=== PATIENT | male | born 1955 | race Two or more races ===

== ENCOUNTER 2020-02-22 06:41 | Day surgery (SDC) | payer MEDICARE, MEDICAID, SELFPAY ==
[2020-02-21 11:15] VITALS: BMI 25.0
--- NOTE | 2020-02-21 13:49 | HO.ANESPROP2 ---
Documented by User: Desi Hernándezney 02/21/20 13:59 HPI - Anesthesia Eval Consult details Narrative: 64yo M for Colonoscopy PMFSH Past Medical History Medical History Alcohol abuse Anemia Anxiety Bigeminal rhythm COPD (chronic obstructive pulmonary disease) Emphysema lung Hepatitis C HIV (human immunodeficiency virus infection) Methadone dependence Opioid dependence PAC (premature atrial contraction) Polio Pulmonary nodule Tobacco abuse Tubular adenoma of colon Surgical History Surgical History History of colonoscopy History of foot surgery History of hip surgery Social History Social History Smoking Status: Current every day smoker Smoked in Last 30 Days: Yes Patient Interested in Nicotine Replacement: No Patient Given Instructions on How to Stop Smoking: No Second Hand Smoke Exposure: No Use of substances other than those prescribed or required for medical reasons: No Advance Directives: No Advance Directives Information Provided: Yes Advance Directives on File: No Narrative Narrative: Cardiology OV 10/2019 = Stable, denies CP/SOB. PACs improved with decrease in ETOH consumption Meds Allergies Allergy/AdvReac Type Severity Reaction Status Date / Time No Known Allergies Allergy Verified 02/21/20 11:21 Home Medications Medication Instructions Recorded Confirmed Type acamprosate 2 tab PO TID 02/21/20 02/21/20 History cholecalciferol (vitamin D3) 1 tab PO DAILY 02/21/20 02/21/20 History dolutegravir [Tivicay] 1 tab PO DAILY 02/21/20 02/21/20 History emtricitabine-tenofovir alafen 1 tab PO DAILY 02/21/20 02/22/20 History [Descovy] ipratropium-albuterol [Combivent 1 puff PO QID 02/21/20 02/21/20 History Respimat] methadone 10 mg PO DAILY 02/21/20 02/21/20 History mirtazapine 1.5 tab PO BEDTIME 02/21/20 02/21/20 History multivitamin 1 tab PO DAILY 02/21/20 02/21/20 History omeprazole 1 cap PO DAILY 02/21/20 02/21/20 History thiamine mononitrate (vit B1) 1 tab PO DAILY 02/21/20 02/21/20 History trazodone 1 - 2 tab PO BEDTIME PRN 02/21/20 02/21/20 History varicella-zoster gE-AS01B (PF) IM 02/21/20 History [Shingrix (PF)] Exam Exam Date and Time: February 21, 2020 1349 Height,Weight and Vital Signs: Height 5 ft 5 in Weight 68.039 kg Pertinent Lab Results Pertinent Lab Results: Laboratory Tests 05/28/19 12/26/19 18:10 20:10 WBC 4.7 L Hgb 15.6 Hct 48.2 Plt Count 172 Sodium 141 Potassium 5.1 D Chloride 104 BUN 10 Creatinine 0.74 Laboratory Tests 02/12/19 08:25 Total Lymphocytes 1763 % CD3 Cells 68 Absolute CD3 Count 1204 % CD4 Cells 42 Absolute CD4 Count 740 T-Lymph CD4/CD8 Ratio 1.65 % CD8 Cells 25 Absolute CD8 Count 449 Narrative Narrative: ECHO 2019: Overall nml study except impared relaxation patter EKG 10/24/19: NSR @ 91 Holter 2019: Basic rhythm NSR, No long pause or profound umer, Rare PVC/PAC, One 6 beat run of PAT Assessment and Plan Assessment Anesthesia Assessment: Chart Reviewed Documented by User: Freda Long 02/22/20 07:29 [facility], [facility] Past Medical History Medical History Alcohol abuse Anemia Anxiety Bigeminal rhythm COPD (chronic obstructive pulmonary disease) Emphysema lung Hepatitis C HIV (human immunodeficiency virus infection) Methadone dependence Opioid dependence PAC (premature atrial contraction) Polio Pulmonary nodule Tobacco abuse Tubular adenoma of colon Surgical History Surgical History History of colonoscopy History of foot surgery History of hip surgery Social History Social History Smoking Status: Current every day smoker Smoked in Last 30 Days: Yes Patient Interested in Nicotine Replacement: No Patient Given Instructions on How to Stop Smoking: No Second Hand Smoke Exposure: No Use of substances other than those prescribed or required for medical reasons: No Advance Directives: No Advance Directives Information Provided: Yes Advance Directives on File: No Meds Allergies Allergy/AdvReac Type Severity Reaction Status Date / Time No Known Allergies Allergy Verified 02/21/20 11:21 Home Medications Medication Instructions Recorded Confirmed Type acamprosate 2 tab PO TID 02/21/20 02/21/20 History cholecalciferol (vitamin D3) 1 tab PO DAILY 02/21/20 02/21/20 History dolutegravir [Tivicay] 1 tab PO DAILY 02/21/20 02/21/20 History emtricitabine-tenofovir alafen 1 tab PO DAILY 02/21/20 02/22/20 History [Descovy] ipratropium-albuterol [Combivent 1 puff PO QID 02/21/20 02/21/20 History Respimat] methadone 10 mg PO DAILY 02/21/20 02/21/20 History mirtazapine 1.5 tab PO BEDTIME 02/21/20 02/21/20 History multivitamin 1 tab PO DAILY 02/21/20 02/21/20 History omeprazole 1 cap PO DAILY 02/21/20 02/21/20 History thiamine mononitrate (vit B1) 1 tab PO DAILY 02/21/20 02/21/20 History trazodone 1 - 2 tab PO BEDTIME PRN 02/21/20 02/21/20 History varicella-zoster gE-AS01B (PF) IM 02/21/20 History [Shingrix (PF)] Assessment and Plan Assessment Anesthesia Assessment: Anesthesia Plan Discussed, Smoking Cess. Discussed, PAT Visit and Chart Reviewed Final Anesthetic Review NPO: Yes ASA Class: II Final Preanesthetic Review: No Changes in Pt Med Stat, Meds/Allgs Chart Reviewed and Consent Obtained/Reviewed Patient Risk: Intermediate Procedure Risk: Low Anesthetic Plan Anesthetic Plan: MAC: Disposition: Standard PACU
[2020-02-22 06:55] VITALS: BP 138/80; PULSE 69; RESP 18; TEMP 36.2; O2SAT 95
[2020-02-22] MEDS: Lactated Ringers 1,000 ML 100 ML IVCONT (07:17)
--- NOTE | 2020-02-22 08:19 | MHC.SHP ---
Pre-Procedural Eval Section A The patient is an INPATIENT: No Changes since office visit: No Cold of Flu in the past 2 weeks, No New Medical Problems, No Changes in Medication and No Patient answered all questions Section B Chief Complaint: Colon Cancer Screening Details of Present Illness: hx of right colon polyp Relevant Family History (Specify if Yes): No Relevant Social History: Tobacco Use Present Medications: see Short Stay Collaborative assessment Medical History: Significant History (HIV, emphysema, ETOH abuse) History of Previous Operations: No relevant previous surgery Allergies: Allergies Allergy/AdvReac Type Severity Reaction Status Date / Time No Known Allergies Allergy Verified 02/21/20 11:21 Review of Systems Sugical H&P ROS: Negative: Constitution, Cardiovascular, Respiratory, Neurological, Psychiatric, Hem-Onc, Allergic/Immunologic, Gastrointestinal, Genitourinary, Musculoskeletal, Integumentary, Endocrine and Eyes/Ears/Nose/Throat Exam Surgical H&P Exam: Normal: HEENT, Normal: Heart, Normal: Lungs, Normal: Extremities, Normal: Abdomen, Normal: Skin and Normal: Neurological Plan Diagnosis/Plan: Unchanged Patient has been examined and remains a candidate for the planned procedure
[2020-02-22 08:48] VITALS: BP 131/76; PULSE 64; RESP 14; TEMP 36.8; O2SAT 98
--- NOTE | 2020-02-22 08:50 | PM.OP ---
Brief Operative Note Date of procedure: 02/22/20 Pre-op diagnosis: hx of adenoma Post-op diagnosis: same Procedure: colonoscopy Surgeon: William Lomeli MD Anesthesia: MAC Estimated blood loss (mL): 0 Condition: stable Disposition: PACU
[2020-02-22 08:53] VITALS: BP 122/75; PULSE 64; RESP 17; O2SAT 98
[2020-02-22 09:08] VITALS: BP 150/93; PULSE 70; RESP 20; TEMP 36.5; O2SAT 97
--- NOTE | 2020-02-22 09:40 | OP_ITS ---
SURGEON: William Lomeli MD INDICATIONS: The patient is a 64-year-old male with a large adenoma removed from the right colon in 2014. In view of this, I recommended a followup colonoscopy in 5 years. He understood the technique of the procedure. He was aware of the risks, benefits, and alternatives. PREOPERATIVE DIAGNOSIS: History of large polyp. POSTOPERATIVE DIAGNOSIS: Normal colonoscopy findings except for large external hemorrhoids and internal hemorrhoids. PROCEDURE PERFORMED: Colonoscopy. ESTIMATED BLOOD LOSS: COMPLICATIONS: ANESTHESIA: ASSISTANTS: SPECIMENS: DESCRIPTION OF PROCEDURE: He was brought to the operating room, placed in left lateral decubitus position under monitored anesthesia care. A full digital rectal exam was done. He did have large external and internal hemorrhoids. I proceeded to gently advance the scope with insufflation all the way to the cecum. The cecum was intubated. The cecum was identified by visualization of the ileocecal valve as well as appendiceal orifice. The cecal mucosa was unremarkable. The scope was gradually withdrawn with careful examination of the entire colonic mucosa being done with scope withdrawal. I made multiple passes in the right colon and there were no lesions or any polyps seen. We continued to withdraw the scope. The patient had good bowel prep, so it was unlikely that any lesion may have been missed. The rectum was reached and there were no lesions seen. There was bulky internal hemorrhoids. The scope was then withdrawn completely. The patient tolerated the procedure well. There were no complications noted. In view of these above findings, he falls at average risk for colon cancer, so his next colonoscopy may be in the next 10 years. MD [address]RISTIN Way/IKERL / [id number]
== END 2020-02-22 09:30 | disposition home or self-care (01) ==
PROVIDERS: Visit Provider Surgery
PROC: 0DJD8ZZ Inspection of Lower Intestinal Tract, Via Natural or Artificial Opening Endoscopic (ICD-10-PCS; CPT 45378; principal; 2020-02-22 07:30)
DX: Z12.11 Encounter for screening for malignant neoplasm of colon (principal); Z86.010 Personal history of colon polyps; K64.8 Other hemorrhoids; K64.4 Residual hemorrhoidal skin tags; J44.9 Chronic obstructive pulmonary disease, unspecified; B20 Human immunodeficiency virus [HIV] disease; Z79.899 Other long term (current) drug therapy; B19.20 Unspecified viral hepatitis C without hepatic coma; F10.10 Alcohol abuse, uncomplicated; F11.20 Opioid dependence, uncomplicated; F17.210 Nicotine dependence, cigarettes, uncomplicated; Z86.12 Personal history of poliomyelitis; Z79.51 Long term (current) use of inhaled steroids
CPT/HCPCS: G0105

== ENCOUNTER 2020-06-20 11:36 | Outpatient (REF) | payer MEDICARE, MEDICAID, SELFPAY ==
--- NOTE | ~2020-06-20 | CT_ITS ---
EXAMINATION: CT CHEST WITHOUT CONTRAST CLINICAL INFORMATION: Right upper lobe pulmonary nodule COMPARISON: 05/07/2019, 11/15/2018, and 10/14/2017 TECHNIQUE: Multidetector volumetric CT imaging of the chest was done. Axial MIP volume rendering provided. Sagittal and coronal reformatted images were obtained. This CT examination was performed using dose optimization techniques as appropriate, variously including the following: *Automated exposure control *Adjustment of mA and/or kV according to patient size (this includes techniques or standardized protocols for targeted exams where dose is matched to indication/reason for exam; i.e. extremities or head) *Use of iterative reconstruction technique DLP: 156 mGy-cm FINDINGS: LUNGS: Central airways are patent. There are prominent changes of centrilobular and paraseptal emphysema bilaterally which is similar in appearance to previous study of 05/07/2019. There is some mild bronchial wall thickening evident within the basilar segments of the right and left lower lobes. There is mild cylindrical bronchiectasis in the basilar segments bilaterally. There has been improvement in previously noted bilateral lower lobe disease which most likely related to atelectasis at that time. There are a few 4 mm or smaller intrafissural lymph nodes present. There are some scattered calcified granulomas and question broncholiths. About the left apex there is more of a linear calcification present and question if patient had previous surgery in this location such as bullectomy/tacking down pleural surface. There is again noted to be a stable 7 x 5 mm density within the right upper lobe which is not calcified on image 89 of 556 in series #5. There is some stable adjacent ground-glass opacity seen. There is a 4 mm noncalcified density adjacent to major fissure in the right upper lobe on image 129 of 556. This is stable. MEDIASTINUM: Heart normal size. Coronary artery calcification present. No pericardial effusion. No thoracic aortic aneurysm. No mediastinal or hilar lymphadenopathy appreciated. PLEURA: There is no pleural effusion. No pleural mass or thickening. AXILLA: No lymphadenopathy. UPPER ABDOMEN: There is a small hiatal hernia. OSSEOUS STRUCTURES: No suspicious destructive bony lesion identified. There is severe degenerative change of the right shoulder with loss of the glenohumeral joint space with spurring and sclerosis and subchondral cyst formation. There is degenerative change of the left shoulder but with joint space still being present. Subchondral cyst formation is seen. CT/CT chest wo con IMPRESSION: Severe changes of centrilobular and paraseptal emphysema. Stable parenchymal densities with no new more suspicious lesion appreciated. Old granulomatous disease.
== END 2020-06-20 11:37 | disposition home or self-care (01) ==
LOC: HO.CT 11:36
PROVIDERS: PCP Family Medicine; Visit Provider Surgery
DX: R91.1 Solitary pulmonary nodule (principal)
CPT/HCPCS: 71250

== ENCOUNTER → 2020-08-01 09:21 | Outpatient (BNVA) | payer MEDICARE, MEDICAID, SELFPAY | PROVIDERS: PCP Family Medicine; Visit Provider Surgery | DX: R91.1 Solitary pulmonary nodule (principal); F17.210 Nicotine dependence, cigarettes, uncomplicated; Z79.899 Other long term (current) drug therapy | CPT/HCPCS: 99212 ==

== ENCOUNTER 2020-08-24 19:38 | Emergency (ER) | payer MEDICARE, MEDICAID, SELFPAY ==
--- NOTE | 2020-08-24 19:41 | ED.ALCOHOL ---
HPI - Alcohol General Chief Complaint: General Medical Stated Complaint: ams Time Seen by Provider: 08/24/20 19:41 Source: patient and EMS Mode of arrival: EMS Limitations: no limitations History of Present Illness HPI narrative: 65 yo male ETOH, COPD, GERD, WC bound drinking at home watching cartoons [facility] called EMS states he was acting weird, patient alert and oriented x 4 with EMS wanted to refuse transport, states he should be allowed to drink in his home and watch cartoons, no trauma reported BS 121 MD complaint: alcohol dependence Last drink: Just prior to admission Chronic alcohol use: Yes Previous visits for alcohol intoxication: Yes Recent trauma: No Associated symptoms: denies other symptoms Treatments prior to arrival: none Related Data Home Medications Medication Instructions Recorded Confirmed acamprosate 2 tab PO TID 02/21/20 08/01/20 cholecalciferol (vitamin D3) 1 tab PO DAILY 02/21/20 08/01/20 dolutegravir [Tivicay] 1 tab PO DAILY 02/21/20 08/01/20 emtricitabine-tenofovir alafen 1 tab PO DAILY 02/21/20 08/01/20 [Descovy] ipratropium-albuterol [Combivent 1 puff PO QID 02/21/20 08/01/20 Respimat] methadone 10 mg PO DAILY 02/21/20 08/01/20 mirtazapine 1.5 tab PO BEDTIME 02/21/20 08/01/20 multivitamin 1 tab PO DAILY 02/21/20 08/01/20 omeprazole 1 cap PO DAILY 02/21/20 08/01/20 thiamine mononitrate (vit B1) 1 tab PO DAILY 02/21/20 08/01/20 trazodone 1 - 2 tab PO BEDTIME PRN 02/21/20 08/01/20 varicella-zoster gE-AS01B (PF) IM 02/21/20 08/01/20 [Shingrix (PF)] Allergies Allergy/AdvReac Type Severity Reaction Status Date / Time No Known Allergies Allergy Verified 08/01/20 09:29 Review of Systems Review of Systems: Constitutional : No Fever, No Chills ENT/Mouth : No sore throat, No Rhinorrhea Eyes: No Eye Pain, No Swelling Cardiovascular : No Chest Pain, No SOB Respiratory : No Cough, No Sputum, No Wheezing Gastrointestinal : No Nausea, No Vomiting, No Diarrhea, No abdominal Pain Genitourinary : No Dysuria, No Urinary Frequency Musculoskeletal : No joint pain, No Myalgias Skin : No Skin Lesions, No rash Neuro : No Weakness, No Numbness, No Dizziness, No Headache Psych : No Anxiety/Panic, No Depression [facility] Past Medical History Attestation statement: The following information was validated with the patient. Medical History Alcohol abuse Anemia Anxiety Bigeminal rhythm COPD (chronic obstructive pulmonary disease) Emphysema lung Hepatitis C HIV (human immunodeficiency virus infection) Methadone dependence Opioid dependence PAC (premature atrial contraction) Polio Pulmonary nodule Tobacco abuse Tubular adenoma of colon Surgical History History of colonoscopy History of foot surgery History of hip surgery Social History Social History Alcohol intake: current Alcohol intake frequency: a few times a week Alcohol type: beer and hard liquor Smoking Status: Never smoker Cigarettes Per Day: 5.0 Second Hand Smoke Exposure: No Use of substances other than those prescribed or required for medical reasons: No Advance Directives: No Physical Exam Vital Signs: Vital Signs: Last Vital Signs Temp 97.6 F 08/24/20 19:52 Pulse 88 08/24/20 19:52 Resp 18 08/24/20 19:52 BP 132/89 08/24/20 19:52 Pulse Ox 94 08/24/20 19:52 Body Mass Index 20.5 Appearance: Alert. Oriented X3. No acute distress. Eyes: Pupils equal, round and reactive to light. ENT: Pharynx normal. Neck: Normal inspection. Neck supple. CVS: Normal heart rate and rhythm. Pulses normal. Respiratory: No respiratory distress. Breath sounds normal. Abdomen: Soft and nontender. Skin: Skin warm and dry. Normal skin color. Normal skin turgor. Extremities: No lower extremity edema. No calf ttp Neuro: Oriented X 3. No focal deficits, uses wheelchair MDM - Alcohol MDM Narrative Medical decision making narrative: 65 yo male with GERD, HIV, COPD, chronic pain and ETOH abuse comes in after [facility] [facility] told EMS he was watching cartoons, drinking and talking to himself - the patient states he does this all the time, he is alert and oriented x 4, appropriate, states he likes cartoons in fact he has a cheri roman, BS 121 with EMS, admits to daily drinking, has no signs of trauma, he is appropriate does not appear severely intoxicated answering all questions, refusing care and wants to go home - states he should be allowed to drink in his own home and watch cartoons, RN to call [employer] [facility], I cannot keep the patient against its will at this time Discharge Plan Discharge Clinical Impression: Alcohol intoxication Qualifiers: Complication of substance-induced condition: uncomplicated Qualified Code(s): F10.920 - Alcohol use, unspecified with intoxication, uncomplicated Patient Disposition: Home, Self-Care Instructions: Alcohol Intoxication (ED) Additional Instructions: return to ED for any worsening symptoms or concerns Prescriptions: No Action multivitamin Tablet 1 tab PO DAILY RF: 0 methadone 10 mg Tablet 10 mg PO DAILY RF: 0 trazodone 100 mg tablet 1 - 2 tab PO BEDTIME PRN (Reason: Sleep) RF: 0 omeprazole 20 mg capsule,delayed release(DR/EC) 1 cap PO DAILY RF: 0 mirtazapine 15 mg tablet 1.5 tab PO BEDTIME RF: 0 acamprosate 333 mg tablet,delayed release (DR/EC) 2 tab PO TID RF: 0 cholecalciferol (vitamin D3) 50 mcg (2,000 unit) tablet 1 tab PO DAILY RF: 0 thiamine mononitrate (vit B1) 100 mg tablet 1 tab PO DAILY RF: 0 Tivicay 50 mg tablet 1 tab PO DAILY RF: 0 Combivent Respimat 20-100 mcg/actuation mist 1 puff PO QID RF: 0 Descovy 200-25 mg tablet 1 tab PO DAILY RF: 0 Shingrix (PF) 50 mcg/0.5 mL suspension for reconstitution IM RF: 0
[2020-08-24 19:52] VITALS: BP 132/89; PULSE 88; RESP 18; TEMP 36.4; O2SAT 94; BMI 20.5
== END 2020-08-24 20:59 | disposition home or self-care (01) ==
LOC: HO.ED 19:55
PROVIDERS: Emergency Provider Emergency Medicine
DX: F10.220 Alcohol dependence with intoxication, uncomplicated (principal); Y90.9 Presence of alcohol in blood, level not specified; J44.9 Chronic obstructive pulmonary disease, unspecified; K21.9 Gastro-esophageal reflux disease without esophagitis; F11.20 Opioid dependence, uncomplicated; B20 Human immunodeficiency virus [HIV] disease
CPT/HCPCS: 99284

== ENCOUNTER → 2020-11-20 12:51 | Outpatient (BNVA) | payer MEDICARE, MEDICAID, SELFPAY | PROVIDERS: Referring Provider Family Medicine; Visit Provider Internal Medicine Cardiovascular Disease | DX: I49.8 Other specified cardiac arrhythmias (principal); F11.20 Opioid dependence, uncomplicated | CPT/HCPCS: 93005; 99212 ==

== ENCOUNTER 2021-01-29 08:47 | Outpatient (REF) | payer MEDICARE, MEDICAID, SELFPAY ==
--- NOTE | ~2021-01-29 | US_ITS ---
EXAMINATION: US ABDOMEN COMPLETE CLINICAL INFORMATION: Diseases of the digestive system. COMPARISON: Abdominal ultrasound 10/09/2018 TECHNIQUE: Real-time imaging of the abdominal viscera. Exam is limited due to patient body habitus and bowel gas. FINDINGS: PANCREAS: Not well visualized due to bowel gas ABDOMINAL AORTA: Not well visualized due to bowel gas INFERIOR VENA CAVA: Visualized portions are normal. LIVER: The liver is normal in size. The liver contour is normal. Liver echotexture is increased. No focal hepatic lesion. There is no intrahepatic biliary duct dilatation seen. GALLBLADDER: There is a gallstone in the gallbladder. The gallbladder is normal in size. The gallbladder wall is normal. COMMON BILE DUCT: Normal in caliber measuring 0.38 cm in diameter. RIGHT KIDNEY: Normal. No hydronephrosis. No renal calculi or focal parenchymal lesions. The kidney measures 11.3 cm in maximum dimension. LEFT KIDNEY: Normal. No hydronephrosis. No renal calculi or focal parenchymal lesions. The kidney measures 10.2 cm in maximum dimension. SPLEEN: Normal. The spleen measures 8.7 cm in maximum dimension. FREE FLUID: None. US/US abdomen complete IMPRESSION: Echogenic liver. Gallstone. Limited visualization of the pancreas and aorta.
== END 2021-01-29 08:48 | disposition home or self-care (01) ==
LOC: HO.US 08:47
PROVIDERS: PCP Family Medicine; Visit Provider Family Medicine
DX: Z87.19 Personal history of other diseases of the digestive system (principal)
CPT/HCPCS: 76700

== ENCOUNTER 2021-02-26 18:21 | Emergency (ER) | payer MEDICARE, MEDICAID, SELFPAY ==
--- NOTE | ~2021-02-26 | CT_ITS ---
EXAMINATION: CT HEAD WITHOUT CONTRAST (STROKE PROTOCOL) CLINICAL INFORMATION: Stroke protocol. Left-sided weakness COMPARISON: 05.02.2017 TECHNIQUE: Contiguous axial imaging was performed from the skull base to vertex without intravenous administration of contrast. This CT examination was performed using dose optimization techniques as appropriate, variously including the following: *Automated exposure control *Adjustment of mA and/or kV according to patient size (this includes techniques or standardized protocols for targeted exams where dose is matched to indication/reason for exam; i.e. extremities or head) *Use of iterative reconstruction technique DLP: 673 mGy-cm FINDINGS: There is no intracranial hemorrhage, hematoma, or extra-axial fluid collection. The ventricles are normal in size. There is no hydrocephalus, edema, or mass effect. The robb-white matter differentiation appears symmetric. There is no acute infarct or mass lesion. Patchy subcortical and periventricular white matter low-attenuation changes statistically related to chronic white matter small vessel ischemic disease. Cavernous carotid calcifications. The calvarium appears intact. There is no pneumocephalus or orbital emphysema. The visualized sinuses and middle ears and mastoid air cells show no significant mucosal thickening. There are no air-fluid levels. CT/CT head for stroke IMPRESSION: No acute intracranial pathology. This critical result was discussed with Elmer Trevino MD at 02/26/2021 7:10 PM and it was ascertained that the content and urgency of the report was understood at the time of direct communication.
[2021-02-26 18:34] VITALS: BP 136/91; PULSE 96; RESP 96; O2SAT 98; BMI 22.4
--- NOTE | 2021-02-26 18:47 | ECG_ITS ---
Test Reason : ? storke Blood Pressure : / mmHG Vent. Rate : 079 BPM Atrial Rate : 079 BPM P-R Int : 164 ms QRS Dur : 106 ms QT Int : 418 ms P-R-T Axes : 047 054 062 degrees QTc Int : 479 ms Normal sinus rhythm Low voltage QRS Intra-ventricular conduction delay Nonspecific ST abnormality Abnormal ECG No Previous EKG's Referred By: Elmer Lopes Electronically Signed By:PETER OLIVAS MD
--- NOTE | 2021-02-26 18:52 | ED.NEUROSD ---
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 Patient felt slightly weak in the left arm also has paraplegia secondary to polio with minimal movements of the lower extremity no headache never had similar complaints in the past Related Data Home Medications Medication Instructions Recorded Confirmed acamprosate 333 mg tablet,delayed 2 tab PO TID 02/21/20 08/01/20 release cholecalciferol (vitamin D3) 50 1 tab PO DAILY 02/21/20 08/01/20 mcg (2,000 unit) tablet dolutegravir 50 mg tablet (Tivicay) 1 tab PO DAILY 02/21/20 08/01/20 emtricitabine 200 mg-tenofovir 1 tab PO DAILY 02/21/20 08/01/20 alafenamide fumarate 25 mg tablet (Descovy) ipratropium 20 mcg-albuterol 100 1 puff PO QID 02/21/20 08/01/20 mcg/actuation mist for inhalation (Combivent Respimat) methadone 10 mg tablet 10 mg PO DAILY 02/21/20 08/01/20 mirtazapine 15 mg tablet 1.5 tab PO BEDTIME 02/21/20 08/01/20 multivitamin 1 tab PO DAILY 02/21/20 08/01/20 omeprazole 20 mg capsule,delayed 1 cap PO DAILY 02/21/20 08/01/20 release thiamine mononitrate (vit B1) 100 1 tab PO DAILY 02/21/20 08/01/20 mg tablet trazodone 100 mg tablet 1 - 2 tab PO BEDTIME PRN 02/21/20 08/01/20 varicella-zoster glycoE [id number] IM 02/21/20 08/01/20 adj(PF) 50 mcg/0.5 mL IM susp, kit (Shingrix (PF)) Allergies Allergy/AdvReac Type Severity Reaction Status Date / Time No Known Allergies Allergy Verified 11/20/20 13:24 Review of Systems Review of Systems: Yes all other systems are reviewed and are negative [facility] Past Medical History Medical History Alcohol abuse Anemia Anxiety Bigeminal rhythm COPD (chronic obstructive pulmonary disease) Emphysema lung Hepatitis C HIV (human immunodeficiency virus infection) Methadone dependence Opioid dependence PAC (premature atrial contraction) Polio Pulmonary nodule Tobacco abuse Tubular adenoma of colon Surgical History History of colonoscopy History of foot surgery History of hip surgery Social History Social History Alcohol intake: current Alcohol intake frequency: 3 or more drinks per day Alcohol type: beer and hard liquor Patient Tobacco Use Status: Current everyday Tobacco user Tobacco use type: Cigarette Cigarettes Per Day: 2.0 Second Hand Smoke Exposure: No Use of substances other than those prescribed or required for medical reasons: Yes Substance Use Type: Heroin Substance Use Frequency: Chronic Longstanding Last Used Substance: Hours (ago) Any prior treatment program specific to substance use: No Advance Directives: No Advance Directives Information Provided: Yes Physical Exam Vital Signs: Vital Signs: Last Vital Signs Pulse 72 02/26/21 19:32 Resp 12 02/26/21 19:32 BP 120/73 02/26/21 19:32 Pulse Ox 93 02/26/21 19:32 Body Mass Index 24.6 Appearance: Alert. Oriented X3. No acute distress. Eyes: PERRLA, No Nystagmus ENT: Pharynx normal. Oral Mucosa moist Neck: Normal inspection. Neck supple. CVS: Normal heart rate and rhythm. Pulses normal. Respiratory: No respiratory distress. Equal air entry bilateral, no wheezing/rales/rhonchi Abdomen: Soft and nontender. Bowel sounds are present, no mass palpable, no CVA tenderness Skin: Skin warm and dry. Normal skin color. Normal skin turgor. Extremities: No lower extremity edema. No calf tenderness Neuro: Oriented X 3. Paraparesis, able to stand up with crutches, no pronator drift No sensory deficit.No cerebellar signs , slow to speak no significant facial droop MDM - Neuro Symptoms/Deficit MDM Narrative Medical decision making narrative: 19:[address] scan of the head is negative for acute stroke. On further discussion patient said patient had few drinks today and had 1 bag of dope 20:40 patient ambulatory at his baseline talking normally no facial droop noticed workup negative likely patient sent from substance abuse and alcohol will discharge patient home Lab Data Attestation: I reviewed the patient's lab results. Result diagrams: 02/26/21 19:33 02/26/21 19:33 Labs: Lab Results 02/26/21 02/26/21 02/26/21 Range/Units 18:51 18:51 19:33 WBC 4.6 L (4.8-10.8) X10*3/uL RBC 4.94 (4.60-5.80) X10*6/uL Hgb 14.6 (14.0-18.0) g/dl Hct 43.4 (42.0-52.0) % MCV 87.9 (80.0-98.0) fL MCH 29.6 (27.0-33.0) pg MCHC 33.6 (31.0-36.0) g/dl RDW 14.0 (11.0-16.0) % Plt Count 211 (160-400) X10*3/uL MPV 9.4 (9.4-12.4) fL Immature Gran % (Auto) 0.2 (0.0-0.4) % Neut % (Auto) 50.4 (45-73) % Lymph % (Auto) 32.0 (20-40) % [place] % (Auto) 10.0 (2-11) % Eos % (Auto) 6.5 H (0-4) % Baso % (Auto) 0.9 (0-2) % Lymph # (Auto) 1.5 (1.2-4.9) X10*3/uL [place] # (Auto) 0.5 (0.1-1.2) X10*3/uL Eos # (Auto) 0.3 (0.0-0.4) X10*3/uL Baso # (Auto) 0.0 (0.0-0.2) X10*3/uL Abs Immat Gran (auto) 0.01 (0.00-0.03) X10*3/uL Absolute Neuts (auto) 2.3 (2.0-8.3) x10*3/uL Absolute Nucleated RBC 0.000 (0.0-0.012) X10*3/uL Nucleated RBC % (auto) 0.0 (0.0-0.2) /100WBC PT (9.9-13.0) SEC Whole Blood PT 12.6 (11.1-13.5) sec INR (0.9-1.1) Whole Blood INR 1.1 (0.9-1.1) Sodium (135-145) mmol/L Potassium (3.3-5.1) mmol/L Chloride (96-108) mmol/L Carbon Dioxide (22-29) mmol/L Anion Gap (12-20) BUN (9-16) mg/dL Creatinine (0.5-1.4) mg/dL Estim Creat Clear Calc Estimated GFR POC Glucose 94 (60-115) mg/dL Random Glucose (60-115) mg/dL Calcium (8.4-10.2) mg/dL Ethyl Alcohol mg/dL 02/26/21 02/26/21 02/26/21 Range/Units 19:33 19:33 19:33 WBC (4.8-10.8) X10*3/uL RBC (4.60-5.80) X10*6/uL Hgb (14.0-18.0) g/dl Hct (42.0-52.0) % MCV (80.0-98.0) fL MCH (27.0-33.0) pg MCHC (31.0-36.0) g/dl RDW (11.0-16.0) % Plt Count (160-400) X10*3/uL MPV (9.4-12.4) fL Immature Gran % (Auto) (0.0-0.4) % Neut % (Auto) (45-73) % Lymph % (Auto) (20-40) % [place] % (Auto) (2-11) % Eos % (Auto) (0-4) % Baso % (Auto) (0-2) % Lymph # (Auto) (1.2-4.9) X10*3/uL [place] # (Auto) (0.1-1.2) X10*3/uL Eos # (Auto) (0.0-0.4) X10*3/uL Baso # (Auto) (0.0-0.2) X10*3/uL Abs Immat Gran (auto) (0.00-0.03) X10*3/uL Absolute Neuts (auto) (2.0-8.3) x10*3/uL Absolute Nucleated RBC (0.0-0.012) X10*3/uL Nucleated RBC % (auto) (0.0-0.2) /100WBC PT 11.5 (9.9-13.0) SEC Whole Blood PT (11.1-13.5) sec INR 1.0 (0.9-1.1) Whole Blood INR (0.9-1.1) Sodium 137 (135-145) mmol/L Potassium 4.0 (3.3-5.1) mmol/L Chloride 96 (96-108) mmol/L Carbon Dioxide 31 H (22-29) mmol/L Anion Gap 14 (12-20) BUN 10 (9-16) mg/dL Creatinine 0.73 (0.5-1.4) mg/dL Estim Creat Clear Calc 88.9 Estimated GFR > 60 POC Glucose (60-115) mg/dL Random Glucose 102 (60-115) mg/dL Calcium 8.6 (8.4-10.2) mg/dL Ethyl Alcohol 138 mg/dL ECG Data Attestation: I personally reviewed and interpreted this ECG as follows: Interpretation: Normal sinus rhythm heart rate 79 beats per minute normal intervals normal axis no acute ischemia NIH Stroke Scale Internal: Initial- Upon Arrival Level of Consciousness: Alert Level of Consciousness Questions: Answers both questions correctly Level of Consciousness Commands: Performs both tasks correctly Best Gaze: Normal Visual: No visual loss Facial Palsy: Normal Motor Arm (Right): No drift Motor Arm (Left): No drift Limb Ataxia: Absent Sensory: Normal Best Language: No aphasia Dysarthia: Mild to moderate dysarthria Extinction and Inattention: No abnormality Discharge Plan Discharge Clinical Impression: Alcohol abuse Transient cerebral ischemia Qualifiers: Transient cerebral ischemia type: unspecified Qualified Code(s): G45.9 - Transient cerebral ischemic attack, unspecified Patient Disposition: Home, Self-Care Instructions: Transient Ischemic Attack (ED), Abuse of Alcohol (ED) Additional Instructions: Stop drinking alcohol and do not take heroin Follow-up with PCP/detox Prescriptions: No Action multivitamin Tablet 1 tab PO DAILY RF: 0 methadone 10 mg Tablet 10 mg PO DAILY RF: 0 trazodone 100 mg tablet 1 - 2 tab PO BEDTIME PRN (Reason: Sleep) RF: 0 omeprazole 20 mg capsule,delayed release(DR/EC) 1 cap PO DAILY RF: 0 mirtazapine 15 mg tablet 1.5 tab PO BEDTIME RF: 0 acamprosate 333 mg tablet,delayed release (DR/EC) 2 tab PO TID RF: 0 cholecalciferol (vitamin D3) 50 mcg (2,000 unit) tablet 1 tab PO DAILY RF: 0 thiamine mononitrate (vit B1) 100 mg tablet 1 tab PO DAILY RF: 0 Tivicay 50 mg tablet 1 tab PO DAILY RF: 0 Combivent Respimat 20-100 mcg/actuation mist 1 puff PO QID RF: 0 Descovy 200-25 mg tablet 1 tab PO DAILY RF: 0 Shingrix (PF) 50 mcg/0.5 mL suspension for reconstitution IM RF: 0
[2021-02-26 18:56] LABS: Glucose, Whole Blood 94 mg/dL (60-115)
--- NOTE | 2021-02-26 19:10 | PC.NURSE ---
patient on ct scan table refusing iv access, one attempt was made by arlin casanova for access. once attempt made for iv patient screaming butterfly only . yelling to have iv taken out prior to gaining access. patient able to scoot himself over onto a weighted bed. eight is 67.1 kg. patient asking this rn to organize his belongings in his room and for lotion for his dry skin. informing patient that this rn and staff is concerned over the complaint patient came in with for stroke like symptoms. patient able to move both arms equally. patient having no change to speech according to patient. able to stand and pivot to the ct scan table without difficulty.
--- NOTE | 2021-02-26 19:21 | PC.NURSE ---
PATIENT HAVING NO DEFICITS, EVALUATED BY THIS RN AND . PATIENT IS ALERT AND ORIENTED NO DISTRESS NOTED. PATIENT RETURNING TO ROOM AND EKG OBTAINED. PATIENT STATING HE HAD A FEW BEERS TODAY AND A NIP AND 1 BAG OF DOPE THIS AFTERNOON. PATIENT HAS A HISTORY OF POLIO AND DOES NOT AMBULATE OR HAVING MUCH MOBILITY IN THE LOWER EXTREMITIES. PATIENT WAS ABLE TO STAND AND PIVOT TO THE CT TABLE WITHOUT DIFFICULTY. NO FURTHER ATTEMPT MADE FOR IV ACCESS. ATTEMPTS MADE FOR LABS.
[2021-02-26 19:26] LABS: Prothrombin Time Whole Bld POC 12.6 sec (11.1-13.5); ~PT, ~INR - Anti Coag Clinic 1.1 (0.9-1.1)
[2021-02-26 19:32] VITALS: BP 120/73; PULSE 72; RESP 12; O2SAT 93
[2021-02-26 19:36] VITALS: BMI 24.6
[2021-02-26 19:38] LABS: MANUAL DIFF FLAG NO
[2021-02-26 19:39] LABS: Basophils Percent Auto 0.9 % (0-2); Eosinophils Absolute Auto 0.3 X10*3/uL (0.0-0.4); Eosinophils Percent Auto 6.5 % (0-4); Hematocrit 43.4 % (42.0-52.0); Hemoglobin 14.6 g/dl (14.0-18.0); Imm Gran Abs Auto 0.01 X10*3/uL (0.00-0.03); Imm Gran Pct Auto 0.2 % (0.0-0.4); Lymphocytes Absolute Auto 1.5 X10*3/uL (1.2-4.9); Mean Corpuscular HGB Conc 33.6 g/dl (31.0-36.0); Mean Corpuscular Hemoglobin 29.6 pg (27.0-33.0); Mean Corpuscular Volume 87.9 fL (80.0-98.0); Mean Platelet Volume 9.4 fL (9.4-12.4); Monocytes Absolute Auto 0.5 X10*3/uL (0.1-1.2); Neutrophils Absolute Auto 2.3 x10*3/uL (2.0-8.3); Neutrophils Percent Auto 50.4 % (45-73); Platelet Count 211 X10*3/uL (160-400); Red Blood Count 4.94 X10*6/uL (4.60-5.80); White Blood Count 4.6 X10*3/uL (4.8-10.8)
[2021-02-26 19:47] LABS: Prothrombin Time 11.5 SEC (9.9-13.0)
[2021-02-26 19:49] LABS: Stroke Lab Use COMPLETE
[2021-02-26 19:55] LABS: Ethanol 138 mg/dL
[2021-02-26 19:56] LABS: Anion Gap 14 (12-20); Blood Urea Nitrogen 10 mg/dL (9-16); Calcium 8.6 mg/dL (8.4-10.2); Carbon Dioxide 31 mmol/L (22-29); Chloride 96 mmol/L (96-108); Creatinine Clr Calc Pharmacy 88.9; Estimated Glomerular Filt Rate > 60; Glucose Random 102 mg/dL (60-115); Sodium 137 mmol/L (135-145)
--- NOTE | 2021-02-26 20:41 | PC.NURSE ---
PATIENT CALLING HIS RIDE HOME, PATIENT ABLE TO DRESS HIMSELF NO DISTRESS NOTED. CHRISTY IS Michelle Almanza,W. TO REEVALUATE
== END 2021-02-26 21:03 | disposition home or self-care (01) ==
PROVIDERS: Emergency Provider Internal Medicine; PCP Family Medicine
DX: G45.9 Transient cerebral ischemic attack, unspecified (principal); F10.10 Alcohol abuse, uncomplicated; G82.20 Paraplegia, unspecified; J44.9 Chronic obstructive pulmonary disease, unspecified; Z21 Asymptomatic human immunodeficiency virus [HIV] infection status; F11.20 Opioid dependence, uncomplicated; Z86.19 Personal history of other infectious and parasitic diseases; Z99.3 Dependence on wheelchair
CPT/HCPCS: 36415; 70450; 80048; 82077; 82947; 85025; 85610; 93005; 99284

== ENCOUNTER 2021-03-24 10:50 | Outpatient (REF) | payer MEDICARE, MEDICAID, SELFPAY ==
--- NOTE | ~2021-03-24 | MR_ITS ---
EXAMINATION: MRI OF THE BRAIN WITHOUT CONTRAST CLINICAL INFORMATION: History of TIA. Assess for ischemic stroke. COMPARISON: CT scan of the head 02/26/2021. TECHNIQUE: MRI of the brain was obtained using routine sequences without contrast. FINDINGS: There is a small focus of slightly increased diffusion signal with isointense ADC map signal and with corresponding hyperintense FLAIR signal in the anterior right frontal lobe inferiorly and medially, consistent with a subacute infarct. There is no evidence of hemorrhage. No diffusion abnormalities are seen elsewhere. No mass effect or midline shift is seen. There is commensurate prominence of the ventricles and sulci consistent with mild diffuse volume loss. There are moderate scattered areas of hyperintense T2 and FLAIR signal in the periventricular and subcortical white matter and in the right cerebral peduncle, most consistent with chronic microvascular ischemic changes. No extra-axial fluid collections are seen. The brainstem and cerebellum are normal. No pathologic magnetic susceptibility artifact is identified on the gradient refocused acquisition. The craniovertebral junction, marrow signal, and midline structures are normal. The major intracranial flow-voids at the level of the [place] are preserved. There are severe spondylitic changes in the upper cervical spine with marked narrowing of intervertebral disc height and endplate signal changes at C3-C4. The dural venous sinus flow-voids are maintained. The mastoid air cells are well-aerated. There is mild mucoperiosteal thickening of the bilateral maxillary and ethmoid sinuses. MR/MR head/brain wo con IMPRESSION: 1. There is a small focus of increased diffusion signal without restriction in the right frontal lobe, consistent with a subacute infarct. There is no evidence of hemorrhage. No masses are demonstrated. 2. There is diffuse volume loss and there are chronic microvascular ischemic changes. 3. There are severe spondylitic changes in the cervical spine which could be further evaluated with MRI scan if clinically indicated.
== END 2021-03-24 10:51 | disposition home or self-care (01) ==
LOC: HO.MRI 10:50
PROVIDERS: Visit Provider Nurse Practitioner Family
DX: G45.9 Transient cerebral ischemic attack, unspecified (principal)
CPT/HCPCS: 70551

== ENCOUNTER 2021-03-30 10:14 | Outpatient (REF) | payer MEDICARE, MEDICAID, SELFPAY ==
[2021-03-30 11:55] LABS: MANUAL DIFF FLAG NO
[2021-03-30 12:50] LABS: Basophils Percent Auto 0.5 % (0-2); Eosinophils Absolute Auto 0.3 X10*3/uL (0.0-0.4); Eosinophils Percent Auto 4.1 % (0-4); Hemoglobin 14.6 g/dl (14.0-18.0); Imm Gran Abs Auto 0.01 X10*3/uL (0.00-0.03); Imm Gran Pct Auto 0.2 % (0.0-0.4); Lymphocytes Absolute Auto 1.5 X10*3/uL (1.2-4.9); Lymphocytes Percent Auto 24.8 % (20-40); Mean Corpuscular HGB Conc 33.2 g/dl (31.0-36.0); Mean Corpuscular Hemoglobin 29.5 pg (27.0-33.0); Mean Corpuscular Volume 88.9 fL (80.0-98.0); Mean Platelet Volume 9.7 fL (9.4-12.4); Monocytes Absolute Auto 0.5 X10*3/uL (0.1-1.2); Monocytes Percent Auto 8.9 % (2-11); Neutrophils Absolute Auto 3.7 x10*3/uL (2.0-8.3); Neutrophils Percent Auto 61.5 % (45-73); Platelet Count 217 X10*3/uL (160-400); Red Blood Count 4.95 X10*6/uL (4.60-5.80); Red Cell Distribution Width 15.7 % (11.0-16.0); White Blood Count 6.1 X10*3/uL (4.8-10.8)
[2021-03-30 13:18] LABS: Alanine Aminotransferase 22 U/L (0-40); Alkaline Phosphatase 138 U/L (39-117); Anion Gap 12 (12-20); Aspartate Amino Transferase 34 U/L (5-37); Blood Urea Nitrogen 16 mg/dL (9-16); Calcium 9.3 mg/dL (8.4-10.2); Carbon Dioxide 33 mmol/L (22-29); Chloride 98 mmol/L (96-108); Estimated Glomerular Filt Rate > 60; Glucose Random 87 mg/dL (60-115); Potassium 3.6 mmol/L (3.3-5.1); Sodium 139 mmol/L (135-145); Total Protein 8.4 g/dL (6.5-8.0)
[2021-03-31 04:14] LABS: HBc Num1 10.54 S/CO (0.00-0.79); Hepatitis B Surface Antigen Negative (Negative); ~HepC Num1 15.66 S/CO (0.00-0.79); ~Hepatitis C Antibody Reactive (Nonreactive)
[2021-03-31 04:20] LABS: ~Hepatitis B Surface Antibody NONREACTIVE (Nonreactive)
[2021-03-31 04:59] LABS: HBc Num2 10.78 S/CO; HBc Num3 10.47 S/CO; Hepatitis B Core Antibody Reactive (Nonreactive)
[2021-04-01 04:16] LABS: Hepatitis A Antibody IgM 0.17 Index (0-0.79); ~Hepatitis A Antibody IgM Nonreactive (Nonreactive)
[2021-04-02 09:30] LABS: Hepatitis B Core Antibody IgM NON-REACTIVE (NON-REACTIVE)
[2021-04-02 19:22] LABS: FIB-ALT 22 U/L (9-46); FIB-Alpha-2-Macroglobulin 290 mg/dL (106-279); FIB-Apolipoprotein A1 176 mg/dL (94-176); FIB-GGT 59 U/L (3-70); FIB-Haptoglobin 131 mg/dL (43-212); FIB-Total Bilirubin 0.8 mg/dL (0.2-1.2); Liver Fibrosis Score 0.54; Liver Fibrosis Stage F2; Nec Inflam Act Grade A0; Nec Inflam Act Score 0.13
[2021-04-02 20:36] LABS: HCV RNA PCR Qn 2.87 Log IU/mL (NOT DETECTED); HCV RNA PCR Qn 733 IU/mL (NOT DETECTED)
== END 2021-03-30 10:15 | disposition home or self-care (01) ==
LOC: HO.LAB 10:14
PROVIDERS: PCP Family Medicine; Referring Provider Family Medicine; Visit Provider Internal Medicine Gastroenterology
DX: B18.2 Chronic viral hepatitis C (principal); K75.81 Nonalcoholic steatohepatitis (NASH)
CPT/HCPCS: 36415; 80053; 81596; 85025; 85610; 86704; 86705; 86706; 86709; 86803; 87340; 87522; 87902; 99212

== ENCOUNTER 2021-04-28 14:03 | Emergency (ER) | payer MEDICARE, MEDICAID, SELFPAY ==
--- NOTE | ~2021-04-28 | XR_ITS ---
EXAMINATION: XR CHEST CLINICAL INFORMATION: Covid infection COMPARISON: Previous chest x-ray August 2017 TECHNIQUE: Frontal view of the chest was obtained. FINDINGS: The cardiac and mediastinal contours are stable. There are bibasilar infiltrates. Chest x-ray appearance is nonspecific but is compatible with Covid infection. There is no pleural effusion or pneumothorax. There are degenerative changes of the spine and at the right shoulder. XR/XR chest 1V IMPRESSION: Bibasilar infiltrates compatible with Covid pneumonia.
[2021-04-28 14:24] VITALS: BP 101/69; BP 138/82; PULSE 66; PULSE 92; RESP 16; TEMP 35.8; O2SAT 95; O2SAT 97; BMI 25.6
--- NOTE | 2021-04-28 14:27 | ED.ALCOHOL ---
HPI - Alcohol General Chief Complaint: ETOH/Substance Use Stated Complaint: ETOH AND ? OTHER SUBSTANCE USE Time Seen by Provider: 04/28/21 14:12 Source: patient Mode of arrival: ambulatory Limitations: no limitations History of Present Illness HPI narrative: With 65-year-old male presents to emergency department agitated. Per EMS PD found the patient unresponsive unsure the patient got Narcan his history of being a methadone had alcohol abuse. Patient is unable to be redirected here he states he has no pain he states he cannot move his lower extremities which is at his baseline. Patient appears to be homeless is not following commands and is making nonsensical words but will answer questions appropriately MD complaint: alcohol intoxication and alcohol dependence Related Data Home Medications Medication Instructions Recorded Confirmed acamprosate 333 mg tablet,delayed 2 tab PO TID 02/21/20 08/01/20 release cholecalciferol (vitamin D3) 50 1 tab PO DAILY 02/21/20 08/01/20 mcg (2,000 unit) tablet dolutegravir 50 mg tablet (Tivicay) 1 tab PO DAILY 02/21/20 08/01/20 emtricitabine 200 mg-tenofovir 1 tab PO DAILY 02/21/20 08/01/20 alafenamide fumarate 25 mg tablet (Descovy) ipratropium 20 mcg-albuterol 100 1 puff PO QID 02/21/20 08/01/20 mcg/actuation mist for inhalation (Combivent Respimat) methadone 10 mg tablet 10 mg PO DAILY 02/21/20 08/01/20 mirtazapine 15 mg tablet 1.5 tab PO BEDTIME 02/21/20 08/01/20 multivitamin 1 tab PO DAILY 02/21/20 08/01/20 omeprazole 20 mg capsule,delayed 1 cap PO DAILY 02/21/20 08/01/20 release thiamine mononitrate (vit B1) 100 1 tab PO DAILY 02/21/20 08/01/20 mg tablet trazodone 100 mg tablet 1 - 2 tab PO BEDTIME PRN 02/21/20 08/01/20 varicella-zoster glycoE [id number] IM 02/21/20 08/01/20 adj(PF) 50 mcg/0.5 mL IM susp, kit (Shingrix (PF)) Previous Rx's Medication Instructions Recorded pantoprazole 20 mg tablet,delayed 20 mg PO DAILY 28 Days #28 tab 03/30/21 release Allergies Allergy/AdvReac Type Severity Reaction Status Date / Time No Known Allergies Allergy Verified 03/30/21 10:20 Review of Systems Review of Systems: Review of systems: General: Patient denies any fever chills recent illness or falls Musculoskeletal: Denies back pain or body aches or other injuries HEENT: denies headache, runny nose, ear pain Respiratory: denies shortness of breath, cough Cardiovascular: no chest pain or palpitations : denies dysuria, frequency Abdomen: no nausea vomiting denies abdominal pain Extremities: no swelling, no pain Skin: no diaphoresis Yes all other systems are reviewed and are negative PMFSH Past Medical History Medical History Alcohol abuse Anemia Anxiety Bigeminal rhythm COPD (chronic obstructive pulmonary disease) Emphysema lung Hepatitis C HIV (human immunodeficiency virus infection) Methadone dependence Opioid dependence PAC (premature atrial contraction) Polio Pulmonary nodule Tobacco abuse Tubular adenoma of colon Surgical History History of colonoscopy History of foot surgery History of hip surgery Social History Social History Alcohol intake: current Alcohol intake frequency: 3 or more drinks per day Alcohol type: beer and hard liquor Patient Tobacco Use Status: Current everyday Tobacco user Tobacco use type: Cigarette Cigarettes Per Day: 2.0 Second Hand Smoke Exposure: No Use of substances other than those prescribed or required for medical reasons: Yes Substance Use Type: Heroin Advance Directives: No Advance Directives Information Provided: No Physical Exam Vital Signs: Vital Signs: Last Vital Signs Temp 98.2 F 04/28/21 19:29 Pulse 66 04/28/21 19:29 Resp 16 04/28/21 19:29 BP 114/68 04/28/21 19:29 Pulse Ox 95 04/28/21 19:29 BMI result Body Mass Index 25.6 General: Well-appearing well-nourished in no signs of distress disheveled with cold extra HEENT: Normocephalic atraumatic Neck: No signs of JVD, no masses no tenderness or lymphadenopathy Cardiovascular: Regular rate and rhythm Respiratory: Clear to auscultation bilaterally Abdomen: Soft nontender no masses Extremities: Normal pedal pulses no signs of edema Skin: Dry warm no rashes Back: No tenderness full ROM MDM - Alcohol MDM Narrative Medical decision making narrative: I will treat the patient with Haldol Benadryl and Ativan which patient here closely in the ED I will check labs and reassess 1520 patient is unvaccinated he is COVID positive and I sent off routine screening labs for his intoxication and possible placement. Seen and given resources for detox. Patient slept in his bed comfortably 1600 Still sleeping does wake up and answer questions 1700 Patient had repeat vitals and are improved 2005 Patient awoken no SI or HI. I will send home. He is wheelchair bound Lab Data Result diagrams: 04/28/21 14:53 04/28/21 14:53 Labs: Lab Results 04/28/21 04/28/21 04/28/21 Range/Units 14:53 14:53 14:53 WBC 6.0 (4.8-10.8) X10*3/uL RBC 5.11 (4.60-5.80) X10*6/uL Hgb 14.9 (14.0-18.0) g/dl Hct 43.3 (42.0-52.0) % MCV 84.7 (80.0-98.0) fL MCH 29.2 (27.0-33.0) pg MCHC 34.4 (31.0-36.0) g/dl RDW 14.6 (11.0-16.0) % Plt Count 236 (160-400) X10*3/uL MPV 9.9 (9.4-12.4) fL Immature Gran % (Auto) 0.2 (0.0-0.4) % Neut % (Auto) 66.2 (45-73) % Lymph % (Auto) 21.4 (20-40) % [place] % (Auto) 8.5 (2-11) % Eos % (Auto) 3.2 (0-4) % Baso % (Auto) 0.5 (0-2) % Lymph # (Auto) 1.3 (1.2-4.9) X10*3/uL [place] # (Auto) 0.5 (0.1-1.2) X10*3/uL Eos # (Auto) 0.2 (0.0-0.4) X10*3/uL Baso # (Auto) 0.0 (0.0-0.2) X10*3/uL Abs Immat Gran (auto) 0.01 (0.00-0.03) X10*3/uL Absolute Neuts (auto) 4.0 (2.0-8.3) x10*3/uL Absolute Nucleated RBC 0.000 (0.0-0.012) X10*3/uL Nucleated RBC % (auto) 0.0 (0.0-0.2) /100WBC Sodium 136 (135-145) mmol/L Potassium 2.9 L (3.3-5.1) mmol/L Chloride 95 L (96-108) mmol/L Carbon Dioxide 32 H (22-29) mmol/L Anion Gap 12 (12-20) BUN 10 (9-16) mg/dL Creatinine 0.70 (0.5-1.4) mg/dL Estim Creat Clear Calc 92.7 Estimated GFR > 60 Random Glucose 91 (60-115) mg/dL Calcium 8.8 (8.4-10.2) mg/dL Total Bilirubin 0.6 (0.0-1.0) mg/dL Direct Bilirubin 0.4 (0.0-0.5) mg/dL AST 35 (5-37) U/L ALT 33 (0-40) U/L Alkaline Phosphatase 144 H (39-117) U/L Total Protein 8.1 H (6.5-8.0) g/dL Albumin 3.4 L (3.5-5.0) g/dL Lipase 8 (8-78) U/L Urine Opiates Screen (Not Detect) Urine Fentanyl Screen (Not Detect) Ur Barbiturates Screen (Not Detect) Ur Phencyclidine Scrn (Not Detect) Ur Amphetamines Screen (Not Detect) U Benzodiazepines Scrn (Not Detect) Urine Cocaine Screen (Not Detect) U Marijuana (THC) Screen (Not Detect) Ethyl Alcohol 258 mg/dL COVID-19 ([facility]) (Negative) COVID-19 Clin Com 04/28/21 04/28/21 Range/Units 14:55 15:08 WBC (4.8-10.8) X10*3/uL RBC (4.60-5.80) X10*6/uL Hgb (14.0-18.0) g/dl Hct (42.0-52.0) % MCV (80.0-98.0) fL MCH (27.0-33.0) pg MCHC (31.0-36.0) g/dl RDW (11.0-16.0) % Plt Count (160-400) X10*3/uL MPV (9.4-12.4) fL Immature Gran % (Auto) (0.0-0.4) % Neut % (Auto) (45-73) % Lymph % (Auto) (20-40) % Henry % (Auto) (2-11) % Eos % (Auto) (0-4) % Baso % (Auto) (0-2) % Lymph # (Auto) (1.2-4.9) X10*3/uL [place] # (Auto) (0.1-1.2) X10*3/uL Eos # (Auto) (0.0-0.4) X10*3/uL Baso # (Auto) (0.0-0.2) X10*3/uL Abs Immat Gran (auto) (0.00-0.03) X10*3/uL Absolute Neuts (auto) (2.0-8.3) x10*3/uL Absolute Nucleated RBC (0.0-0.012) X10*3/uL Nucleated RBC % (auto) (0.0-0.2) /100WBC Sodium (135-145) mmol/L Potassium (3.3-5.1) mmol/L Chloride (96-108) mmol/L Carbon Dioxide (22-29) mmol/L Anion Gap (12-20) BUN (9-16) mg/dL Creatinine (0.5-1.4) mg/dL Estim Creat Clear Calc Estimated GFR Random Glucose (60-115) mg/dL Calcium (8.4-10.2) mg/dL Total Bilirubin (0.0-1.0) mg/dL Direct Bilirubin (0.0-0.5) mg/dL AST (5-37) U/L ALT (0-40) U/L Alkaline Phosphatase (39-117) U/L Total Protein (6.5-8.0) g/dL Albumin (3.5-5.0) g/dL Lipase (8-78) U/L Urine Opiates Screen POSITIVE H (Not Detect) Urine Fentanyl Screen POSITIVE H (Not Detect) Ur Barbiturates Screen Not Detected (Not Detect) Ur Phencyclidine Scrn Not Detected (Not Detect) Ur Amphetamines Screen Not Detected (Not Detect) U Benzodiazepines Scrn Not Detected (Not Detect) Urine Cocaine Screen POSITIVE H (Not Detect) U Marijuana (THC) Screen Not Detected (Not Detect) Ethyl Alcohol mg/dL COVID-19 ([facility]) Positive A (Negative) COVID-19 Clin Com See Note Discharge Plan Discharge Clinical Impression: Alcoholic intoxication, Alcohol withdrawal syndrome, Agitated, COVID-19 Patient Disposition: Home, Self-Care Instructions: Abuse of Alcohol (ED), COVID-19 (Coronavirus Disease 2019) (ED) Additional Instructions: Please quarantine until you are symptom free. If you have any other concerns please return to the ED. Prescriptions: No Action multivitamin Tablet 1 tab PO DAILY RF: 0 methadone 10 mg Tablet 10 mg PO DAILY RF: 0 trazodone 100 mg tablet 1 - 2 tab PO BEDTIME PRN (Reason: Sleep) RF: 0 omeprazole 20 mg capsule,delayed release(DR/EC) 1 cap PO DAILY RF: 0 mirtazapine 15 mg tablet 1.5 tab PO BEDTIME RF: 0 acamprosate 333 mg tablet,delayed release (DR/EC) 2 tab PO TID RF: 0 cholecalciferol (vitamin D3) 50 mcg (2,000 unit) tablet 1 tab PO DAILY RF: 0 thiamine mononitrate (vit B1) 100 mg tablet 1 tab PO DAILY RF: 0 Tivicay 50 mg tablet 1 tab PO DAILY RF: 0 Combivent Respimat 20-100 mcg/actuation mist 1 puff PO QID RF: 0 Descovy 200-25 mg tablet 1 tab PO DAILY RF: 0 Shingrix (PF) 50 mcg/0.5 mL suspension for reconstitution IM RF: 0 pantoprazole 20 mg tablet,delayed release (DR/EC) 20 mg PO DAILY 28 Days Qty: 28 RF: 4
[2021-04-28 15:00] LABS: MANUAL DIFF FLAG NO
[2021-04-28 15:02] LABS: Basophils Percent Auto 0.5 % (0-2); Eosinophils Absolute Auto 0.2 X10*3/uL (0.0-0.4); Eosinophils Percent Auto 3.2 % (0-4); Hematocrit 43.3 % (42.0-52.0); Hemoglobin 14.9 g/dl (14.0-18.0); Imm Gran Abs Auto 0.01 X10*3/uL (0.00-0.03); Imm Gran Pct Auto 0.2 % (0.0-0.4); Lymphocytes Absolute Auto 1.3 X10*3/uL (1.2-4.9); Lymphocytes Percent Auto 21.4 % (20-40); Mean Corpuscular HGB Conc 34.4 g/dl (31.0-36.0); Mean Corpuscular Hemoglobin 29.2 pg (27.0-33.0); Mean Corpuscular Volume 84.7 fL (80.0-98.0); Mean Platelet Volume 9.9 fL (9.4-12.4); Monocytes Absolute Auto 0.5 X10*3/uL (0.1-1.2); Monocytes Percent Auto 8.5 % (2-11); Neutrophils Percent Auto 66.2 % (45-73); Platelet Count 236 X10*3/uL (160-400); Red Blood Count 5.11 X10*6/uL (4.60-5.80); Red Cell Distribution Width 14.6 % (11.0-16.0)
[2021-04-28 15:14] LABS: COVID-19 Test Positive (Negative)
[2021-04-28 15:15] LABS: Ethanol 258 mg/dL
[2021-04-28 15:27] LABS: Alanine Aminotransferase 33 U/L (0-40); Albumin Level 3.4 g/dL (3.5-5.0); Alkaline Phosphatase 144 U/L (39-117); Anion Gap 12 (12-20); Aspartate Amino Transferase 35 U/L (5-37); Bilirubin Direct 0.4 mg/dL (0.0-0.5); Blood Urea Nitrogen 10 mg/dL (9-16); Calcium 8.8 mg/dL (8.4-10.2); Carbon Dioxide 32 mmol/L (22-29); Chloride 95 mmol/L (96-108); Creatinine Clr Calc Pharmacy 92.7; Estimated Glomerular Filt Rate > 60; Glucose Random 91 mg/dL (60-115); Lipase 8 U/L (8-78); Potassium 2.9 mmol/L (3.3-5.1); Sodium 136 mmol/L (135-145); Total Protein 8.1 g/dL (6.5-8.0)
[2021-04-28 15:32] LABS: Amphetamine Screen Urine Not Detected (Not Detect); Barbiturates, Urine Not Detected (Not Detect); Benzodiazepines Screen Urine Not Detected (Not Detect); Cannabinoid Screen Urine Not Detected (Not Detect); Cocaine Screen Urine POSITIVE (Not Detect); Fentanyl, urine POSITIVE (Not Detect); Opiate Screen Urine POSITIVE (Not Detect); Phencyclidine Screen Urine Not Detected (Not Detect)
[2021-04-28 15:35] LABS: Bilirubin Total 0.6 mg/dL (0.0-1.0)
[2021-04-28] MEDS: diphenhydrAMINE HCL 50 MG/ML VIAL IM (16:53)
[2021-04-28] MEDS: Potassium Chloride ER 20 MEQ TAB.ER.PRT PO (16:53)
[2021-04-28] MEDS: LORazepam 2 MG/ML VIAL IM (16:53)
[2021-04-28 18:00] VITALS: BP 107/61; PULSE 68; RESP 15; TEMP 36.8; O2SAT 89
[2021-04-28 18:08] VITALS: O2SAT 93
--- NOTE | 2021-04-28 18:09 | PC.NURSE ---
patient sleeping, woke to stimulus, pt noted to have sleep apnea, O2 applied and patient woken up, vitals obtained, will continue to monitor.
[2021-04-28 19:23] VITALS: BP 109/68; PULSE 69; RESP 14; TEMP 36.8; O2SAT 95
[2021-04-28 19:29] VITALS: BP 114/68; PULSE 66; RESP 16; TEMP 36.8; O2SAT 95
--- NOTE | 2021-04-28 21:31 | PC.NURSE ---
patient awaiting ambulace to home
== END 2021-04-28 21:57 | disposition home or self-care (01) ==
PROVIDERS: Emergency Provider Student in an Organized Health Care Education/Training Program
DX: U07.1 COVID-19 (principal); R45.1 Restlessness and agitation; F10.220 Alcohol dependence with intoxication, uncomplicated; F10.230 Alcohol dependence with withdrawal, uncomplicated; Y90.8 Blood alcohol level of 240 mg/100 ml or more; F11.20 Opioid dependence, uncomplicated; B20 Human immunodeficiency virus [HIV] disease; B19.20 Unspecified viral hepatitis C without hepatic coma; F17.200 Nicotine dependence, unspecified, uncomplicated
CPT/HCPCS: 71045; 80048; 80076; 80307; 82077; 83690; 85025; 87635; 96372; 99284; 99285; J1200; J2060

== ENCOUNTER 2021-05-12 13:27 | Outpatient (REF) | payer MEDICARE, MEDICAID, SELFPAY ==
--- NOTE | ~2021-05-12 | US_ITS ---
EXAMINATION: US EXTRACRANIAL CAROTID DUPLEX, BILATERAL CLINICAL INFORMATION: Personal history of TIA. COMPARISON: None TECHNIQUE: Real-time ultrasound and Doppler techniques (integrating B-mode 2-D vascular images, Doppler spectral analysis and color-flow Doppler imaging) were utilized to interrogate the extracranial carotid arteries, the vertebral arteries and proximal subclavian arteries bilaterally. The degree of stenosis is determined by criteria similar to NASCET. FINDINGS: Right Side: 1. There is mild atherosclerotic plaque seen in the bifurcation/proximal ICA region. 2. The common carotid artery PSV proximally is 111 cm/s and distally 75 cm/s. 3. The proximal internal carotid artery velocities are 71 cm/s systolic and 24 cm/s diastolic. 4. The proximal external carotid artery PSV is 63 cm/s. 5. The vertebral artery shows antegrade flow. 6. The subclavian artery waveforms are normal. Left Side: 1. There is mild atherosclerotic plaque seen in the bifurcation/proximal ICA region. 2. The common carotid artery PSV proximally is 83 cm/s and distally 57 cm/s. 3. The proximal internal carotid artery velocities are 90 cm/s systolic and 34 cm/s diastolic. 4. The proximal external carotid artery PSV is 56 cm/s. 5. The vertebral artery shows antegrade flow. 6. The subclavian artery waveforms are normal. US/US carotid duplex BI IMPRESSION: 1. RIGHT: Minimal, non-hemodynamically significant stenosis of the proximal right internal carotid artery corresponding to a 0-49% stenosis by velocity criteria. 2. LEFT: Minimal, non-hemodynamically significant stenosis of the proximal left internal carotid artery corresponding to a 0-49% stenosis by velocity criteria.
== END 2021-05-12 13:28 | disposition home or self-care (01) ==
LOC: HO.US 13:27
PROVIDERS: PCP Family Medicine; Visit Provider Family Medicine
DX: Z86.73 Personal history of transient ischemic attack (TIA), and cerebral infarction without residual deficits (principal)
CPT/HCPCS: 93880

== ENCOUNTER → 2021-05-13 13:14 | Outpatient (REF) | payer MEDICARE, MEDICAID, SELFPAY | LOC: HO.CARD 13:14 | PROVIDERS: Visit Provider Family Medicine | DX: Z13.89 Encounter for screening for other disorder (principal) | CPT/HCPCS: 93225; 93226 ==

== ENCOUNTER → 2021-06-05 09:07 | Outpatient (REF) | payer MEDICARE, MEDICAID, SELFPAY ==
--- NOTE | 2021-06-05 09:12 | CA_ITS ---
Transthoracic Echocardiogram Patient (Last, First, Middle): Wes Calderon, Gender: Male Date of : 1955 Age: 65 Procedure Date: 06/05/2021 Procedure Type: Transthoracic Echocardiogram Location: OP Height: 167.64 cm Weight: 61.24 kg BSA: 1.69 m2 Heart Rate: bpm BP: 125 / 70 mmHg Dental Floss Packer: NATHAN Referring MD: Martha Sesay DO Symptoms: Z86.73 HX TIA Study Quality: Fair Conclusions: - Normal left ventricular size, thickness, systolic function, and wall motion. - Spectral Doppler is indicative of an impaired relaxation filling pattern. E/E prime ratio is <8, consistent with normal filling pressures. - Normal right ventricular cavity size and systolic function. Findings Left Ventricle Normal left ventricular size, thickness, systolic function, and wall motion. The visually estimated ejection fraction is between 55-60%. Abnormal diastolic function is noted. Spectral Doppler is indicative of an impaired relaxation filling pattern. E/E prime ratio is <8, consistent with normal filling pressures. Right Ventricle Normal right ventricular cavity size and systolic function. Atria The left atrium is normal in size. Aortic Valve There is a normal trileaflet aortic valve. There is mild thickening of the aortic valve. There is no aortic valve stenosis. There is no aortic valve regurgitation. Mitral Valve Normal mitral valve structure and function. There is no mitral valve regurgitation. There is no mitral valve stenosis. Pulmonic Valve The pulmonic valve is likely normal. Tricuspid Valve Normal tricuspid valve structure and function. There is no tricuspid valve regurgitation. Normal right atrial pressure. There is no evidence of pulmonary hypertension. Great Vessels All visible segments of the aorta are normal in size. The visualized portions of the pulmonary artery and branches are normal. Venous The inferior vena cava is normal in size and collapses greater than 50% with inspiration. Pericardium/Pleural There is no evidence of pericardial effusion. Prior Study Comparison No significant change compared to prior study dated: 09/05/2018. Measurements 2D Linear Measurements IVSd: 0.86 0.6-0.9/0.6-1.0 cm LVIDd: 4.66 3.9-5.3/4.2-5.9 cm LVIDd Index: 2.76 2.4-3.2/2.2-3.1 cm/m2 LVIDs: 2.97 2.0-3.6 cm LVPWd: 0.82 0.7-1.1 cm Ao Root: 3.00 2.1-3.5 cm LA Diam: 3.00 2.7-3.8/3.0-4.0 cm LAIDs Index: 1.78 1.5-2.3 cm/m2 LV Mass: 160.04 67-162/88-224 g LV Mass Index: 94.70 43-95/49-115 g/m2 LVOT Diam: 2.20 3.0+(-)1.3 cm 2D Systolic Function EF 4C: 58.70 >55% EF 2C: 60.80 >55% EF BiP: 60.00 >55% Mitral Valve MV Pk E: 0.47 MV PK A: 0.56 MV Decel Time: 372.00 E/A: 0.80 E'Lateral: 9.25 E'Medial: 6.96 E/E' Med: 6.80 E/E' Lat: 5.10 PHT: 109.00 MVA PHT: 2.02 Decel Atlantic: 1.27 Aortic Valve AoV Pk Eleno: 1.06 AoV Mn Eleno: 0.75 AoV VTI: 0.22 AoV Pk Grad: 4.00 Aov Mn Grad: 2.00 CRISTINA Cont.VTI: 2.64 LVOT LVOT Pk Eleno: 0.78 LVOT Mn Eleno: 0.56 LVOT VTI: 0.16 LVOT Pk Grad: 2.00 LVOT Mn Grad: 1.00 LVOT Diam: 2.20 LVOT Area: 3.80 Diastolic Function MV Pk E: 0.47 MV Pk A: 0.56 E/A: 0.80 E'Medial: 6.96 E/E' Med: 6.80 E' Laterial: 9.25 E/E' Lat: 5.10 Right Ventricle TAPSE (mm): 24.30 TVS' Eleno: 11.70 Tricuspid Valve TR Pk Eleno: 1.45 TR Pk Grad: 8.00 RA Press: 3.00 RVSP: 11.00 Great Vessels Aorta Ao Root-2D: 3.00 2.0-3.7 cm Ao Asc: 3.10 2.1-3.4 cm Ao Arch: 2.80 Updated in Other Vendor System with Status of Final Suman Ye MD electronically signed on 06/08/2021 9:17:52 AM with status of Final
== END ==
LOC: HO.CARD 09:07
PROVIDERS: PCP Family Medicine; Visit Provider Family Medicine
DX: Z86.73 Personal history of transient ischemic attack (TIA), and cerebral infarction without residual deficits (principal)
CPT/HCPCS: 93306

== ENCOUNTER 2021-07-20 10:52 | Outpatient (REF) | payer MEDICARE, MEDICAID, SELFPAY ==
--- NOTE | ~2021-07-20 | CT_ITS ---
EXAMINATION: CT CHEST SCREENING CLINICAL INFORMATION: [id number] smoking history. 1 PPD. COMPARISON: CT chest 05/08/2019 and 06/20/2020. TECHNIQUE: Multidetector volumetric CT imaging of the chest is performed without contrast using low dose technique. Additional 2D coronal and sagittal reformatted images and axial 3D maximum intensity projection (MIP) images are generated on the CT workstation. This CT examination was performed using dose optimization techniques as appropriate, variously including the following: *Automated exposure control *Adjustment of mA and/or kV according to patient size (this includes techniques or standardized protocols for targeted exams where dose is matched to indication/reason for exam; i.e. extremities or head) *Use of iterative reconstruction technique DLP: 53 mGy-cm FINDINGS: LUNGS: There is diffuse centrilobular and paraseptal emphysema bilaterally. There is bilateral apical parenchymal scarring with minimal posterior pleural thickening. 7 mm density described right lung apex is likely part of the apical pleural/parenchymal scarring changes which have been present since 11/15/2018 and a ground-glass density appearance on 11/13/2017 CT chest exam similar to previous study. Mild bronchiectasis is seen in both lung bases with new right basilar atelectasis or scarring. Mild focal nodular thickening left major fissure axial image 298/6 and right major fissure axial image 301/6 is stable. Small calcified micronodules are stable. There is a 2 mm perivascular nodule right upper lobe axial image 243/6, stable. MEDIASTINUM: The thyroid lobes are symmetrical and normal. The central trachea and the bronchi are widely patent. No abnormal-sized mediastinal or hilar lymph node seen. The largest short axis precarinal lymph node measures 5 mm. Heart size and the great vessels are normal caliber. There is trace coronary artery calcifications. No pericardial effusion seen. PLEURA: There is no pleural effusion. No pleural mass or thickening. AXILLA: There are small shotty axillary lymph nodes. UPPER ABDOMEN: Visualized liver, spleen, pancreas and bilateral adrenal glands unremarkable. OSSEOUS STRUCTURES: Unremarkable. CT/CT lung screening IMPRESSION: Emphysema, bilateral apical pleural/parenchymal scarring is stable since 2018 and 2019 exam. Mild fissural focal thickening and small calcified micronodules including a 2 mm perivascular nodule right upper lobe are all stable. There are no new nodules, abnormal mediastinal adenopathy seen. There is a new right lower lobe patchy atelectasis or scarring since 06/20/2020 exam. ASSESSMENT: Lung-RADS category 2: Benign. RECOMMENDATION: Low-dose annual CT chest.
== END 2021-07-20 10:53 | disposition home or self-care (01) ==
LOC: HO.CT 10:52
PROVIDERS: Visit Provider Physician Assistant Medical
DX: Z12.2 Encounter for screening for malignant neoplasm of respiratory organs (principal); Z87.891 Personal history of nicotine dependence
CPT/HCPCS: 71271

== ENCOUNTER 2021-08-11 14:33 | Outpatient (REF) | payer MEDICARE, MEDICAID, SELFPAY ==
--- NOTE | ~2021-08-11 | XR_ITS ---
EXAMINATION: XR SHOULDER, RIGHT CLINICAL INFORMATION: Right shoulder pain. COMPARISON: None TECHNIQUE: AP external rotation, Grashey, scapular Y, and axillary views of the right shoulder. FINDINGS: There is severe degenerative change of the right shoulder with loss of glenohumeral joint space with marginal spurring and prominent subchondral cyst formation. There is loss of the space between the acromium and humeral head with some superior subluxation of the humeral head consistent with rotator cuff tear. No acute fracture or dislocation is appreciated. XR/XR shoulder RT min 2V IMPRESSION: Severe degenerative change of the right shoulder without definite acute fracture or dislocation.
== END 2021-08-11 14:34 | disposition home or self-care (01) ==
LOC: HO.XRAY 14:33
PROVIDERS: Absent Provider Family Medicine; PCP Family Medicine; Visit Provider Nurse Practitioner Family
DX: M25.511 Pain in right shoulder (principal); M25.411 Effusion, right shoulder
CPT/HCPCS: 73030

== ENCOUNTER 2021-09-04 10:34 | Outpatient (REF) | payer MEDICARE, MEDICAID, SELFPAY ==
--- NOTE | ~2021-09-04 | MR_ITS ---
EXAMINATION: MR SHOULDER WITHOUT CONTRAST, RIGHT CLINICAL INFORMATION: Right shoulder pain. Superior visible lump. Evaluate for a tear. COMPARISON: Right shoulder radiographs dated 08/11/2021. TECHNIQUE: MRI of the shoulder without contrast was performed on a high-field scanner. FINDINGS: Evaluation limited secondary to patient motion. ROTATOR CUFF: Complete, full-thickness tears of the supraspinatus and infraspinatus tendons with retraction of the tendon fibers proximal to the glenohumeral articulation. [id number] supraspinatus, infraspinatus, and teres minor muscle atrophy. Subscapularis tendinosis without a definite measurable tear. BICEPS: Mild proximal long head biceps tendinosis. No complete tear or tendon retraction. CORACOACROMIAL ARCH: Bony remodeling of the acromial undersurface consistent with chronic superior humeral head subluxation. Severe acromioclavicular osteoarthritis with underlying subchondral cystic change. Superior to the acromioclavicular joint, there are 2 large cystic structures measuring up to 4.4 and 3.6 cm, consistent with synovial recesses versus ganglion cysts. No concerning soft tissue component. LABRUM/CAPSULE: Diffuse attenuation and irregularity of the anterior, superior, and posterior labrum, consistent with degenerative tearing. GLENOHUMERAL JOINT/MARROW: Chronic superior subluxation of the humeral head related to the full-thickness rotator cuff tendon tears. Full-thickness articular cartilage loss throughout the entirety of the humeral head as well as throughout the superior glenoid. Mild bony remodeling with severe underlying subchondral cystic change. Large marginal osteophytes. Small joint effusion with synovitis. MR/MR shoulder RT wo con IMPRESSION: 1. Complete, full-thickness tears of the supraspinatus and infraspinatus tendons with retraction of the torn tendon fibers proximal to the glenohumeral articulation. Subscapularis tendinosis. [id number] supraspinatus, infraspinatus, and teres minor muscle atrophy. 2. Chronic superior subluxation of the humeral head with bony remodeling of the acromial undersurface, related to the rotator cuff tendon tears. Severe glenohumeral osteoarthritis. Small joint effusion with synovitis. 3. Diffuse attenuation/degenerative tearing throughout the anterior, superior, and posterior labrum. 4. Severe acromioclavicular osteoarthritis with prominent subchondral cystic change. Two large synovial recesses versus ganglion cysts superior to the acromioclavicular joint measuring 4.4 and 3.6 cm. 5. Mild proximal long head biceps tendinosis without a transverse tear or tendon retraction.
== END 2021-09-04 10:35 | disposition home or self-care (01) ==
LOC: HO.MRI 10:34
PROVIDERS: Visit Provider Family Medicine
DX: M25.511 Pain in right shoulder (principal)
CPT/HCPCS: 73221

== ENCOUNTER → 2021-09-16 11:16 | Outpatient (BNVA) | payer MEDICARE, MEDICAID, SELFPAY | PROVIDERS: PCP Family Medicine; Visit Provider Physician Assistant | DX: M12.811 Other specific arthropathies, not elsewhere classified, right shoulder (principal) | CPT/HCPCS: 20610; 99202; J1040 ==

== ENCOUNTER 2021-12-09 09:23 | Outpatient (REF) | payer OTHER, SELFPAY ==
[2021-12-09 10:05] LABS: MANUAL DIFF FLAG NO
[2021-12-09 11:04] LABS: Basophils Percent Auto 0.6 % (0-2); Eosinophils Absolute Auto 0.1 X10*3/uL (0.0-0.4); Eosinophils Percent Auto 2.2 % (0-4); Hematocrit 43.1 % (42.0-52.0); Hemoglobin 14.7 g/dl (14.0-18.0); Imm Gran Abs Auto 0.01 X10*3/uL (0.00-0.03); Imm Gran Pct Auto 0.2 % (0.0-0.4); Lymphocytes Absolute Auto 1.5 X10*3/uL (1.2-4.9); Lymphocytes Percent Auto 28.7 % (20-40); Mean Corpuscular HGB Conc 34.1 g/dl (31.0-36.0); Mean Corpuscular Hemoglobin 31.9 pg (27.0-33.0); Mean Corpuscular Volume 93.5 fL (80.0-98.0); Mean Platelet Volume 9.2 fL (9.4-12.4); Monocytes Absolute Auto 0.6 X10*3/uL (0.1-1.2); Monocytes Percent Auto 10.3 % (2-11); Neutrophils Absolute Auto 3.1 x10*3/uL (2.0-8.3); Platelet Count 203 X10*3/uL (160-400); Red Blood Count 4.61 X10*6/uL (4.60-5.80); White Blood Count 5.4 X10*3/uL (4.8-10.8)
[2021-12-09 11:33] LABS: Alanine Aminotransferase 17 U/L (0-40); Albumin Level 3.7 g/dL (3.5-5.0); Alkaline Phosphatase 151 U/L (39-117); Anion Gap 17 (12-20); Aspartate Amino Transferase 33 U/L (5-37); Bilirubin Total 0.7 mg/dL (0.0-1.0); Blood Urea Nitrogen 11 mg/dL (9-16); Calcium 8.6 mg/dL (8.4-10.2); Carbon Dioxide 30 mmol/L (22-29); Chloride 97 mmol/L (96-108); Cholesterol 177 mg/dL; Estimated Glomerular Filt Rate > 60; Glucose Random 72 mg/dL (60-115); Potassium 3.9 mmol/L (3.3-5.1); Sodium 140 mmol/L (135-145); Total Protein 7.6 g/dL (6.5-8.0)
[2021-12-09 11:48] LABS: HBS Num1 0.48 mIU/mL (0-7.99); HBc Num1 8.17 S/CO (0.00-0.79); Hepatitis B Surface Antigen Negative (Negative); ~HepC Num1 12.91 S/CO (0.00-0.79); ~Hepatitis B Surface Antibody NONREACTIVE (Nonreactive); ~Hepatitis C Antibody Reactive (Nonreactive)
[2021-12-09 11:54] LABS: Syphilis Screen Nonreactive (Nonreactive)
[2021-12-09 14:25] LABS: HBc Num2 8.34 S/CO; HBc Num3 8.42 S/CO; Hepatitis B Core Antibody Reactive (Nonreactive)
[2021-12-10 17:51] LABS: Hepatitis B Core Antibody IgM NON-REACTIVE (NON-REACTIVE)
[2021-12-11 16:52] LABS: HCV RNA PCR Qn <1.18 NOT DETECTED Log IU/mL (NOT DETECTED); HCV RNA PCR Qn <15 NOT DETECTED IU/mL (NOT DETECTED)
== END 2021-12-09 09:24 | disposition home or self-care (01) ==
LOC: HO.LAB 09:23
PROVIDERS: PCP Family Medicine; Visit Provider Family Medicine
DX: F11.20 Opioid dependence, uncomplicated (principal); Z11.3 Encounter for screening for infections with a predominantly sexual mode of transmission; Z13.220 Encounter for screening for lipoid disorders
CPT/HCPCS: 36415; 80053; 82465; 85025; 86704; 86705; 86706; 86780; 86803; 87340; 87902

== ENCOUNTER 2022-01-12 12:04 | Outpatient (REF) | payer OTHER, SELFPAY ==
--- NOTE | ~2022-01-12 | MR_ITS ---
EXAMINATION: MR BRAIN WITHOUT CONTRAST CLINICAL INFORMATION: Tremors. COMPARISON: Brain MRI from 03/24/2021. TECHNIQUE: MRI of the brain was obtained using routine sequences without contrast. FINDINGS: No focal restricted diffusion is demonstrated to suggest acute or subacute cerebral ischemia. No evidence of acute or chronic hemorrhagic products on heme-sensitive imaging. Scattered periventricular and deep white matter T2 FLAIR hyperintensities consistent with mild to moderate underlying microangiopathy. Proportional prominence of the ventricles and sulcal spaces without evidence of obstructive hydrocephalus. No abnormal mass effect. No midline shift. Normal appearance of the pituitary gland. Normal positioning of the cerebellar tonsils. Normal arterial and venous vascular flow voids are present. Normal, homogeneous marrow signal. Moderate to advanced degenerative spondyloarthropathy of the visualized upper cervical spine. Mild mucosal thickening of the paranasal sinuses. No signal abnormalities within the mastoids. MR/MR head/brain wo con IMPRESSION: 1. No acute intracranial abnormalities. 2. Mild to moderate underlying microangiopathy and generalized cerebral volume loss.
== END 2022-01-12 12:05 | disposition home or self-care (01) ==
LOC: HO.MRI 12:04
PROVIDERS: Visit Provider Family Medicine
DX: R25.1 Tremor, unspecified (principal)
CPT/HCPCS: 70551

== ENCOUNTER 2022-02-10 11:39 | Outpatient (REF) | payer OTHER, SELFPAY ==
[2022-02-10 12:46] LABS: MANUAL DIFF FLAG NO
[2022-02-10 12:49] LABS: Basophils Percent Auto 0.5 % (0-2); Eosinophils Absolute Auto 0.1 X10*3/uL (0.0-0.4); Eosinophils Percent Auto 1.5 % (0-4); Hematocrit 47.2 % (42.0-52.0); Hemoglobin 16.3 g/dl (14.0-18.0); Imm Gran Abs Auto 0.01 X10*3/uL (0.00-0.03); Imm Gran Pct Auto 0.2 % (0.0-0.4); Lymphocytes Absolute Auto 1.2 X10*3/uL (1.2-4.9); Lymphocytes Percent Auto 19.5 % (20-40); Mean Corpuscular HGB Conc 34.5 g/dl (31.0-36.0); Mean Corpuscular Volume 95.5 fL (80.0-98.0); Mean Platelet Volume 9.5 fL (9.4-12.4); Monocytes Absolute Auto 0.4 X10*3/uL (0.1-1.2); Monocytes Percent Auto 5.9 % (2-11); Neutrophils Absolute Auto 4.4 x10*3/uL (2.0-8.3); Neutrophils Percent Auto 72.4 % (45-73); Platelet Count 170 X10*3/uL (160-400); Red Blood Count 4.94 X10*6/uL (4.60-5.80); Red Cell Distribution Width 12.3 % (11.0-16.0); White Blood Count 6.1 X10*3/uL (4.8-10.8)
[2022-02-10 13:09] LABS: Alanine Aminotransferase 25 U/L (0-40); Albumin Level 4.7 g/dL (3.5-5.0); Alkaline Phosphatase 168 U/L (39-117); Anion Gap 23 (12-20); Aspartate Amino Transferase 46 U/L (5-37); Bilirubin Total 1.3 mg/dL (0.0-1.0); Blood Urea Nitrogen 22 mg/dL (9-16); Carbon Dioxide 25 mmol/L (22-29); Chloride 95 mmol/L (96-108); Estimated Glomerular Filt Rate > 60; Glucose Random 90 mg/dL (60-115); Potassium 4.6 mmol/L (3.3-5.1); Sodium 138 mmol/L (135-145); Total Protein 9.9 g/dL (6.5-8.0)
[2022-02-10 13:32] LABS: Syphilis Screen Nonreactive (Nonreactive)
[2022-02-10 14:53] LABS: Appearance Urine Clear; Color Urine Yellow; Glucose Urine UA Negative (Negative); Leukocyte Esterase Urine Negative (Negative); Nitrite Urine Negative (Negative); PH 6.5 (5.0-9.0); Urine Blood Negative (Negative); Urine Ketones Negative (Negative); Urine Protein Negative (Neg-Trace)
[2022-02-10 14:59] LABS: Bacteria Urine None Seen (None Seen); Hyaline Casts Urine 0-2 /LPF (0-2); RBC Urine 0-2 /HPF (0-2); Squamous Epithelial Cell Urine 0-2 /HPF (0-2); WBC Urine 0-5 /HPF (0-5)
[2022-02-11 15:17] LABS: HCV Log PCR <1.18 NOT DETECTED Log IU/mL (NOT DETECTED); HepC Viral Load <15 NOT DETECTED IU/mL (NOT DETECTED)
[2022-02-11 15:32] LABS: HIV RNA PCR Qn Copies NOT DETECTED copies/mL (NOT DETECTED); HIV RNA PCR Qn Log Copies NOT DETECTED (NOT DETECTED)
[2022-02-11 15:56] LABS: Absolute CD3 Count 812 cells/uL (840-3060); Absolute CD4 Count 546 cells/uL (490-1740); Absolute CD8 Count 267 cells/uL (180-1170); Absolute Lymphocytes 1149 cells/uL (850-3900); CD4 CD8 Ratio 2.04 (0.86-5.00); Percent CD3 Cells 71 % (57-85); Percent CD4 Cells 48 % (30-61); Percent CD8 Cells 23 % (12-42)
== END 2022-02-10 11:40 | disposition home or self-care (01) ==
LOC: HO.LAB 11:39
PROVIDERS: Visit Provider Emergency Medicine
DX: B20 Human immunodeficiency virus [HIV] disease (principal); B17.10 Acute hepatitis C without hepatic coma
CPT/HCPCS: 36415; 80053; 81001; 85025; 86359; 86360; 86481; 86780; 87522; 87536

== ENCOUNTER 2023-02-18 09:07 | Outpatient (REF) | payer OTHER, SELFPAY ==
[2023-02-18 11:22] LABS: MANUAL DIFF FLAG NO
[2023-02-18 11:38] LABS: Basophils Percent Auto 0.5 % (0-2); Eosinophils Absolute Auto 0.2 X10*3/uL (0.0-0.4); Hematocrit 37.1 % (42.0-52.0); Imm Gran Abs Auto 0.03 X10*3/uL (0.00-0.03); Imm Gran Pct Auto 0.5 % (0.0-0.4); Lymphocytes Absolute Auto 1.1 X10*3/uL (1.2-4.9); Lymphocytes Percent Auto 16.4 % (20-40); Mean Corpuscular HGB Conc 32.3 g/dl (31.0-36.0); Mean Corpuscular Hemoglobin 25.4 pg (27.0-33.0); Mean Corpuscular Volume 78.6 fL (80.0-98.0); Mean Platelet Volume 9.8 fL (9.4-12.4); Monocytes Absolute Auto 0.5 X10*3/uL (0.1-1.2); Monocytes Percent Auto 8.2 % (2-11); Neutrophils Absolute Auto 4.7 x10*3/uL (2.0-8.3); Neutrophils Percent Auto 71.4 % (45-73); Platelet Count 259 X10*3/uL (160-400); Red Blood Count 4.72 X10*6/uL (4.60-5.80); Red Cell Distribution Width 17.9 % (11.0-16.0); White Blood Count 6.6 X10*3/uL (4.8-10.8)
[2023-02-18 11:55] LABS: Estimated Average Glucose 100 mg/dL; Hemoglobin A1c % 5.1 % (<6.0)
[2023-02-18 12:19] LABS: Alanine Aminotransferase 56 U/L (0-40); Albumin Level 3.7 g/dL (3.5-5.0); Alkaline Phosphatase 127 U/L (39-117); Anion Gap 15 (12-20); Aspartate Amino Transferase 84 U/L (5-37); Bilirubin Direct 0.7 mg/dL (0.0-0.5); Bilirubin Total 1.5 mg/dL (0.0-1.0); Blood Urea Nitrogen 12 mg/dL (9-16); Calcium 9.7 mg/dL (8.4-10.2); Carbon Dioxide 29 mmol/L (22-29); Chloride 93 mmol/L (96-108); Cholesterol 133 mg/dL (<200); Estimated Glomerular Filt Rate > 60; Glucose Random 101 mg/dL (60-115); HDL Cholesterol 50 mg/dL (>40); LDL Cholesterol Calculated 69 mg/dL (<100); Potassium 3.2 mmol/L (3.3-5.1); Sodium 134 mmol/L (135-145); Total Protein 8.4 g/dL (6.5-8.0); Triglycerides 74 mg/dL (<150)
[2023-02-18 12:22] LABS: HBS Num1 0.02 mIU/mL (0-7.99); HBsAGNum1 0.39 S/CO (0.00-0.99); Hepatitis B Surface Antigen Negative (Negative); ~Hepatitis B Surface Antibody NONREACTIVE (Nonreactive)
[2023-02-18 12:35] LABS: Free T4 (Free Thyroxine) 1.22 ng/dL (0.71-1.85); Thyroid Stimulating Hormone 1.39 uIU/mL (0.32-4.0); Vitamin D 25-OH Total 79.6 ng/mL (>30)
[2023-02-18 12:36] LABS: Creatinine Urine 74.93 mg/dL; Microalbum/Creatinine Ratio Ur 21.3 ug/mg cr (<30)
[2023-02-18 15:12] LABS: CT PCR NOT DETECTED (Not Detect.); NG PCR NOT DETECTED (Not Detect.)
[2023-02-20 19:34] LABS: TS Negative Control Passed; TS Panel A 0; TS Panel B 0; TS Positive Control Passed; TSpotTB Negative (Negative)
[2023-02-21 06:58] LABS: Absolute CD4 Count 588 cells/uL (490-1740); Absolute CD8 Count 239 cells/uL (180-1170); Absolute Lymphocytes 1087 cells/uL (850-3900); CD4 CD8 Ratio 2.46 (0.86-5.00); Percent CD4 Cells 54 % (30-61); Percent CD8 Cells 22 % (12-42)
[2023-02-21 12:47] LABS: Alpha Fetoprotein 3.6 ng/mL (<6.1)
[2023-02-21 13:33] LABS: RPR Rapid Plasma Reagin NON-REACTIVE (NON-REACTIVE)
[2023-02-21 15:37] LABS: HCV Log PCR <1.18 NOT DETECTED Log IU/mL (NOT DETECTED); HepC Viral Load <15 NOT DETECTED IU/mL (NOT DETECTED)
[2023-02-22 17:38] LABS: HIV RNA PCR Qn Copies NOT DETECTED copies/mL (NOT DETECTED); HIV RNA PCR Qn Log Copies NOT DETECTED (NOT DETECTED)
== END 2023-02-18 09:08 | disposition home or self-care (01) ==
LOC: HO.HHCL 09:07
PROVIDERS: Visit Provider Family Medicine
DX: B20 Human immunodeficiency virus [HIV] disease (principal); I10 Essential (primary) hypertension; B18.2 Chronic viral hepatitis C; F10.20 Alcohol dependence, uncomplicated
CPT/HCPCS: 0353U; 80048; 80061; 80076; 82043; 82105; 82306; 82570; 83036; 84134; 84439; 84443; 85025; 86360; 86481; 86592; 86706; 87340; 87522; 87536

== ENCOUNTER 2023-03-15 11:03 | Outpatient (REF) | payer OTHER, SELFPAY ==
[2023-03-15 13:23] LABS: MANUAL DIFF FLAG NO
[2023-03-15 13:29] LABS: Basophils Percent Auto 0.4 % (0-2); Eosinophils Absolute Auto 0.1 X10*3/uL (0.0-0.4); Hematocrit 39.8 % (42.0-52.0); Hemoglobin 12.8 g/dl (14.0-18.0); Imm Gran Abs Auto 0.02 X10*3/uL (0.00-0.03); Imm Gran Pct Auto 0.3 % (0.0-0.4); Lymphocytes Absolute Auto 1.2 X10*3/uL (1.2-4.9); Lymphocytes Percent Auto 15.4 % (20-40); Mean Corpuscular HGB Conc 32.2 g/dl (31.0-36.0); Mean Corpuscular Hemoglobin 24.9 pg (27.0-33.0); Mean Corpuscular Volume 77.3 fL (80.0-98.0); Mean Platelet Volume 10.1 fL (9.4-12.4); Monocytes Absolute Auto 0.8 X10*3/uL (0.1-1.2); Monocytes Percent Auto 9.7 % (2-11); Neutrophils Absolute Auto 5.8 x10*3/uL (2.0-8.3); Neutrophils Percent Auto 73.2 % (45-73); Platelet Count 265 X10*3/uL (160-400); Red Blood Count 5.15 X10*6/uL (4.60-5.80); Red Cell Distribution Width 16.5 % (11.0-16.0); White Blood Count 7.9 X10*3/uL (4.8-10.8)
[2023-03-15 14:05] LABS: Alanine Aminotransferase 31 U/L (0-40); Albumin Level 3.8 g/dL (3.5-5.0); Alkaline Phosphatase 132 U/L (39-117); Anion Gap 12 (12-20); Aspartate Amino Transferase 52 U/L (5-37); Bilirubin Direct 0.5 mg/dL (0.0-0.5); Bilirubin Total 0.9 mg/dL (0.0-1.0); Blood Urea Nitrogen 15 mg/dL (9-16); Calcium 9.5 mg/dL (8.4-10.2); Carbon Dioxide 37 mmol/L (22-29); Chloride 87 mmol/L (96-108); Estimated Glomerular Filt Rate > 60; Glucose Random 102 mg/dL (60-115); Iron 21 mcg/dL (45-160); Percent Iron Saturation 5 % (15-50); Potassium 2.8 mmol/L (3.3-5.1); Sodium 133 mmol/L (135-145); Total Iron Binding Capacity 413 mcg/dL (228-428); Total Protein 8.7 g/dL (6.5-8.0); Unsaturated Iron Binding 392 ug/dL
[2023-03-15 14:06] LABS: Ferritin 22 ng/mL (20-250)
[2023-03-15 14:16] LABS: Folate 6.7 ng/mL (> or = 4.0); Vitamin B12 1370 pg/mL (200-900)
== END 2023-03-15 11:04 | disposition home or self-care (01) ==
LOC: HO.HHCL 11:03
PROVIDERS: Visit Provider Family Medicine
DX: I10 Essential (primary) hypertension (principal); D64.9 Anemia, unspecified; B20 Human immunodeficiency virus [HIV] disease
CPT/HCPCS: 36415; 80048; 80076; 82607; 82728; 82746; 83540; 85025

== ENCOUNTER 2023-04-28 10:59 | Emergency (ER) | payer OTHER, SELFPAY ==
--- NOTE | 2023-04-28 11:11 | ED.GENADULT ---
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 Patient states that he drank alcohol and used heroin today. Patient states that even when wearing compression stockings, his lower legs swell. Patient states that his stomach also seems bigger. Patient denies any dizziness, lightheadedness, abdominal pain, nausea, vomiting, fever, chills, blurry vision, double vision, loss of vision, chest pain, difficulty breathing, shortness of breath, back pain, night sweats, pain with urination, increased urinary frequency, increased urinary urgency, blood in his urine or stool, syncope or a near syncopal episode, recent trauma or falls, bowel incontinence, bladder incontinence, bowel retention, bladder retention, or any other complaints at this time. Onset (ago): day(s) (2) Severity: mild Severity scale (1-10): 2 Relieving factors: none Associated symptoms: denies other symptoms Treatments prior to arrival: none Related Data Home Medications Medication Instructions Recorded Confirmed acamprosate 333 mg tablet,delayed 2 tab PO TID 02/21/20 08/01/20 release cholecalciferol (vitamin D3) 50 1 tab PO DAILY 02/21/20 08/01/20 mcg (2,000 unit) tablet dolutegravir 50 mg tablet (Tivicay) 1 tab PO DAILY 02/21/20 08/01/20 emtricitabine 200 mg-tenofovir 1 tab PO DAILY 02/21/20 08/01/20 alafenamide fumarate 25 mg tablet (Descovy) ipratropium 20 mcg-albuterol 100 1 puff PO QID 02/21/20 08/01/20 mcg/actuation mist for inhalation (Combivent Respimat) methadone 10 mg tablet 10 mg PO DAILY 02/21/20 08/01/20 mirtazapine 15 mg tablet 1.5 tab PO BEDTIME 02/21/20 08/01/20 multivitamin 1 tab PO DAILY 02/21/20 08/01/20 omeprazole 20 mg capsule,delayed 1 cap PO DAILY 02/21/20 08/01/20 release thiamine mononitrate (vit B1) 100 1 tab PO DAILY 02/21/20 08/01/20 mg tablet trazodone 100 mg tablet 1 - 2 tab PO BEDTIME PRN Sleep 02/21/20 08/01/20 varicella-zoster glycoE [id number] IM 02/21/20 08/01/20 adj(PF) 50 mcg/0.5 mL IM susp, kit (Shingrix (PF)) diclofenac sodium 1 % topical gel g topical BID 09/16/21 atorvastatin 80 mg tablet 80 mg PO DAILY 10/09/21 clopidogrel 75 mg tablet 75 mg PO DAILY 10/09/21 glecaprevir 100 mg-pibrentasvir 40 3 tab PO DAILY 10/09/21 mg tablet (Mavyret) hydrochlorothiazide 25 mg tablet 25 mg PO DAILY 10/09/21 hydroxyzine HCl 25 mg tablet 25 mg PO BID 10/09/21 rosuvastatin 10 mg tablet 10 mg PO BEDTIME 10/09/21 Previous Rx's Medication Instructions Recorded pantoprazole 20 mg tablet,delayed 20 mg PO DAILY 4 weeks #28 tabs 09/09/22 release Allergies Allergy/AdvReac Type Severity Reaction Status Date / Time No Known Allergies Allergy Verified 10/09/21 11:54 Review of Systems Constitutional: Constitutional: Reports no additional constitutional complaints, Denies chills, Denies fever(s) and Denies night sweats Eyes: Eyes: Reports no additional eye complaints, Denies blurry vision, Denies change in vision, Denies diplopia, Denies eye discharge, Denies loss of vision and Denies eye pain ENT: Denies dizziness Cardiovascular: Cardiovascular: Reports no additional cardiovascular complaints, Denies chest pain, Reports leg edema, Denies lightheadedness, Denies Loss of Consciousness and Denies dyspnea Respiratory: Respiratory: Reports no additional respiratory complaints and Denies dyspnea Gastrointestinal: Gastrointestinal: Reports no additional gastrointestinal complaints, Denies abdominal pain, Denies melena, Denies hematochezia, Denies change in bowel habits and Denies change in stool character Comments: bigger abdomen Genitourinary: Genitourinary: Reports no additional male genitourinary complaints, Denies hematuria, Denies oliguria, Denies difficulty urinating, Denies dysuria, Denies urinary frequency, Denies urinary hesitancy, Denies urinary incontinence and Denies urinary urgency Musculoskeletal: Musculoskeletal: Reports no additional musculoskeletal complaints Comments: unable to move lower extremities - chronic Neurologic: Denies dizziness and Denies loss of vision Psychiatric: Psychiatric: Reports no additional psychiatric complaints Endocrine: Endocrine: Reports no additional endocrine complaints Hematologic/Lymphatic: Hematologic/Lymphatic: Reports no additional hematologic/lymphatic complaints Allergic/Immunologic: Allergic/Immunologic: Reports no additional allergic/immunologic complaints PMFSH Past Medical History Attestation statement: The following information was validated with the patient. Source: old records reviewed and nursing notes reviewed Onset Date is defined in the Problem List Problems that require an onset date and time if occurred within 24 hrs of arrival to the ED Aortic Dissection and Rupture; Neurologic impairment; Cardiopulmonary Arrest; Endotracheal Intubation; Insertion or Replacement of Mechanical Circulatory Assist Device Medical History Methadone dependence Bigeminal rhythm COPD (chronic obstructive pulmonary disease) Tubular adenoma of colon Pulmonary nodule Emphysema lung Tobacco abuse Anxiety PAC (premature atrial contraction) Anemia Alcohol abuse Opioid dependence Hepatitis C HIV (human immunodeficiency virus infection) Polio Surgical History History of colonoscopy History of hip surgery History of foot surgery Social History Social History Alcohol intake: current Alcohol intake frequency: 3 or more drinks per day Alcohol type: beer and hard liquor Patient Tobacco Use Status: Current everyday Tobacco user Tobacco use type: Cigarette Cigarettes Per Day: 2.0 Second Hand Smoke Exposure: No Substance Use Type: Heroin Advance Directives: No Advance Directives Information Provided: No Current occupational status: disabled Physical Exam ED Vital Signs: Vital Signs - 24 hr 04/28/23 11:21 04/28/23 13:09 04/28/23 15:44 Temperature 97.8 F Pulse Rate 88 82 82 Respiratory Rate 18 12 18 Blood Pressure 112/62 122/77 120/67 Pulse Oximetry 93 96 93 Oxygen Delivery Method Room Air Room Air Room Air BMI result Body Mass Index 30.1 Const General: cooperative, no acute distress, alert and awake Nutritional Appearance: well nourished Orientation/consciousness: patient oriented x3 Limitations: no limitations HENMT Head: Yes normal to inspection and Yes atraumatic Ears: hearing grossly normal bilaterally and external ears normal General nose exam: Normal external nose present, no nasal discharge noted and no epistaxis Face and sinus: Yes normal facial exam, No abrasion and No laceration Mouth: Normal oral and palatal mucosa present, no drooling and no muffled voice Eyes General: appearance normal, both eyes and all related structures Periorbital: periorbital findings normal Eyelids: Yes eyelids normal Conjunctivae: conjunctivae normal Pupils: Equal, round and reactive pupils present EOM: EOMs intact bilaterally Neck Neck: Yes normal visual inspection, Yes full ROM and Yes no lymphadenopathy Chest Chest palpation & inspection: normal inspection of the chest Resp Effort & Inspection: normal respiratory effort and able to speak in complete sentences GI Inspection: Yes normal to inspection Palpation (GI): Soft to palpation, not firm, nontender and no guarding Neuro General: patient oriented x3 and moves all extremities Cranial nerves: Yes Equal, round and reactive pupils present Cognition (Neuro): normal cognition Motor exam (neuro): 5/5 motor strength present throughout Sensory Exam: Normal double simultaneous stimulation for sensation Coordination: [id number] test normal Extrem Other: 1+ edema in the bilateral lower extremities, no ROM in the bilateral lower extremities - chronic for the patient. General: Yes capillary refill normal Psych Appearance: grossly normal Mental Status: mental status grossly normal Affect: normal affect Attitude: cooperative Thought process: Normal thought process present Thought content: Normal thought content present Insight: Good insight present (Psych) Course Reevaluation(s) Reevaluation #1: Patient was placed and ready for discharge prior to my arrival to the ED. while waiting for his ambulance ride home he had shortness of breath per the patient history of asthma on exam he has wheezing in the bilateral bases. Will get a chest x-ray and give albuterol MDI Time: 16:46 Medications Administered Discontinued Medications Generic Name Dose Route Start Last Admin Trade Name Freq PRN Reason Stop Dose Admin Furosemide 40 mg 04/28/23 13:23 04/28/23 14:00 Furosemide 40 Mg Tablet PO 04/28/23 13:24 40 mg ONCE ONE Administration Protocol Medical Decision Making Medical Decision Making MDM Narrative: Patient is a 67 year old assigned male at with a history of hep C, alcohol abuse, and heroin use presenting to the emergency department today with bilateral lower leg swelling. Patient's physical exam was as noted in the physical exam portion of this note. Patient's blood work showed a chronic and mild anemia with mildly elevated LFTs consistent with alcohol abuse. Patient's urine showed no acute process. Patient's EKG was unremarkable. I explained my physical exam findings as well as all test results to the patient. I answered all questions asked by the patient. I spoke with the patient about obtaining imaging of his abdomen however, the patient stated that he would rather eat. Patient given 1 dose of lasix for lower leg edema. Patient's clinical presentation is most consistent with dependent lower leg edema and chronic liver disease secondary to alcohol abuse. I stressed the importance of the patient taking his medication as prescribed. I stressed the importance of the patient following up with his primary care provider and a GI specialist. I stressed the importance of the patient returning to the emergency department immediately if his symptoms were to worsen or if he were to develop any dizziness, shortness of breath, difficulty breathing, chest pain, blurry vision, loss of vision, nausea, vomiting, abdominal pain, fever, chills, back pain, or any other complaints. Patient verbalized agreement and understanding with this treatment plan and discharge. Differential Diagnosis Differential Diagnoses: The differential diagnosis associated with the presentation includes Lower leg edema Chronic liver disease Alcohol abuse Opiate abuse Admission/Observation Consideration of admission/observation: Escalation of care including admission/observation considered Patient would have been admitted to the hospital had his work up had any findings where hospital admission was appropriate and his clinical presentation warranted hospital admission. Lab Data [facility] Lab Attestation statement: I reviewed the patient's lab results. My interpretation of these results are in the [facility] Rationale portion of this note. 04/28/23 11:40 04/28/23 11:40 Labs: Lab Results 04/28/23 04/28/23 Range/Units 11:40 13:12 WBC 4.7 L (4.8-10.8) X10*3/uL RBC 4.06 L D (4.60-5.80) X10*6/uL Hgb 10.0 L D (14.0-18.0) g/dl Hct 31.5 L D (42.0-52.0) % MCV 77.6 L (80.0-98.0) fL MCH 24.6 L (27.0-33.0) pg MCHC 31.7 (31.0-36.0) g/dl RDW 21.1 H (11.0-16.0) % Plt Count 145 L D (160-400) X10*3/uL MPV 9.7 (9.4-12.4) fL Immature Gran % (Auto) 0.4 (0.0-0.4) % Neut % (Auto) 65.4 (45-73) % Lymph % (Auto) 19.5 L (20-40) % [place] % (Auto) 11.3 H (2-11) % Eos % (Auto) 3.0 (0-4) % Baso % (Auto) 0.4 (0-2) % Lymph # (Auto) 0.9 L (1.2-4.9) X10*3/uL [place] # (Auto) 0.5 (0.1-1.2) X10*3/uL Eos # (Auto) 0.1 (0.0-0.4) X10*3/uL Baso # (Auto) 0.0 (0.0-0.2) X10*3/uL Abs Immat Gran (auto) 0.02 (0.00-0.03) X10*3/uL Absolute Neuts (auto) 3.1 (2.0-8.3) x10*3/uL Absolute Nucleated RBC 0.000 (0.0-0.012) X10*3/uL Nucleated RBC % (auto) 0.0 (0.0-0.2) /100WBC PT 12.5 (11.1-13.3) SEC INR 1.0 (0.9-1.1) APTT 28.1 (26.0-36.4) SEC Sodium 140 (135-145) mmol/L Potassium 3.5 D (3.3-5.1) mmol/L Chloride 105 D (96-108) mmol/L Carbon Dioxide 27 (22-29) mmol/L Anion Gap 12 (12-20) BUN 15 (9-16) mg/dL Creatinine 0.64 (0.5-1.4) mg/dL Estim Creat Clear Calc 115.8 Estimated GFR > 60 Random Glucose 104 (60-115) mg/dL Calcium 8.6 D (8.4-10.2) mg/dL Total Bilirubin 1.0 (0.0-1.0) mg/dL AST 98 H (5-37) U/L ALT 45 H (0-40) U/L Alkaline Phosphatase 132 H (39-117) U/L Troponin I High Sens < 2.7 (<3.5-35.0) ng/L B-Natriuretic Peptide 59 (<100) pg/mL Total Protein 7.4 (6.5-8.0) g/dL Albumin 3.3 L (3.5-5.0) g/dL Urine Color Yellow Urine Appearance Clear Urine pH 5.5 (5.0-9.0) Ur Specific [place] 1.015 (1.005-1.025) Urine Protein 100 (2+) H (Neg-Trace) mg/dL Urine Glucose (UA) Negative (Negative) mg/dL Urine Ketones Negative (Negative) mg/dL Urine Blood Moderate (2+) H (Negative) Urine Nitrite Negative (Negative) Ur Leukocyte Esterase Negative (Negative) Urine RBC 0-2 (0-2) /HPF Urine WBC 0-5 (0-5) /HPF Ur Squamous Epith Cells 3-5 (0-2) /HPF Urine Bacteria None Seen (None Seen) Hyaline Casts 3-5 (0-2) /LPF Urine Opiates Screen POSITIVE H (Not Detect) Urine Fentanyl Screen POSITIVE H (Not Detect) Ur Barbiturates Screen Not Detected (Not Detect) Ur Phencyclidine Scrn Not Detected (Not Detect) Ur Amphetamines Screen Not Detected (Not Detect) U Benzodiazepines Scrn Not Detected (Not Detect) Urine Cocaine Screen Not Detected (Not Detect) U Marijuana (THC) Screen Not Detected (Not Detect) Ethyl Alcohol 148 mg/dL Influenza Type A (PCR) NEGATIVE (Negative) Influenza Type B (PCR) NEGATIVE (Negative) RSV RNA Qual (PCR) NEGATIVE (Negative) SARS-CoV-2 RNA (RT-PCR) NEGATIVE (Negative) Independent Interpretation I performed an independent interpretation of an: EKG Interpretation: Vent. Rate: 076 BPM Atrial Rate: 076 BPM P-R Int: 174 ms QRS Dur: 104 ms QT Int: 408 ms P-R-T Axes: 044 067 059 degrees QTc Int: 459 ms Sinus rhythm with Premature supraventricular complexes Low voltage QRS Borderline ECG When compared with ECG of 04-NOV-2021 19:22, Premature supraventricular complexes are now Present Electronically Signed By:Suman Ye Dictated By: Suman Ye MD Signed By: Electronically signed by Suman Ye MD 04/28/23 1400 Independent Historian Clinical information obtained from an independent historian. History obtained from or confirmed by: EMS (EMS provided additional history and confirmed the history provided by the patient.) Tests considered The following testing was considered but not selected: CT of the abdomen / pelvis and an abdominal US were both considered however, the patient declined these imaging modalities and instead requested to eat. Discharge Plan Discharge Clinical Impression: Leg edema Patient Disposition: Home, Self-Care Instructions: Leg Edema (ED) Additional Instructions: Follow up with your primary care provider and a GI specialist. Return to the emergency department immediately if your symptoms worsen or if you develop any dizziness, shortness of breath, difficulty breathing, chest pain, blurry vision, loss of vision, nausea, vomiting, abdominal pain, fever, chills, back pain, or any other complaints. Bernie un seguimiento con david proveedor de atenci?n primaria y un especialista gastrointestinal. Regrese al departamento de emergencias inmediatamente si addison s?ntomas empeoran o si presenta mareos, dificultad para respirar, dificultad para respirar, dolor en el pecho, visi?n borrosa, p?rdida de la visi?n, n?useas, v?mitos, dolor abdominal, fiebre, escalofr?os, dolor de espalda o cualquier otras quejas. Prescriptions: No Action pantoprazole 20 mg tablet,delayed release (DR/EC) 20 mg PO DAILY 28 Days Qty: 28 4RF multivitamin Tablet 1 tab PO DAILY methadone 10 mg Tablet 10 mg PO DAILY trazodone 100 mg tablet 1 - 2 tab PO BEDTIME PRN (Reason: Sleep) omeprazole 20 mg capsule,delayed release(DR/EC) 1 cap PO DAILY mirtazapine 15 mg tablet 1.5 tab PO BEDTIME acamprosate 333 mg tablet,delayed release (DR/EC) 2 tab PO TID cholecalciferol (vitamin D3) 50 mcg (2,000 unit) tablet 1 tab PO DAILY thiamine mononitrate (vit B1) 100 mg tablet 1 tab PO DAILY Tivicay 50 mg tablet 1 tab PO DAILY Combivent Respimat 20-100 mcg/actuation mist 1 puff PO QID [place] 200-25 mg tablet 1 tab PO DAILY Shingrix (PF) 50 mcg/0.5 mL suspension for reconstitution IM diclofenac sodium 1 % gel topical BID Mavyret 100-40 mg tablet 3 tab PO DAILY rosuvastatin 10 mg tablet 10 mg PO BEDTIME hydroxyzine HCl 25 mg tablet 25 mg PO BID hydrochlorothiazide 25 mg tablet 25 mg PO DAILY clopidogrel 75 mg tablet 75 mg PO DAILY atorvastatin 80 mg tablet 80 mg PO DAILY Ref[place]: [facility] [place] Group] (Call to establish and follow up with a GI specialist. Llame para establecer y realizar un seguimiento con un especialista gastrointestinal.) Martha Sesay DO [Primary Care Provider] - Print Language: Polish
[2023-04-28 11:21] VITALS: BP 112/62; BP 122/72; PULSE 100; PULSE 88; RESP 18; TEMP 36.6; O2SAT 93; O2SAT 94; BMI 30.1
[2023-04-28 13:09] VITALS: BP 122/77; PULSE 82; RESP 12; O2SAT 96
[2023-04-28 15:44] VITALS: BP 120/67; PULSE 82; RESP 18; O2SAT 93
[2023-04-28 17:01] VITALS: PULSE 87; RESP 16; O2SAT 94
--- NOTE | 2023-04-28 17:06 | PC.NURSE ---
pt reported difficulty breathing, reports needing his inhaler. Jarek SMITH notified. O2 92% RA. Pt taken to CXR
--- NOTE | 2023-04-28 17:36 | MHC.EDTECH ---
Oly booked for 1900.
== END 2023-04-28 20:59 | disposition home or self-care (01) ==
PROVIDERS: Emergency Provider Student in an Organized Health Care Education/Training Program; PCP Family Medicine
DX: R60.0 Localized edema (principal); R06.02 Shortness of breath; Z20.822 Contact with and (suspected) exposure to COVID-19; Z20.828 Contact with and (suspected) exposure to other viral communicable diseases; B20 Human immunodeficiency virus [HIV] disease; B18.2 Chronic viral hepatitis C; J44.9 Chronic obstructive pulmonary disease, unspecified; F11.20 Opioid dependence, uncomplicated; F17.210 Nicotine dependence, cigarettes, uncomplicated; Z79.899 Other long term (current) drug therapy
CPT/HCPCS: 0241U; 36415; 71045; 80053; 80307; 81001; 82947; 83880; 84484; 85025; 85610; 85730; 93005; 94640; 99284; 99285

== ENCOUNTER → 2023-04-28 11:12 | Outpatient (BNV) | payer OTHER, SELFPAY | PROVIDERS: Emergency Provider Student in an Organized Health Care Education/Training Program; PCP Family Medicine; Visit Provider Internal Medicine Cardiovascular Disease | DX: I47.10 Supraventricular tachycardia, unspecified (principal) | CPT/HCPCS: 93010 ==

== ENCOUNTER 2023-04-28 21:20 | Emergency (ER) | payer OTHER, SELFPAY ==
--- NOTE | 2023-04-28 21:31 | ED.GENADULT ---
HPI - General Adult General Stated complaint: JUST LEFT ER. COULDNT GAIN ACCESS TO RESIDENCE Time Seen by Provider: 04/28/23 21:25 Source: patient and EMS Mode of arrival: EMS Limitations: no limitations History of Present Illness HPI narrative: Patient comes to the emergency room by ambulance. Patient was seen here earlier today for lower extremity edema. The ambulance picked him up earlier today, took him to his residency. Patient was unable to get into his house. Then, patient asked EMS to give him a ride to his brother's house which they did. EMS not in 4 different source in a building, nobody answered. Patient is unable to ambulate, patient was brought back to the emergency room. Patient has no new complaints. Related Data Home Medications Medication Instructions Recorded Confirmed acamprosate 333 mg tablet,delayed 2 tab PO TID 02/21/20 08/01/20 release cholecalciferol (vitamin D3) 50 1 tab PO DAILY 02/21/20 08/01/20 mcg (2,000 unit) tablet dolutegravir 50 mg tablet (Tivicay) 1 tab PO DAILY 02/21/20 08/01/20 emtricitabine 200 mg-tenofovir 1 tab PO DAILY 02/21/20 08/01/20 alafenamide fumarate 25 mg tablet (Descovy) ipratropium 20 mcg-albuterol 100 1 puff PO QID 02/21/20 08/01/20 mcg/actuation mist for inhalation (Combivent Respimat) methadone 10 mg tablet 10 mg PO DAILY 02/21/20 08/01/20 mirtazapine 15 mg tablet 1.5 tab PO BEDTIME 02/21/20 08/01/20 multivitamin 1 tab PO DAILY 02/21/20 08/01/20 omeprazole 20 mg capsule,delayed 1 cap PO DAILY 02/21/20 08/01/20 release thiamine mononitrate (vit B1) 100 1 tab PO DAILY 02/21/20 08/01/20 mg tablet trazodone 100 mg tablet 1 - 2 tab PO BEDTIME PRN Sleep 02/21/20 08/01/20 varicella-zoster glycoE [id number] IM 02/21/20 08/01/20 adj(PF) 50 mcg/0.5 mL IM susp, kit (Shingrix (PF)) diclofenac sodium 1 % topical gel g topical BID 09/16/21 atorvastatin 80 mg tablet 80 mg PO DAILY 10/09/21 clopidogrel 75 mg tablet 75 mg PO DAILY 10/09/21 glecaprevir 100 mg-pibrentasvir 40 3 tab PO DAILY 10/09/21 mg tablet (Mavyret) hydrochlorothiazide 25 mg tablet 25 mg PO DAILY 10/09/21 hydroxyzine HCl 25 mg tablet 25 mg PO BID 10/09/21 rosuvastatin 10 mg tablet 10 mg PO BEDTIME 10/09/21 Previous Rx's Medication Instructions Recorded pantoprazole 20 mg tablet,delayed 20 mg PO DAILY 4 weeks #28 tabs 09/09/22 release Allergies Allergy/AdvReac Type Severity Reaction Status Date / Time No Known Allergies Allergy Verified 10/09/21 11:54 Review of Systems Review of Systems: Constitutional : No Weight loss, No Fever, No Chills, No Night Sweats, No Fatigue, No Malaise ENT/Mouth : No Hearing loss, No Ear Pain, No Nasal Congestion, No Sinus Pain, No Hoarseness, No sore throat, No Rhinorrhea, No Swallowing Difficulty Eyes: No Eye Pain, No Swelling, No Redness, No Foreign Body, No Discharge, No Vision Changes Cardiovascular : No Chest Pain, No SOB, No Dyspnea on Exertion, No Orthopnea, no palpitations, patient complaining of lower extremity edema Respiratory : No Cough, No Sputum, No Wheezing, No Smoke Exposure, No Dyspnea Gastrointestinal : No Nausea, No Vomiting, No Diarrhea, No Constipation, No abdominal Pain, No Hematochezia, No Melena Genitourinary : no irregular bleeding, No Dysuria, No Urinary Frequency, No Hematuria, No Urinary Incontinence, No Urgency, No Flank Pain, No Urinary Flow Changes, No Hesitancy Musculoskeletal : No joint pain, No Myalgias, No Joint Swelling Skin : No Skin Lesions, No rash Neuro : No Weakness, No Numbness, No Paresthesias, No Loss of Consciousness, No Dizziness, No Headache Psych : No Anxiety/Panic, No Depression, No SI/HI/AH/VH, No Social Issues, Heme/Lymph: No Bruising, No Bleeding,No Lymphadenopathy Endocrine : No Polyuria, No Polydipsia, No Temperature Intolerance PMFSH Past Medical History Onset Date is defined in the Problem List Problems that require an onset date and time if occurred within 24 hrs of arrival to the ED Aortic Dissection and Rupture; Neurologic impairment; Cardiopulmonary Arrest; Endotracheal Intubation; Insertion or Replacement of Mechanical Circulatory Assist Device Medical History Methadone dependence Bigeminal rhythm COPD (chronic obstructive pulmonary disease) Tubular adenoma of colon Pulmonary nodule Emphysema lung Tobacco abuse Anxiety PAC (premature atrial contraction) Anemia Alcohol abuse Opioid dependence Hepatitis C HIV (human immunodeficiency virus infection) Polio Surgical History History of colonoscopy History of hip surgery History of foot surgery Social History Social History Alcohol intake: current Alcohol intake frequency: 3 or more drinks per day Alcohol type: beer and hard liquor Patient Tobacco Use Status: Current everyday Tobacco user Tobacco use type: Cigarette Cigarettes Per Day: 2.0 Second Hand Smoke Exposure: No Substance Use Type: Heroin Current occupational status: disabled Physical Exam ED Const Other: Appearance: Alert. Oriented X3. No acute distress. Eyes: Pupils equal, round and reactive to light. ENT: Pharynx normal. Neck: Normal inspection. Neck supple. No lymph nodes noted. No crepitus CVS: Normal heart rate and rhythm. Pulses normal. Normal S1 and S2 Respiratory: No respiratory distress. Breath sounds normal. No Wheezing. No rales Abdomen: Soft and nontender. No rigidity. No distention. Skin: Skin warm and dry. Normal skin color. Normal skin turgor. 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 No motor deficit. No sensory deficit. Moving all extremities. No slurred speech. CN 2 through 12 grossly intact Psych: calm, cooperative, normal affect Course Course Course Narrative: -patient has no new medical complaints -case management consult has been requested, likely to be done in the morning. -physician observation started at 21:35 Discharge Plan Discharge Clinical Impression: Housing problems Patient Disposition: Still a Patient Prescriptions: No Action pantoprazole 20 mg tablet,delayed release (DR/EC) 20 mg PO DAILY 28 Days Qty: 28 4RF multivitamin Tablet 1 tab PO DAILY methadone 10 mg Tablet 10 mg PO DAILY trazodone 100 mg tablet 1 - 2 tab PO BEDTIME PRN (Reason: Sleep) omeprazole 20 mg capsule,delayed release(DR/EC) 1 cap PO DAILY mirtazapine 15 mg tablet 1.5 tab PO BEDTIME acamprosate 333 mg tablet,delayed release (DR/EC) 2 tab PO TID cholecalciferol (vitamin D3) 50 mcg (2,000 unit) tablet 1 tab PO DAILY thiamine mononitrate (vit B1) 100 mg tablet 1 tab PO DAILY Tivicay 50 mg tablet 1 tab PO DAILY Combivent Respimat 20-100 mcg/actuation mist 1 puff PO QID Descovy 200-25 mg tablet 1 tab PO DAILY Shingrix (PF) 50 mcg/0.5 mL suspension for reconstitution IM diclofenac sodium 1 % gel topical BID Mavyret 100-40 mg tablet 3 tab PO DAILY rosuvastatin 10 mg tablet 10 mg PO BEDTIME hydroxyzine HCl 25 mg tablet 25 mg PO BID hydrochlorothiazide 25 mg tablet 25 mg PO DAILY clopidogrel 75 mg tablet 75 mg PO DAILY atorvastatin 80 mg tablet 80 mg PO DAILY
[2023-04-28 21:33] VITALS: BP 150/90; PULSE 103; O2SAT 98
[2023-04-28 21:53] VITALS: BMI 24.1
[2023-04-28 22:37] VITALS: BP 130/69; PULSE 95; RESP 18; TEMP 36.7; O2SAT 95
[2023-04-28 23:23] VITALS: BP 134/59; PULSE 92; RESP 18; TEMP 36.7; O2SAT 100
--- NOTE | 2023-04-28 23:26 | MHC.EDTECH ---
This tech took over care of patient at 2300,patient was changed into hospital attire, hourly rounds and vitals completed. Belonging list done and copy placed in chart
--- NOTE | 2023-04-29 00:42 | PC.NURSE ---
Nurse to Nurse report given
--- NOTE | 2023-04-29 02:10 | PC.NURSE ---
I assumed care of the pt in Overflow around 0100. Pt was able to slide himself to hospital bed without assistance. Pt presents A&Ox4, GCS 15, with warm, dry skin. Pt denies pain and is in no obvious discomfort or shortness of breath. Pt was given a urinal and glass of water. No complaints at this time. Pt is pending CM/social work program coordinator
[2023-04-29 07:47] VITALS: BP 131/70; PULSE 83; RESP 18; TEMP 37.2; O2SAT 94
--- NOTE | 2023-04-29 08:47 | HE.PHANOTE ---
METHADONE CONFIRMATION FORM PATIENT TAKES 80 MG FROM [facility] LAST DOSE 04/28
--- NOTE | 2023-04-29 09:46 | PHA.MEDREC ---
Pharmacy Consult ? Medication Reconciliation Pharmacy has completed the medication reconciliation. Med rec completed based on claim history. Per nursing pt is unsure of what he takes and gets pill pockets, only medication named was methadone. Requested for verification form
--- NOTE | 2023-04-29 14:09 | MHC.CM.PN ---
CM MET WITH PT THIS MORNING WITH A PESTICIDE CHEMIST PT CONFIRMS HE LIVES ALONE HE SAYS HE CAME IN YESTERDAY AND WAS SENT HOME, BUT DID NOT HAVE A SOLIS TO GET IN HE CONFIRMS HE NOW HAS HIS APARTMENT SOLIS PT STATES HE WANTS HIS LEGS TREATED FIRST THEY ARE SWOLLEN PT HAS BEEN CLEARED MEDICALLY BLS TRANSPORT ARRANGED VIA [facility] PT CLEARED TO RETURN HOME WITH RESUMPTION OF [employer]
== END 2023-04-29 15:52 | disposition home or self-care (01) ==
PROVIDERS: Emergency Provider Emergency Medicine
DX: R60.0 Localized edema (principal); Z72.89 Other problems related to lifestyle; Z59.89 Other problems related to housing and economic circumstances; B20 Human immunodeficiency virus [HIV] disease; B18.2 Chronic viral hepatitis C; F11.20 Opioid dependence, uncomplicated; F17.210 Nicotine dependence, cigarettes, uncomplicated
CPT/HCPCS: 99283; 99284

== ENCOUNTER 2023-06-30 09:58 | Outpatient (REF) | payer OTHER, SELFPAY ==
[2023-06-30 11:28] LABS: MANUAL DIFF FLAG NO
[2023-06-30 11:46] LABS: Basophils Percent Auto 0.6 % (0-2); Eosinophils Absolute Auto 0.2 X10*3/uL (0.0-0.4); Eosinophils Percent Auto 3.7 % (0-4); Hematocrit 33.4 % (42.0-52.0); Hemoglobin 10.5 g/dl (14.0-18.0); Imm Gran Abs Auto 0.01 X10*3/uL (0.00-0.03); Imm Gran Pct Auto 0.2 % (0.0-0.4); Lymphocytes Absolute Auto 1.1 X10*3/uL (1.2-4.9); Lymphocytes Percent Auto 19.7 % (20-40); Mean Corpuscular HGB Conc 31.4 g/dl (31.0-36.0); Mean Corpuscular Hemoglobin 24.2 pg (27.0-33.0); Mean Platelet Volume 9.9 fL (9.4-12.4); Monocytes Absolute Auto 0.5 X10*3/uL (0.1-1.2); Monocytes Percent Auto 9.7 % (2-11); Neutrophils Absolute Auto 3.6 x10*3/uL (2.0-8.3); Neutrophils Percent Auto 66.1 % (45-73); Platelet Count 194 X10*3/uL (160-400); Red Blood Count 4.34 X10*6/uL (4.60-5.80); Red Cell Distribution Width 18.9 % (11.0-16.0); White Blood Count 5.4 X10*3/uL (4.8-10.8)
[2023-06-30 12:20] LABS: Alanine Aminotransferase 25 U/L (0-40); Albumin Level 3.6 g/dL (3.5-5.0); Alkaline Phosphatase 131 U/L (39-117); Anion Gap 13 (12-20); Aspartate Amino Transferase 35 U/L (5-37); Bilirubin Total 0.9 mg/dL (0.0-1.0); Blood Urea Nitrogen 13 mg/dL (9-16); Calcium 8.6 mg/dL (8.4-10.2); Carbon Dioxide 26 mmol/L (22-29); Chloride 101 mmol/L (96-108); Cholesterol 124 mg/dL (<200); Estimated Glomerular Filt Rate > 60; Glucose Random 97 mg/dL (60-115); HDL Cholesterol 62 mg/dL (>40); LDL Cholesterol Calculated 49 mg/dL (<100); Potassium 3.2 mmol/L (3.3-5.1); Sodium 137 mmol/L (135-145); Total Protein 7.8 g/dL (6.5-8.0); Triglycerides 68 mg/dL (<150)
[2023-06-30 13:35] LABS: Reflex LDLD? No
[2023-07-01 11:58] LABS: Absolute CD3 Count 825 cells/uL (840-3060); Absolute CD4 Count 584 cells/uL (490-1740); Absolute CD8 Count 245 cells/uL (180-1170); Absolute Lymphocytes 1128 cells/uL (850-3900); CD4 CD8 Ratio 2.38 (0.86-5.00); Percent CD3 Cells 73 % (57-85); Percent CD4 Cells 52 % (30-61); Percent CD8 Cells 22 % (12-42)
[2023-07-01 14:53] LABS: HIV RNA PCR Qn Copies NOT DETECTED copies/mL (NOT DETECTED); HIV RNA PCR Qn Log Copies NOT DETECTED (NOT DETECTED)
== END 2023-06-30 09:59 | disposition home or self-care (01) ==
LOC: HO.HHCL 09:58
PROVIDERS: Visit Provider Internal Medicine
DX: B20 Human immunodeficiency virus [HIV] disease (principal)
CPT/HCPCS: 36415; 80053; 80061; 85025; 86359; 86360; 87536

== ENCOUNTER 2023-08-23 10:19 | Outpatient (REF) | payer OTHER, SELFPAY ==
[2023-08-23 12:39] LABS: Anion Gap 12 (12-20); Blood Urea Nitrogen 16 mg/dL (9-16); Calcium 8.9 mg/dL (8.4-10.2); Carbon Dioxide 26 mmol/L (22-29); Chloride 103 mmol/L (96-108); Estimated Glomerular Filt Rate > 60; Glucose Random 113 mg/dL (60-115); Potassium 3.9 mmol/L (3.3-5.1); Sodium 137 mmol/L (135-145)
== END 2023-08-23 10:20 | disposition home or self-care (01) ==
LOC: HO.HHCL 10:19
PROVIDERS: Visit Provider Family Medicine
DX: I10 Essential (primary) hypertension (principal)
CPT/HCPCS: 36415; 80048

== ENCOUNTER 2023-09-14 09:47 | Outpatient (REF) | payer OTHER, SELFPAY ==
[2023-09-14 12:00] LABS: Alanine Aminotransferase 28 U/L (0-40); Albumin Level 3.4 g/dL (3.5-5.0); Alkaline Phosphatase 154 U/L (39-117); Anion Gap 18 (12-20); Aspartate Amino Transferase 72 U/L (5-37); Bilirubin Direct 0.4 mg/dL (0.0-0.5); Bilirubin Total 0.9 mg/dL (0.0-1.0); Blood Urea Nitrogen 14 mg/dL (9-16); Calcium 8.8 mg/dL (8.4-10.2); Carbon Dioxide 25 mmol/L (22-29); Chloride 99 mmol/L (96-108); Cholesterol 126 mg/dL (<200); Estimated Glomerular Filt Rate > 60; Glucose Random 92 mg/dL (60-115); HDL Cholesterol 59 mg/dL (>40); LDL Cholesterol Calculated 10 mg/dL (<100); Potassium 3.5 mmol/L (3.3-5.1); Sodium 138 mmol/L (135-145); Total Protein 8.2 g/dL (6.5-8.0); Triglycerides 286 mg/dL (<150)
[2023-09-14 12:10] LABS: Free T4 (Free Thyroxine) 0.98 ng/dL (0.71-1.85); Thyroid Stimulating Hormone 0.31 uIU/mL (0.32-4.0)
== END 2023-09-14 09:48 | disposition home or self-care (01) ==
LOC: HO.HHCL 09:47
PROVIDERS: Visit Provider Family Medicine
DX: R60.1 Generalized edema (principal)
CPT/HCPCS: 36415; 80048; 80061; 80076; 82306; 84439; 84443

== ENCOUNTER 2023-12-14 14:17 | Inpatient (IN) | payer OTHER, SELFPAY ==
[2023-12-14] VITALS (13 sets, daily range): BP systolic 71–140; BP diastolic 30–100; PULSE 68–107; RESP 16–26; TEMP 32.2–36.1; O2SAT 91–100; BMI 31.2; BMI 36.6
--- NOTE | ~2023-12-14 | CT_ITS ---
EXAMINATION: CT FACIAL BONES WITHOUT CONTRAST CLINICAL INFORMATION: Left-sided facial pain. Odontogenic infection. COMPARISON: CT head dated 12/14/2023. TECHNIQUE: Contiguous axial CT images of the facial bones were obtained without contrast. Sagittal and coronal reformats were provided and reviewed. This CT examination was performed using dose optimization techniques as appropriate, variously including the following: *Automated exposure control *Adjustment of mA and/or kV according to patient size (this includes techniques or standardized protocols for targeted exams where dose is matched to indication/reason for exam; i.e. extremities or head) *Use of iterative reconstruction technique DLP: 584.18 mGy-cm FINDINGS: There is no acute maxillofacial fracture. The pterygoid plates are intact. The zygomatic arches are intact. The lamina papyracea are intact. The orbital rims are intact. Air-fluid level and secretions within the right maxillary sinus as well as within the sphenoid sinuses which could represent a degree of acute sinusitis. There is no significant deviation of the nasal septum. The ostiomeatal complexes are clear. The lamina papyracea are intact. The ethmoid roofs are symmetric. The carotid canals are normally covered by bone. There is lucency adjacent to the root of the left maxillary canine which extends through the peripheral maxillary cortex, consistent with a periapical abscess. No adjacent organized fluid collection or soft tissue abscess. The mastoid air cells and visualized middle ear cavities are well-aerated. The orbits are normal. The TMJs are unremarkable. The imaged portions of the brain demonstrate no acute abnormality. CT/CT facial bones wo IV con IMPRESSION: 1. Lucency adjacent to the root of the left maxillary canine which extends through the peripheral maxillary cortex, consistent with a periapical abscess. No adjacent organized fluid collection or soft tissue abscess. 2. Air-fluid level and secretions within the right maxillary sinus as well as within the sphenoid sinuses which could represent a degree of acute sinusitis. Electronically signed by: Nick Tang MD 12/14/2023 09:32 PM EDT
--- NOTE | ~2023-12-14 | XR_ITS ---
EXAMINATION: XR CHEST CLINICAL INFORMATION: Shortness of breath. COMPARISON: CT chest 12/14/2023. Chest radiograph 12/14/2023. TECHNIQUE: Frontal view of the chest was obtained. FINDINGS: Low lung volumes and patient's rotation limiting examination. Right greater than left bibasilar consolidative airspace opacities are increased compared to most recent priors. Small left-sided pleural effusion not convincingly changed. No pneumothorax. Similar appearance of the cardiomediastinal silhouette. No displaced osseous fractures. XR/XR chest 1V IMPRESSION: Worsening pulmonary aeration with increased right greater than left bibasilar airspace opacities. Unchanged small left-sided pleural effusion. Electronically signed by: Zo Trujillo MD 12/18/2023 12:47 PM EDT
--- NOTE | ~2023-12-14 | XR_ITS ---
EXAMINATION: XR CHEST CLINICAL INFORMATION: Aspiration COMPARISON: 12/18/2023 TECHNIQUE: Frontal view of the chest was obtained. FINDINGS: Low lung volumes. Bibasilar atelectasis and consolidation, unchanged. Architectural distortion emphysema in the lung apices. Cardiac and mediastinal contours are unchanged and within normal limits. Pulmonary vasculature is unremarkable. No acute osseous findings. Osteoarthritis is present in the acromioclavicular and glenohumeral joints. Chronic bilateral rotator cuff tears. XR/XR chest 1V IMPRESSION: Low lung volumes with bibasilar atelectasis and consolidation, unchanged. Electronically signed by: Justyn Torres MD 12/19/2023 02:28 PM EDT
--- NOTE | ~2023-12-14 | XR_ITS ---
EXAMINATION: XR CHEST CLINICAL INFORMATION: Central line placement COMPARISON: 12/14/2023 TECHNIQUE: Frontal view of the chest was obtained. FINDINGS: The tip of the right IJ catheter is at level of junction of the superior vena cava with the right atrium. No pneumothorax. Lungs remain hypoinflated. There are streaky opacities of lower lung zones. The left lateral costophrenic sulcus is blunted. Small left pleural effusion is suspected. Cardiac silhouette is suboptimally evaluated due to the hypoinflation. No overt cardiomegaly. No evidence of pulmonary edema. No acute osseous abnormality. XR/XR chest 1V IMPRESSION: * No pneumothorax after right IJ line placement. * Lungs are hypoinflated and there is bibasilar opacities, likely atelectasis, although difficult to exclude any underlying lower lobe pneumonia on this limited evaluation. * Probable small left pleural effusion. Electronically signed by: Juno Guo MD 12/14/2023 05:38 PM EDT
--- NOTE | ~2023-12-14 | XR_ITS ---
EXAMINATION: XR ABDOMEN KUB CLINICAL INDICATION: Abdominal distention. COMPARISON: CT scan dated December 14, 2023. TECHNIQUE: AP view of the abdomen. FINDINGS: Multiple loops of mildly dilated small bowel and colon, suggesting ileus. No free air identified. No evidence of soft tissue mass or organomegaly. No conspicuous abnormal calcification identified. Status post right proximal femoral ORIF. Bones otherwise appear unremarkable. Small left basilar hazy patchy densities suggesting pleural fluid, pleural thickening, atelectasis, and/or infiltrate. XR/XR KUB IMPRESSION: Findings as above. Electronically signed by: Amrik Quinn MD 12/21/2023 09:45 PM EDT
--- NOTE | ~2023-12-14 | XR_ITS ---
EXAMINATION: XR CHEST CLINICAL INFORMATION: Shortness of breath, asthma COMPARISON: Chest x-ray on 04/28/2023 TECHNIQUE: Frontal view of the chest was obtained. FINDINGS: HEART & VASCULARITY: There are normal cardiac size and pulmonary vascularity. LUNGS: Lungs are hypoinflated. Abnormal density is seen in left lung base effacing the left hemidiaphragm, left cardiac border and left lateral costophrenic angle. Patchy airspace disease is also seen in medial inferior right lung.. No pneumothorax is seen. BONES: Bony skeleton is intact. Severe right glenohumeral joint osteoarthritis with marked loss of joint space, mixed sclerotic and erosive changes in right glenoid fossa and humeral head is seen. XR/XR chest 1V IMPRESSION: 1. Persistent hypoinflation of lungs. 2. Interval development of left lateral lung base airspace disease and small left pleural effusion. 3. Interval development of medial right lobe along infiltrates suggestive of pneumonia. 4. Unchanged severe right glenohumeral joint osteoarthritis. Electronically signed by: Ricardo Matos MD 12/14/2023 05:02 PM EDT
--- NOTE | ~2023-12-14 | CT_ITS ---
EXAMINATION: CT HEAD WITHOUT CONTRAST CLINICAL INFORMATION: Left sided facial weakness COMPARISON: CT head February 2021 TECHNIQUE: Contiguous axial imaging was performed from the skull base to vertex without intravenous administration of contrast. This CT examination was performed using dose optimization techniques as appropriate, variously including the following: *Automated exposure control *Adjustment of mA and/or kV according to patient size (this includes techniques or standardized protocols for targeted exams where dose is matched to indication/reason for exam; i.e. extremities or head) *Use of iterative reconstruction technique DLP: 751 mGy-cm FINDINGS: There is no mass hemorrhage or cerebral edema. Ventricles and basilar cisterns are normal. No arterial calcification. Soft tissues/scalp: Normal. Bone/calvarium: Normal. Sinuses: Mucosal thickening of the right maxillary sinus. Minimal mucosal thickening of the left maxillary sinus. Mastoid air cells: Normal. CT/CT head/brain wo IV con IMPRESSION: No acute intracranial pathology. Electronically signed by: Bryant Pink MD 12/14/2023 08:51 PM EDT
--- NOTE | ~2023-12-14 | CT_ITS ---
EXAMINATION: CT CHEST, ABDOMEN AND PELVIS WITHOUT CONTRAST CLINICAL INFORMATION: Hypotension. Dyspnea. Acute renal failure. Evaluate for obstruction. COMPARISON: Most recent chest radiograph dated 12/14/2023, CT chest dated 07/20/2021, and abdominal ultrasound dated 10/09/2018. TECHNIQUE: Contiguous axial thin section helical images of the chest, abdomen and pelvis were performed without IV contrast. The data set was reformatted in the coronal and sagittal planes and reviewed on an independent workstation. This CT examination was performed using dose optimization techniques as appropriate, variously including the following: *Automated exposure control *Adjustment of mA and/or kV according to patient size (this includes techniques or standardized protocols for targeted exams where dose is matched to indication/reason for exam; i.e. extremities or head) *Use of iterative reconstruction technique DLP: 2709 mGy-cm. FINDINGS: LUNGS: Prominent emphysematous changes are redemonstrated. Bilateral posterior lower lobe consolidations with air bronchograms, new compared to the prior examination and concerning for early pneumonia. No new pulmonary nodule or mass. Evaluation somewhat limited secondary to respiratory motion. The central airways are patent. PLEURA: No pleural effusion or pneumothorax. No pleural mass or thickening. MEDIASTINUM: No cardiomegaly. No significant pericardial effusion. No thoracic aortic dilatation. No significant mediastinal or hilar lymphadenopathy. CHEST WALL/AXILLA: No lymphadenopathy. Right-sided central venous catheter with the tip in the region of the distal SVC. THYROID: Unremarkable LIVER, GALLBLADDER, AND BILIARY TREE: Normal size, shape, and attenuation. No focal hepatic lesion. No intra or extrahepatic biliary ductal dilatation. The gallbladder is unremarkable with no evidence of radiopaque gallstones, gallbladder wall thickening, or obvious pericholecystic inflammatory changes. PANCREAS: Atrophic. No inflammatory change or ductal dilatation. SPLEEN: Unremarkable. ADRENAL GLANDS: Unremarkable. KIDNEYS AND URETERS: Normal size, shape, and attenuation. No hydronephrosis, hydroureter, or calculi. No perinephric stranding. BLADDER: Nondistended with a Bergman catheter in place. Air within the urinary bladder likely due to recent catheterization. GASTROINTESTINAL TRACT: No small or large bowel obstruction. No bowel dilatation. Scattered sigmoid diverticulosis. No bowel wall thickening or inflammatory change to suggest acute diverticulitis. The appendix is unremarkable. PERITONEAL CAVITY: No intra-abdominal free air, free fluid, mass, or organized fluid collection. ABDOMINAL WALL: No significant abdominal wall hernia. LYMPH NODES: No significant lymphadenopathy. VASCULAR: No abdominal aortic dilatation. Scattered atherosclerotic calcifications. The IVC is unremarkable. PELVIC VISCERA: Unremarkable OSSEOUS STRUCTURES: No acute osseous abnormality. Degenerative disc disease and facet arthropathy at L5-S1. Right femoral neck orthopedic screws without hardware complication. CT/CT abdomen pelvis wo IV con IMPRESSION: 1. Prominent emphysematous changes are redemonstrated. Bilateral posterior lower lobe consolidations with air bronchograms, new compared to the prior examination and concerning for early pneumonia. 2. No intra-abdominal mass, lymphadenopathy, or ascites. 3. No small or large bowel obstruction. Sigmoid diverticulosis without evidence of acute diverticulitis. Unremarkable appendix. 4. No hydronephrosis or nephrolithiasis. Electronically signed by: Nick Tang MD 12/14/2023 09:07 PM EDT
--- NOTE | ~2023-12-14 | US_ITS ---
EXAMINATION: US TRIPLEX UPPER EXTREMITY, LEFT CLINICAL INFORMATION: Arm swelling COMPARISON: None available. TECHNIQUE: Color-flow triplex imaging with spectral analysis and compression Doppler was performed on the left upper extremity. FINDINGS: The left internal jugular, subclavian, and axillary veins are patent and free of thrombus. The imaged segment of the left brachiocephalic vein is patent. Spectral doppler waveforms are normal. The brachial, basilic, cephalic, radial, and ulnar veins are patent and compressible. US/US venous duplex UE LT IMPRESSION: No evidence of deep venous thrombosis involving the left upper extremity. Electronically signed by: Pacheco Acosta MD 12/22/2023 01:43 AM EDT
--- NOTE | 2023-12-14 14:36 | ED.GENADULT ---
HPI - General Adult General Chief complaint: Dyspnea Stated complaint: SOB,RAN OUT OF MDI,TIAB PER EMS Time Seen by Provider: 12/14/23 14:27 History of Present Illness ED Provider: Yadi TUCKER narrative: Patient is a 68-year-old male who presents to the hospital by ambulance who had 1st seemed to be complaining of shortness of breath. He initially said that he had been short of breath since 08/22 this morning and that he had run out of his MDI inhaler. Later he seemed to say that he has been having left-sided dental pain. He says that he is a smoker who still smokes. He also admitted to using cocaine this morning. The patient denied headache, chest pain, abdominal pain. The patient is wheelchair-bound. Related Data Home Medications ?Medication ?Instructions ?Recorded ?Confirmed cholecalciferol (vitamin D3) 50 1 tab PO DAILY 02/21/20 04/29/23 mcg (2,000 unit) tablet ipratropium 20 mcg-albuterol 100 1 puff PO QID 02/21/20 04/29/23 mcg/actuation mist for inhalation (Combivent Respimat) multivitamin 1 tab PO DAILY 02/21/20 04/29/23 thiamine mononitrate (vit B1) 100 1 tab PO DAILY 02/21/20 04/29/23 mg tablet diclofenac sodium 1 % topical gel 2 g topical QID 09/16/21 04/29/23 clopidogrel 75 mg tablet 75 mg PO DAILY 10/09/21 04/29/23 hydrochlorothiazide 25 mg tablet 25 mg PO DAILY 10/09/21 04/29/23 rosuvastatin 10 mg tablet 10 mg PO BEDTIME 10/09/21 04/29/23 amlodipine 2.5 mg tablet 2.5 mg PO DAILY 04/29/23 04/29/23 aspirin 81 mg chewable tablet 81 mg PO DAILY 04/29/23 04/29/23 bictegravir 50 mg-emtricitabine 1 tab PO DAILY 04/29/23 04/29/23 200 mg-tenofovir alafenam 25 mg tablet (Biktarvy) folic acid 1 mg tablet 1 mg PO DAILY 04/29/23 04/29/23 Previous Rx's ?Medication ?Instructions ?Recorded pantoprazole 20 mg tablet,delayed 20 mg PO DAILY 4 weeks #28 tabs 09/09/22 release Allergies Allergy/AdvReac Type Severity Reaction Status Date / Time No Known Allergies Allergy Verified 12/14/23 14:48 [facility] Past Medical History Medical History Methadone dependence Bigeminal rhythm COPD (chronic obstructive pulmonary disease) Tubular adenoma of colon Pulmonary nodule Emphysema lung Tobacco abuse Anxiety PAC (premature atrial contraction) Anemia Alcohol abuse Opioid dependence Hepatitis C HIV (human immunodeficiency virus infection) Polio Surgical History History of colonoscopy History of hip surgery History of foot surgery Social History Social History Alcohol intake: current Alcohol intake frequency: 3 or more drinks per day Alcohol type: beer and hard liquor Patient Tobacco Use Status: Current everyday Tobacco user Tobacco use type: Cigarette Cigarettes Per Day: 2.0 Smoked in Last 30 Days: Yes Second Hand Smoke Exposure: No Use of substances other than those prescribed or required for medical reasons: Yes Substance Use Type: Crack/Cocaine Advance Directives: No Advance Directives Information Provided: No Do you have a plan to hurt others: No Plan Current occupational status: disabled Physical Exam ED Vital Signs: Vital Signs - 24 hr 12/14/23 14:23 12/14/23 14:47 12/14/23 16:17 Temperature Pulse Rate 93 92 68 Respiratory Rate 25 H 20 20 Blood Pressure 71/38 L Pulse Oximetry Oxygen Delivery Method 12/14/23 16:18 Temperature 97 F Pulse Rate 90 Respiratory Rate 25 H Blood Pressure 80/30 L Pulse Oximetry 97 Oxygen Delivery Method Room Air BMI result Body Mass Index 31.2 Const Other: The patient is a chronically ill-appearing 68-year-old male who seemed somewhat short of breath. He was awake but not very cooperative historian. HENMT Other: Mucous membranes look somewhat dry. I felt that the left lower face looked less mobile than the right lower face. Tongue is midline. He moves his eyelids normally and his eyebrows normally. Eyes Other: Pupils are round equal, conjunctivae are not injected, extraocular movements are intact. Neck Other: No obvious JVD. Good range of motion of the neck. No adenopathy. Chest Other: No chest wall tenderness Resp Other: Mild wheezes bilaterally. No marked increased work of breathing. Cardio Rate: regular rate Rhythm: regular rhythm Heart sounds: S1 normal heart sound present and S2 normal heart sound present GI Other: Abdomen is soft and not obviously tender. Skin Other: Skin is without lesions and quite dry. The patient has a very tough skin. Neuro Other: The patient is awake and alert. He has a very contrary personality. I thought that he might have some left lower facial weakness. The patient attributes this to dental pain. Cranial nerves are otherwise intact. The patient moves his arms normally. He has little use of his legs. Extrem Other: The patient has atrophied lower extremities. Medications Administered Generic Name Dose Route Start Last Admin Trade Name Freq PRN Reason Stop Dose Admin Calcium Gluconate 2 gm in 100 mls @ 50 mls/hr 12/14/23 15:48 12/14/23 16:12 Calcium Gluconate IV 12/14/23 17:47 50 mls/hr ONCE ONE Administration Discontinued Medications Generic Name Dose Route Start Last Admin Trade Name Freq PRN Reason Stop Dose Admin Albuterol Sulfate 7.5 mg/ 10 mg 12/14/23 16:08 12/14/23 16:18 Albuterol Sulfate 2.5 mg INHALE 12/14/23 16:09 10 mg ONCE ONE Administration Albuterol/Ipratropium 3 ml 12/14/23 14:43 12/14/23 14:51 Albuterol/Iprat 2.5/0.5mg 3 Ml Ampul.Neb INHALE 12/14/23 14:44 3 ml ONCE ONE Administration Lactated Ringer's 1,000 mls @ 999 mls/hr 12/14/23 16:00 12/14/23 16:06 Lr IV 12/14/23 17:00 999 mls/hr .Q1H1M HCAN Administration Pantoprazole Sodium 80 mg 12/14/23 15:54 12/14/23 16:12 Pantoprazole Sodium 40 Mg/10 Ml Vial IVPUSH 12/14/23 15:55 80 mg ONCE ONE Administration Prednisone 60 mg 12/14/23 14:38 12/14/23 14:53 Prednisone 20 Mg Tablet PO 12/14/23 14:39 60 mg ONCE ONE Administration Procedures Central Line Placement Right IJ: Time Out Performed: Yes Patient Placed on Monitor/Pulse Ox: Yes Prep: mask, gown and gloves Central Line Prep: Chlorhexidine scrub and sterile drapes applied Local Anesthetic: lidocaine 1% Amount of anesthesia used (mL): 4 Ultrasound Used for Placement: Yes Central Line Lumen Inserted: triple Post Procedure: sutured in place, good blood return, all ports aspirated, flushed, capped and sterile dressing applied Post Procedure X-Ray: tip of catheter in good position and no pneumothorax seen Patient Tolerated Procedure: well Complications: none Medical Decision Making Medical Decision Making [facility] Narrative: The patient is a 68-year-old male who arrived complaining of shortness of breath. He seemed to be wheezing and a 1st this seemed to possibly be a simple asthma exacerbation. The patient said he had run out of his albuterol MDI. However it became apparent that the patient had hypotension. I performed a bedside ultrasound which I thought did not show any significant pericardial effusion or obvious right heart embarrassment. The heart seemed hyperdynamic.The patient was very difficult to start peripheral IV access on and he was very reluctant to allow multiple attempts. This delayed phlebotomy. Ultimately an ultrasound-guided peripheral line was placed and labs were drawn. Labs showed that the patient was in acute renal failure with a creatinine of 12 and a BUN of 148. Also had a significant metabolic acidosis with a venous pH of 7.12 and a bicarb of 10. Potassium 6.3. The patient was given calcium and albuterol. Additional attempts at further phlebotomy and additional access were tried but unsuccessful and the patient was ultimately prevailed upon to accept a central line. Central line was placed in the patient's right internal jugular vein. Blood cultures were drawn off the central line. The patient was given additional fluids and antibiotics. I discussed the case with Dr. Hayes of the intensive care unit who also requested a bicarb drip and albumin. We were ultimately able to prevail upon the patient to accept a temperature sensing urinary catheter which revealed a core temperature of 90 degrees F. The patient was placed on a Belkis hugger. Lab Data 12/14/23 15:10 12/14/23 15:10 Labs: Lab Results 12/14/23 12/14/23 Range/Units 15:10 15:15 WBC 2.9 L (4.8-10.8) X10*3/uL RBC 2.28 L D (4.60-5.80) X10*6/uL Hgb 7.8 L D (14.0-18.0) g/dl Hct 23.3 L D (42.0-52.0) % MCV 102.2 H (80.0-98.0) fL MCH 34.2 H (27.0-33.0) pg MCHC 33.5 (31.0-36.0) g/dl RDW 19.3 H (11.0-16.0) % Plt Count 132 L D (160-400) X10*3/uL MPV 10.9 (9.4-12.4) fL Immature Gran % (Auto) Cancelled Neut % (Auto) Cancelled Lymph % (Auto) Cancelled Traverse % (Auto) Cancelled Eos % (Auto) Cancelled Baso % (Auto) Cancelled Lymph # (Auto) Cancelled Traverse # (Auto) Cancelled Eos # (Auto) Cancelled Baso # (Auto) Cancelled Abs Immat Gran (auto) Cancelled Absolute Neuts (auto) Cancelled Absolute Nucleated RBC 0.000 (0.0-0.012) X10*3/uL Nucleated RBC % (auto) 0.0 (0.0-0.2) /100WBC Neutrophils % (Manual) 53 (45-73) % Band Neutrophils % 17 H (3-5) % Lymphocytes % (Manual) 12 L (20-40) % Monocytes % (Manual) 4 (2-11) % Eosinophils % (Manual) 2 (0-4) % Basophils % (Manual) 1 (0-2) % Metamyelocytes % 8 % Myelocytes % 3 % Abs Neuts (Manual) 2.0 (2.0-8.3) X10*3/uL Lymphocytes # (Manual) 0.3 L (1.2-4.9) X10*3/uL Monocytes # (Manual) 0.1 (0.1-1.2) X10*3/uL Eosinophils # (Manual) 0.1 (0.0-0.4) X10*3/uL Metamyelocytes # 0.2 X10*3/uL Myelocytes # 0.1 X10*/uL Toxic Granulation PRESENT Dohle Bodies PRESENT Platelet Estimate NORMAL (NORMAL) Plt Morphology Comment NORMAL RBC Morphology NORMAL Polychromasia 1+ (0-2) /OIF [place] Cells 1+ (0-2) /OIF PT 13.4 H (11.1-13.3) SEC INR 1.1 (0.9-1.1) VBG pH 7.12 L* (7.32-7.43) VBG pCO2 20 mmHg VBG pO2 105 mmHg VBG HCO3 6 L (22-26) mmol/L VBG O2 Saturation 98.0 % VBG Base Excess -20.4 mmol/L Sodium 132 L (135-145) mmol/L Potassium 6.2 H* D (3.3-5.1) mmol/L Chloride 100 (96-108) mmol/L Carbon Dioxide 10 L* D (22-29) mmol/L Anion Gap 28 H (12-20) BUN 148 H (9-16) mg/dL Creatinine 12.07 H* (0.5-1.4) mg/dL Estim Creat Clear Calc 4.9 Estimated GFR 4 Random Glucose 80 (60-115) mg/dL Calcium 6.5 L D (8.4-10.2) mg/dL Magnesium 1.5 L (1.6-2.6) mg/dL Total Bilirubin 0.5 (0.0-1.0) mg/dL Direct Bilirubin 0.3 (0.0-0.5) mg/dL AST 18 (5-37) U/L ALT 10 (0-40) U/L Alkaline Phosphatase 105 (39-117) U/L Troponin I High Sens 2.9 (<3.5-35.0) ng/L C-Reactive Protein 13.23 H (< or = 0.50) mg/dL Total Protein 6.8 (6.5-8.0) g/dL Albumin 2.8 L (3.5-5.0) g/dL Critical Care Time Critical Care Time Critical Care Time: Yes Total Critical Care Time: 65 Attestation: The patient was critically ill with a high probability of imminent or life-threatening deterioration. ?I spent greater than 30 minutes of discontinuous time evaluating the patient, delivering critical care at the bedside, discussing evaluating data with consultants. ?Critical care time does not include time spent performing separately billable procedures or teaching. ?Time spent performing critical care with 65 minutes. Discharge Plan Discharge Clinical Impression: Acute renal failure, Hypotension, Hyperkalemia, Metabolic acidosis, Anemia Patient Disposition: Still a Patient Prescriptions: No Action pantoprazole 20 mg tablet,delayed release (DR/EC) 20 mg PO DAILY 28 Days Qty: 28 4RF multivitamin Tablet 1 tab PO DAILY cholecalciferol (vitamin D3) 50 mcg (2,000 unit) tablet 1 tab PO DAILY thiamine mononitrate (vit B1) 100 mg tablet 1 tab PO DAILY Combivent Respimat 20-100 mcg/actuation mist 1 puff PO QID amlodipine 2.5 mg tablet 2.5 mg PO DAILY aspirin 81 mg Tablet,Chewable 81 mg PO DAILY folic acid 1 mg tablet 1 mg PO DAILY Biktarvy 50-200-25 mg tablet 1 tab PO DAILY diclofenac sodium 1 % gel 2 g topical QID rosuvastatin 10 mg tablet 10 mg PO BEDTIME hydrochlorothiazide 25 mg tablet 25 mg PO DAILY clopidogrel 75 mg tablet 75 mg PO DAILY Print Language: Tongan
[2023-12-14] MEDS: Albuterol/Iprat 2.5/0.5MG 3 ML AMPUL.NEB INHALE (14:51)
[2023-12-14] MEDS: predniSONE 20 MG TABLET 60 MG PO (14:53)
--- NOTE | 2023-12-14 14:59 | ECG_ITS ---
Test Reason : HYPERTENTION Blood Pressure : / mmHG Vent. Rate : 091 BPM Atrial Rate : 091 BPM P-R Int : 200 ms QRS Dur : 114 ms QT Int : 394 ms P-R-T Axes : 006 070 025 degrees QTc Int : 484 ms Normal sinus rhythm Low voltage QRS Prolonged QT Abnormal ECG When compared with ECG of 28-APR-2023 12:29, Premature supraventricular complexes are no longer Present QT has lengthened Referred By: Kyle Grullon Electronically Signed By:JIMMY BELTRAN
[2023-12-14 15:23] LABS: VBG Base Excess -20.4 mmol/L; VBG HCO3 6 mmol/L (22-26); VBG pCO2 20 mmHg; VBG pH 7.12 (7.32-7.43); VBG pO2 105 mmHg
[2023-12-14 15:23] LABS: INTERNATIONAL NORM RATIO 1.1 (0.9-1.1); Prothrombin Time 13.4 SEC (11.1-13.3)
[2023-12-14 15:24] LABS: Venous Blood Gas Refer to POC result
[2023-12-14 15:26] LABS: Hematocrit 23.3 % (42.0-52.0); Hemoglobin 7.8 g/dl (14.0-18.0); Mean Corpuscular HGB Conc 33.5 g/dl (31.0-36.0); Mean Corpuscular Hemoglobin 34.2 pg (27.0-33.0); Mean Corpuscular Volume 102.2 fL (80.0-98.0); Mean Platelet Volume 10.9 fL (9.4-12.4); Platelet Count 132 X10*3/uL (160-400); Red Blood Count 2.28 X10*6/uL (4.60-5.80); Red Cell Distribution Width 19.3 % (11.0-16.0)
[2023-12-14 15:27] LABS: WBC ABN SCTR FOR CBC 1; White Blood Count 2.9 X10*3/uL (4.8-10.8)
[2023-12-14 15:38] LABS: Troponin-I High Sensitivity 2.9 ng/L (<3.5-35.0)
[2023-12-14 15:50] LABS: Alanine Aminotransferase 10 U/L (0-40); Albumin Level 2.8 g/dL (3.5-5.0); Alkaline Phosphatase 105 U/L (39-117); Anion Gap 28 (12-20); Aspartate Amino Transferase 18 U/L (5-37); Bilirubin Direct 0.3 mg/dL (0.0-0.5); Bilirubin Total 0.5 mg/dL (0.0-1.0); Blood Urea Nitrogen 148 mg/dL (9-16); C Reactive Protein 13.23 mg/dL (< or = 0.50); Calcium 6.5 mg/dL (8.4-10.2); Carbon Dioxide 10 mmol/L (22-29); Chloride 100 mmol/L (96-108); Creatinine Clr Calc Pharmacy 4.9; Estimated Glomerular Filt Rate 4; Glucose Random 80 mg/dL (60-115); Magnesium 1.5 mg/dL (1.6-2.6); Potassium 6.2 mmol/L (3.3-5.1); Sodium 132 mmol/L (135-145); Total Protein 6.8 g/dL (6.5-8.0)
[2023-12-14] MEDS: Lactated Ringers 1,000 ML 999 ML IV ×4 (16:06→20:38)
[2023-12-14] MEDS: Pantoprazole Sodium 40 MG/10 ML VIAL 80 MG IVPUSH (16:12)
[2023-12-14] MEDS: Calcium Gluconate/NaCl,Iso-Osm 2 GM/100 ML PLAST..BAG IV (16:12)
[2023-12-14] MEDS: Albuterol Sulfate 7.5 MG, Albuterol Sulfate (0.083%) 2.5 MG 10 MG INHALE (16:18)
[2023-12-14 16:26] LABS: Neutrophils Percent Manual 53 % (45-73)
[2023-12-14 16:27] LABS: Band Neutrophils Percent 17 % (3-5); Basophils Percent Manual 1 % (0-2); Eosinophils Absolute Manual 0.1 X10*3/uL (0.0-0.4); Eosinophils Percent Manual 2 % (0-4); Lymphocytes Absolute Manual 0.3 X10*3/uL (1.2-4.9); Lymphocytes Percent Manual 12 % (20-40); Metamyelocytes Absolute 0.2 X10*3/uL; Metamyelocytes Percent 8 %; Monocytes Absolute Manual 0.1 X10*3/uL (0.1-1.2); Monocytes Percent Manual 4 % (2-11); Myelocytes Absolute 0.1 X10*/uL; Myelocytes Percent 3 %
[2023-12-14 16:28] LABS: Burr Cells 1+ (0-2) /OIF; RBC Morphology NORMAL
[2023-12-14 16:31] LABS: Platelet Estimate NORMAL (NORMAL); Platelet Morphology Comment NORMAL
[2023-12-14 16:33] LABS: Dohle Bodies PRESENT; Polychromasia 1+ (0-2) /OIF; Toxic Granulation PRESENT
--- NOTE | 2023-12-14 17:07 | PC.NURSE ---
central line placement begun
[2023-12-14] MEDS: Piperacillin Sodium/Tazobactam 4.5 GM in 0.9 % Sodium Chloride 100 ML IV (17:56)
[2023-12-14 18:06] LABS: Lactic Acid 0.7 mmol/L (0.5-2.0)
[2023-12-14 18:17] LABS: Anion Gap 29 (12-20); Calcium 6.6 mg/dL (8.4-10.2); Carbon Dioxide 9 mmol/L (22-29); Chloride 101 mmol/L (96-108); Estimated Glomerular Filt Rate 4; Ethanol < 10 mg/dL; Glucose Random 88 mg/dL (60-115); Potassium 6.1 mmol/L (3.3-5.1); Sodium 133 mmol/L (135-145)
[2023-12-14 18:34] LABS: Blood Urea Nitrogen 147 mg/dL (9-16)
--- NOTE | 2023-12-14 18:43 | PC.NURSE ---
16 fr temp sensing dumont placed with 30cc urine output. patient temp 90 core, ED provider aware. patient is awake and alert and oriented x3. [place] inteprator utilized
--- NOTE | 2023-12-14 18:46 | PC.NURSE ---
patient placed on bare hugger
[2023-12-14 20:00] LABS: Appearance Urine Cloudy; Color Urine Dark Yellow; Glucose Urine UA Negative (Negative); Leukocyte Esterase Urine Small (1+) (Negative); Nitrite Urine Negative (Negative); PH 5.5 (5.0-9.0); Specific Gravity - Urine 1.015 (1.005-1.025); UMIC TRIGGER UACC YES; Urine Blood Trace (Negative); Urine Ketones Trace mg/dL (Negative); Urine Protein 100 (2+) mg/dL (Neg-Trace)
--- NOTE | 2023-12-14 20:02 | MHC.EDTECH ---
PT continues to pull off blanket warmer.
[2023-12-14 20:11] LABS: Amphetamine Screen Urine Not Detected (Not Detect); Barbiturates, Urine Not Detected (Not Detect); Benzodiazepines Screen Urine Not Detected (Not Detect); Buprenorphine Scr Not Detected (Not Detect); Cannabinoid Screen Urine Not Detected (Not Detect); Cocaine Screen Urine Not Detected (Not Detect); Fentanyl, urine POSITIVE (Not Detect); Methadone Screen, Urine Not Detected (Not Detect); Opiate Screen Urine POSITIVE (Not Detect); Oxycodone Screen Urine Not Detected (Not Detect); Phencyclidine Screen Urine Not Detected (Not Detect)
[2023-12-14 20:14] LABS: Bacteria Urine None Seen (None Seen); Hyaline Casts Urine 0-2 /LPF (0-2); RBC Urine 0-2 /HPF (0-2); Squamous Epithelial Cell Urine 0-2 /HPF (0-2); UACC Culture Trigger YES
[2023-12-14] MEDS: Albumin Human 25 % 100 ML IV ×2 (20:40→23:43)
[2023-12-14] MEDS: Sodium Bicarbonate 8.4% 150 MEQ in Dextrose 5 % 850 ML IV (20:54)
[2023-12-14 21:04] LABS: Phosphorus 10.8 mg/dL (2.7-4.5)
[2023-12-14 21:05] LABS: VBG Base Excess -19.7 mmol/L; VBG HCO3 7 mmol/L (22-26); VBG pCO2 22 mmHg; VBG pO2 90 mmHg
[2023-12-14 21:07] LABS: VBG pH 7.12 (7.32-7.43)
[2023-12-14 21:08] LABS: Venous Blood Gas Refer to POC result
[2023-12-14] MEDS: Sodium Bicarbonate 8.4% 50 MEQ/50 ML SYRINGE 100 MEQ IVPUSH (21:14)
[2023-12-14] MEDS: Magnesium Sulfate/H2O 2 GM/50 ML PIGGYBACK IV (21:14)
[2023-12-14 21:15] LABS: Thyroid Stimulating Hormone 1.07 uIU/mL (0.32-4.0)
--- NOTE | 2023-12-14 21:26 | PHA.MEDREC ---
Addendum entered by Giovanny Griffith [facility] 12/14/23 21:32: MED REC REVIEWED Original Note: Pharmacy Consult ? Medication Reconciliation Pharmacy has completed the medication reconciliation. Went to speak with patient and he spoke broken [place]. He was able to verify he did not know what medication he was taking nor if there was someone who could verify them. I used claims to confirm the Med Rec.
[2023-12-14 22:07] LABS: VBG Base Excess -13.7 mmol/L; VBG HCO3 12 mmol/L (22-26); VBG pCO2 29 mmHg; VBG pH 7.23 (7.32-7.43); VBG pO2 45 mmHg
[2023-12-14] MEDS: Albuterol Sulfate (0.083%) 2.5 MG/3 ML VIAL.NEB INHALE (22:08)
[2023-12-14 22:14] LABS: Mean Corpuscular HGB Conc 34.8 g/dl (31.0-36.0); Mean Corpuscular Hemoglobin 33.9 pg (27.0-33.0); Mean Corpuscular Volume 97.4 fL (80.0-98.0); Mean Platelet Volume 9.9 fL (9.4-12.4); Red Blood Count 1.89 X10*6/uL (4.60-5.80); Red Cell Distribution Width 18.1 % (11.0-16.0); White Blood Count 2.6 X10*3/uL (4.8-10.8)
[2023-12-14 22:16] LABS: Platelet Count 94 X10*3/uL (160-400)
[2023-12-14 22:17] LABS: Hematocrit 18.4 % (42.0-52.0); Hemoglobin 6.4 g/dl (14.0-18.0)
[2023-12-14 22:23] LABS: Anion Gap 28 (12-20); Calcium 6.7 mg/dL (8.4-10.2); Carbon Dioxide 13 mmol/L (22-29); Chloride 101 mmol/L (96-108); Creatinine Clr Calc Pharmacy 6.5; Estimated Glomerular Filt Rate 5; Glucose Random 92 mg/dL (60-115); Potassium 5.5 mmol/L (3.3-5.1); Sodium 136 mmol/L (135-145)
--- NOTE | 2023-12-14 22:29 | PM.CCHP ---
History of Present Illness Date of Service: 12/14/23 Attending physician on admission: Thomas Hayes Chief Complaint: Dyspnea Mr. Calderon is a 67-year-old male with history of? COPD, emphysema, HIV, Hepatitis-C, anemia, lower leg dysfunction secondary to polio, alcohol abuse, opioid dependence, tobacco abuse, methadone use, anxiety who was brought in by ambulance complaining of shortness of breath? Since early this morning and had run out of his MDI inhaler. He reported left-sided dental pain. He also admitted to using cocaine this morning. On arrival to the emergency room, the patient's blood pressure 71/38, heart rate 93, temp 97.0,? O2 sat 97% on RA.? Laboratory data significant for WBC? 2.9, hemoglobin 7.8, hematocrit 23.3, platelet 132, sodium 132, potassium 6.2, CO2 10, anion gap 28, BUN 148, creatinine 12.07, lactic 0.7, calcium 6.5, magnesium 1.5, CRP 13.23, albumin 2.8. VBG 7.12/ 20/105/6. Imaging: Chest x-ray suggestive of? medial right lobe pneumonia, small left pleural effusion. Head CT revealed no mass, hemorrhage or cerebral edema. ? Mucosal thickening of the right maxillary sinus noted. Chest CT: Bilateral lower lobe pneumonia Facial CT showed periapical abscess left maxillary canine extending through peripheral maxillary cortex. Right sided acute sinusitis. Abdomen/pelvis CT unremarkable. ED course: ? The patient was given 3 L? lactated Ringer?s, prednisone 60 mg, calcium gluconate 2 g, Protonix 80 mg, albuterol, Zosyn 4.5 g,? 2 bags albumin,? and was started on a bicarb drip. A central line was placed? in the patient?s right internal jugular vein. A temperature sensing Bergman catheter was placed. He became hypothermic and was placed on a Belkis Hugger. Review of Systems Constitutional: Constitutional: Reports body ache(s) and Reports chills ENT: Reports mouth pain Cardiovascular: Cardiovascular: Reports dyspnea Respiratory: Respiratory: Reports dyspnea and Reports wheezing Gastrointestinal: Gastrointestinal: Reports constipation (No BM x 2 days) Genitourinary: Genitourinary: Reports oliguria Musculoskeletal: Musculoskeletal: Reports myalgias Psychiatric: Psychiatric: Reports other (opiate dependence) Allergic/Immunologic: Allergic/Immunologic: Reports wheezing PMFSH Past Medical History Medical History Methadone dependence Bigeminal rhythm COPD (chronic obstructive pulmonary disease) Tubular adenoma of colon Pulmonary nodule Emphysema lung Tobacco abuse Anxiety PAC (premature atrial contraction) Anemia Alcohol abuse Opioid dependence Hepatitis C HIV (human immunodeficiency virus infection) Polio Surgical History Surgical History History of colonoscopy History of hip surgery History of foot surgery Social History Social History Household Members: Caregiver Housing: Unknown / Unable to assess Do you presently have visiting nurse or other home services: Yes Alcohol intake: current Alcohol intake frequency: 3 or more drinks per day Alcohol type: beer and hard liquor Patient Tobacco Use Status: Current everyday Tobacco user Tobacco use type: Cigarette Cigarettes Per Day: 2.0 Smoked in Last 30 Days: Yes Second Hand Smoke Exposure: No Use of substances other than those prescribed or required for medical reasons: Yes Substance Use Type: Crack/Cocaine and Heroin Advance Directives: No Advance Directives Information Provided: No Do you have a plan to hurt others: No Plan Recently lost weight without trying: Unsure Current occupational status: disabled Meds Allergies Allergy/AdvReac Type Severity Reaction Status Date / Time No Known Allergies Allergy Verified 12/14/23 14:48 Active Medications: Current Medications Albuterol Sulfate (Albuterol Sulfate (0.083%) 2.5 Mg/3 Ml Vial.Neb) 2.5 mg INHALE Q2H PRN PRN Reason: Shortness of Breath/Wheezing Last Admin: 12/14/23 22:08 Dose: 2.5 mg Albuterol/Ipratropium (Albuterol/Iprat 2.5/0.5mg 3 Ml Ampul.Neb) 3 ml INHALE RQ4H WHILE AWAKE CHAN Famotidine (Famotidine/Pf 20 Mg/2 Ml Vial) 20 mg IVPUSH BID CHAN Fentanyl (Fentanyl Citrate/Pf 100 Mcg/2 Ml Vial) 25 mcg IVPUSH Q2H PRN; Protocol PRN Reason: Pain, Severe (Pain Scale 7-10) Sodium Bicarbonate 150 meq/ (Dextrose) 1,000 mls @ 150 mls/hr IV .Q6H40M CHAN Last Admin: 12/14/23 20:54 Dose: 150 mls/hr Magnesium Sulfate (Magnesium Sulfate/H2o) 2 gm in 50 mls @ 25 mls/hr IV ONCE ONE Stop: 12/14/23 22:29 Last Admin: 12/14/23 21:14 Dose: 25 mls/hr Vancomycin HCl 1,000 mg/Vancomycin HCl 750 mg/ Sodium Chloride 535 mls @ 267.5 mls/hr IV ONCE ONE Stop: 12/14/23 22:59 Sodium Chloride (Ns) 100 mls @ 100 mls/hr IV ONCE ONE Stop: 12/14/23 23:23 Sodium Chloride (Ns) 100 mls @ 100 mls/hr IV ONCE ONE Stop: 12/14/23 23:23 Pharmacy Consult (Consult Rx Vancomycin Dosing) 1 each MISCELLANE DAILY PRN PRN Reason: Consult order Home Medications ?Medication ?Instructions ?Recorded ?Confirmed ?Last Taken ?Type cholecalciferol (vitamin D3) 50 1 tab PO DAILY 02/21/20 12/14/23 Unknown History mcg (2,000 unit) tablet multivitamin 1 tab PO DAILY 02/21/20 12/14/23 Unknown History thiamine mononitrate (vit B1) 100 1 tab PO DAILY 02/21/20 12/14/23 Unknown History mg tablet clopidogrel 75 mg tablet 75 mg PO DAILY 10/09/21 12/14/23 Unknown History hydrochlorothiazide 25 mg tablet 25 mg PO DAILY 10/09/21 12/14/23 Unknown History rosuvastatin 10 mg tablet 10 mg PO BEDTIME 10/09/21 12/14/23 Unknown History aspirin 81 mg chewable tablet 81 mg PO DAILY 04/29/23 12/14/23 Unknown History bictegravir 50 mg-emtricitabine 1 tab PO DAILY 04/29/23 12/14/23 Unknown History 200 mg-tenofovir alafenam 25 mg tablet (Biktarvy) folic acid 1 mg tablet 1 mg PO DAILY 04/29/23 12/14/23 Unknown History albuterol sulfate 90 mcg/actuation 2 puff inhalation Q4H PRN 12/14/23 12/14/23 Unknown History aerosol inhaler (Ventolin HFA) SOB/Wheezing fluticasone 250 mcg-salmeterol 50 1 inh inhalation BID 12/14/23 12/14/23 Unknown History mcg/dose blistr powdr for inhalation (Advair Diskus) tiotropium bromide 2.5 2 puff inhalation QAM 12/14/23 12/14/23 Unknown History mcg/actuation mist for inhalation (Spiriva Respimat) Physical Exam Vital Signs: Vital Signs: Last Vital Signs Temp 93.7 F L 12/14/23 22:17 Pulse 106 H 12/14/23 22:17 Resp 26 H 12/14/23 22:17 BP 107/47 L 12/14/23 22:17 Pulse Ox 94 12/14/23 20:45 O2 Del Method Nasal Cannula 12/14/23 22:17 O2 Flow Rate 2 12/14/23 22:17 BMI result Body Mass Index 36.6 Const: General: no acute distress and alert Orientation/consciousness: patient oriented x3 (answering appropriately.) Limitations: language barrier and wheelchair HEENT: Head: Yes normocephalic and Yes atraumatic General nose exam: Normal external nose present (Nares patent, septum midline, sinuses nontender bilaterally.) Teeth and gingiva: gingiva abnormal (abscess) edematous and tender Throat: Yes other (No erythema, no exudate.) Eyes: Pupils: Equal, round and reactive pupils present Neck: Neck: Yes supple (no thyromegaly, trachea midline.) Carotids: normal carotid upstroke Resp: Effort & Inspection: no respiratory distress Auscultation: rhonchi lower bilaterally and wheezes inspiratory wheezes and throughout Cardio: Jugular venous distension: no JVD Rate: tachycardic Rhythm: regular rhythm Heart sounds: no gallops, no murmurs and no rubs Peripheral pulses: Peripheral pulses 2+ throughout GI: Palpation (GI): Soft to palpation (nondistended.) and nontender Skin: Wounds: wound noted (pressure injury intergluteal folds) Neuro: General: patient oriented x3 (answering appropriately.) Cranial nerves: Yes Equal, round and reactive pupils present Extrem: Other: atrophied lower extremities. General: Yes capillary refill normal and Yes no clubbing, cyanosis or edema Right lower extremity: foot (bilateral foot drop) Left lower extremity: foot (bilateral foot drop) Psych: Speech and movement: Clear speech present Affect: Anxious affect present Attitude: cooperative Results Labs 12/15/23 05:20 12/15/23 05:20 Labs: Laboratory Results - last 24 hr 12/14/23 12/14/23 12/14/23 15:10 15:15 17:50 MCV 102.2 H MCH 34.2 H MCHC 33.5 RDW 19.3 H Plt Count 132 L D MPV 10.9 Immature Gran % (Auto) Cancelled Neut % (Auto) Cancelled Lymph % (Auto) Cancelled [place] % (Auto) Cancelled Eos % (Auto) Cancelled Baso % (Auto) Cancelled Lymph # (Auto) Cancelled [place] # (Auto) Cancelled Eos # (Auto) Cancelled Baso # (Auto) Cancelled Abs Immat Gran (auto) Cancelled Absolute Neuts (auto) Cancelled Absolute Nucleated RBC 0.000 Nucleated RBC % (auto) 0.0 Neutrophils % (Manual) 53 Band Neutrophils % 17 H Lymphocytes % (Manual) 12 L Monocytes % (Manual) 4 Eosinophils % (Manual) 2 Basophils % (Manual) 1 Metamyelocytes % 8 Myelocytes % 3 Abs Neuts (Manual) 2.0 Lymphocytes # (Manual) 0.3 L Monocytes # (Manual) 0.1 Eosinophils # (Manual) 0.1 Metamyelocytes # 0.2 Myelocytes # 0.1 Toxic Granulation PRESENT Dohle Bodies PRESENT Platelet Estimate NORMAL Plt Morphology Comment NORMAL RBC Morphology NORMAL Polychromasia 1+ (0-2) [place] Cells 1+ (0-2) PT 13.4 H INR 1.1 VBG pH 7.12 L* VBG pCO2 20 VBG pO2 105 VBG HCO3 6 L VBG O2 Saturation 98.0 VBG Base Excess -20.4 Anion Gap 28 H 29 H Estim Creat Clear Calc 4.9 5.0 Estimated GFR 4 4 Random Glucose 80 88 Lactic Acid 0.7 Calcium 6.5 L D 6.6 L Phosphorus Magnesium 1.5 L Total Bilirubin 0.5 Direct Bilirubin 0.3 AST 18 ALT 10 Alkaline Phosphatase 105 Troponin I High Sens 2.9 C-Reactive Protein 13.23 H Total Protein 6.8 Albumin 2.8 L TSH 1.07 Urine Color Urine Appearance Urine pH Ur Specific [place] Urine Protein Urine Glucose (UA) Urine Ketones Urine Blood Urine Nitrite Ur Leukocyte Esterase Urine RBC Urine WBC Ur Squamous Epith Cells Urine Bacteria Hyaline Casts Urine Opiates Screen Ur Buprenorphine Scrn Ur Oxycodone Screen Urine Methadone Screen Urine Fentanyl Screen Ur Barbiturates Screen Ur Phencyclidine Scrn Ur Amphetamines Screen U Benzodiazepines Scrn Urine Cocaine Screen U Marijuana (THC) Screen Ethyl Alcohol < 10 Blood Type O Negative Antibody Screen NEGATIVE 12/14/23 12/14/23 12/14/23 19:53 20:49 20:57 MCV MCH MCHC RDW Plt Count MPV Immature Gran % (Auto) Neut % (Auto) Lymph % (Auto) [place] % (Auto) Eos % (Auto) Baso % (Auto) Lymph # (Auto) [place] # (Auto) Eos # (Auto) Baso # (Auto) Abs Immat Gran (auto) Absolute Neuts (auto) Absolute Nucleated RBC Nucleated RBC % (auto) Neutrophils % (Manual) Band Neutrophils % Lymphocytes % (Manual) Monocytes % (Manual) Eosinophils % (Manual) Basophils % (Manual) Metamyelocytes % Myelocytes % Abs Neuts (Manual) Lymphocytes # (Manual) Monocytes # (Manual) Eosinophils # (Manual) Metamyelocytes # Myelocytes # Toxic Granulation Dohle Bodies Platelet Estimate Plt Morphology Comment RBC Morphology Polychromasia [place] Cells PT INR VBG pH 7.12 L* VBG pCO2 22 VBG pO2 90 VBG HCO3 7 L VBG O2 Saturation 95.0 VBG Base Excess -19.7 Anion Gap Estim Creat Clear Calc Estimated GFR Random Glucose Lactic Acid Calcium Phosphorus 10.8 H Magnesium Total Bilirubin Direct Bilirubin AST ALT Alkaline Phosphatase Troponin I High Sens C-Reactive Protein Total Protein Albumin TSH Urine Color Dark Yellow Urine Appearance Cloudy Urine pH 5.5 Ur Specific [place] 1.015 Urine Protein 100 (2+) H Urine Glucose (UA) Negative Urine Ketones Trace Urine Blood Trace H Urine Nitrite Negative Ur Leukocyte Esterase Small (1+) H Urine RBC 0-2 Urine WBC 6-10 Ur Squamous Epith Cells 0-2 Urine Bacteria None Seen Hyaline Casts 0-2 Urine Opiates Screen POSITIVE H Ur Buprenorphine Scrn Not Detected Ur Oxycodone Screen Not Detected Urine Methadone Screen Not Detected Urine Fentanyl Screen POSITIVE H Ur Barbiturates Screen Not Detected Ur Phencyclidine Scrn Not Detected Ur Amphetamines Screen Not Detected U Benzodiazepines Scrn Not Detected Urine Cocaine Screen Not Detected U Marijuana (THC) Screen Not Detected Ethyl Alcohol Blood Type Antibody Screen 12/14/23 12/14/23 21:58 22:02 MCV 97.4 MCH 33.9 H MCHC 34.8 RDW 18.1 H Plt Count 94 L D MPV 9.9 Immature Gran % (Auto) Neut % (Auto) Lymph % (Auto) [place] % (Auto) Eos % (Auto) Baso % (Auto) Lymph # (Auto) [place] # (Auto) Eos # (Auto) Baso # (Auto) Abs Immat Gran (auto) Absolute Neuts (auto) Absolute Nucleated RBC 0.000 Nucleated RBC % (auto) 0.0 Neutrophils % (Manual) Band Neutrophils % Lymphocytes % (Manual) Monocytes % (Manual) Eosinophils % (Manual) Basophils % (Manual) Metamyelocytes % Myelocytes % Abs Neuts (Manual) Lymphocytes # (Manual) Monocytes # (Manual) Eosinophils # (Manual) Metamyelocytes # Myelocytes # Toxic Granulation Dohle Bodies Platelet Estimate Plt Morphology Comment RBC Morphology Polychromasia Patricia Cells PT INR VBG pH 7.23 L VBG pCO2 29 VBG pO2 45 VBG HCO3 12 L VBG O2 Saturation 67.0 VBG Base Excess -13.7 Anion Gap 28 H Estim Creat Clear Calc 6.5 Estimated GFR 5 Random Glucose 92 Lactic Acid Calcium 6.7 L Phosphorus Magnesium Total Bilirubin Direct Bilirubin AST ALT Alkaline Phosphatase Troponin I High Sens C-Reactive Protein Total Protein Albumin TSH Urine Color Urine Appearance Urine pH Ur Specific [place] Urine Protein Urine Glucose (UA) Urine Ketones Urine Blood Urine Nitrite Ur Leukocyte Esterase Urine RBC Urine WBC Ur Squamous Epith Cells Urine Bacteria Hyaline Casts Urine Opiates Screen Ur Buprenorphine Scrn Ur Oxycodone Screen Urine Methadone Screen Urine Fentanyl Screen Ur Barbiturates Screen Ur Phencyclidine Scrn Ur Amphetamines Screen U Benzodiazepines Scrn Urine Cocaine Screen U Marijuana (THC) Screen Ethyl Alcohol Blood Type Antibody Screen Imaging Radiologist's Impressions: Impressions Chest X-Ray 12/14/23 14:38 IMPRESSION: 1. Persistent hypoinflation of lungs. 2. Interval development of left lateral lung base airspace disease and small left pleural effusion. 3. Interval development of medial right lobe along infiltrates suggestive of pneumonia. 4. Unchanged severe right glenohumeral joint osteoarthritis. Electronically signed by: Ricardo Matos MD 12/14/2023 05:02 PM EDT Chest X-Ray 12/14/23 17:20 IMPRESSION: * No pneumothorax after right IJ line placement. * Lungs are hypoinflated and there is bibasilar opacities, likely atelectasis, although difficult to exclude any underlying lower lobe pneumonia on this limited evaluation. * Probable small left pleural effusion. Electronically signed by: Juno Guo MD 12/14/2023 05:38 PM EDT RP Abdomen/Pelvis CT 12/14/23 19:03 IMPRESSION: 1. Prominent emphysematous changes are redemonstrated. Bilateral posterior lower lobe consolidations with air bronchograms, new compared to the prior examination and concerning for early pneumonia. 2. No intra-abdominal mass, lymphadenopathy, or ascites. 3. No small or large bowel obstruction. Sigmoid diverticulosis without evidence of acute diverticulitis. Unremarkable appendix. 4. No hydronephrosis or nephrolithiasis. Electronically signed by: Nick Tang MD 12/14/2023 09:07 PM EDT RP Chest CT 12/14/23 19:36 IMPRESSION: 1. Prominent emphysematous changes are redemonstrated. Bilateral posterior lower lobe consolidations with air bronchograms, new compared to the prior examination and concerning for early pneumonia. 2. No intra-abdominal mass, lymphadenopathy, or ascites. 3. No small or large bowel obstruction. Sigmoid diverticulosis without evidence of acute diverticulitis. Unremarkable appendix. 4. No hydronephrosis or nephrolithiasis. Electronically signed by: Nick Tang MD 12/14/2023 09:07 PM EDT RP Face CT 12/14/23 19:36 IMPRESSION: 1. Lucency adjacent to the root of the left maxillary canine which extends through the peripheral maxillary cortex, consistent with a periapical abscess. No adjacent organized fluid collection or soft tissue abscess. 2. Air-fluid level and secretions within the right maxillary sinus as well as within the sphenoid sinuses which could represent a degree of acute sinusitis. Electronically signed by: Nick Tang MD 12/14/2023 09:32 PM EDT RP Head CT 12/14/23 19:36 IMPRESSION: No acute intracranial pathology. Electronically signed by: Bryant Pink MD 12/14/2023 08:51 PM EDT RP Assessment and Plan (1) Anemia: Qualifiers: Anemia type: unspecified type Qualified Code(s): D64.9 - Anemia, unspecified Status: Acute (2) Metabolic acidosis: Status: Acute (3) Hyperkalemia: Status: Acute (4) Hypotension: Qualifiers: Hypotension type: unspecified hypotension type Qualified Code(s): I95.9 - Hypotension, unspecified Status: Acute (5) Acute renal failure: Qualifiers: Acute renal failure type: unspecified Qualified Code(s): N17.9 - Acute kidney failure, unspecified Status: Acute (6) Sepsis: Qualifiers: Acute renal failure type: unspecified Sepsis acute organ dysfunction status: with acute organ dysfunction Sepsis type: sepsis due to unspecified organism Severe sepsis acute organ dysfunction type: acute renal failure Severe sepsis shock status: without septic shock Qualified Code(s): A41.9 - Sepsis, unspecified organism; R65.20 - Severe sepsis without septic shock; N17.9 - Acute kidney failure, unspecified Status: Acute Plan 67-year-old male with history of? COPD, emphysema, HIV, Hepatitis-C, anemia, lower leg dysfunction secondary to polio, alcohol abuse, opioid dependence, tobacco abuse, methadone use, anxiety admitted with severe sepsis, acute renal failure, metabolic acidosis, hypotension, hyperkalemia, anemia. Neuro: No acute issues. Cardiac: No acute issues.? Pulmonary: Underlying emphysema, COPD. Bilateral lower lobe pneumonia on CT. Continue Vanco/Zosyn. Duonebs. Renal: Acute renal failure. Metabolic acidosis. Hyperkalemia. Continue Bicarb drip. Monitor renal indices and I/O.? Endo: No acute issues. GI: No acute issues. ID: Underlying HIV, Hep-C. Lactic acid normal; Sepsis likely due to pneumonia and/or oral abscess. Blood cultures pending. UA sent. Received Zosyn in ED. Vanco, clindamycin added. Pt received a total of 3L crystalloids and 2 albumin in ED.? Heme/Onc: Underlying anemia, thrombocytosis. Transfuse if Hgb < 7.0.? Psych:? Addiction medicine consult placed. Per pt, not on methadone. Self-medicates 4 x daily with heroin.? Miscellaneous:? No acute issues. Prophylaxis: Pneumatic hoses.? Diet: NPO Case discussed with attending Dr. Hayes. Total time managing care of this patient today: 75 minutes.
[2023-12-14 22:35] LABS: Blood Urea Nitrogen 125 mg/dL (9-16)
[2023-12-14] MEDS: fentaNYL citrate/PF 100 MCG/2 ML VIAL 25 MCG IVPUSH ×2 (22:37→23:12)
[2023-12-14] MEDS: vancomycin HCL 1,000 MG, vancomycin HCL 750 MG in 0.9 % Sodium Chloride 500 ML 267.5 MG IV (22:52)
[2023-12-14 22:55] LABS: Venous Blood Gas Refer to POC result
--- NOTE | 2023-12-14 23:13 | PC.NURSE ---
Pt to ICU from ER moaning and speaking Bulgarian. Bp 98/38. Monitor: ST, HR 100-108, no ectopy. Temp 93 core via temp sensing dumont. Dumont emptied for 125ml on arrival to ICU. Bulgarian interpretter at bedside. Pt is oriented X3 but very anxious. States he does cocaine 4X/day and occ heroin. He also drinks liquor he says he drinks a lot but not everyday. TLC in place RIJ and peripheral IV intact and patent left upper arm. O2 on 2l via NC. O2 sat 91-92%. Lungs with scattered wheezes. Resp therapist called to give UDN. Labs drawn at 2200. Hgb/Hct 6.4/18.4. PRB's ordered X2 and first unit up. Report given to to oncoming RN.
[2023-12-14] MEDS: Clindamycin Phosphate/D5W 600 MG/50 ML PIGGYBACK 100 MG IV (23:41)
[2023-12-14] MEDS: LORazepam 2 MG/ML VIAL 1 MG IVPUSH (23:44)
[2023-12-15] VITALS (43 sets, daily range): BP systolic 79–119; BP diastolic 37–70; PULSE 79–111; RESP 10–26; TEMP 35–37.1; O2SAT 91–98; BMI 38.8
[2023-12-15] MEDS: LORazepam 2 MG/ML VIAL 1 MG IVPUSH (00:47)
[2023-12-15] MEDS: Albuterol Sulfate (0.083%) 2.5 MG/3 ML VIAL.NEB INHALE (01:00)
--- NOTE | 2023-12-15 01:48 | HO.SKINPHOTO ---
Location: L Buttock Category: Pressure Stage: II Length: Width: Depth: cm
[2023-12-15] MEDS: Norepinephrine Bitartrate/D5W 8 MG/250 ML PLAST..BAG 7.97 MG IV (02:45)
[2023-12-15] MEDS: LORazepam 2 MG/ML VIAL IVPUSH ×7 (02:55→23:52)
[2023-12-15] MEDS: Sodium Bicarbonate 8.4% 150 MEQ in Dextrose 5 % 850 ML IV ×2 (03:31→09:49)
[2023-12-15 05:28] LABS: VBG Base Excess -9.2 mmol/L; VBG HCO3 15 mmol/L (22-26); VBG pCO2 30 mmHg; VBG pH 7.31 (7.32-7.43); VBG pO2 48 mmHg
[2023-12-15 05:29] LABS: Venous Blood Gas Refer to POC result
[2023-12-15 06:21] LABS: Hematocrit 24.3 % (42.0-52.0); Hemoglobin 8.6 g/dl (14.0-18.0); Mean Corpuscular HGB Conc 35.4 g/dl (31.0-36.0); Mean Corpuscular Hemoglobin 33.1 pg (27.0-33.0); Mean Corpuscular Volume 93.5 fL (80.0-98.0); Mean Platelet Volume 10.5 fL (9.4-12.4); Platelet Count 98 X10*3/uL (160-400); Red Cell Distribution Width 18.5 % (11.0-16.0); WBC ABN SCTR FOR CBC 1
[2023-12-15 06:22] LABS: White Blood Count 3.7 X10*3/uL (4.8-10.8)
[2023-12-15] MEDS: Clindamycin Phosphate/D5W 600 MG/50 ML PIGGYBACK 100 MG IV ×3 (06:22→22:24)
[2023-12-15 06:40] LABS: Alanine Aminotransferase 11 U/L (0-40); Albumin Level 3.1 g/dL (3.5-5.0); Alkaline Phosphatase 80 U/L (39-117); Anion Gap 29 (12-20); Aspartate Amino Transferase 21 U/L (5-37); Bilirubin Total 1.6 mg/dL (0.0-1.0); Calcium 6.5 mg/dL (8.4-10.2); Carbon Dioxide 15 mmol/L (22-29); Chloride 99 mmol/L (96-108); Creatinine Clr Calc Pharmacy 7.2; Estimated Glomerular Filt Rate 6; Glucose Random 108 mg/dL (60-115); Magnesium 1.7 mg/dL (1.6-2.6); Phosphorus 10.5 mg/dL (2.7-4.5); Sodium 138 mmol/L (135-145); Total Protein 6.2 g/dL (6.5-8.0)
[2023-12-15 06:46] LABS: Band Neutrophils Percent 23 % (3-5); Lymphocytes Absolute Manual 0.1 X10*3/uL (1.2-4.9); Lymphocytes Percent Manual 2 % (20-40); Monocytes Absolute Manual 0.1 X10*3/uL (0.1-1.2); Monocytes Percent Manual 3 % (2-11); Neutrophils Absolute Manual 3.5 X10*3/uL (2.0-8.3); Neutrophils Percent Manual 72 % (45-73); Nucleated Red Blood Cells 1 /100WBC (0-0)
[2023-12-15 06:47] LABS: Acanthocytes 2+ (3-5) /OIF; Burr Cells 2+ (3-5) /OIF; Large Platelet PRESENT; Platelet Estimate SLIGHTLY DECREASED (NORMAL); Platelet Morphology Comment NOTED; RBC Morphology NOTED
[2023-12-15 06:48] LABS: Dohle Bodies PRESENT; Hypochromasia 1+ (5-14) /OIF; Polychromasia 1+ (0-2) /OIF; Toxic Granulation PRESENT; Toxic Vacuolation PRESENT
[2023-12-15 07:09] LABS: Blood Urea Nitrogen 122 mg/dL (9-16)
[2023-12-15] MEDS: Albuterol/Iprat 2.5/0.5MG 3 ML AMPUL.NEB INHALE ×4 (08:08→20:26)
[2023-12-15] MEDS: Famotidine/PF 20 MG/2 ML VIAL IVPUSH (08:46)
--- NOTE | 2023-12-15 09:46 | P.PNCC_ITS ---
Subjective Subjective Date of Service: 12/15/23 Interval History: 68-year-old gentleman with underlying ENT HIV C, polysubstance abuse on methadone admitted on 12/14/2023 with complaints of dyspnea. On ER evaluation patient with left-sided dental abscess, positive for opioids, hyperkalemia with metabolic acidosis, acute renal failure, hypotension with poor response to initial IV fluid resuscitation started on empiric antibiotics and bicarbonate drip and admitted to intensive care unit. Overnight with improvement in ELSIE, urine output, acidosis, and hyperkalemia. No events overnight. Critical Care Time (minutes): 60 Physical Exam 2 Vital Signs: Vital Signs: Last Vital Signs Temp 98.8 F 12/15/23 08:54 Pulse 107 H 12/15/23 08:54 Resp 15 12/15/23 08:54 BP 110/53 L 12/15/23 08:54 Pulse Ox 94 12/15/23 08:54 O2 Del Method Nasal Cannula 12/15/23 08:54 O2 Flow Rate 2 12/15/23 08:54 BMI result Body Mass Index 38.8 Const: General: no acute distress and lethargic (Arousable Ugandan-speaking) Orientation/consciousness: lethargic (Arousable Ugandan-speaking) Eyes: Sclerae: sclerae normal EOM: EOMs intact bilaterally Neck: Neck: Yes no lymphadenopathy, Yes trachea midline and Yes supple Resp: Effort & Inspection: normal respiratory effort and no respiratory distress Auscultation: crackles (Bilateral) Cardio: Rhythm: regular rhythm Heart sounds: no gallops, no murmurs and no rubs GI: Palpation (GI): Soft to palpation and Other GI palpation findings present ( Nontender) Auscultation: normal bowel sounds Extrem: General: Yes no pedal edema, No clubbing and No cyanosis Objective Data Labs 12/15/23 05:20 12/15/23 05:20 Labs: Laboratory Results - last 24 hr 12/14/23 12/14/23 12/14/23 15:10 15:15 17:50 WBC 2.9 L RBC 2.28 L D Hgb 7.8 L D Hct 23.3 L D MCV 102.2 H MCH 34.2 H MCHC 33.5 RDW 19.3 H Plt Count 132 L D MPV 10.9 Immature Gran % (Auto) Cancelled Neut % (Auto) Cancelled Lymph % (Auto) Cancelled [place] % (Auto) Cancelled Eos % (Auto) Cancelled Baso % (Auto) Cancelled Lymph # (Auto) Cancelled [place] # (Auto) Cancelled Eos # (Auto) Cancelled Baso # (Auto) Cancelled Abs Immat Gran (auto) Cancelled Absolute Neuts (auto) Cancelled Absolute Nucleated RBC 0.000 Nucleated RBC % (auto) 0.0 Neutrophils % (Manual) 53 Band Neutrophils % 17 H Lymphocytes % (Manual) 12 L Monocytes % (Manual) 4 Eosinophils % (Manual) 2 Basophils % (Manual) 1 Metamyelocytes % 8 Myelocytes % 3 Abs Neuts (Manual) 2.0 Lymphocytes # (Manual) 0.3 L Monocytes # (Manual) 0.1 Eosinophils # (Manual) 0.1 Metamyelocytes # 0.2 Myelocytes # 0.1 Nucleated RBCs Toxic Granulation PRESENT Toxic Vacuolation Dohle Bodies PRESENT Platelet Estimate NORMAL Large Platelets Plt Morphology Comment NORMAL RBC Morphology NORMAL Polychromasia 1+ (0-2) Hypochromasia [place] Cells 1+ (0-2) Acanthocytes (Spur) PT 13.4 H INR 1.1 VBG pH 7.12 L* VBG pCO2 20 VBG pO2 105 VBG HCO3 6 L VBG O2 Saturation 98.0 VBG Base Excess -20.4 Sodium 132 L 133 L Potassium 6.2 H* D 6.1 H* Chloride 100 101 Carbon Dioxide 10 L* D 9 L* Anion Gap 28 H 29 H BUN 148 H 147 H Creatinine 12.07 H* 11.87 H* Estim Creat Clear Calc 4.9 5.0 Estimated GFR 4 4 Random Glucose 80 88 Lactic Acid 0.7 Calcium 6.5 L D 6.6 L Phosphorus Magnesium 1.5 L Total Bilirubin 0.5 Direct Bilirubin 0.3 AST 18 ALT 10 Alkaline Phosphatase 105 Troponin I High Sens 2.9 C-Reactive Protein 13.23 H Total Protein 6.8 Albumin 2.8 L TSH 1.07 Urine Color Urine Appearance Urine pH Ur Specific [place] Urine Protein Urine Glucose (UA) Urine Ketones Urine Blood Urine Nitrite Ur Leukocyte Esterase Urine RBC Urine WBC Ur Squamous Epith Cells Urine Bacteria Hyaline Casts Urine Opiates Screen Ur Buprenorphine Scrn Ur Oxycodone Screen Urine Methadone Screen Urine Fentanyl Screen Ur Barbiturates Screen Ur Phencyclidine Scrn Ur Amphetamines Screen U Benzodiazepines Scrn Urine Cocaine Screen U Marijuana (THC) Screen Ethyl Alcohol < 10 Blood Type O Negative Antibody Screen NEGATIVE Crossmatch See Detail 12/14/23 12/14/23 12/14/23 19:53 20:49 20:57 WBC RBC Hgb Hct MCV MCH MCHC RDW Plt Count MPV Immature Gran % (Auto) Neut % (Auto) Lymph % (Auto) [place] % (Auto) Eos % (Auto) Baso % (Auto) Lymph # (Auto) [place] # (Auto) Eos # (Auto) Baso # (Auto) Abs Immat Gran (auto) Absolute Neuts (auto) Absolute Nucleated RBC Nucleated RBC % (auto) Neutrophils % (Manual) Band Neutrophils % Lymphocytes % (Manual) Monocytes % (Manual) Eosinophils % (Manual) Basophils % (Manual) Metamyelocytes % Myelocytes % Abs Neuts (Manual) Lymphocytes # (Manual) Monocytes # (Manual) Eosinophils # (Manual) Metamyelocytes # Myelocytes # Nucleated RBCs Toxic Granulation Toxic Vacuolation Dohle Bodies Platelet Estimate Large Platelets Plt Morphology Comment RBC Morphology Polychromasia Hypochromasia [place] Cells Acanthocytes (Spur) PT INR VBG pH 7.12 L* VBG pCO2 22 VBG pO2 90 VBG HCO3 7 L VBG O2 Saturation 95.0 VBG Base Excess -19.7 Sodium Potassium Chloride Carbon Dioxide Anion Gap BUN Creatinine Estim Creat Clear Calc Estimated GFR Random Glucose Lactic Acid Calcium Phosphorus 10.8 H Magnesium Total Bilirubin Direct Bilirubin AST ALT Alkaline Phosphatase Troponin I High Sens C-Reactive Protein Total Protein Albumin TSH Urine Color Dark Yellow Urine Appearance Cloudy Urine pH 5.5 Ur Specific [place] 1.015 Urine Protein 100 (2+) H Urine Glucose (UA) Negative Urine Ketones Trace Urine Blood Trace H Urine Nitrite Negative Ur Leukocyte Esterase Small (1+) H Urine RBC 0-2 Urine WBC 6-10 Ur Squamous Epith Cells 0-2 Urine Bacteria None Seen Hyaline Casts 0-2 Urine Opiates Screen POSITIVE H Ur Buprenorphine Scrn Not Detected Ur Oxycodone Screen Not Detected Urine Methadone Screen Not Detected Urine Fentanyl Screen POSITIVE H Ur Barbiturates Screen Not Detected Ur Phencyclidine Scrn Not Detected Ur Amphetamines Screen Not Detected U Benzodiazepines Scrn Not Detected Urine Cocaine Screen Not Detected U Marijuana (THC) Screen Not Detected Ethyl Alcohol Blood Type Antibody Screen Crossmatch 12/14/23 12/14/23 12/15/23 21:58 22:02 05:18 WBC 2.6 L RBC 1.89 L Hgb 6.4 L* Hct 18.4 L* D MCV 97.4 MCH 33.9 H MCHC 34.8 RDW 18.1 H Plt Count 94 L D MPV 9.9 Immature Gran % (Auto) Neut % (Auto) Lymph % (Auto) [place] % (Auto) Eos % (Auto) Baso % (Auto) Lymph # (Auto) [place] # (Auto) Eos # (Auto) Baso # (Auto) Abs Immat Gran (auto) Absolute Neuts (auto) Absolute Nucleated RBC 0.000 Nucleated RBC % (auto) 0.0 Neutrophils % (Manual) Band Neutrophils % Lymphocytes % (Manual) Monocytes % (Manual) Eosinophils % (Manual) Basophils % (Manual) Metamyelocytes % Myelocytes % Abs Neuts (Manual) Lymphocytes # (Manual) Monocytes # (Manual) Eosinophils # (Manual) Metamyelocytes # Myelocytes # Nucleated RBCs Toxic Granulation Toxic Vacuolation Dohle Bodies Platelet Estimate Large Platelets Plt Morphology Comment RBC Morphology Polychromasia Hypochromasia Patricia Cells Acanthocytes (Spur) PT INR VBG pH 7.23 L 7.31 L VBG pCO2 29 30 VBG pO2 45 48 VBG HCO3 12 L 15 L VBG O2 Saturation 67.0 78.0 VBG Base Excess -13.7 -9.2 Sodium 136 Potassium 5.5 H Chloride 101 Carbon Dioxide 13 L Anion Gap 28 H BUN 125 H Creatinine 9.89 H* Estim Creat Clear Calc 6.5 Estimated GFR 5 Random Glucose 92 Lactic Acid Calcium 6.7 L Phosphorus Magnesium Total Bilirubin Direct Bilirubin AST ALT Alkaline Phosphatase Troponin I High Sens C-Reactive Protein Total Protein Albumin TSH Urine Color Urine Appearance Urine pH Ur Specific [place] Urine Protein Urine Glucose (UA) Urine Ketones Urine Blood Urine Nitrite Ur Leukocyte Esterase Urine RBC Urine WBC Ur Squamous Epith Cells Urine Bacteria Hyaline Casts Urine Opiates Screen Ur Buprenorphine Scrn Ur Oxycodone Screen Urine Methadone Screen Urine Fentanyl Screen Ur Barbiturates Screen Ur Phencyclidine Scrn Ur Amphetamines Screen U Benzodiazepines Scrn Urine Cocaine Screen U Marijuana (THC) Screen Ethyl Alcohol Blood Type Antibody Screen Crossmatch 12/15/23 05:20 WBC 3.7 L RBC 2.60 L D Hgb 8.6 L D Hct 24.3 L D MCV 93.5 MCH 33.1 H MCHC 35.4 RDW 18.5 H Plt Count 98 L MPV 10.5 Immature Gran % (Auto) Cancelled Neut % (Auto) Cancelled Lymph % (Auto) Cancelled [place] % (Auto) Cancelled Eos % (Auto) Cancelled Baso % (Auto) Cancelled Lymph # (Auto) Cancelled [place] # (Auto) Cancelled Eos # (Auto) Cancelled Baso # (Auto) Cancelled Abs Immat Gran (auto) Cancelled Absolute Neuts (auto) Cancelled Absolute Nucleated RBC 0.000 Nucleated RBC % (auto) 0.0 Neutrophils % (Manual) 72 Band Neutrophils % 23 H Lymphocytes % (Manual) 2 L Monocytes % (Manual) 3 Eosinophils % (Manual) Basophils % (Manual) Metamyelocytes % Myelocytes % Abs Neuts (Manual) 3.5 Lymphocytes # (Manual) 0.1 L Monocytes # (Manual) 0.1 Eosinophils # (Manual) Metamyelocytes # Myelocytes # Nucleated RBCs 1 H Toxic Granulation PRESENT Toxic Vacuolation PRESENT Dohle Bodies PRESENT Platelet Estimate SLIGHTLY DECREASED Large Platelets PRESENT Plt Morphology Comment NOTED RBC Morphology NOTED Polychromasia 1+ (0-2) Hypochromasia 1+ (5-14) [place] Cells 2+ (3-5) Acanthocytes (Spur) 2+ (3-5) PT INR VBG pH VBG pCO2 VBG pO2 VBG HCO3 VBG O2 Saturation VBG Base Excess Sodium 138 Potassium 5.0 Chloride 99 Carbon Dioxide 15 L Anion Gap 29 H BUN 122 H Creatinine 9.30 H* Estim Creat Clear Calc 7.2 Estimated GFR 6 Random Glucose 108 Lactic Acid Calcium 6.5 L Phosphorus 10.5 H Magnesium 1.7 Total Bilirubin 1.6 H Direct Bilirubin AST 21 ALT 11 Alkaline Phosphatase 80 Troponin I High Sens C-Reactive Protein Total Protein 6.2 L Albumin 3.1 L TSH Urine Color Urine Appearance Urine pH Ur Specific [place] Urine Protein Urine Glucose (UA) Urine Ketones Urine Blood Urine Nitrite Ur Leukocyte Esterase Urine RBC Urine WBC Ur Squamous Epith Cells Urine Bacteria Hyaline Casts Urine Opiates Screen Ur Buprenorphine Scrn Ur Oxycodone Screen Urine Methadone Screen Urine Fentanyl Screen Ur Barbiturates Screen Ur Phencyclidine Scrn Ur Amphetamines Screen U Benzodiazepines Scrn Urine Cocaine Screen U Marijuana (THC) Screen Ethyl Alcohol Blood Type Antibody Screen Crossmatch Progress Note: A&P Assessment and plan (1) Acute renal failure: Status: Acute (2) Metabolic acidosis: Status: Acute (3) Hyperkalemia: Status: Acute (4) Hypotension: Status: Acute (5) Hep C w/o coma, chronic: Status: Acute (6) HIV (human immunodeficiency virus infection): Status: Acute (7) Substance abuse: Status: Acute Plan Assessment: 68-year-old gentleman with underlying substance abuse, COPD, HIV, hep C admitted with acute renal failure with metabolic acidosis and hyperkalemia Plan: Neuro: Metabolic encephalopathy secondary to acute renal failure with uremia. Cardiac: No acute issues. 2D echo is pending. Pulmonary: Acute hypoxic respiratory failure secondary to pulmonary edema on a background of large volume IV fluid resuscitation. Continue to titrate off supplemental oxygen as tolerated. Renal: Acute renal failure with hyperkalemia and metabolic acidosis. Non oliguric. Improving. Continue bicarbonate drip. Continue to monitor electrolytes. Nephrology service care appreciated. May still require dialysis. Endo: No acute issues. GI: No acute issues. ID: Dental abscess. Empiric coverage with clindamycin/Levaquin. Heme/Onc: No acute issues. Psych: No acute issues. Miscellaneous: No acute issues. Prophylaxis: Heparin Diet: NPO Critical care time spent: 60 minutes Quality Stroke Does the patient have a stroke diagnosis?: No VTE Prior VTE?: No VTE Risk Level:: Medical - moderate - high VTE Device Contraindication: N/A - Device Ordered VTE Drug Contraindication: N/A - Med Ordered
[2023-12-15] MEDS: Heparin Sodium,Porcine 5,000 UNIT/ML VIAL 5000 UNIT SUBCUT ×2 (09:49→17:15)
--- NOTE | 2023-12-15 11:23 | MHC.CM.PN ---
Pt currently receiving care in ICU - pt not verbalizing-only moaning and not able to participate in CM assessment at this time. Information obtained from EMR and care team note pt is primarily w/c bound and has [facility] [employer] care at home. Unknown HCP or services. Message left for brother Denzel to obtain more information. CM to reapproach pt when he is more lucid. Will use steel rod buster. IMM in chart
[2023-12-15] MEDS: levoFLOXacin/D5W 750 MG/150 ML PIGGYBACK 100 MG IV (11:33)
--- NOTE | 2023-12-15 11:35 | HO.WOUND ---
Wound Consult: Initial 68yr old? male admitted to [facility] [place] on 11/2123 - See progress notes and H&P for detailed history.? Wound consult placed for Left Buttock wound POA.? Patient is intubated and critically ill in ICU. The wound was not assessed in person as photo was recently uploaded to chart for review. Patient is critically ill and at continued risk for skin injury. In place currently are all preventative measures to protect from further skin break down. SHAN mattress in place, Wedges used for turning and repositions, Heel protector boots in place, sacral foam dressing in place along with Triad and Nutrition following. Right Sacrum Etiology: Suspect Stage 2 Pressure Injury -??Present on Admission (Not assessed in person) Measurements: unknown from photo review Wound Bed: pink wound bed with observable thin yellow white slough may indicate greater than stage 2 will assess in person a future date and time Drainage / Odor: not able to assess at this time - slight maceration noted to periwound Edges: ? well defined [place] wound: ?hyperpigmentation noted Pain: Intubated Goals of Treatment: ? Triad and foam dressing to aid in autolytic moist wound healing and protection from moisture and friction and aid in off loading pressure and protection Recommendations: 1. Turn and Reposition every 2 hours and as needed for patient comfort.? Use pillows or wedges to support off loading positions. 2. Off Load all bony prominences with use of pillows and heel boots if needed.? Apply Preventative foams where needed. ? 3. Monitor for incontinence and moisture control, use barrier creams when needed for prevention and treatment. 4. Provide adequate and supplemental nutrition.? 5. Continue low air loss mattress. 6. When applicable maintain blood glucose levels per Providers order. 7. Sacrum - Off Load Pressure? - Cleanse with PH balance spray or wipes, pat dry. ?Apply thin layer of Triad to wound bed. Do not remove all of paste between applications as this may cause further skin damage.? Cover with foam dressing to aid in off loading and protection from friction. Change every other day and PRN. Re-consult wound care Nurse for wound deterioration or wound changes.
--- NOTE | 2023-12-15 12:58 | PM.CNNEP ---
History of Present Illness Reason for Consult Consult date: 12/15/23 Chief Complaint Chief complaint: Acute Renal Failure History of Present Illness Narrative: 67-year-old male with history of? COPD, emphysema, HIV, Hepatitis-C, anemia, lower leg dysfunction secondary to polio, alcohol abuse, opioid dependence, tobacco abuse, methadone use, anxiety who was brought in by ambulance complaining of shortness of breath? Since early this morning and had run out of his MDI inhaler. He reported left-sided dental pain Creatinine was more than 11 mg/dL at the time of admission. Currently nonoliguric. Creatinine is decreased to 9 mg/dL. He continues to have some degree of acidosis. He remains on pressors Review of Systems Review of Systems Yes Unobtainable due to mental status PMFSH Past Medical History Medical History (Updated 12/15/23 @ 09:52 by Thomas Hayes MD) Methadone dependence Bigeminal rhythm COPD (chronic obstructive pulmonary disease) Tubular adenoma of colon Pulmonary nodule Emphysema lung Tobacco abuse Anxiety PAC (premature atrial contraction) Anemia Alcohol abuse Opioid dependence Hepatitis C HIV (human immunodeficiency virus infection) Polio Surgical History Surgical History History of colonoscopy History of hip surgery History of foot surgery Social History Social History Household Members: Caregiver Housing: Unknown / Unable to assess Do you presently have visiting nurse or other home services: Yes Alcohol intake: current Alcohol intake frequency: 3 or more drinks per day Alcohol type: beer and hard liquor Patient Tobacco Use Status: Current everyday Tobacco user Tobacco use type: Cigarette Cigarettes Per Day: 2.0 Smoked in Last 30 Days: Yes Second Hand Smoke Exposure: No Use of substances other than those prescribed or required for medical reasons: Yes Substance Use Type: Crack/Cocaine and Heroin Currently Displaying Signs/Symptoms of Drug Intoxication Withdrawal: No Advance Directives: No Advance Directives Information Provided: No Do you have a plan to hurt others: No Plan Recently lost weight without trying: Unsure Current occupational status: disabled Meds Allergies Allergy/AdvReac Type Severity Reaction Status Date / Time No Known Allergies Allergy Verified 12/14/23 14:48 Active Medications: Current Medications Albuterol Sulfate (Albuterol Sulfate (0.083%) 2.5 Mg/3 Ml Vial.Neb) 2.5 mg INHALE Q2H PRN PRN Reason: Shortness of Breath/Wheezing Last Admin: 12/15/23 01:00 Dose: 2.5 mg Albuterol/Ipratropium (Albuterol/Iprat 2.5/0.5mg 3 Ml Ampul.Neb) 3 ml INHALE RQ4H WHILE AWAKE [facility] Last Admin: 12/15/23 11:22 Dose: 3 ml Fentanyl (Fentanyl Citrate/Pf 100 Mcg/2 Ml Vial) 50 mcg IVPUSH Q2H PRN; Protocol PRN Reason: Pain, Severe (Pain Scale 7-10) Heparin Sodium (Porcine) (Heparin Sodium,Porcine 5,000 Unit/Ml Vial) 5,000 unit SUBCUT Q8H [facility] Last Admin: 12/15/23 09:49 Dose: 5,000 unit Sodium Bicarbonate 150 meq/ (Dextrose) 1,000 mls @ 150 mls/hr IV .Q6H40M [facility] Last Admin: 12/15/23 09:49 Dose: 150 mls/hr Clindamycin Phosphate (Cleocin) 600 mg in 50 mls @ 100 mls/hr IV Q8H [facility] Last Infusion: 12/15/23 06:53 Dose: Infused Norepinephrine Bitartrate (Levophed) 8 mg in 250 mls @ 0 mls/hr IV .Q0M [facility]; Protocol Last Titration: 12/15/23 11:39 Dose: 0.05 mcg/kg/min, 7.97 mls/hr Lorazepam (Lorazepam 2 Mg/Ml Vial) 2 mg IVPUSH Q2H PRN PRN Reason: Opiate Withdrawal Last Admin: 12/15/23 09:24 Dose: 2 mg Home Medications ?Medication ?Instructions ?Recorded ?Confirmed ?Last Taken ?Type cholecalciferol (vitamin D3) 50 1 tab PO DAILY 02/21/20 12/14/23 Unknown History mcg (2,000 unit) tablet multivitamin 1 tab PO DAILY 02/21/20 12/14/23 Unknown History thiamine mononitrate (vit B1) 100 1 tab PO DAILY 02/21/20 12/14/23 Unknown History mg tablet clopidogrel 75 mg tablet 75 mg PO DAILY 10/09/21 12/14/23 Unknown History hydrochlorothiazide 25 mg tablet 25 mg PO DAILY 10/09/21 12/14/23 Unknown History rosuvastatin 10 mg tablet 10 mg PO BEDTIME 10/09/21 12/14/23 Unknown History aspirin 81 mg chewable tablet 81 mg PO DAILY 04/29/23 12/14/23 Unknown History bictegravir 50 mg-emtricitabine 1 tab PO DAILY 04/29/23 12/14/23 Unknown History 200 mg-tenofovir alafenam 25 mg tablet (Biktarvy) folic acid 1 mg tablet 1 mg PO DAILY 04/29/23 12/14/23 Unknown History albuterol sulfate 90 mcg/actuation 2 puff inhalation Q4H PRN 12/14/23 12/14/23 Unknown History aerosol inhaler (Ventolin HFA) SOB/Wheezing fluticasone 250 mcg-salmeterol 50 1 inh inhalation BID 12/14/23 12/14/23 Unknown History mcg/dose blistr powdr for inhalation (Advair Diskus) tiotropium bromide 2.5 2 puff inhalation QAM 12/14/23 12/14/23 Unknown History mcg/actuation mist for inhalation (Spiriva Respimat) Physical Exam Vital Signs: Last Vital Signs Temp 98.2 F 12/15/23 12:00 Pulse 104 H 12/15/23 12:00 Resp 18 12/15/23 12:00 BP 108/58 L 12/15/23 12:00 Pulse Ox 94 12/15/23 12:00 O2 Del Method Nasal Cannula 12/15/23 12:00 O2 Flow Rate 2 12/15/23 12:00 BMI result Body Mass Index 38.8 Const General: ill appearing Neck Neck: Yes supple Resp Auscultation: clear to auscultation bilaterally Cardio Palpation: no palpable S3 Heart sounds: no rubs GI Palpation (GI): Soft to palpation Auscultation: normal bowel sounds Neuro Motor exam (neuro): no asterixis Results Lab Results 12/15/23 05:20 12/15/23 05:20 Lab results: Chemistry 12/14/23 12/14/23 12/14/23 15:10 17:50 20:49 Sodium 132 L 133 L Potassium 6.2 H* D 6.1 H* Carbon Dioxide 10 L* D 9 L* BUN 148 H 147 H Creatinine 12.07 H* 11.87 H* Calcium 6.5 L D 6.6 L Phosphorus 10.8 H 12/14/23 12/15/23 22:02 05:20 Sodium 136 138 Potassium 5.5 H 5.0 Carbon Dioxide 13 L 15 L BUN 125 H 122 H Creatinine 9.89 H* 9.30 H* Calcium 6.7 L 6.5 L Phosphorus 10.5 H Hematology 12/14/23 12/14/23 12/15/23 15:10 22:02 05:20 WBC 2.9 L 2.6 L 3.7 L Hgb 7.8 L D 6.4 L* 8.6 L D Plt Count 132 L D 94 L D 98 L Urinalysis 12/14/23 19:53 Urine Color Dark Yellow Urine Appearance Cloudy Urine pH 5.5 Ur Specific [place] 1.015 Urine Protein 100 (2+) H Urine Glucose (UA) Negative Urine Ketones Trace Urine Blood Trace H Urine Nitrite Negative Ur Leukocyte Esterase Small (1+) H Urine RBC 0-2 Urine WBC 6-10 Ur Squamous Epith Cells 0-2 Hyaline Casts 0-2 Assessment and Plan (1) HIV (human immunodeficiency virus infection): Status: Acute (2) Hypotension: Qualifiers: Hypotension type: unspecified hypotension type Qualified Code(s): I95.9 - Hypotension, unspecified Status: Acute (3) Acute renal failure: Qualifiers: Acute renal failure type: unspecified Qualified Code(s): N17.9 - Acute kidney failure, unspecified Status: Acute Plan Acute kidney injury in a setting of shock and HIV. He probably has ischemic ATN. Currently nonoliguric. No evidence of obstructive uropathy. At this point we can not rule out underlying glomerular diseases or interstitial disease. Further clinical course we will determine this. Hyponatremia Hyperkalemia Metabolic acidosis Anemia. Hyperphosphatemia Recommendation at this point would be to optimize his hemodynamic status Continue to avoid hypotension. Continue to avoid nephrotoxic agents. Keep intake more than output watch urine output closely. Monitor serum potassium and acid-base status. At present there is no absolute indication for dialysis. However this might change based on the clinical course. Discussed with ICU team and she will follow along. Procedures Date of Service Date of Service: 12/15/23
[2023-12-15 14:47] LABS: VBG Base Excess 0.3 mmol/L; VBG HCO3 24 mmol/L (22-26); VBG pCO2 38 mmHg; VBG pH 7.41 (7.32-7.43); VBG pO2 56 mmHg
[2023-12-15 14:48] LABS: Venous Blood Gas Refer to POC result
[2023-12-15 15:03] LABS: Anion Gap 23 (12-20); Blood Urea Nitrogen 121 mg/dL (9-16); Calcium 6.4 mg/dL (8.4-10.2); Carbon Dioxide 23 mmol/L (22-29); Chloride 97 mmol/L (96-108); Creatinine Clr Calc Pharmacy 8.2; Estimated Glomerular Filt Rate 7; Glucose Random 111 mg/dL (60-115); Potassium 4.4 mmol/L (3.3-5.1); Sodium 139 mmol/L (135-145)
--- NOTE | 2023-12-15 20:21 | PM.EVENT ---
Documented by User: Sussy You NP 12/15/23 20:23 Event Note Date of Service: 12/15/23 Event Note: One set of blood cultures reported positive at 27.5 hours for Gram-negative coccobacilli. ?Periapical abscess noted on facial CT.? The patient is currently afebrile, lactic acid normal on admission. Will continue Clindamycin and Levaquin and repeat blood cultures and lactate. Time Spent With Patient Time: Total time managing care of this patient today ____ minutes. Documented by User: Thomas Hayes MD 12/16/23 09:04 Event Note Date of Service: 12/16/23
[2023-12-15] MEDS: fentaNYL citrate/PF 100 MCG/2 ML VIAL 50 MCG IVPUSH (21:47)
[2023-12-15 21:51] LABS: Lactic Acid 0.9 mmol/L (0.5-2.0)
[2023-12-16] VITALS (45 sets, daily range): BP systolic 77–140; BP diastolic 49–82; PULSE 9–123; RESP 10–24; TEMP 35.7–37; O2SAT 90–100; BMI 36.3
[2023-12-16] MEDS: 0.9 % Sodium Chloride Flush 3 ML SYRINGE IVFLUSH ×3 (00:34→14:38)
[2023-12-16] MEDS: LORazepam 2 MG/ML VIAL 1 MG IVPUSH ×2 (00:41→05:32)
[2023-12-16] MEDS: Heparin Sodium,Porcine 5,000 UNIT/ML VIAL 5000 UNIT SUBCUT ×3 (01:47→18:06)
[2023-12-16] MEDS: Norepinephrine Bitartrate/D5W 8 MG/250 ML PLAST..BAG 11.16 MG IV (04:15)
[2023-12-16] MEDS: fentaNYL citrate/PF 100 MCG/2 ML VIAL 50 MCG IVPUSH ×4 (04:17→15:23)
[2023-12-16] MEDS: LORazepam 2 MG/ML VIAL IVPUSH ×2 (04:28→07:34)
[2023-12-16] MEDS: Albuterol Sulfate (0.083%) 2.5 MG/3 ML VIAL.NEB INHALE (04:30)
[2023-12-16 05:14] LABS: VBG Base Excess 4.6 mmol/L; VBG HCO3 28 mmol/L (22-26); VBG pCO2 38 mmHg; VBG pH 7.47 (7.32-7.43); VBG pO2 44 mmHg
[2023-12-16 05:18] LABS: Venous Blood Gas Refer to POC result
[2023-12-16 05:40] LABS: Hematocrit 27.9 % (42.0-52.0); Hemoglobin 9.9 g/dl (14.0-18.0); Mean Corpuscular HGB Conc 35.5 g/dl (31.0-36.0); Mean Corpuscular Hemoglobin 32.6 pg (27.0-33.0); Mean Corpuscular Volume 91.8 fL (80.0-98.0); Mean Platelet Volume 10.7 fL (9.4-12.4); NRBC Pct Auto 0.3 /100WBC (0.0-0.2); Platelet Count 119 X10*3/uL (160-400); Red Blood Count 3.04 X10*6/uL (4.60-5.80); Red Cell Distribution Width 19.7 % (11.0-16.0); White Blood Count 7.2 X10*3/uL (4.8-10.8)
[2023-12-16 06:01] LABS: Alanine Aminotransferase 10 U/L (0-40); Albumin Level 3.1 g/dL (3.5-5.0); Alkaline Phosphatase 102 U/L (39-117); Anion Gap 23 (12-20); Aspartate Amino Transferase 21 U/L (5-37); Bilirubin Total 0.7 mg/dL (0.0-1.0); Blood Urea Nitrogen 113 mg/dL (9-16); Calcium 6.9 mg/dL (8.4-10.2); Carbon Dioxide 26 mmol/L (22-29); Chloride 101 mmol/L (96-108); Creatinine Clr Calc Pharmacy 11.7; Estimated Glomerular Filt Rate 10; Glucose Random 108 mg/dL (60-115); Magnesium 1.4 mg/dL (1.6-2.6); Phosphorus 7.7 mg/dL (2.7-4.5); Sodium 146 mmol/L (135-145); Total Protein 6.5 g/dL (6.5-8.0)
[2023-12-16] MEDS: Magnesium Sulfate/H2O 2 GM/50 ML PIGGYBACK IV (06:10)
[2023-12-16 06:14] LABS: Band Neutrophils Percent 2 % (3-5); Eosinophils Absolute Manual 0.1 X10*3/uL (0.0-0.4); Eosinophils Percent Manual 1 % (0-4); Lymphocytes Absolute Manual 0.7 X10*3/uL (1.2-4.9); Lymphocytes Percent Manual 10 % (20-40); Monocytes Absolute Manual 0.2 X10*3/uL (0.1-1.2); Monocytes Percent Manual 3 % (2-11); Neutrophils Absolute Manual 6.2 X10*3/uL (2.0-8.3); Neutrophils Percent Manual 84 % (45-73)
[2023-12-16 06:15] LABS: Acanthocytes 1+ (0-2) /OIF; Basophilic Stippling 1+ (0-2) /OIF; Burr Cells 1+ (0-2) /OIF; Ovalocytes 1+ (5-14) /OIF; RBC Morphology NOTED; Schistocytes 1+ (0-2) /OIF
[2023-12-16 06:16] LABS: Hypochromasia 1+ (5-14) /OIF; Pappenheimer Bodies PRESENT; Polychromasia 1+ (0-2) /OIF
[2023-12-16] MEDS: Calcium Gluconate/NaCl,Iso-Osm 1 GM/50 ML PLAST..BAG IV (06:16)
[2023-12-16 06:20] LABS: Platelet Estimate DECREASED (NORMAL)
[2023-12-16] MEDS: Clindamycin Phosphate/D5W 600 MG/50 ML PIGGYBACK 100 MG IV ×3 (06:20→23:05)
[2023-12-16 06:21] LABS: Platelet Morphology Comment NORM
[2023-12-16] MEDS: Albuterol/Iprat 2.5/0.5MG 3 ML AMPUL.NEB INHALE ×4 (07:40→20:14)
[2023-12-16] MEDS: methADONE HCl 20 MG/2 ML ORAL.CONC 30 MG PO (08:47)
--- NOTE | 2023-12-16 09:43 | MHC.CLN ---
F/U PT WITH INCREASED NUTRITION RISK R/T PRESSURE INJURY PT IS CURRENTLY DAY 2 NPO WHEN DIET TO ADVANCE; RECOMMEND ADDING ENSURE CLEAR TID TO PROMOTE WOUND HEALING FOLLOWING FOR DIET ADVANCEMENT
[2023-12-16] MEDS: dexmedeTOMIDidine HCL/NS 400 MCG/100 ML INFUS..BTL 21.1 MCG IVCONT (10:17)
--- NOTE | 2023-12-16 12:41 | P.PNCC_ITS ---
Subjective Subjective Date of Service: 12/16/23 Interval History: 68-year-old gentleman with underlying ENT HIV C, polysubstance abuse on methadone admitted on 12/14/2023 with complaints of dyspnea. On ER evaluation patient with left-sided dental abscess, positive for opioids, hyperkalemia with metabolic acidosis, acute renal failure, hypotension with poor response to initial IV fluid resuscitation started on empiric antibiotics and bicarbonate drip and admitted to intensive care unit. Overnight with improvement in ELSIE, urine output, acidosis, and hyperkalemia. Acidosis and hyperkalemia resolved. ELSIE and urine output improved. Overnight with increased agitation restarted on methadone and also required Precedex drip. Critical Care Time (minutes): 0 Physical Exam 2 Vital Signs: Vital Signs: Last Vital Signs Temp 98.6 F 12/16/23 11:00 Pulse 97 12/16/23 11:45 Resp 18 12/16/23 11:08 BP 89/61 L 12/16/23 11:45 Pulse Ox 100 12/16/23 11:00 O2 Del Method Nasal Cannula 12/16/23 11:00 O2 Flow Rate 2 12/16/23 11:00 FiO2 30 12/15/23 19:58 BMI result Body Mass Index 36.3 Const: General: no acute distress, alert and awake Eyes: Sclerae: sclerae normal EOM: EOMs intact bilaterally Neck: Neck: Yes no lymphadenopathy, Yes trachea midline and Yes supple Resp: Effort & Inspection: normal respiratory effort and no respiratory distress Auscultation: clear to auscultation bilaterally Cardio: Rate: regular rate Rhythm: regular rhythm Heart sounds: no gallops, no murmurs and no rubs GI: Palpation (GI): Soft to palpation and Other GI palpation findings present ( Nontender) Auscultation: normal bowel sounds Extrem: General: Yes no pedal edema, No clubbing and No cyanosis Objective Data Labs 12/16/23 05:08 12/16/23 05:08 Labs: Laboratory Results - last 24 hr 12/15/23 12/15/23 12/15/23 14:37 14:43 21:29 WBC RBC Hgb Hct MCV MCH MCHC RDW Plt Count MPV Immature Gran % (Auto) Neut % (Auto) Lymph % (Auto) [place] % (Auto) Eos % (Auto) Baso % (Auto) Lymph # (Auto) [place] # (Auto) Eos # (Auto) Baso # (Auto) Abs Immat Gran (auto) Absolute Neuts (auto) Absolute Nucleated RBC Nucleated RBC % (auto) Neutrophils % (Manual) Band Neutrophils % Lymphocytes % (Manual) Monocytes % (Manual) Eosinophils % (Manual) Abs Neuts (Manual) Lymphocytes # (Manual) Monocytes # (Manual) Eosinophils # (Manual) Platelet Estimate Plt Morphology Comment RBC Morphology Polychromasia Hypochromasia Basophilic Stippling Pappenheimer Bodies Ovalocytes [place] Cells Acanthocytes (Spur) Schistocytes VBG pH 7.41 VBG pCO2 38 VBG pO2 56 VBG HCO3 24 VBG O2 Saturation 87.0 VBG Base Excess 0.3 Sodium 139 Potassium 4.4 Chloride 97 Carbon Dioxide 23 Anion Gap 23 H BUN 121 H Creatinine 8.10 H* Estim Creat Clear Calc 8.2 Estimated GFR 7 Random Glucose 111 Lactic Acid 0.9 Calcium 6.4 L Phosphorus Magnesium Total Bilirubin AST ALT Alkaline Phosphatase Total Protein Albumin 12/16/23 12/16/23 05:04 05:08 WBC 7.2 RBC 3.04 L Hgb 9.9 L Hct 27.9 L MCV 91.8 MCH 32.6 MCHC 35.5 RDW 19.7 H Plt Count 119 L MPV 10.7 Immature Gran % (Auto) Cancelled Neut % (Auto) Cancelled Lymph % (Auto) Cancelled [place] % (Auto) Cancelled Eos % (Auto) Cancelled Baso % (Auto) Cancelled Lymph # (Auto) Cancelled [place] # (Auto) Cancelled Eos # (Auto) Cancelled Baso # (Auto) Cancelled Abs Immat Gran (auto) Cancelled Absolute Neuts (auto) Cancelled Absolute Nucleated RBC 0.020 H Nucleated RBC % (auto) 0.3 H Neutrophils % (Manual) 84 H Band Neutrophils % 2 L Lymphocytes % (Manual) 10 L Monocytes % (Manual) 3 Eosinophils % (Manual) 1 Abs Neuts (Manual) 6.2 Lymphocytes # (Manual) 0.7 L Monocytes # (Manual) 0.2 Eosinophils # (Manual) 0.1 Platelet Estimate DECREASED Plt Morphology Comment NORM RBC Morphology NOTED Polychromasia 1+ (0-2) Hypochromasia 1+ (5-14) Basophilic Stippling 1+ (0-2) Pappenheimer Bodies PRESENT Ovalocytes 1+ (5-14) [place] Cells 1+ (0-2) Acanthocytes (Spur) 1+ (0-2) Schistocytes 1+ (0-2) VBG pH 7.47 H VBG pCO2 38 VBG pO2 44 VBG HCO3 28 H VBG O2 Saturation 73.0 VBG Base Excess 4.6 Sodium 146 H Potassium 4.0 Chloride 101 Carbon Dioxide 26 Anion Gap 23 H BUN 113 H Creatinine 5.48 H* Estim Creat Clear Calc 11.7 Estimated GFR 10 Random Glucose 108 Lactic Acid Calcium 6.9 L D Phosphorus 7.7 H Magnesium 1.4 L* Total Bilirubin 0.7 AST 21 ALT 10 Alkaline Phosphatase 102 Total Protein 6.5 Albumin 3.1 L Microbiology Microbiology Results: Microbiology 12/14/23 17:50 Blood - Venous Blood Culture - Preliminary Prelim: GNCB Gram Stain only 12/14/23 19:53 Urine Catheterized - [place] Catheter Urine Culture - Final No growth. 12/14/23 17:50 Blood - Venous Blood Culture - Preliminary No growth after 24 hours. Progress Note: A&P Assessment and plan (1) Substance abuse: Status: Acute (2) HIV (human immunodeficiency virus infection): Status: Acute (3) Acute renal failure: Status: Acute (4) Metabolic acidosis: Status: Acute (5) Hyperkalemia: Status: Acute (6) Hep C w/o coma, chronic: Status: Acute Plan Assessment: 68-year-old gentleman with underlying substance abuse, COPD, HIV, hep C admitted with acute renal failure with metabolic acidosis and hyperkalemia Plan: Neuro: Metabolic encephalopathy secondary to acute renal failure with uremia, improving. Though still with significant agitation, restarted on methadone in required initiation of Precedex drip. Cardiac: No acute issues. 2D echo is pending. Pulmonary: Acute hypoxic respiratory failure secondary to pulmonary edema on a background of large volume IV fluid resuscitation. Continue to titrate off supplemental oxygen as tolerated. Renal: Acute renal failure with hyperkalemia and metabolic acidosis. Non oliguric. Improving. Continue to monitor electrolytes. Nephrology service care appreciated. Endo: No acute issues. GI: No acute issues. ID: Dental abscess. Empiric coverage with clindamycin/Levaquin. Heme/Onc: No acute issues. Psych: No acute issues. Miscellaneous: No acute issues. Prophylaxis: Heparin Diet: NPO Quality Stroke Does the patient have a stroke diagnosis?: No VTE Prior VTE?: No VTE Risk Level:: Medical - moderate - high VTE Device Contraindication: N/A - Device Ordered VTE Drug Contraindication: N/A - Med Ordered
--- NOTE | 2023-12-16 13:14 | PM.PNNEP ---
Subjective Subjective Date of Service: 12/16/23 Interval history: Events noted Creatinine trending down Confused Physical Exam Vital Signs: Vital Signs: Last Vital Signs Temp 97.0 F 12/16/23 13:00 Pulse 95 12/16/23 13:00 Resp 12 12/16/23 13:00 BP 107/65 12/16/23 13:00 Pulse Ox 96 12/16/23 13:00 O2 Del Method Nasal Cannula 12/16/23 13:00 O2 Flow Rate 2 12/16/23 13:00 FiO2 30 12/15/23 19:58 BMI result Body Mass Index 36.3 Const: General: ill appearing Neck: Neck: Yes supple Resp: Auscultation: clear to auscultation bilaterally Cardio: Palpation: no palpable S3 Heart sounds: no rubs GI: Palpation (GI): Soft to palpation Auscultation: normal bowel sounds Neuro: Motor exam (neuro): no asterixis Objective Data Labs 12/16/23 05:08 12/16/23 05:08 Labs: Laboratory Results - last 24 hr 12/15/23 12/15/23 12/15/23 14:37 14:43 21:29 WBC RBC Hgb Hct MCV MCH MCHC RDW Plt Count MPV Immature Gran % (Auto) Neut % (Auto) Lymph % (Auto) [place] % (Auto) Eos % (Auto) Baso % (Auto) Lymph # (Auto) [place] # (Auto) Eos # (Auto) Baso # (Auto) Abs Immat Gran (auto) Absolute Neuts (auto) Absolute Nucleated RBC Nucleated RBC % (auto) Neutrophils % (Manual) Band Neutrophils % Lymphocytes % (Manual) Monocytes % (Manual) Eosinophils % (Manual) Abs Neuts (Manual) Lymphocytes # (Manual) Monocytes # (Manual) Eosinophils # (Manual) Platelet Estimate Plt Morphology Comment RBC Morphology Polychromasia Hypochromasia Basophilic Stippling Pappenheimer Bodies Ovalocytes [place] Cells Acanthocytes (Spur) Schistocytes VBG pH 7.41 VBG pCO2 38 VBG pO2 56 VBG HCO3 24 VBG O2 Saturation 87.0 VBG Base Excess 0.3 Sodium 139 Potassium 4.4 Chloride 97 Carbon Dioxide 23 Anion Gap 23 H BUN 121 H Creatinine 8.10 H* Estim Creat Clear Calc 8.2 Estimated GFR 7 Random Glucose 111 Lactic Acid 0.9 Calcium 6.4 L Phosphorus Magnesium Total Bilirubin AST ALT Alkaline Phosphatase Total Protein Albumin 12/16/23 12/16/23 05:04 05:08 WBC 7.2 RBC 3.04 L Hgb 9.9 L Hct 27.9 L MCV 91.8 MCH 32.6 MCHC 35.5 RDW 19.7 H Plt Count 119 L MPV 10.7 Immature Gran % (Auto) Cancelled Neut % (Auto) Cancelled Lymph % (Auto) Cancelled [place] % (Auto) Cancelled Eos % (Auto) Cancelled Baso % (Auto) Cancelled Lymph # (Auto) Cancelled [place] # (Auto) Cancelled Eos # (Auto) Cancelled Baso # (Auto) Cancelled Abs Immat Gran (auto) Cancelled Absolute Neuts (auto) Cancelled Absolute Nucleated RBC 0.020 H Nucleated RBC % (auto) 0.3 H Neutrophils % (Manual) 84 H Band Neutrophils % 2 L Lymphocytes % (Manual) 10 L Monocytes % (Manual) 3 Eosinophils % (Manual) 1 Abs Neuts (Manual) 6.2 Lymphocytes # (Manual) 0.7 L Monocytes # (Manual) 0.2 Eosinophils # (Manual) 0.1 Platelet Estimate DECREASED Plt Morphology Comment NORM RBC Morphology NOTED Polychromasia 1+ (0-2) Hypochromasia 1+ (5-14) Basophilic Stippling 1+ (0-2) Pappenheimer Bodies PRESENT Ovalocytes 1+ (5-14) [place] Cells 1+ (0-2) Acanthocytes (Spur) 1+ (0-2) Schistocytes 1+ (0-2) VBG pH 7.47 H VBG pCO2 38 VBG pO2 44 VBG HCO3 28 H VBG O2 Saturation 73.0 VBG Base Excess 4.6 Sodium 146 H Potassium 4.0 Chloride 101 Carbon Dioxide 26 Anion Gap 23 H BUN 113 H Creatinine 5.48 H* Estim Creat Clear Calc 11.7 Estimated GFR 10 Random Glucose 108 Lactic Acid Calcium 6.9 L D Phosphorus 7.7 H Magnesium 1.4 L* Total Bilirubin 0.7 AST 21 ALT 10 Alkaline Phosphatase 102 Total Protein 6.5 Albumin 3.1 L Microbiology Microbiology Results: Microbiology 12/14/23 17:50 Blood - Venous Blood Culture - Preliminary Prelim: GNCB Gram Stain only 12/14/23 19:53 Urine Catheterized - [place] Catheter Urine Culture - Final No growth. 12/14/23 17:50 Blood - Venous Blood Culture - Preliminary No growth after 24 hours. Procedures Date of Service Date of Service: 12/16/23 Assessment & Plan Assessment and plan (1) HIV (human immunodeficiency virus infection): Status: Acute (2) Hypotension: Status: Acute (3) Acute renal failure: Status: Acute Plan Acute kidney injury in a setting of shock and HIV. He probably has ischemic ATN. Currently nonoliguric. No evidence of obstructive uropathy. At this point we can not rule out underlying glomerular diseases or interstitial disease. Further clinical course we will determine this. Hyponatremia Hyperkalemia Metabolic acidosis Anemia. Hyperphosphatemia Creatinine is trending down and nonoliguric Recommendation at this point would be to optimize his hemodynamic status Continue to avoid hypotension. Continue to avoid nephrotoxic agents. Keep intake more than output watch urine output closely. Monitor serum potassium and acid-base status. At present there is no absolute indication for dialysis. However this might change based on the clinical course. Discussed with ICU team and she will follow along. Time Spent With Patient Time: Total time managing care of this patient today ____ minutes. Progress Note: Quality Stroke Does the patient have a stroke diagnosis?: No
--- NOTE | 2023-12-16 15:10 | P.PNADD_ITS ---
Subjective Subjective Date of Service: 12/16/23 Reason For Visit: Acute Renal Failure Interim History: Patient medically admitted with [facility]. During admission reported that he was using heroin 4x/day Chart review shows that patient has history of of OUD and was previously prescribed methadone UDS at admission +opiates and fentanyl Today received methadone 30mg X1 RN reporting precedex drip had to be increased briefly due to agitation --sedated when t/w was in ED Review of Systems Review of Systems Yes Unobtainable due to mental status Mental Status Exam Mental Status Exam Level of Consciousness: Sedated Diagnostics Vital Signs (24Hr): Vital Signs - 24 hr 12/15/23 16:00 12/15/23 16:46 12/15/23 17:00 Temperature 97.3 F 97.7 F Pulse Rate 98 100 101 H Respiratory Rate 14 15 13 Blood Pressure 104/60 101/60 Pulse Oximetry 94 94 Oxygen Delivery Method Nasal Cannula Nasal Cannula Oxygen Flow Rate 2 2 Fraction of Inspired Oxygen 12/15/23 17:56 12/15/23 18:59 12/15/23 19:01 Temperature 97.9 F 98.1 F Pulse Rate 105 H 103 H 101 H Respiratory Rate 18 13 14 Blood Pressure 94/61 104/59 L 95/60 Pulse Oximetry 91 L 95 Oxygen Delivery Method Nasal Cannula Nasal Cannula Oxygen Flow Rate 2 2 Fraction of Inspired Oxygen 12/15/23 19:58 12/15/23 20:27 12/15/23 20:58 Temperature 98.1 F 98.2 F Pulse Rate 101 H 101 H 101 H Respiratory Rate 15 16 12 Blood Pressure 100/60 109/65 Pulse Oximetry 94 98 Oxygen Delivery Method Mechanical Ventilation Nasal Cannula Oxygen Flow Rate 2 Fraction of Inspired Oxygen 30 12/15/23 21:47 12/15/23 21:55 12/15/23 22:15 Temperature 98.2 F Pulse Rate 105 H 103 H Respiratory Rate 26 H 14 14 Blood Pressure 103/63 100/61 Pulse Oximetry 95 Oxygen Delivery Method Nasal Cannula Oxygen Flow Rate 2 Fraction of Inspired Oxygen 12/15/23 22:16 12/15/23 23:00 12/15/23 23:58 Temperature 98.2 F 98.4 F Pulse Rate 103 H 104 H 108 H Respiratory Rate 14 16 20 Blood Pressure 100/61 112/64 106/66 Pulse Oximetry 95 94 Oxygen Delivery Method Nasal Cannula Nasal Cannula Oxygen Flow Rate 2 2 Fraction of Inspired Oxygen 12/16/23 00:43 12/16/23 00:53 12/16/23 01:55 Temperature 98.6 F 98.4 F Pulse Rate 108 H 104 H 101 H Respiratory Rate 20 13 15 Blood Pressure 111/71 107/70 108/65 Pulse Oximetry 96 96 Oxygen Delivery Method Nasal Cannula Nasal Cannula Oxygen Flow Rate 2 2 Fraction of Inspired Oxygen 12/16/23 02:51 12/16/23 02:53 12/16/23 03:04 Temperature 98.4 F Pulse Rate 99 102 H 101 H Respiratory Rate 10 L Blood Pressure 109/59 L 109/59 L 86/49 L Pulse Oximetry 95 Oxygen Delivery Method Nasal Cannula Oxygen Flow Rate 2 Fraction of Inspired Oxygen 12/16/23 03:59 12/16/23 04:15 12/16/23 04:15 Temperature 98.2 F Pulse Rate 100 109 H 9 L Respiratory Rate 12 Blood Pressure 94/64 93/69 93/69 Pulse Oximetry 96 Oxygen Delivery Method Nasal Cannula Oxygen Flow Rate 2 Fraction of Inspired Oxygen 12/16/23 04:17 12/16/23 04:31 12/16/23 04:57 Temperature 98.2 F Pulse Rate 107 H 104 H Respiratory Rate 24 H 24 H 15 Blood Pressure 115/69 Pulse Oximetry 94 Oxygen Delivery Method Nasal Cannula Oxygen Flow Rate 4 Fraction of Inspired Oxygen 12/16/23 05:57 12/16/23 06:21 12/16/23 07:00 Temperature 98.2 F 98.4 F Pulse Rate 103 H 112 H Respiratory Rate 12 20 12 Blood Pressure 117/76 113/50 L Pulse Oximetry 95 92 Oxygen Delivery Method Nasal Cannula Nasal Cannula Oxygen Flow Rate 2 2 Fraction of Inspired Oxygen 12/16/23 07:00 12/16/23 07:41 12/16/23 07:50 Temperature Pulse Rate 113 H 117 H 117 H Respiratory Rate 19 Blood Pressure 113/50 L 107/63 Pulse Oximetry Oxygen Delivery Method Oxygen Flow Rate Fraction of Inspired Oxygen 12/16/23 08:00 12/16/23 09:00 12/16/23 10:00 Temperature 98.4 F 98.6 F 98.6 F Pulse Rate 117 H 122 H 120 H Respiratory Rate 18 13 20 Blood Pressure 108/57 L 102/61 96/71 Pulse Oximetry 94 94 94 Oxygen Delivery Method Nasal Cannula Nasal Cannula Nasal Cannula Oxygen Flow Rate 2 2 2 Fraction of Inspired Oxygen 12/16/23 10:17 12/16/23 10:29 12/16/23 11:00 Temperature 98.6 F Pulse Rate 123 H 96 Respiratory Rate 18 12 Blood Pressure 96/71 95/65 Pulse Oximetry 100 Oxygen Delivery Method Nasal Cannula Oxygen Flow Rate 2 Fraction of Inspired Oxygen 12/16/23 11:08 12/16/23 11:10 12/16/23 11:45 Temperature Pulse Rate 95 96 97 Respiratory Rate 18 Blood Pressure 77/50 L 89/61 L Pulse Oximetry Oxygen Delivery Method Oxygen Flow Rate Fraction of Inspired Oxygen 12/16/23 13:00 12/16/23 13:35 12/16/23 14:00 Temperature 97.0 F 96.4 F L Pulse Rate 95 94 92 Respiratory Rate 12 11 L Blood Pressure 107/65 102/59 L 103/64 Pulse Oximetry 96 95 Oxygen Delivery Method Nasal Cannula Nasal Cannula Oxygen Flow Rate 2 2 Fraction of Inspired Oxygen 12/16/23 14:54 Temperature Pulse Rate 92 Respiratory Rate 13 Blood Pressure Pulse Oximetry Oxygen Delivery Method Oxygen Flow Rate Fraction of Inspired Oxygen BMI result Body Mass Index 36.3 Labs 12/16/23 05:08 12/16/23 05:08 Labs: Laboratory Results - last 48 hr 12/14/23 12/14/23 12/14/23 15:10 15:15 17:50 WBC 2.9 L RBC 2.28 L D Hgb 7.8 L D Hct 23.3 L D MCV 102.2 H MCH 34.2 H MCHC 33.5 RDW 19.3 H Plt Count 132 L D MPV 10.9 Immature Gran % (Auto) Cancelled Neut % (Auto) Cancelled Lymph % (Auto) Cancelled [place] % (Auto) Cancelled Eos % (Auto) Cancelled Baso % (Auto) Cancelled Lymph # (Auto) Cancelled [place] # (Auto) Cancelled Eos # (Auto) Cancelled Baso # (Auto) Cancelled Abs Immat Gran (auto) Cancelled Absolute Neuts (auto) Cancelled Absolute Nucleated RBC 0.000 Nucleated RBC % (auto) 0.0 Neutrophils % (Manual) 53 Band Neutrophils % 17 H Lymphocytes % (Manual) 12 L Monocytes % (Manual) 4 Eosinophils % (Manual) 2 Basophils % (Manual) 1 Metamyelocytes % 8 Myelocytes % 3 Abs Neuts (Manual) 2.0 Lymphocytes # (Manual) 0.3 L Monocytes # (Manual) 0.1 Eosinophils # (Manual) 0.1 Metamyelocytes # 0.2 Myelocytes # 0.1 Nucleated RBCs Toxic Granulation PRESENT Toxic Vacuolation Dohle Bodies PRESENT Platelet Estimate NORMAL Large Platelets Plt Morphology Comment NORMAL RBC Morphology NORMAL Polychromasia 1+ (0-2) Hypochromasia Basophilic Stippling Pappenheimer Bodies Ovalocytes [place] Cells 1+ (0-2) Acanthocytes (Spur) Schistocytes PT 13.4 H INR 1.1 VBG pH 7.12 L* VBG pCO2 20 VBG pO2 105 VBG HCO3 6 L VBG O2 Saturation 98.0 VBG Base Excess -20.4 Sodium 132 L 133 L Potassium 6.2 H* D 6.1 H* Chloride 100 101 Carbon Dioxide 10 L* D 9 L* Anion Gap 28 H 29 H BUN 148 H 147 H Creatinine 12.07 H* 11.87 H* Estim Creat Clear Calc 4.9 5.0 Estimated GFR 4 4 Random Glucose 80 88 Lactic Acid 0.7 Calcium 6.5 L D 6.6 L Phosphorus Magnesium 1.5 L Total Bilirubin 0.5 Direct Bilirubin 0.3 AST 18 ALT 10 Alkaline Phosphatase 105 Troponin I High Sens 2.9 C-Reactive Protein 13.23 H Total Protein 6.8 Albumin 2.8 L TSH 1.07 Urine Color Urine Appearance Urine pH Ur Specific [place] Urine Protein Urine Glucose (UA) Urine Ketones Urine Blood Urine Nitrite Ur Leukocyte Esterase Urine RBC Urine WBC Ur Squamous Epith Cells Urine Bacteria Hyaline Casts Urine Opiates Screen Ur Buprenorphine Scrn Ur Oxycodone Screen Urine Methadone Screen Urine Fentanyl Screen Ur Barbiturates Screen Ur Phencyclidine Scrn Ur Amphetamines Screen U Benzodiazepines Scrn Urine Cocaine Screen U Marijuana (THC) Screen Ethyl Alcohol < 10 Blood Type O Negative Antibody Screen NEGATIVE Crossmatch See Detail 12/14/23 12/14/23 12/14/23 19:53 20:49 20:57 WBC RBC Hgb Hct MCV MCH MCHC RDW Plt Count MPV Immature Gran % (Auto) Neut % (Auto) Lymph % (Auto) [place] % (Auto) Eos % (Auto) Baso % (Auto) Lymph # (Auto) [place] # (Auto) Eos # (Auto) Baso # (Auto) Abs Immat Gran (auto) Absolute Neuts (auto) Absolute Nucleated RBC Nucleated RBC % (auto) Neutrophils % (Manual) Band Neutrophils % Lymphocytes % (Manual) Monocytes % (Manual) Eosinophils % (Manual) Basophils % (Manual) Metamyelocytes % Myelocytes % Abs Neuts (Manual) Lymphocytes # (Manual) Monocytes # (Manual) Eosinophils # (Manual) Metamyelocytes # Myelocytes # Nucleated RBCs Toxic Granulation Toxic Vacuolation Dohle Bodies Platelet Estimate Large Platelets Plt Morphology Comment RBC Morphology Polychromasia Hypochromasia Basophilic Stippling Pappenheimer Bodies Ovalocytes [place] Cells Acanthocytes (Spur) Schistocytes PT INR VBG pH 7.12 L* VBG pCO2 22 VBG pO2 90 VBG HCO3 7 L VBG O2 Saturation 95.0 VBG Base Excess -19.7 Sodium Potassium Chloride Carbon Dioxide Anion Gap BUN Creatinine Estim Creat Clear Calc Estimated GFR Random Glucose Lactic Acid Calcium Phosphorus 10.8 H Magnesium Total Bilirubin Direct Bilirubin AST ALT Alkaline Phosphatase Troponin I High Sens C-Reactive Protein Total Protein Albumin TSH Urine Color Dark Yellow Urine Appearance Cloudy Urine pH 5.5 Ur Specific [place] 1.015 Urine Protein 100 (2+) H Urine Glucose (UA) Negative Urine Ketones Trace Urine Blood Trace H Urine Nitrite Negative Ur Leukocyte Esterase Small (1+) H Urine RBC 0-2 Urine WBC 6-10 Ur Squamous Epith Cells 0-2 Urine Bacteria None Seen Hyaline Casts 0-2 Urine Opiates Screen POSITIVE H Ur Buprenorphine Scrn Not Detected Ur Oxycodone Screen Not Detected Urine Methadone Screen Not Detected Urine Fentanyl Screen POSITIVE H Ur Barbiturates Screen Not Detected Ur Phencyclidine Scrn Not Detected Ur Amphetamines Screen Not Detected U Benzodiazepines Scrn Not Detected Urine Cocaine Screen Not Detected U Marijuana (THC) Screen Not Detected Ethyl Alcohol Blood Type Antibody Screen Crossmatch 12/14/23 12/14/23 12/15/23 21:58 22:02 05:18 WBC 2.6 L RBC 1.89 L Hgb 6.4 L* Hct 18.4 L* D MCV 97.4 MCH 33.9 H MCHC 34.8 RDW 18.1 H Plt Count 94 L D MPV 9.9 Immature Gran % (Auto) Neut % (Auto) Lymph % (Auto) [place] % (Auto) Eos % (Auto) Baso % (Auto) Lymph # (Auto) [place] # (Auto) Eos # (Auto) Baso # (Auto) Abs Immat Gran (auto) Absolute Neuts (auto) Absolute Nucleated RBC 0.000 Nucleated RBC % (auto) 0.0 Neutrophils % (Manual) Band Neutrophils % Lymphocytes % (Manual) Monocytes % (Manual) Eosinophils % (Manual) Basophils % (Manual) Metamyelocytes % Myelocytes % Abs Neuts (Manual) Lymphocytes # (Manual) Monocytes # (Manual) Eosinophils # (Manual) Metamyelocytes # Myelocytes # Nucleated RBCs Toxic Granulation Toxic Vacuolation Dohle Bodies Platelet Estimate Large Platelets Plt Morphology Comment RBC Morphology Polychromasia Hypochromasia Basophilic Stippling Pappenheimer Bodies Ovalocytes [place] Cells Acanthocytes (Spur) Schistocytes PT INR VBG pH 7.23 L 7.31 L VBG pCO2 29 30 VBG pO2 45 48 VBG HCO3 12 L 15 L VBG O2 Saturation 67.0 78.0 VBG Base Excess -13.7 -9.2 Sodium 136 Potassium 5.5 H Chloride 101 Carbon Dioxide 13 L Anion Gap 28 H BUN 125 H Creatinine 9.89 H* Estim Creat Clear Calc 6.5 Estimated GFR 5 Random Glucose 92 Lactic Acid Calcium 6.7 L Phosphorus Magnesium Total Bilirubin Direct Bilirubin AST ALT Alkaline Phosphatase Troponin I High Sens C-Reactive Protein Total Protein Albumin TSH Urine Color Urine Appearance Urine pH Ur Specific [place] Urine Protein Urine Glucose (UA) Urine Ketones Urine Blood Urine Nitrite Ur Leukocyte Esterase Urine RBC Urine WBC Ur Squamous Epith Cells Urine Bacteria Hyaline Casts Urine Opiates Screen Ur Buprenorphine Scrn Ur Oxycodone Screen Urine Methadone Screen Urine Fentanyl Screen Ur Barbiturates Screen Ur Phencyclidine Scrn Ur Amphetamines Screen U Benzodiazepines Scrn Urine Cocaine Screen U Marijuana (THC) Screen Ethyl Alcohol Blood Type Antibody Screen Crossmatch 12/15/23 12/15/23 12/15/23 05:20 14:37 14:43 WBC 3.7 L RBC 2.60 L D Hgb 8.6 L D Hct 24.3 L D MCV 93.5 MCH 33.1 H MCHC 35.4 RDW 18.5 H Plt Count 98 L MPV 10.5 Immature Gran % (Auto) Cancelled Neut % (Auto) Cancelled Lymph % (Auto) Cancelled [place] % (Auto) Cancelled Eos % (Auto) Cancelled Baso % (Auto) Cancelled Lymph # (Auto) Cancelled [place] # (Auto) Cancelled Eos # (Auto) Cancelled Baso # (Auto) Cancelled Abs Immat Gran (auto) Cancelled Absolute Neuts (auto) Cancelled Absolute Nucleated RBC 0.000 Nucleated RBC % (auto) 0.0 Neutrophils % (Manual) 72 Band Neutrophils % 23 H Lymphocytes % (Manual) 2 L Monocytes % (Manual) 3 Eosinophils % (Manual) Basophils % (Manual) Metamyelocytes % Myelocytes % Abs Neuts (Manual) 3.5 Lymphocytes # (Manual) 0.1 L Monocytes # (Manual) 0.1 Eosinophils # (Manual) Metamyelocytes # Myelocytes # Nucleated RBCs 1 H Toxic Granulation PRESENT Toxic Vacuolation PRESENT Dohle Bodies PRESENT Platelet Estimate SLIGHTLY DECREASED Large Platelets PRESENT Plt Morphology Comment NOTED RBC Morphology NOTED Polychromasia 1+ (0-2) Hypochromasia 1+ (5-14) Basophilic Stippling Pappenheimer Bodies Ovalocytes [place] Cells 2+ (3-5) Acanthocytes (Spur) 2+ (3-5) Schistocytes PT INR VBG pH 7.41 VBG pCO2 38 VBG pO2 56 VBG HCO3 24 VBG O2 Saturation 87.0 VBG Base Excess 0.3 Sodium 138 139 Potassium 5.0 4.4 Chloride 99 97 Carbon Dioxide 15 L 23 Anion Gap 29 H 23 H BUN 122 H 121 H Creatinine 9.30 H* 8.10 H* Estim Creat Clear Calc 7.2 8.2 Estimated GFR 6 7 Random Glucose 108 111 Lactic Acid Calcium 6.5 L 6.4 L Phosphorus 10.5 H Magnesium 1.7 Total Bilirubin 1.6 H Direct Bilirubin AST 21 ALT 11 Alkaline Phosphatase 80 Troponin I High Sens C-Reactive Protein Total Protein 6.2 L Albumin 3.1 L TSH Urine Color Urine Appearance Urine pH Ur Specific [place] Urine Protein Urine Glucose (UA) Urine Ketones Urine Blood Urine Nitrite Ur Leukocyte Esterase Urine RBC Urine WBC Ur Squamous Epith Cells Urine Bacteria Hyaline Casts Urine Opiates Screen Ur Buprenorphine Scrn Ur Oxycodone Screen Urine Methadone Screen Urine Fentanyl Screen Ur Barbiturates Screen Ur Phencyclidine Scrn Ur Amphetamines Screen U Benzodiazepines Scrn Urine Cocaine Screen U Marijuana (THC) Screen Ethyl Alcohol Blood Type Antibody Screen Crossmatch 12/15/23 12/16/23 12/16/23 21:29 05:04 05:08 WBC 7.2 RBC 3.04 L Hgb 9.9 L Hct 27.9 L MCV 91.8 MCH 32.6 MCHC 35.5 RDW 19.7 H Plt Count 119 L MPV 10.7 Immature Gran % (Auto) Cancelled Neut % (Auto) Cancelled Lymph % (Auto) Cancelled [place] % (Auto) Cancelled Eos % (Auto) Cancelled Baso % (Auto) Cancelled Lymph # (Auto) Cancelled [place] # (Auto) Cancelled Eos # (Auto) Cancelled Baso # (Auto) Cancelled Abs Immat Gran (auto) Cancelled Absolute Neuts (auto) Cancelled Absolute Nucleated RBC 0.020 H Nucleated RBC % (auto) 0.3 H Neutrophils % (Manual) 84 H Band Neutrophils % 2 L Lymphocytes % (Manual) 10 L Monocytes % (Manual) 3 Eosinophils % (Manual) 1 Basophils % (Manual) Metamyelocytes % Myelocytes % Abs Neuts (Manual) 6.2 Lymphocytes # (Manual) 0.7 L Monocytes # (Manual) 0.2 Eosinophils # (Manual) 0.1 Metamyelocytes # Myelocytes # Nucleated RBCs Toxic Granulation Toxic Vacuolation Dohle Bodies Platelet Estimate DECREASED Large Platelets Plt Morphology Comment NORM RBC Morphology NOTED Polychromasia 1+ (0-2) Hypochromasia 1+ (5-14) Basophilic Stippling 1+ (0-2) Pappenheimer Bodies PRESENT Ovalocytes 1+ (5-14) [place] Cells 1+ (0-2) Acanthocytes (Spur) 1+ (0-2) Schistocytes 1+ (0-2) PT INR VBG pH 7.47 H VBG pCO2 38 VBG pO2 44 VBG HCO3 28 H VBG O2 Saturation 73.0 VBG Base Excess 4.6 Sodium 146 H Potassium 4.0 Chloride 101 Carbon Dioxide 26 Anion Gap 23 H BUN 113 H Creatinine 5.48 H* Estim Creat Clear Calc 11.7 Estimated GFR 10 Random Glucose 108 Lactic Acid 0.9 Calcium 6.9 L D Phosphorus 7.7 H Magnesium 1.4 L* Total Bilirubin 0.7 Direct Bilirubin AST 21 ALT 10 Alkaline Phosphatase 102 Troponin I High Sens C-Reactive Protein Total Protein 6.5 Albumin 3.1 L TSH Urine Color Urine Appearance Urine pH Ur Specific [place] Urine Protein Urine Glucose (UA) Urine Ketones Urine Blood Urine Nitrite Ur Leukocyte Esterase Urine RBC Urine WBC Ur Squamous Epith Cells Urine Bacteria Hyaline Casts Urine Opiates Screen Ur Buprenorphine Scrn Ur Oxycodone Screen Urine Methadone Screen Urine Fentanyl Screen Ur Barbiturates Screen Ur Phencyclidine Scrn Ur Amphetamines Screen U Benzodiazepines Scrn Urine Cocaine Screen U Marijuana (THC) Screen Ethyl Alcohol Blood Type Antibody Screen Crossmatch Imaging Radiology Impressions: ITS Impressions Chest X-Ray 12/14/23 14:38 IMPRESSION: 1. Persistent hypoinflation of lungs. 2. Interval development of left lateral lung base airspace disease and small left pleural effusion. 3. Interval development of medial right lobe along infiltrates suggestive of pneumonia. 4. Unchanged severe right glenohumeral joint osteoarthritis. Electronically signed by: Ricardo Matos MD 12/14/2023 05:02 PM EDT RP Chest X-Ray 12/14/23 17:20 IMPRESSION: * No pneumothorax after right IJ line placement. * Lungs are hypoinflated and there is bibasilar opacities, likely atelectasis, although difficult to exclude any underlying lower lobe pneumonia on this limited evaluation. * Probable small left pleural effusion. Electronically signed by: Juno Guo MD 12/14/2023 05:38 PM EDT RP Abdomen/Pelvis CT 12/14/23 19:03 IMPRESSION: 1. Prominent emphysematous changes are redemonstrated. Bilateral posterior lower lobe consolidations with air bronchograms, new compared to the prior examination and concerning for early pneumonia. 2. No intra-abdominal mass, lymphadenopathy, or ascites. 3. No small or large bowel obstruction. Sigmoid diverticulosis without evidence of acute diverticulitis. Unremarkable appendix. 4. No hydronephrosis or nephrolithiasis. Electronically signed by: Nick Tang MD 12/14/2023 09:07 PM EDT RP Chest CT 12/14/23 19:36 IMPRESSION: 1. Prominent emphysematous changes are redemonstrated. Bilateral posterior lower lobe consolidations with air bronchograms, new compared to the prior examination and concerning for early pneumonia. 2. No intra-abdominal mass, lymphadenopathy, or ascites. 3. No small or large bowel obstruction. Sigmoid diverticulosis without evidence of acute diverticulitis. Unremarkable appendix. 4. No hydronephrosis or nephrolithiasis. Electronically signed by: Nick Tang MD 12/14/2023 09:07 PM EDT RP Face CT 12/14/23 19:36 IMPRESSION: 1. Lucency adjacent to the root of the left maxillary canine which extends through the peripheral maxillary cortex, consistent with a periapical abscess. No adjacent organized fluid collection or soft tissue abscess. 2. Air-fluid level and secretions within the right maxillary sinus as well as within the sphenoid sinuses which could represent a degree of acute sinusitis. Electronically signed by: Nick Tang MD 12/14/2023 09:32 PM EDT RP Head CT 12/14/23 19:36 IMPRESSION: No acute intracranial pathology. Electronically signed by: Bryant Pink MD 12/14/2023 08:51 PM EDT RP Medications Medications Current Medications Albuterol Sulfate (Albuterol Sulfate (0.083%) 2.5 Mg/3 Ml Vial.Neb) 2.5 mg INHALE Q2H PRN PRN Reason: Shortness of Breath/Wheezing Last Admin: 12/16/23 04:30 Dose: 2.5 mg Albuterol/Ipratropium (Albuterol/Iprat 2.5/0.5mg 3 Ml Ampul.Neb) 3 ml INHALE RQ4H WHILE AWAKE CHAN Last Admin: 12/16/23 14:54 Dose: 3 ml Fentanyl (Fentanyl Citrate/Pf 100 Mcg/2 Ml Vial) 50 mcg IVPUSH Q2H PRN; Protocol PRN Reason: Pain, Severe (Pain Scale 7-10) Last Admin: 12/16/23 10:29 Dose: 50 mcg Heparin Sodium (Porcine) (Heparin Sodium,Porcine 5,000 Unit/Ml Vial) 5,000 unit SUBCUT Q8H CHAN Last Admin: 12/16/23 08:48 Dose: 5,000 unit Clindamycin Phosphate (Cleocin) 600 mg in 50 mls @ 100 mls/hr IV Q8H CHAN Last Admin: 12/16/23 14:38 Dose: 100 mls/hr Norepinephrine Bitartrate (Levophed) 8 mg in 250 mls @ 0 mls/hr IV .Q0M CHAN; Protocol Last Titration: 12/16/23 13:35 Dose: 0.05 mcg/kg/min, 7.97 mls/hr Dexmedetomidine HCl (Precedex) 400 mcg in 100 mls @ 0 mls/hr IVCONT .Q0M CHAN; Protocol Last Titration: 12/16/23 14:01 Dose: 0 mcg/kg/hr, 0 mls/hr Lorazepam (Lorazepam 2 Mg/Ml Vial) 2 mg IVPUSH Q2H PRN PRN Reason: Opiate Withdrawal Last Admin: 12/16/23 07:34 Dose: 2 mg Methadone HCl (Methadone Hcl 20 Mg/2 Ml Oral.Conc) 30 mg PO DAILY CHAN Methadone HCl (Methadone Hcl 20 Mg/2 Ml Oral.Conc) 10 mg PO DAILY PRN PRN Reason: Opiate Withdrawal Sodium Chloride (0.9 % Sodium Chloride Flush 3 Ml Syringe) 3 ml IVFLUSH QSHIFT CHAN Last Admin: 12/16/23 14:38 Dose: 3 ml Allergies Allergies Allergy/AdvReac Type Severity Reaction Status Date / Time No Known Allergies Allergy Verified 12/14/23 14:48 Assessment & Plan Assessment & Plan (1) Opioid use disorder: Status: Acute Code(s): F11.90 - Opioid use, unspecified, uncomplicated Assessment and Plan: * methadone 30mg ordered * methadone 10mg PRN dose for withdrawal sx * will continue to follow Total time managing care of this patient today _20___ minutes.
--- NOTE | 2023-12-16 15:30 | MHC.CM.PN ---
PT REMAINS IN ICU, AGITATED AND YELLING OUT AT TIMES, LETHARGIC AT OTHERS. PT'S BROTHER DIETER LUJAN IN AT BEDSIDE ([phone]) AND REQUESTS INFORMATION REGARDING [employer]/MORE HELP IN THE HOME. CM EXPLAINED TO BROTHER THAT WILL DISCUSS WITH PT WHEN HE IS ABLE TO PARTICIPATE IN DISCUSSIONS REGARDING THIS. REFERRAL SENT TO [facility] [place] FOR ADDED ASSIST IF PT IS AGREEABLE. CM WILL ALSO NEED TO COMPLETE A HCP WITH PT ONCE ABLE TO PARTICIPATE. CM WILL CONTINUE TO FOLLOW FOR PLAN.
[2023-12-16] MEDS: dexmedeTOMIDidine HCL/NS 400 MCG/100 ML INFUS..BTL 8.44 MCG IVCONT (20:46)
[2023-12-17] VITALS (23 sets, daily range): BP systolic 99–128; BP diastolic 56–77; PULSE 79–114; RESP 12–20; TEMP 36–37.1; O2SAT 92–97; BMI 36.0
[2023-12-17] MEDS: fentaNYL citrate/PF 100 MCG/2 ML VIAL 50 MCG IVPUSH (01:50)
[2023-12-17] MEDS: Heparin Sodium,Porcine 5,000 UNIT/ML VIAL 5000 UNIT SUBCUT ×2 (02:13→09:14)
[2023-12-17 06:30] LABS: MANUAL DIFF FLAG NO
[2023-12-17 06:32] LABS: Basophils Percent Auto 0.2 % (0-2); Eosinophils Absolute Auto 0.1 X10*3/uL (0.0-0.4); Eosinophils Percent Auto 1.1 % (0-4); Hematocrit 26.4 % (42.0-52.0); Hemoglobin 9.1 g/dl (14.0-18.0); Imm Gran Abs Auto 0.02 X10*3/uL (0.00-0.03); Imm Gran Pct Auto 0.4 % (0.0-0.4); Lymphocytes Absolute Auto 0.4 X10*3/uL (1.2-4.9); Lymphocytes Percent Auto 9.2 % (20-40); Mean Corpuscular HGB Conc 34.5 g/dl (31.0-36.0); Mean Corpuscular Hemoglobin 32.4 pg (27.0-33.0); Mean Platelet Volume 9.9 fL (9.4-12.4); Monocytes Absolute Auto 0.4 X10*3/uL (0.1-1.2); Monocytes Percent Auto 9.4 % (2-11); Neutrophils Absolute Auto 3.6 x10*3/uL (2.0-8.3); Neutrophils Percent Auto 79.7 % (45-73); Red Blood Count 2.81 X10*6/uL (4.60-5.80); Red Cell Distribution Width 19.6 % (11.0-16.0); White Blood Count 4.6 X10*3/uL (4.8-10.8)
[2023-12-17 06:34] LABS: Platelet Count 84 X10*3/uL (160-400)
[2023-12-17 06:36] LABS: VBG Base Excess 6.8 mmol/L; VBG HCO3 30 mmol/L (22-26); VBG pCO2 37 mmHg; VBG pH 7.51 (7.32-7.43); VBG pO2 46 mmHg
[2023-12-17] MEDS: Clindamycin Phosphate/D5W 600 MG/50 ML PIGGYBACK 100 MG IV ×3 (06:37→22:24)
[2023-12-17 07:00] LABS: Alanine Aminotransferase 9 U/L (0-40); Albumin Level 2.8 g/dL (3.5-5.0); Alkaline Phosphatase 93 U/L (39-117); Anion Gap 21 (12-20); Aspartate Amino Transferase 15 U/L (5-37); Bilirubin Total 0.7 mg/dL (0.0-1.0); Blood Urea Nitrogen 87 mg/dL (9-16); Calcium 8.6 mg/dL (8.4-10.2); Carbon Dioxide 25 mmol/L (22-29); Chloride 108 mmol/L (96-108); Creatinine Clr Calc Pharmacy 20.6; Estimated Glomerular Filt Rate 20; Glucose Random 96 mg/dL (60-115); Magnesium 1.8 mg/dL (1.6-2.6); Phosphorus 6.4 mg/dL (2.7-4.5); Potassium 3.4 mmol/L (3.3-5.1); Sodium 151 mmol/L (135-145); Total Protein 5.9 g/dL (6.5-8.0)
[2023-12-17] MEDS: Albuterol/Iprat 2.5/0.5MG 3 ML AMPUL.NEB INHALE ×2 (07:20→11:10)
[2023-12-17] MEDS: 0.9 % Sodium Chloride Flush 3 ML SYRINGE IVFLUSH ×2 (07:38→15:43)
[2023-12-17 08:34] LABS: VBG Base Excess 7.9 mmol/L; VBG HCO3 30 mmol/L (22-26); VBG pCO2 36 mmHg; VBG pH 7.53 (7.32-7.43); VBG pO2 59 mmHg
[2023-12-17] MEDS: methADONE HCl 20 MG/2 ML ORAL.CONC 30 MG PO (09:15)
--- NOTE | 2023-12-17 09:51 | P.PNCC_ITS ---
Subjective Subjective Date of Service: 12/17/23 Interval History: 68-year-old gentleman with underlying ENT HIV C, polysubstance abuse on methadone admitted on 12/14/2023 with complaints of dyspnea. On ER evaluation patient with left-sided dental abscess, positive for opioids, hyperkalemia with metabolic acidosis, acute renal failure, hypotension with poor response to initial IV fluid resuscitation started on empiric antibiotics and bicarbonate drip and admitted to intensive care unit. Now with improvement in ELSIE, urine output, acidosis, and hyperkalemia. First blood culture growing Haemophilus, repeat blood cultures pending. No events overnight. Titrated off Precedex drip. Critical Care Time (minutes): 0 Physical Exam 2 Vital Signs: Vital Signs: Last Vital Signs Temp 97.2 F 12/17/23 09:00 Pulse 92 12/17/23 09:00 Resp 18 12/17/23 09:00 BP 99/63 12/17/23 09:00 Pulse Ox 92 12/17/23 09:00 O2 Del Method Oxymask 12/17/23 09:00 O2 Flow Rate 1 12/17/23 09:00 FiO2 30 12/15/23 19:58 BMI result Body Mass Index 36.0 Const: General: no acute distress, alert and awake Eyes: Sclerae: sclerae normal EOM: EOMs intact bilaterally Neck: Neck: Yes no lymphadenopathy, Yes trachea midline and Yes supple Resp: Effort & Inspection: normal respiratory effort and no respiratory distress Auscultation: crackles Cardio: Rate: regular rate Rhythm: regular rhythm Heart sounds: no gallops, no murmurs and no rubs GI: Palpation (GI): Soft to palpation and Other GI palpation findings present ( Nontender) Auscultation: normal bowel sounds Extrem: General: Yes no pedal edema, No clubbing and No cyanosis Objective Data Labs 12/17/23 06:23 12/17/23 06:23 Labs: Laboratory Results - last 24 hr 12/17/23 12/17/23 12/17/23 06:23 06:26 08:25 WBC 4.6 L RBC 2.81 L Hgb 9.1 L Hct 26.4 L MCV 94.0 MCH 32.4 MCHC 34.5 RDW 19.6 H Plt Count 84 L D MPV 9.9 Immature Gran % (Auto) 0.4 Neut % (Auto) 79.7 H Lymph % (Auto) 9.2 L [place] % (Auto) 9.4 Eos % (Auto) 1.1 Baso % (Auto) 0.2 Lymph # (Auto) 0.4 L [place] # (Auto) 0.4 Eos # (Auto) 0.1 Baso # (Auto) 0.0 Abs Immat Gran (auto) 0.02 Absolute Neuts (auto) 3.6 Absolute Nucleated RBC 0.000 Nucleated RBC % (auto) 0.0 VBG pH 7.51 H 7.53 H VBG pCO2 37 36 VBG pO2 46 59 VBG HCO3 30 H 30 H VBG O2 Saturation 76.0 89.0 VBG Base Excess 6.8 7.9 Sodium 151 H Potassium 3.4 Chloride 108 Carbon Dioxide 25 Anion Gap 21 H BUN 87 H Creatinine 3.12 H Estim Creat Clear Calc 20.6 Estimated GFR 20 Random Glucose 96 Calcium 8.6 D Phosphorus 6.4 H Magnesium 1.8 Total Bilirubin 0.7 AST 15 ALT 9 Alkaline Phosphatase 93 Total Protein 5.9 L Albumin 2.8 L Microbiology Microbiology Results: Microbiology 12/14/23 17:50 Blood - Venous Blood Culture - Final Haemophilus influenzae 12/15/23 21:30 Blood - Venous Blood Culture - Preliminary No growth after 24 hours. 12/15/23 21:30 Blood - Venous Blood Culture - Preliminary No growth after 24 hours. 12/14/23 17:50 Blood - Venous Blood Culture - Preliminary No growth after 48 hours. 12/14/23 19:53 Urine Catheterized - Bergman Catheter Urine Culture - Final No growth. Progress Note: A&P Assessment and plan (1) Opioid use disorder: Status: Acute (2) HIV (human immunodeficiency virus infection): Status: Acute (3) Acute renal failure: Status: Acute (4) Hep C w/o coma, chronic: Status: Acute (5) Dental abscess: Status: Acute Plan Assessment: 68-year-old gentleman with underlying substance abuse, COPD, HIV, hep C admitted with acute renal failure with metabolic acidosis and hyperkalemia Plan: Neuro: Metabolic encephalopathy improved significantly, titrated off Precedex drip. Continue baseline methadone. Cardiac: No acute issues. Pulmonary: Acute hypoxic respiratory failure secondary to pulmonary edema on a background of large volume IV fluid resuscitation. Continue to titrate off supplemental oxygen as tolerated. Renal: Acute renal failure with hyperkalemia and metabolic acidosis. Non oliguric. Improving. Continue to monitor electrolytes. Nephrology service care appreciated. Endo: No acute issues. GI: No acute issues. ID: Dental abscess and Haemophilus bacteremia repeat blood cultures pending. Continue clindamycin. Heme/Onc: No acute issues. Psych: No acute issues. Miscellaneous: No acute issues. Prophylaxis: Heparin Diet: Regular Quality Stroke Does the patient have a stroke diagnosis?: No VTE Prior VTE?: No VTE Risk Level:: Medical - moderate - high VTE Device Contraindication: N/A - Device Ordered VTE Drug Contraindication: N/A - Med Ordered
[2023-12-17 12:26] LABS: Iron 95 mcg/dL (45-160); Percent Iron Saturation 73 % (15-50); Total Iron Binding Capacity 130 mcg/dL (228-428); Unsaturated Iron Binding 35 ug/dL
[2023-12-17] MEDS: methADONE HCl 20 MG/2 ML ORAL.CONC 10 MG PO (13:39)
[2023-12-17 13:59] LABS: Folate 13.3 ng/mL (> or = 4.0); Vitamin B12 > 2000 pg/mL (200-900)
--- NOTE | 2023-12-17 14:39 | P.CNID_ITS ---
History of Present Illness Data of Consult Service Date: 12/17/23 Requesting physician: Kai Robbins Primary Care Provider: Violet Mathew MD HPI Reason for consult: bacteremia He presents with shortness of breath to ER and ruled out for PE and [place]. He has left dental pain. CT head mild sinusitis. I see [facility] for HIV and last CD4 count normal at 584 and viral load undetectable on 06/30/2023. He is on Clindamycin He has ARF and GFR is 20 and was 10 yesterday. He takes Biktarvy. Review of Systems 2 Review of Systems: Yes all other systems are reviewed and are negative [facility] Past Medical History Medical History (Updated 12/17/23 @ 14:43 by Felisa Honeycutt MD) Septicemia due to Hemophilus influenzae (H. influenzae) Methadone dependence Bigeminal rhythm COPD (chronic obstructive pulmonary disease) Tubular adenoma of colon Pulmonary nodule Emphysema lung Tobacco abuse Anxiety PAC (premature atrial contraction) Anemia Alcohol abuse Opioid dependence Hepatitis C HIV (human immunodeficiency virus infection) Polio Family History Family history: reviewed and not pertinent Surgical History Surgical History History of colonoscopy History of hip surgery History of foot surgery Social History Social History Household Members: Caregiver Housing: Unknown / Unable to assess Do you presently have visiting nurse or other home services: Yes Alcohol intake: current Alcohol intake frequency: 3 or more drinks per day Alcohol type: beer and hard liquor Comment: 1:1 sitter Patient Tobacco Use Status: Current everyday Tobacco user Tobacco use type: Cigarette Cigarettes Per Day: 2.0 Smoked in Last 30 Days: Yes Second Hand Smoke Exposure: No Use of substances other than those prescribed or required for medical reasons: Yes Substance Use Type: Crack/Cocaine and Heroin Currently Displaying Signs/Symptoms of Drug Intoxication Withdrawal: No Advance Directives: No Advance Directives Information Provided: No Do you have a plan to hurt others: No Plan Recently lost weight without trying: Unsure Current occupational status: disabled Meds Allergies Allergy/AdvReac Type Severity Reaction Status Date / Time No Known Allergies Allergy Verified 12/14/23 14:48 Active Medications: Current Medications Albuterol Sulfate (Albuterol Sulfate (0.083%) 2.5 Mg/3 Ml Vial.Neb) 2.5 mg INHALE Q2H PRN PRN Reason: Shortness of Breath/Wheezing Last Admin: 12/16/23 04:30 Dose: 2.5 mg Albuterol/Ipratropium (Albuterol/Iprat 2.5/0.5mg 3 Ml Ampul.Neb) 3 ml INHALE RQ4H WHILE AWAKE [facility] Last Admin: 12/17/23 11:10 Dose: 3 ml Heparin Sodium (Porcine) (Heparin Sodium,Porcine 5,000 Unit/Ml Vial) 5,000 unit SUBCUT Q8H [facility] Last Admin: 12/17/23 09:14 Dose: 5,000 unit Clindamycin Phosphate (Cleocin) 600 mg in 50 mls @ 100 mls/hr IV Q8H [facility] Last Infusion: 12/17/23 07:10 Dose: Infused Methadone HCl (Methadone Hcl 20 Mg/2 Ml Oral.Conc) 30 mg PO DAILY [facility] Last Admin: 12/17/23 09:15 Dose: 30 mg Methadone HCl (Methadone Hcl 20 Mg/2 Ml Oral.Conc) 10 mg PO DAILY PRN PRN Reason: Opiate Withdrawal Last Admin: 12/17/23 13:39 Dose: 10 mg Omeprazole (Omeprazole 20 Mg Capsule.Dr) 20 mg PO BID@0630,1630 [facility] Sodium Chloride (0.9 % Sodium Chloride Flush 3 Ml Syringe) 3 ml IVFLUSH QSHIFT [facility] Last Admin: 12/17/23 07:38 Dose: 3 ml Home Medications ?Medication ?Instructions ?Recorded ?Confirmed ?Last Taken ?Type cholecalciferol (vitamin D3) 50 1 tab PO DAILY 02/21/20 12/14/23 Unknown History mcg (2,000 unit) tablet multivitamin 1 tab PO DAILY 02/21/20 12/14/23 Unknown History thiamine mononitrate (vit B1) 100 1 tab PO DAILY 02/21/20 12/14/23 Unknown History mg tablet clopidogrel 75 mg tablet 75 mg PO DAILY 10/09/21 12/14/23 Unknown History hydrochlorothiazide 25 mg tablet 25 mg PO DAILY 10/09/21 12/14/23 Unknown History rosuvastatin 10 mg tablet 10 mg PO BEDTIME 10/09/21 12/14/23 Unknown History aspirin 81 mg chewable tablet 81 mg PO DAILY 04/29/23 12/14/23 Unknown History bictegravir 50 mg-emtricitabine 1 tab PO DAILY 04/29/23 12/14/23 Unknown History 200 mg-tenofovir alafenam 25 mg tablet (Biktarvy) folic acid 1 mg tablet 1 mg PO DAILY 04/29/23 12/14/23 Unknown History albuterol sulfate 90 mcg/actuation 2 puff inhalation Q4H PRN 12/14/23 12/14/23 Unknown History aerosol inhaler (Ventolin HFA) SOB/Wheezing fluticasone 250 mcg-salmeterol 50 1 inh inhalation BID 12/14/23 12/14/23 Unknown History mcg/dose blistr powdr for inhalation (Advair Diskus) tiotropium bromide 2.5 2 puff inhalation QAM 12/14/23 12/14/23 Unknown History mcg/actuation mist for inhalation (Spiriva Respimat) Physical Exam 2 Vital Signs: Vital Signs: Last Vital Signs Temp 97.6 F 12/17/23 12:00 Pulse 97 12/17/23 12:50 Resp 16 12/17/23 12:50 BP 112/70 12/17/23 12:50 Pulse Ox 94 12/17/23 12:50 O2 Del Method Oxymask 12/17/23 12:50 O2 Flow Rate 1 12/17/23 12:50 FiO2 30 12/15/23 19:58 BMI result Body Mass Index 36.0 Const: General: cooperative HEENT: Other: discomfort left jaw Head: Yes normal to inspection Face and sinus: Yes normal facial exam Mouth: Normal oral and palatal mucosa present Teeth and gingiva: dentition normal Eyes: General: appearance normal, both eyes and all related structures P upils: Equal, round and reactive pupils present Resp: Effort & Inspection: normal respiratory effort Cardio: Rate: regular rate Rhythm: regular rhythm GI: Palpation (GI): Soft to palpation and nontender : General: Yes no CVA tenderness Back/Spine/Pelvis: Back: no CVA tenderness Skin: General skin exam: no rashes or lesions noted Neuro: General: moves all extremities Cranial nerves: Yes Equal, round and reactive pupils present Extrem: General: Yes normal to inspection Psych: Appearance: grossly normal Results Labs 12/17/23 06:23 12/17/23 06:23 Labs: Short CBC 12/17/23 Range/Units 06:23 WBC 4.6 L (4.8-10.8) X10*3/uL Hgb 9.1 L (14.0-18.0) g/dl Hct 26.4 L (42.0-52.0) % Plt Count 84 L D (160-400) X10*3/uL BMP 12/17/23 06:23 Sodium 151 H Potassium 3.4 Chloride 108 Carbon Dioxide 25 BUN 87 H Creatinine 3.12 H Calcium 8.6 D Liver Function 12/17/23 Range/Units 06:23 Total Bilirubin 0.7 (0.0-1.0) mg/dL AST 15 (5-37) U/L ALT 9 (0-40) U/L Alkaline Phosphatase 93 (39-117) U/L Albumin 2.8 L (3.5-5.0) g/dL Microbiology Microbiology Results: Microbiology 12/14/23 17:50 Blood - Venous Blood Culture - Final Haemophilus influenzae 12/15/23 21:30 Blood - Venous Blood Culture - Preliminary No growth after 24 hours. 12/15/23 21:30 Blood - Venous Blood Culture - Preliminary No growth after 24 hours. 12/14/23 17:50 Blood - Venous Blood Culture - Preliminary No growth after 48 hours. 12/14/23 19:53 Urine Catheterized - Bergman Catheter Urine Culture - Final No growth. Assessment and Plan (1) Dental abscess: Status: Acute (2) Opioid use disorder: Status: Acute (3) HIV (human immunodeficiency virus infection): Status: Acute (4) Sepsis: Qualifiers: Sepsis type: sepsis due to unspecified organism Sepsis acute organ dysfunction status: with acute organ dysfunction Severe sepsis acute organ dysfunction type: acute renal failure Acute renal failure type: unspecified S evere sepsis shock status: without septic shock Qualified Code(s): A41.9 - Sepsis, unspecified organism; R65.20 - Severe sepsis without septic shock; N17.9 - Acute kidney failure, unspecified Status: Acute (5) Acute renal failure: Qualifiers: Acute renal failure type: unspecified Qualified Code(s): N17.9 - Acute kidney failure, unspecified Status: Acute (6) Septicemia due to Hemophilus influenzae (H. influenzae): Status: Acute Plan Dental/sinus infection Can give Unasyn cover Hflu bactermia with no signs meningitis.and then po Augmentin total 14 d antibiotics He has well controlled HIV but has ARF. Hold Biktarvy until GFR ove 30 but may consider other regimen as well for HIV. Check viral load HIV.
--- NOTE | 2023-12-17 14:46 | PM.EVENT ---
Event Note Date of Service: 12/17/23 Event Note: consider Ceftriaxone if not improved on Unasyn. Time Spent With Patient Time: Total time managing care of this patient today ____ minutes.
--- NOTE | 2023-12-17 14:47 | PM.EVENT ---
Event Note Date of Service: 12/17/23 Event Note: Can continue Clindamycin and Ceftriaxone instead of Unasyn until improved. Time Spent With Patient Time: Total time managing care of this patient today ____ minutes.
[2023-12-17] MEDS: Omeprazole 20 MG CAPSULE.DR PO (15:42)
[2023-12-17] MEDS: cefTRIAXone sodium 1 GM in 0.9 % Sodium Chloride 50 ML IV (15:42)
[2023-12-17 15:47] LABS: Venous Blood Gas Refer to POC result
--- NOTE | 2023-12-17 16:13 | PM.EVENT ---
Event Note Date of Service: 12/18/23 Event Note: Patient was downgraded from ICU this afternoon- This patient is seen and examined by ICU already. patient is aox1 , awake denies any abd pain or nausea no fevers blood culture intial -kelbsiella ,repeat blood cultures neg@24hrs labs: h/h:9.1 /26.4 ct abd: Bilateral posterior lower lobe consolidations with air bronchograms, new compared to the prior examination and concerning for early pneumonia. face ct: Lucency adjacent to the root of the left maxillary canine which extends through the peripheral maxillary cortex, consistent with a periapical abscess. No adjacent organized fluid collection or soft tissue abscess. ct head neg Physical exam: unchanged -please see icu note and assessment and plan coordinated , Agree with the plan in addition: 68-year-old gentleman with underlying ENT HIV C, polysubstance abuse on methadone admitted on 12/14/2023 with complaints of dyspnea. On ER evaluation patient with left-sided dental abscess, positive for opioids, hyperkalemia with metabolic acidosis, acute renal failure, hypotension with poor response to initial IV fluid resuscitation started on empiric antibiotics and bicarbonate drip and admitted to intensive care unit with improvement in ELSIE, urine output, acidosis, and hyperkalemia,Overnight with increased agitation restarted on methadone and also required Precedex drip. toxic metabolic encephalopathy sec to elsie metabolic acidosis,electrolytic abnormalities recived bicarb drip -metabolic acidosis resolved bun/cr improving ( cr improved from 12 to 3.1), producing urine hyperkalemia resolved hyperphosphatemia improving slowly hypernatremia -multifactorial ( dec po intake ,elsie )-moniter bmp closely Agitation,polysubstance abuse -received precedex drip -stopped in icu this morning . dental infection/pneumonia : continue ceftriaxone/clinda id eval normocytic anemia /thrombocytopenia :d/w ? dilaution as per icu, given prbc in icu. Time Spent With Patient Time: Total time managing care of this patient today ____ minutes.
[2023-12-17] MEDS: fentaNYL citrate/PF 100 MCG/2 ML VIAL 25 MCG IVPUSH (17:24)
[2023-12-17] MEDS: Nicotine 21 MG PATCH.TD24 TRANSDERMA (17:33)
[2023-12-17] MEDS: HYDROmorphone HCl 1 MG/ML SYRINGE 1.5 MG IM (20:05)
[2023-12-17] MEDS: LORazepam 2 MG/ML VIAL IVPUSH (21:33)
[2023-12-18] VITALS (23 sets, daily range): BP systolic 102–147; BP diastolic 56–83; PULSE 87–122; RESP 15–26; TEMP 36.3–37.3; O2SAT 90–98
[2023-12-18 01:58] LABS: Sodium 153 mmol/L (135-145)
[2023-12-18] MEDS: HYDROmorphone HCl 1 MG/ML SYRINGE IVPUSH ×2 (02:50→09:08)
[2023-12-18] MEDS: Dextrose 5 % 1,000 ML 125 ML IVCONT (02:51)
[2023-12-18] MEDS: Heparin Sodium,Porcine 5,000 UNIT/ML VIAL 5000 UNIT SUBCUT ×3 (02:51→17:57)
[2023-12-18] MEDS: LORazepam 2 MG/ML VIAL IVPUSH (04:11)
--- NOTE | 2023-12-18 06:35 | PC.NURSE ---
Handover received from day RN and This creative services writer acquired care of pt. at 19:00 12/16. Pt. screaming very loudly, awake and primarily speaking in Jamaican when he does speak legible. Pt with brother at bedside who states pt. not making sense. Visitor left at 19:00. Pt. able to state his name and give me some water , for which he was assisted with. Pt. pulled out his IV and very restless/agitated in bed. Pt. continuously removing tele and O2sat monitor probes. Bed exit alarm in use and Camera in use this shift. Inquired with Nsg Sup. regarding a sitter, no sitter available. Dr. Oconnor notified. Pt. mostly yelling all night. Pt. repositioned every 1-2hrs. in bed, [place] catheter applied and reapplied x3 after pt. pulled them off. Pty on 2-3L Oxymask, maintaing sat's of 92-95%. Pt. with bilateral upper airway rhonchi and upper airway faint wheeze. Pt. has strong cough but unable to produce. when Yankour of mouth attempted pt. bit Yankour. Pt. remained confused and difficult to understand as mumbled or yells. Pt. did state, Give me some water and get this off . Pt. on COWS scale. Pt circulation and VS checked every 2 h. HOB elevated 30 degrees.
--- NOTE | 2023-12-18 07:19 | PC.RT ---
pt unable to tolerate breathing txs this am due to agitation and unwilling to wearing nebulizer mask. Will continue to attempt for further txs.
[2023-12-18] MEDS: Clindamycin Phosphate/D5W 600 MG/50 ML PIGGYBACK 100 MG IV (08:00)
[2023-12-18] MEDS: Multivitamin TABLET 1 TAB PO (08:10)
[2023-12-18] MEDS: Clopidogrel Bisulfate 75 MG TABLET PO (08:10)
[2023-12-18] MEDS: methADONE HCl 20 MG/2 ML ORAL.CONC 30 MG PO (08:11)
[2023-12-18] MEDS: Nicotine 21 MG PATCH.TD24 TRANSDERMA (08:28)
[2023-12-18] MEDS: methADONE HCl 20 MG/2 ML ORAL.CONC 10 MG PO (09:10)
--- NOTE | 2023-12-18 10:58 | HO.PM.IMPN ---
Subjective Subjective Date of Service: 12/19/23 Interval History: sob,severe agiatation? delirum mutliple elecatrolytic abnormalities. Review of Systems very agiatted hypoxia also slowly wosering as well as electrolytoc abnormalitie s also patient seems delirus no fevers received mutliple meds overnight for pain control/agitation Physical Exam Vital Signs: Vital Signs: Last Vital Signs Temp 98.0 F 12/18/23 08:52 Pulse 113 H 12/18/23 08:52 Resp 20 12/18/23 08:52 BP 125/73 12/18/23 08:52 Pulse Ox 92 12/18/23 08:52 O2 Del Method Nasal Cannula 12/18/23 08:52 O2 Flow Rate 4 12/18/23 08:52 FiO2 30 12/15/23 19:58 BMI result Body Mass Index 36.0 exam limited due to patient agiatation Appearance: Alert.? Oriented X1, very restless ,agitatated Eyes: Pupils equal, round and reactive to light.? mucosa -seems somewhat dry cvs: rrr, [id number] res: air entry fair ,somewhat diminshed at bases. abd: bs present ,nd. ext pulses present , no cyanosis . neuro: axo3 , nonfocal. Objective Data Active Medications Albuterol/Ipratropium (Albuterol/Iprat 2.5/0.5mg 3 Ml Ampul.Neb) 3 ml INHALE RQ4H WHILE AWAKE [facility] Last Admin: 12/18/23 07:09 Dose: Not Given Documented By: ARCHIE Non-Admin Reason: Patient Condition Contraindication Bictegravir/Emtricitabine/Tenofovir (Bictegrav/Emtricit/Tenofov Ala Tablet) 1 tab PO DAILY [facility] Last Admin: 12/18/23 08:27 Dose: Not Given Documented By: MARYLIN Non-Admin Reason: Patient Condition Contraindication Clopidogrel Bisulfate (Clopidogrel Bisulfate 75 Mg Tablet) 75 mg PO DAILY [facility] Last Admin: 12/18/23 08:10 Dose: 75 mg Documented By: MARYLIN Heparin Sodium (Porcine) (Heparin Sodium,Porcine 5,000 Unit/Ml Vial) 5,000 unit SUBCUT Q8H [facility] Last Admin: 12/18/23 09:07 Dose: 5,000 unit Documented By: MARYLIN Clindamycin Phosphate (Cleocin) 600 mg in 50 mls @ 100 mls/hr IV Q8H [facility] Last Admin: 12/18/23 08:00 Dose: 100 mls/hr Documented By: MARYLIN Dextrose (D5w) 1,000 mls @ 125 mls/hr IVCONT .Q8H [facility] Last Admin: 12/18/23 02:51 Dose: 125 mls/hr Documented By: ABDIEL Methadone HCl (Methadone Hcl 20 Mg/2 Ml Oral.Conc) 10 mg PO DAILY PRN PRN Reason: Opiate Withdrawal Last Admin: 12/18/23 09:10 Dose: 10 mg Documented By: MARYLIN Co-signed By: EDGARD Methadone HCl (Methadone Hcl 20 Mg/2 Ml Oral.Conc) 40 mg PO DAILY [facility] Last Admin: 12/18/23 08:59 Dose: Not Given Documented By: MARYLIN Non-Admin Reason: Physician Held Med Multivitamins/Vitamin C (Multivitamin Tablet) 1 tab PO DAILY [facility] Last Admin: 12/18/23 08:10 Dose: 1 tab Documented By: MARYLIN Pantoprazole Sodium (Pantoprazole Sodium 20 Mg Tablet.) 20 mg PO BID@0630,1630 [facility] Sodium Chloride (0.9 % Sodium Chloride Flush 3 Ml Syringe) 3 ml IVFLUSH QSHIFT [facility] Last Admin: 12/18/23 08:05 Dose: Not Given Documented By: MARYLIN Non-Admin Reason: IV Running Thiamine HCl (Thiamine Hcl 100 Mg Tablet) 100 mg PO DAILY [facility] Last Admin: 12/18/23 08:27 Dose: Not Given Documented By: MARYLIN Non-Admin Reason: Patient Refused Labs 12/19/23 05:47 12/19/23 05:47 Labs: Laboratory Results - last 24 hr 12/17/23 12/17/23 06:23 12:40 Iron 95 TIBC 130 L % Saturation 73 H Unsat Iron Binding 35 Vitamin B12 > 2000 H Folate 13.3 Microbiology Microbiology Results: Microbiology 12/15/23 21:30 Blood Culture - Preliminary Blood - Venous No growth after 48 hours. 12/15/23 21:30 Blood Culture - Preliminary Blood - Venous No growth after 48 hours. 12/14/23 17:50 Blood Culture - Final Blood - Venous Haemophilus influenzae Assessment and Plan (1) Septicemia due to Hemophilus influenzae (H. influenzae): Status: Acute (2) Dental abscess: Status: Acute (3) Substance abuse: Status: Acute (4) Opioid use disorder: Status: Acute Assessment and Plan: 68-year-old gentleman with underlying ENT HIV C, polysubstance abuse on methadone admitted on 12/14/2023 with complaints of dyspnea. On ER evaluation patient with left-sided dental abscess, positive for opioids, hyperkalemia with metabolic acidosis, acute renal failure, hypotension with poor response to initial IV fluid resuscitation started on empiric antibiotics and bicarbonate drip and admitted to intensive care unit with improvement in ELSIE, urine output, acidosis, and hyperkalemia,Overnight with increased agitation restarted on methadone and also required Precedex drip( on 12/16/23) which was stopped - subsequently patient was tranferred to floor. toxic metabolic encephalopathy vs delirum sec to elsie metabolic acidosis,electrolytic abnormalities recived bicarb drip -metabolic acidosis resolved bun/cr improving ( cr improved from 12 to 3.1), producing urine hyperkalemia resolved hyperphosphatemia improving slowly hypernatremia -multifactorial ( dec po intake ,elsie )-moniter bmp closely Agitation,polysubstance abuse -received precedex drip,also received fentanyl as above , received overnight IV pain medication as well as Ativan-still very agitated/and having body pains even after receving pain meds and methadone: adjusted methadone to 40 mg ,added additction consult dental infection/pneumonia/bacteremia : intial blood culture continue ceftriaxone/clinda id eval hypoxemicrespiratory failure- possible sec to pneumonia ch chest on 12/13 -shows consolidations b/l bibasilar continue ceftriaxone/clinda, oxygen, consider speech /swallow, added cxr normocytic anemia /thrombocytopenia :d/w ? dilaution as per icu, given prbc in icu. d/w Icu -patient will require higher levels of care- due to multiple above mentioned issues. patient going to icu. Quality Stroke Does the patient have a stroke diagnosis?: No VTE Prior VTE?: No VTE Risk Level:: Medical - moderate - high VTE Device Contraindication: N/A - Device Ordered VTE Drug Contraindication: N/A - Med Ordered
--- NOTE | 2023-12-18 10:58 | PM.CCPN ---
Subjective Subjective Date of Service: 12/18/23 Interval History: 68-year-old gentleman with underlying ENT HIV C, polysubstance abuse on methadone admitted on 12/14/2023 with complaints of dyspnea. On ER evaluation patient with left-sided dental abscess, positive for opioids, hyperkalemia with metabolic acidosis, acute renal failure, hypotension with poor response to initial IV fluid resuscitation started on empiric antibiotics and bicarbonate drip and admitted to intensive care unit. Now with improvement in ELSIE, urine output, acidosis, and hyperkalemia. First blood culture growing Haemophilus, repeat blood cultures negative to date. Transferred to telemetry salter on 12/17/2023. Overnight with agitation, over-sedated with 3.5 mg of Dilaudid, 4 mg of Ativan, and additional methadone now with increased oxygen requirement secondary to intermittent aspiration due to over sedation transferred back to intensive care for close nursing monitoring. Critical Care Time (minutes): 0 Physical Exam Vital Signs: Vital Signs: Last Vital Signs Temp 98.0 F 12/18/23 08:52 Pulse 113 H 12/18/23 08:52 Resp 20 12/18/23 08:52 BP 125/73 12/18/23 08:52 Pulse Ox 92 12/18/23 08:52 O2 Del Method Nasal Cannula 12/18/23 08:52 O2 Flow Rate 4 12/18/23 08:52 FiO2 30 12/15/23 19:58 BMI result Body Mass Index 36.0 Const: General: no acute distress and lethargic (Arousable) Orientation/consciousness: lethargic (Arousable) Eyes: Sclerae: sclerae normal EOM: EOMs intact bilaterally Neck: Neck: Yes no lymphadenopathy, Yes trachea midline and Yes supple Resp: Effort & Inspection: normal respiratory effort and no respiratory distress Auscultation: clear to auscultation bilaterally Cardio: Rate: tachycardic Rhythm: regular rhythm Heart sounds: no gallops, no murmurs and no rubs GI: Palpation (GI): Soft to palpation and Other GI palpation findings present ( Nontender) Auscultation: normal bowel sounds Extrem: General: No clubbing, No cyanosis and Yes edema (Trace bilateral) Objective Data Labs 12/17/23 06:23 12/18/23 01:13 Labs: Laboratory Results - last 24 hr 12/17/23 12/17/23 12/18/23 06:23 12:40 01:13 Sodium 153 H Iron 95 TIBC 130 L % Saturation 73 H Unsat Iron Binding 35 Vitamin B12 > 2000 H Folate 13.3 Microbiology Microbiology Results: Microbiology 12/15/23 21:30 Blood - Venous Blood Culture - Preliminary No growth after 48 hours. 12/15/23 21:30 Blood - Venous Blood Culture - Preliminary No growth after 48 hours. 12/14/23 17:50 Blood - Venous Blood Culture - Final Haemophilus influenzae 12/14/23 17:50 Blood - Venous Blood Culture - Preliminary No growth after 48 hours. 12/14/23 19:53 Urine Catheterized - Bergman Catheter Urine Culture - Final No growth. Progress Note: A&P Assessment and plan (1) Dental abscess: Status: Acute (2) Opioid use disorder: Status: Acute (3) HIV (human immunodeficiency virus infection): Status: Acute (4) Hep C w/o coma, chronic: Status: Acute (5) Acute respiratory failure with hypoxia: Status: Acute (6) Pulmonary aspiration: Status: Acute Plan Assessment: 68-year-old gentleman with underlying substance abuse, COPD, HIV, hep C admitted with acute renal failure with metabolic acidosis and hyperkalemia Plan: Neuro: Metabolic encephalopathy resolved. Now with intermittent agitation, over-sedated on telemetry salter. Continue baseline methadone. Cardiac: No acute issues. Pulmonary: Acute hypoxic respiratory failure initially secondary to pulmonary edema on a background of large volume IV fluid resuscitation, now with aspirating events secondary to over-sedation. Continue to titrate off supplemental oxygen as tolerated. Renal: Acute renal failure with hyperkalemia and metabolic acidosis. Non oliguric. Improving. Continue to monitor electrolytes. Nephrology service care appreciated. Endo: No acute issues. GI: No acute issues. ID: Dental abscess and Haemophilus bacteremia repeat blood cultures negative to date. Infectious disease service care appreciated. Clindamycin switched to Unasyn. Heme/Onc: No acute issues. Psych: No acute issues. Miscellaneous: No acute issues. Prophylaxis: Heparin Diet: Regular Quality Stroke Does the patient have a stroke diagnosis?: No VTE Prior VTE?: No VTE Risk Level:: Medical - moderate - high VTE Device Contraindication: N/A - Device Ordered VTE Drug Contraindication: N/A - Med Ordered
[2023-12-18] MEDS: Albuterol/Iprat 2.5/0.5MG 3 ML AMPUL.NEB INHALE ×2 (11:03→20:35)
[2023-12-18] MEDS: Ampicillin Sodium/Sulbactam Na 3 GM in 0.9 % Sodium Chloride 100 ML IV ×3 (11:44→23:44)
[2023-12-18 11:59] LABS: MANUAL DIFF FLAG NO
[2023-12-18 12:10] LABS: Basophils Percent Auto 0.2 % (0-2); Eosinophils Absolute Auto 0.1 X10*3/uL (0.0-0.4); Eosinophils Percent Auto 0.8 % (0-4); Hematocrit 27.5 % (42.0-52.0); Hemoglobin 9.2 g/dl (14.0-18.0); Imm Gran Abs Auto 0.03 X10*3/uL (0.00-0.03); Imm Gran Pct Auto 0.5 % (0.0-0.4); Lymphocytes Absolute Auto 0.8 X10*3/uL (1.2-4.9); Lymphocytes Percent Auto 12.6 % (20-40); Mean Corpuscular HGB Conc 33.5 g/dl (31.0-36.0); Mean Corpuscular Hemoglobin 32.4 pg (27.0-33.0); Mean Corpuscular Volume 96.8 fL (80.0-98.0); Mean Platelet Volume 10.3 fL (9.4-12.4); Monocytes Absolute Auto 0.8 X10*3/uL (0.1-1.2); Monocytes Percent Auto 12.7 % (2-11); Neutrophils Absolute Auto 4.5 x10*3/uL (2.0-8.3); Neutrophils Percent Auto 73.2 % (45-73); Red Blood Count 2.84 X10*6/uL (4.60-5.80); White Blood Count 6.1 X10*3/uL (4.8-10.8)
[2023-12-18 12:11] LABS: Platelet Count 82 X10*3/uL (160-400)
[2023-12-18 12:12] LABS: VBG Base Excess 7.3 mmol/L; VBG HCO3 29 mmol/L (22-26); VBG pCO2 34 mmHg; VBG pH 7.54 (7.32-7.43); VBG pO2 94 mmHg
[2023-12-18] MEDS: Dextrose 5 % 1,000 ML 75 ML IVCONT (12:22)
[2023-12-18 12:43] LABS: Venous Blood Gas Refer to POC result
[2023-12-18] MEDS: cloNIDine 0.1 MG PATCH.TDWK TRANSDERMA (12:45)
[2023-12-18 12:47] LABS: Anion Gap 18 (12-20); Blood Urea Nitrogen 70 mg/dL (9-16); Calcium 8.9 mg/dL (8.4-10.2); Carbon Dioxide 27 mmol/L (22-29); Chloride 108 mmol/L (96-108); Creatinine Clr Calc Pharmacy 31.8; Estimated Glomerular Filt Rate 33; Glucose Random 95 mg/dL (60-115); Magnesium 1.4 mg/dL (1.6-2.6); Phosphorus 3.9 mg/dL (2.7-4.5); Potassium 3.1 mmol/L (3.3-5.1); Sodium 150 mmol/L (135-145)
[2023-12-18] MEDS: Magnesium Sulfate/H2O 2 GM/50 ML PIGGYBACK IV (13:33)
--- NOTE | 2023-12-18 13:37 | HO.ADDICTPRO ---
Subjective Subjective Date of Service: 12/18/23 Reason For Visit: Acute Renal Failure Medical Problems Affecting Mental Status: Yes Interim History: unable to assess patient due to AMS and agitation received methadone 30mg yesterday 10mg today Review of Systems Review of Systems Yes Unobtainable due to mental status Mental Status Exam Mental Status Exam Level of Consciousness: Awake, Restless, Alert and Inappropriate Patient Behavior: Combative and Uncooperative Diagnostics Vital Signs (24Hr): Vital Signs - 24 hr 12/17/23 14:48 12/17/23 19:31 12/17/23 21:00 Temperature 97.7 F 98.8 F 98.5 F Pulse Rate 100 114 H 112 H Respiratory Rate 18 20 17 Blood Pressure 104/58 L 111/64 128/77 Pulse Oximetry 96 92 95 Oxygen Delivery Method Aerosol Mask Room Air Oxymask Oxygen Flow Rate 1 2 12/17/23 23:00 12/18/23 01:00 12/18/23 02:29 Temperature 98.0 F 98.2 F 98.2 F Pulse Rate 112 H 120 H Respiratory Rate 18 18 20 Blood Pressure 120/73 132/78 140/82 H Pulse Oximetry 93 94 Oxygen Delivery Method Oxymask Nasal Cannula Nasal Cannula Oxygen Flow Rate 3 2 12/18/23 04:00 12/18/23 06:00 12/18/23 06:51 Temperature 98.3 F 98.2 F Pulse Rate 103 H 105 H 110 H Respiratory Rate 18 20 Blood Pressure 133/83 138/80 111/58 L Pulse Oximetry 97 95 94 Oxygen Delivery Method Nasal Cannula Nasal Cannula Nasal Cannula Oxygen Flow Rate 3 3 4.5 12/18/23 08:52 12/18/23 11:03 12/18/23 11:05 Temperature 98.0 F 98.0 F Pulse Rate 113 H 122 H 122 H Respiratory Rate 20 20 20 Blood Pressure 125/73 147/75 H Pulse Oximetry 92 90 L Oxygen Delivery Method Nasal Cannula Nasal Cannula Oxygen Flow Rate 4 3 12/18/23 12:23 12/18/23 13:00 Temperature 97.4 F 97.8 F Pulse Rate 95 100 Respiratory Rate 18 20 Blood Pressure 103/59 L 110/73 Pulse Oximetry 98 98 Oxygen Delivery Method Nasal Cannula Nasal Cannula Oxygen Flow Rate 4 4 BMI result Body Mass Index 36.0 Labs 12/18/23 11:52 12/18/23 11:52 Labs: Laboratory Results - last 48 hr 12/17/23 12/17/23 12/17/23 06:23 06:26 08:25 WBC 4.6 L RBC 2.81 L Hgb 9.1 L Hct 26.4 L MCV 94.0 MCH 32.4 MCHC 34.5 RDW 19.6 H Plt Count 84 L D MPV 9.9 Immature Gran % (Auto) 0.4 Neut % (Auto) 79.7 H Lymph % (Auto) 9.2 L [place] % (Auto) 9.4 Eos % (Auto) 1.1 Baso % (Auto) 0.2 Lymph # (Auto) 0.4 L [place] # (Auto) 0.4 Eos # (Auto) 0.1 Baso # (Auto) 0.0 Abs Immat Gran (auto) 0.02 Absolute Neuts (auto) 3.6 Absolute Nucleated RBC 0.000 Nucleated RBC % (auto) 0.0 VBG pH 7.51 H 7.53 H VBG pCO2 37 36 VBG pO2 46 59 VBG HCO3 30 H 30 H VBG O2 Saturation 76.0 89.0 VBG Base Excess 6.8 7.9 Sodium 151 H Potassium 3.4 Chloride 108 Carbon Dioxide 25 Anion Gap 21 H BUN 87 H Creatinine 3.12 H Estim Creat Clear Calc 20.6 Estimated GFR 20 Random Glucose 96 Calcium 8.6 D Phosphorus 6.4 H Magnesium 1.8 Iron 95 TIBC 130 L % Saturation 73 H Unsat Iron Binding 35 Total Bilirubin 0.7 AST 15 ALT 9 Alkaline Phosphatase 93 Total Protein 5.9 L Albumin 2.8 L Vitamin B12 Folate 12/17/23 12/18/23 12/18/23 12:40 01:13 11:52 WBC 6.1 RBC 2.84 L Hgb 9.2 L Hct 27.5 L MCV 96.8 MCH 32.4 MCHC 33.5 RDW 20.0 H Plt Count 82 L MPV 10.3 Immature Gran % (Auto) 0.5 H Neut % (Auto) 73.2 H Lymph % (Auto) 12.6 L [place] % (Auto) 12.7 H Eos % (Auto) 0.8 Baso % (Auto) 0.2 Lymph # (Auto) 0.8 L [place] # (Auto) 0.8 Eos # (Auto) 0.1 Baso # (Auto) 0.0 Abs Immat Gran (auto) 0.03 Absolute Neuts (auto) 4.5 Absolute Nucleated RBC 0.000 Nucleated RBC % (auto) 0.0 VBG pH VBG pCO2 VBG pO2 VBG HCO3 VBG O2 Saturation VBG Base Excess Sodium 153 H 150 H Potassium 3.1 L Chloride 108 Carbon Dioxide 27 Anion Gap 18 BUN 70 H Creatinine 2.02 H Estim Creat Clear Calc 31.8 Estimated GFR 33 Random Glucose 95 Calcium 8.9 Phosphorus 3.9 Magnesium 1.4 L* Iron TIBC % Saturation Unsat Iron Binding Total Bilirubin AST ALT Alkaline Phosphatase Total Protein Albumin Vitamin B12 > 2000 H Folate 13.3 12/18/23 12:03 WBC RBC Hgb Hct MCV MCH MCHC RDW Plt Count MPV Immature Gran % (Auto) Neut % (Auto) Lymph % (Auto) [place] % (Auto) Eos % (Auto) Baso % (Auto) Lymph # (Auto) [place] # (Auto) Eos # (Auto) Baso # (Auto) Abs Immat Gran (auto) Absolute Neuts (auto) Absolute Nucleated RBC Nucleated RBC % (auto) VBG pH 7.54 H VBG pCO2 34 VBG pO2 94 VBG HCO3 29 H VBG O2 Saturation 100.0 VBG Base Excess 7.3 Sodium Potassium Chloride Carbon Dioxide Anion Gap BUN Creatinine Estim Creat Clear Calc Estimated GFR Random Glucose Calcium Phosphorus Magnesium Iron TIBC % Saturation Unsat Iron Binding Total Bilirubin AST ALT Alkaline Phosphatase Total Protein Albumin Vitamin B12 Folate Imaging Radiology Impressions: ITS Impressions Chest X-Ray 12/14/23 14:38 IMPRESSION: 1. Persistent hypoinflation of lungs. 2. Interval development of left lateral lung base airspace disease and small left pleural effusion. 3. Interval development of medial right lobe along infiltrates suggestive of pneumonia. 4. Unchanged severe right glenohumeral joint osteoarthritis. Electronically signed by: Ricardo Matos MD 12/14/2023 05:02 PM EDT RP Chest X-Ray 12/14/23 17:20 IMPRESSION: * No pneumothorax after right IJ line placement. * Lungs are hypoinflated and there is bibasilar opacities, likely atelectasis, although difficult to exclude any underlying lower lobe pneumonia on this limited evaluation. * Probable small left pleural effusion. Electronically signed by: Juno Guo MD 12/14/2023 05:38 PM EDT RP Abdomen/Pelvis CT 12/14/23 19:03 IMPRESSION: 1. Prominent emphysematous changes are redemonstrated. Bilateral posterior lower lobe consolidations with air bronchograms, new compared to the prior examination and concerning for early pneumonia. 2. No intra-abdominal mass, lymphadenopathy, or ascites. 3. No small or large bowel obstruction. Sigmoid diverticulosis without evidence of acute diverticulitis. Unremarkable appendix. 4. No hydronephrosis or nephrolithiasis. Electronically signed by: Nick Tang MD 12/14/2023 09:07 PM EDT RP Chest CT 12/14/23 19:36 IMPRESSION: 1. Prominent emphysematous changes are redemonstrated. Bilateral posterior lower lobe consolidations with air bronchograms, new compared to the prior examination and concerning for early pneumonia. 2. No intra-abdominal mass, lymphadenopathy, or ascites. 3. No small or large bowel obstruction. Sigmoid diverticulosis without evidence of acute diverticulitis. Unremarkable appendix. 4. No hydronephrosis or nephrolithiasis. Electronically signed by: Nick Tang MD 12/14/2023 09:07 PM EDT RP Face CT 12/14/23 19:36 IMPRESSION: 1. Lucency adjacent to the root of the left maxillary canine which extends through the peripheral maxillary cortex, consistent with a periapical abscess. No adjacent organized fluid collection or soft tissue abscess. 2. Air-fluid level and secretions within the right maxillary sinus as well as within the sphenoid sinuses which could represent a degree of acute sinusitis. Electronically signed by: Nick Tang MD 12/14/2023 09:32 PM EDT RP Head CT 12/14/23 19:36 IMPRESSION: No acute intracranial pathology. Electronically signed by: Bryant Pink MD 12/14/2023 08:51 PM EDT RP Chest X-Ray 12/18/23 11:20 IMPRESSION: Worsening pulmonary aeration with increased right greater than left bibasilar airspace opacities. Unchanged small left-sided pleural effusion. Electronically signed by: Zo Trujillo MD 12/18/2023 12:47 PM EDT RP Medications Medications Current Medications Albuterol/Ipratropium (Albuterol/Iprat 2.5/0.5mg 3 Ml Ampul.Neb) 3 ml INHALE RQ4H WHILE AWAKE [facility] Last Admin: 12/18/23 11:03 Dose: 3 ml Bictegravir/Emtricitabine/Tenofovir (Bictegrav/Emtricit/Tenofov Ala Tablet) 1 tab PO DAILY [facility] Last Admin: 12/18/23 08:27 Dose: Not Given Clopidogrel Bisulfate (Clopidogrel Bisulfate 75 Mg Tablet) 75 mg PO DAILY [facility] Last Admin: 12/18/23 08:10 Dose: 75 mg Heparin Sodium (Porcine) (Heparin Sodium,Porcine 5,000 Unit/Ml Vial) 5,000 unit SUBCUT Q8H [facility] Last Admin: 12/18/23 09:07 Dose: 5,000 unit Dextrose (D5w) 1,000 mls @ 75 mls/hr IVCONT .[id number] [facility] Last Admin: 12/18/23 12:22 Dose: 75 mls/hr Magnesium Sulfate (Magnesium Sulfate/H2o) 2 gm in 50 mls @ 25 mls/hr IV ONCE ONE Stop: 12/18/23 15:06 Last Admin: 12/18/23 13:33 Dose: 25 mls/hr Potassium Chloride (Potassium Chloride/H20) 10 meq in 100 mls @ 100 mls/hr IV Q1H [facility] Stop: 12/18/23 17:59 Ampicillin Sodium/Sulbactam (Sodium 3 gm/ Sodium Chloride) 100 mls @ 200 mls/hr IV Q6H [facility] Methadone HCl (Methadone Hcl 20 Mg/2 Ml Oral.Conc) 10 mg PO DAILY PRN PRN Reason: Opiate Withdrawal Last Admin: 12/18/23 09:10 Dose: 10 mg Methadone HCl (Methadone Hcl 20 Mg/2 Ml Oral.Conc) 40 mg PO DAILY [facility] Last Admin: 12/18/23 08:59 Dose: Not Given Multivitamins/Vitamin C (Multivitamin Tablet) 1 tab PO DAILY [facility] Last Admin: 12/18/23 08:10 Dose: 1 tab Pantoprazole Sodium (Pantoprazole Sodium 20 Mg Tablet.Dr) 20 mg PO BID@0630,1630 [facility] Sodium Chloride (0.9 % Sodium Chloride Flush 3 Ml Syringe) 3 ml IVFLUSH QSHIFT [facility] Last Admin: 12/18/23 08:05 Dose: Not Given Thiamine HCl (Thiamine Hcl 100 Mg Tablet) 100 mg PO DAILY [facility] Last Admin: 12/18/23 08:27 Dose: Not Given Allergies Allergies Allergy/AdvReac Type Severity Reaction Status Date / Time No Known Allergies Allergy Verified 12/14/23 14:48 Assessment & Plan Assessment & Plan (1) Opioid use disorder: Status: Acute Code(s): F11.90 - Opioid use, unspecified, uncomplicated Assessment and Plan: agitation does not seem related to withdrawal--no objective signs of withdrawal when seen by t/w resume methadone as appropriate based on mental status and withdrawal sx Total time managing care of this patient today __20__ minutes.
[2023-12-18] MEDS: Haloperidol Lactate 5 MG/ML VIAL IVPUSH (15:39)
[2023-12-18] MEDS: 0.9 % Sodium Chloride Flush 3 ML SYRINGE IVFLUSH ×2 (15:42→23:45)
[2023-12-18] MEDS: Potassium Chloride/H20 10 MEQ/100 ML PIGGYBACK 100 MEQ IV ×4 (15:42→19:14)
[2023-12-18] MEDS: Ipratropium Bromide 0.5 MG/2.5 ML SOLUTION INHALE (16:20)
[2023-12-18] MEDS: fentaNYL citrate/PF 100 MCG/2 ML VIAL 25 MCG IVPUSH (16:38)
[2023-12-19] VITALS (27 sets, daily range): BP systolic 97–159; BP diastolic 52–91; PULSE 65–122; RESP 16–32; TEMP 36.6–37.2; O2SAT 91–100
--- NOTE | 2023-12-19 | ECG_ITS ---
Test Reason : qt interval for methadone Blood Pressure : / mmHG Vent. Rate : 098 BPM Atrial Rate : 098 BPM P-R Int : 142 ms QRS Dur : 088 ms QT Int : 330 ms P-R-T Axes : 000 060 083 degrees QTc Int : 421 ms Sinus rhythm with Premature supraventricular complexes Low voltage QRS Borderline ECG When compared with ECG of 14-DEC-2023 15:19, Premature supraventricular complexes are now Present QT has shortened Referred By: Tomy Albarran Electronically Signed By:JIMMY BELTRAN
[2023-12-19] MEDS: Dextrose 5 % 1,000 ML 75 ML IVCONT ×3 (00:20→23:45)
[2023-12-19] MEDS: fentaNYL citrate/PF 100 MCG/2 ML VIAL 25 MCG IVPUSH ×2 (00:22→14:25)
[2023-12-19] MEDS: Heparin Sodium,Porcine 5,000 UNIT/ML VIAL 5000 UNIT SUBCUT ×3 (02:11→17:18)
[2023-12-19] MEDS: Haloperidol Lactate 5 MG/ML VIAL IM (04:37)
[2023-12-19 05:42] LABS: VBG Base Excess 9.6 mmol/L; VBG HCO3 29 mmol/L (22-26); VBG pCO2 25 mmHg; VBG pH 7.68 (7.32-7.43); VBG pO2 173 mmHg
[2023-12-19 05:45] LABS: Venous Blood Gas Refer to POC result
[2023-12-19 06:07] LABS: MANUAL DIFF FLAG NO
[2023-12-19 06:11] LABS: Basophils Percent Auto 0.2 % (0-2); Eosinophils Absolute Auto 0.1 X10*3/uL (0.0-0.4); Eosinophils Percent Auto 1.3 % (0-4); Hematocrit 27.2 % (42.0-52.0); Hemoglobin 9.2 g/dl (14.0-18.0); Imm Gran Abs Auto 0.03 X10*3/uL (0.00-0.03); Imm Gran Pct Auto 0.5 % (0.0-0.4); Lymphocytes Absolute Auto 0.8 X10*3/uL (1.2-4.9); Lymphocytes Percent Auto 12.3 % (20-40); Mean Corpuscular HGB Conc 33.8 g/dl (31.0-36.0); Mean Corpuscular Hemoglobin 33.3 pg (27.0-33.0); Mean Corpuscular Volume 98.6 fL (80.0-98.0); Mean Platelet Volume 10.5 fL (9.4-12.4); Monocytes Absolute Auto 0.6 X10*3/uL (0.1-1.2); Monocytes Percent Auto 9.7 % (2-11); Neutrophils Absolute Auto 4.7 x10*3/uL (2.0-8.3); Red Blood Count 2.76 X10*6/uL (4.60-5.80); Red Cell Distribution Width 19.5 % (11.0-16.0); White Blood Count 6.1 X10*3/uL (4.8-10.8)
[2023-12-19 06:12] LABS: Platelet Count 80 X10*3/uL (160-400)
[2023-12-19] MEDS: Ampicillin Sodium/Sulbactam Na 3 GM in 0.9 % Sodium Chloride 100 ML IV ×4 (06:17→23:45)
[2023-12-19 06:24] LABS: Anion Gap 19 (12-20); Blood Urea Nitrogen 49 mg/dL (9-16); Calcium 9.2 mg/dL (8.4-10.2); Carbon Dioxide 24 mmol/L (22-29); Chloride 109 mmol/L (96-108); Creatinine Clr Calc Pharmacy 47.2; Estimated Glomerular Filt Rate 52; Glucose Random 99 mg/dL (60-115); Magnesium 1.8 mg/dL (1.6-2.6); Phosphorus 2.7 mg/dL (2.7-4.5); Potassium 3.4 mmol/L (3.3-5.1); Sodium 149 mmol/L (135-145)
[2023-12-19] MEDS: Albuterol/Iprat 2.5/0.5MG 3 ML AMPUL.NEB INHALE ×3 (07:29→20:22)
[2023-12-19] MEDS: Potassium Chloride/H20 10 MEQ/100 ML PIGGYBACK 100 MEQ IV ×4 (07:31→11:37)
[2023-12-19] MEDS: 0.9 % Sodium Chloride Flush 3 ML SYRINGE IVFLUSH ×3 (07:32→20:15)
[2023-12-19] MEDS: Clopidogrel Bisulfate 75 MG TABLET PO (09:01)
[2023-12-19] MEDS: Multivitamin TABLET 1 TAB PO (09:01)
[2023-12-19] MEDS: Thiamine HCL 100 MG TABLET PO (09:01)
[2023-12-19] MEDS: methADONE HCl 20 MG/2 ML ORAL.CONC 40 MG PO (09:01)
--- NOTE | 2023-12-19 09:27 | PM.PNNEP ---
Subjective Subjective Date of Service: 12/19/23 Interval history: Events noted family at bedside. Physical Exam Vital Signs: Vital Signs: Last Vital Signs Temp 98.8 F 12/19/23 08:00 Pulse 94 12/19/23 09:00 Resp 25 H 12/19/23 09:00 BP 119/60 12/19/23 09:00 Pulse Ox 93 12/19/23 09:00 O2 Del Method Nasal Cannula 12/19/23 09:00 O2 Flow Rate 2 12/19/23 09:00 FiO2 35 12/19/23 07:00 BMI result Body Mass Index 36.0 Const: General: ill appearing Neck: Neck: Yes supple Resp: Auscultation: clear to auscultation bilaterally Cardio: Palpation: no palpable S3 Heart sounds: no rubs GI: Palpation (GI): Soft to palpation Auscultation: normal bowel sounds Neuro: Motor exam (neuro): no asterixis Objective Data Labs 12/19/23 05:47 12/19/23 05:47 Labs: Laboratory Results - last 24 hr 12/18/23 12/18/23 12/19/23 11:52 12:03 05:32 WBC 6.1 RBC 2.84 L Hgb 9.2 L Hct 27.5 L MCV 96.8 MCH 32.4 MCHC 33.5 RDW 20.0 H Plt Count 82 L MPV 10.3 Immature Gran % (Auto) 0.5 H Neut % (Auto) 73.2 H Lymph % (Auto) 12.6 L [place] % (Auto) 12.7 H Eos % (Auto) 0.8 Baso % (Auto) 0.2 Lymph # (Auto) 0.8 L [place] # (Auto) 0.8 Eos # (Auto) 0.1 Baso # (Auto) 0.0 Abs Immat Gran (auto) 0.03 Absolute Neuts (auto) 4.5 Absolute Nucleated RBC 0.000 Nucleated RBC % (auto) 0.0 VBG pH 7.54 H 7.68 H* VBG pCO2 34 25 VBG pO2 94 173 VBG HCO3 29 H 29 H VBG O2 Saturation 100.0 99.0 VBG Base Excess 7.3 9.6 Sodium 150 H Potassium 3.1 L Chloride 108 Carbon Dioxide 27 Anion Gap 18 BUN 70 H Creatinine 2.02 H Estim Creat Clear Calc 31.8 Estimated GFR 33 Random Glucose 95 Calcium 8.9 Phosphorus 3.9 Magnesium 1.4 L* Albumin 12/19/23 05:47 WBC 6.1 RBC 2.76 L Hgb 9.2 L Hct 27.2 L MCV 98.6 H MCH 33.3 H MCHC 33.8 RDW 19.5 H Plt Count 80 L MPV 10.5 Immature Gran % (Auto) 0.5 H Neut % (Auto) 76.0 H Lymph % (Auto) 12.3 L [place] % (Auto) 9.7 Eos % (Auto) 1.3 Baso % (Auto) 0.2 Lymph # (Auto) 0.8 L [place] # (Auto) 0.6 Eos # (Auto) 0.1 Baso # (Auto) 0.0 Abs Immat Gran (auto) 0.03 Absolute Neuts (auto) 4.7 Absolute Nucleated RBC 0.000 Nucleated RBC % (auto) 0.0 VBG pH VBG pCO2 VBG pO2 VBG HCO3 VBG O2 Saturation VBG Base Excess Sodium 149 H Potassium 3.4 Chloride 109 H Carbon Dioxide 24 Anion Gap 19 BUN 49 H Creatinine 1.36 Estim Creat Clear Calc 47.2 Estimated GFR 52 Random Glucose 99 Calcium 9.2 Phosphorus 2.7 Magnesium 1.8 Albumin 3.0 L Microbiology Microbiology Results: Microbiology 12/15/23 21:30 Blood - Venous Blood Culture - Preliminary No growth after 48 hours. 12/15/23 21:30 Blood - Venous Blood Culture - Preliminary No growth after 48 hours. 12/14/23 17:50 Blood - Venous Blood Culture - Final Haemophilus influenzae 12/14/23 17:50 Blood - Venous Blood Culture - Preliminary No growth after 48 hours. 12/14/23 19:53 Urine Catheterized - Bergman Catheter Urine Culture - Final No growth. Procedures Date of Service Date of Service: 12/19/23 Assessment & Plan Assessment and plan (1) HIV (human immunodeficiency virus infection): Status: Acute (2) Hypotension: Status: Acute (3) Acute renal failure: Status: Acute Plan Acute kidney injury in a setting of shock and HIV. He probably has ischemic ATN. Currently nonoliguric. No evidence of obstructive uropathy. At this point we can not rule out underlying glomerular diseases or interstitial disease. Hyponatremia Hyperkalemia Metabolic acidosis Anemia. Hyperphosphatemia Creatinine is trending down and nonoliguric Recommendation at this point would be to optimize his hemodynamic status Continue to avoid hypotension. Continue to avoid nephrotoxic agents. Keep intake more than output watch urine output closely. Monitor serum potassium and acid-base status. At present there is no absolute indication for dialysis. Discussed with ICU team and she will follow along. Time Spent With Patient Time: Total time managing care of this patient today ____ minutes. Progress Note: Quality Stroke Does the patient have a stroke diagnosis?: No
--- NOTE | 2023-12-19 11:08 | MHC.CLN ---
F/U DISCUSSED PATIENT AT MD ROUNDS. TAKING PO WITH NURSE ONLY. DIET=REGULAR. SKIN WITH STAGE II TO SACRUM. RECENT HX POOR PO. IF TF NEEDED, RECOMMEND JEVITY 1.0 AT MAX GOAL RATE 70 ML PER HOUR, FREE WATER FLUSHES 120 ML Q 6 HOURS. PROVIDES 1780 KCALS (28.7 KCALS/KG CMW), 74 G PROTEIN (1.2 G/KG CMW), 1883 ML (30.4 ML/KG CMW) TOTAL FREE WATER FROM FORMULA AND FLUSHES. FOLLOW FOR KIDNEY FUNCTION, PO TOLERANCE, TUBE FEED TOLERANCE.
--- NOTE | 2023-12-19 11:09 | P.CNPS_ITS ---
History of Present Illness Date of Service: 12/19/2023 Chief Complaint: Acute Renal Failure Reason for Consult: Delirium Requesting physician: Tomy Albarran Sources of Information: chart reviewed Additional Sources of Information: ICU Team Pt's brother, Denzel Calderon [phone]. Pt's sisters are coming from [place], scheduled to arrive at 12am. They will be in hospital on 12/19 to meet with case mgt. They would like us to consider, rehab/senior care. Denzel reports he met with pt this a.m. Describes him as screaming, grouchy . Pt has a life long hx of addiction-heroin, cocaine, alcohol. He drinks FireBall daily, smokes and purchases bags of herion weekly-Denzel reports he does not know the source of his supply and believes it is mostly Fentanyl that is purchased. States he uses substances for nerves . Denzel reports use of all substances is extensive. There is no known history of psychiatric issues. Pt has attended addiction rehab x 1. 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 Pt admitted with anemia, hyperkalemia, metabolic acidosis, ARF, hypotension, septicemia, toxic metabolic encephalopathy vs delirium. Pt has received pain meds, has been started on Methadone 40 mg daily without relief. Pt has been consulted by addictions. Team report agitation, a decrease in ability to answer questions. Pt with constipation, no BM since 12/13. Met with pt and [facility] Flight Agent. Pt is repetitive, yelling, Owwww . He asks tw to hold his hand, He answers yes to pain yet cannot verbally identify where or point to a source for further eval. He is unable to answer questions of orientation, language is poor, thought process limited, motor agitation present, oriented to person only with short attention span, impaired memory. Diagnostics RBC 2.76; HGB 9.2; HCT 27.2; Plt 80; NA 149, Cl 109; BUN 49, ALB 30 EKG 12/13 QTc 484, Prol QT, Rate 91 VBG pH 7.68 HCO3 29 Past Psychiatric History: Pt is not able to give history. His brother denies hx and reports he has been to addiction rehab x 1. Medical Evaluation Reviewed: Yes Personal & Social History: Pt is not able to given history. Review of Systems Review of Systems Repetitive calling out Owwwww , acknowledges pain, yet unable to verbally identify location or give non verbal indication [facility] Medical History Septicemia due to Hemophilus influenzae (H. influenzae) Methadone dependence Bigeminal rhythm COPD (chronic obstructive pulmonary disease) Tubular adenoma of colon Pulmonary nodule Emphysema lung Tobacco abuse Anxiety PAC (premature atrial contraction) Anemia Alcohol abuse Opioid dependence Hepatitis C HIV (human immunodeficiency virus infection) Polio Surgical History History of colonoscopy History of hip surgery History of foot surgery Family History: Pt is not able to provide history Social History: Pt is not able to provide history Substance History: Brother reports life long history Alcohol, Heroin, Cocaine Trauma History: Pt is not able to provide history Diagnostics Vital Signs (24Hr): Vital Signs - 24 hr 12/18/23 12:23 12/18/23 13:00 12/18/23 14:00 Temperature 97.4 F 97.8 F Pulse Rate 95 100 93 Respiratory Rate 18 20 19 Blood Pressure 103/59 L 110/73 114/75 Pulse Oximetry 98 98 93 Oxygen Delivery Method Nasal Cannula Nasal Cannula Nasal Cannula Oxygen Flow Rate 4 4 4 Fraction of Inspired Oxygen 12/18/23 15:00 12/18/23 15:59 12/18/23 16:58 Temperature 99.1 F 97.9 F Pulse Rate 100 112 H 97 Respiratory Rate 20 22 H 18 Blood Pressure 109/64 115/72 119/75 Pulse Oximetry 95 94 93 Oxygen Delivery Method Nasal Cannula Nasal Cannula Nasal Cannula Oxygen Flow Rate 2 2 2 Fraction of Inspired Oxygen 12/18/23 18:00 12/18/23 19:00 12/18/23 20:00 Temperature 97.9 F Pulse Rate 102 H 109 H 105 H Respiratory Rate 20 22 H 26 H Blood Pressure 125/73 130/69 143/76 H Pulse Oximetry 93 90 L 90 L Oxygen Delivery Method Nasal Cannula Nasal Cannula Nasal Cannula Oxygen Flow Rate 3 2 2 Fraction of Inspired Oxygen 08/25/24 20:35 12/18/23 21:00 12/18/23 22:00 Temperature Pulse Rate 105 H 104 H 101 H Respiratory Rate 24 H 18 17 Blood Pressure 102/56 L 112/66 Pulse Oximetry 95 93 Oxygen Delivery Method Nasal Cannula Nasal Cannula Oxygen Flow Rate 2 2 Fraction of Inspired Oxygen 12/18/23 22:52 12/18/23 23:53 12/19/23 00:57 Temperature 97.6 F Pulse Rate 87 103 H 109 H Respiratory Rate 15 15 22 H Blood Pressure 123/75 115/63 123/81 Pulse Oximetry 95 92 92 Oxygen Delivery Method Nasal Cannula Nasal Cannula Nasal Cannula Oxygen Flow Rate 2 2 2 Fraction of Inspired Oxygen 12/19/23 02:00 12/19/23 03:00 12/19/23 04:00 Temperature Pulse Rate 122 H 84 107 H Respiratory Rate 23 H 17 19 Blood Pressure 114/67 97/54 L 133/69 Pulse Oximetry 93 97 91 L Oxygen Delivery Method Nasal Cannula Nasal Cannula Nasal Cannula Oxygen Flow Rate 2 2 2 Fraction of Inspired Oxygen 12/19/23 05:00 12/19/23 06:21 12/19/23 06:22 Temperature Pulse Rate 106 H 103 H Respiratory Rate 32 H 22 H 20 Blood Pressure 122/70 150/91 H Pulse Oximetry 91 L 93 Oxygen Delivery Method Nasal Cannula High Flow Nasal Cannula Oxygen Flow Rate 2 55 Fraction of Inspired Oxygen 35 12/19/23 07:00 12/19/23 07:35 12/19/23 08:00 Temperature 98.8 F Pulse Rate 114 H 101 H 91 Respiratory Rate 25 H 25 H 18 Blood Pressure 120/62 136/89 Pulse Oximetry 96 92 Oxygen Delivery Method High Flow Nasal Cannula Nasal Cannula Oxygen Flow Rate 55 2 Fraction of Inspired Oxygen 35 12/19/23 09:00 12/19/23 10:00 Temperature Pulse Rate 94 70 Respiratory Rate 25 H 20 Blood Pressure 119/60 115/70 Pulse Oximetry 93 95 Oxygen Delivery Method Nasal Cannula Nasal Cannula Oxygen Flow Rate 2 2 Fraction of Inspired Oxygen BMI result Body Mass Index 36.0 Labs 12/19/23 05:47 12/19/23 05:47 Labs: Laboratory Results - last 48 hr 12/17/23 12/17/23 12/18/23 06:23 12:40 01:13 WBC RBC Hgb Hct MCV MCH MCHC RDW Plt Count MPV Immature Gran % (Auto) Neut % (Auto) Lymph % (Auto) [place] % (Auto) Eos % (Auto) Baso % (Auto) Lymph # (Auto) [place] # (Auto) Eos # (Auto) Baso # (Auto) Abs Immat Gran (auto) Absolute Neuts (auto) Absolute Nucleated RBC Nucleated RBC % (auto) VBG pH VBG pCO2 VBG pO2 VBG HCO3 VBG O2 Saturation VBG Base Excess Sodium 153 H Potassium Chloride Carbon Dioxide Anion Gap BUN Creatinine Estim Creat Clear Calc Estimated GFR Random Glucose Calcium Phosphorus Magnesium Iron 95 TIBC 130 L % Saturation 73 H Unsat Iron Binding 35 Albumin Vitamin B12 > 2000 H Folate 13.3 12/18/23 12/18/23 12/19/23 11:52 12:03 05:32 WBC 6.1 RBC 2.84 L Hgb 9.2 L Hct 27.5 L MCV 96.8 MCH 32.4 MCHC 33.5 RDW 20.0 H Plt Count 82 L MPV 10.3 Immature Gran % (Auto) 0.5 H Neut % (Auto) 73.2 H Lymph % (Auto) 12.6 L [place] % (Auto) 12.7 H Eos % (Auto) 0.8 Baso % (Auto) 0.2 Lymph # (Auto) 0.8 L [place] # (Auto) 0.8 Eos # (Auto) 0.1 Baso # (Auto) 0.0 Abs Immat Gran (auto) 0.03 Absolute Neuts (auto) 4.5 Absolute Nucleated RBC 0.000 Nucleated RBC % (auto) 0.0 VBG pH 7.54 H 7.68 H* VBG pCO2 34 25 VBG pO2 94 173 VBG HCO3 29 H 29 H VBG O2 Saturation 100.0 99.0 VBG Base Excess 7.3 9.6 Sodium 150 H Potassium 3.1 L Chloride 108 Carbon Dioxide 27 Anion Gap 18 BUN 70 H Creatinine 2.02 H Estim Creat Clear Calc 31.8 Estimated GFR 33 Random Glucose 95 Calcium 8.9 Phosphorus 3.9 Magnesium 1.4 L* Iron TIBC % Saturation Unsat Iron Binding Albumin Vitamin B12 Folate 12/19/23 05:47 WBC 6.1 RBC 2.76 L Hgb 9.2 L Hct 27.2 L MCV 98.6 H MCH 33.3 H MCHC 33.8 RDW 19.5 H Plt Count 80 L MPV 10.5 Immature Gran % (Auto) 0.5 H Neut % (Auto) 76.0 H Lymph % (Auto) 12.3 L [place] % (Auto) 9.7 Eos % (Auto) 1.3 Baso % (Auto) 0.2 Lymph # (Auto) 0.8 L [place] # (Auto) 0.6 Eos # (Auto) 0.1 Baso # (Auto) 0.0 Abs Immat Gran (auto) 0.03 Absolute Neuts (auto) 4.7 Absolute Nucleated RBC 0.000 Nucleated RBC % (auto) 0.0 VBG pH VBG pCO2 VBG pO2 VBG HCO3 VBG O2 Saturation VBG Base Excess Sodium 149 H Potassium 3.4 Chloride 109 H Carbon Dioxide 24 Anion Gap 19 BUN 49 H Creatinine 1.36 Estim Creat Clear Calc 47.2 Estimated GFR 52 Random Glucose 99 Calcium 9.2 Phosphorus 2.7 Magnesium 1.8 Iron TIBC % Saturation Unsat Iron Binding Albumin 3.0 L Vitamin B12 Folate Imaging Radiology Impressions: ITS Impressions Chest X-Ray 12/14/23 14:38 IMPRESSION: 1. Persistent hypoinflation of lungs. 2. Interval development of left lateral lung base airspace disease and small left pleural effusion. 3. Interval development of medial right lobe along infiltrates suggestive of pneumonia. 4. Unchanged severe right glenohumeral joint osteoarthritis. Electronically signed by: Ricardo Matos MD 12/14/2023 05:02 PM EDT Chest X-Ray 12/14/23 17:20 IMPRESSION: * No pneumothorax after right IJ line placement. * Lungs are hypoinflated and there is bibasilar opacities, likely atelectasis, although difficult to exclude any underlying lower lobe pneumonia on this limited evaluation. * Probable small left pleural effusion. Electronically signed by: Juno Guo MD 12/14/2023 05:38 PM EDT RP Abdomen/Pelvis CT 12/14/23 19:03 IMPRESSION: 1. Prominent emphysematous changes are redemonstrated. Bilateral posterior lower lobe consolidations with air bronchograms, new compared to the prior examination and concerning for early pneumonia. 2. No intra-abdominal mass, lymphadenopathy, or ascites. 3. No small or large bowel obstruction. Sigmoid diverticulosis without evidence of acute diverticulitis. Unremarkable appendix. 4. No hydronephrosis or nephrolithiasis. Electronically signed by: Nick Tang MD 12/14/2023 09:07 PM EDT RP Chest CT 12/14/23 19:36 IMPRESSION: 1. Prominent emphysematous changes are redemonstrated. Bilateral posterior lower lobe consolidations with air bronchograms, new compared to the prior examination and concerning for early pneumonia. 2. No intra-abdominal mass, lymphadenopathy, or ascites. 3. No small or large bowel obstruction. Sigmoid diverticulosis without evidence of acute diverticulitis. Unremarkable appendix. 4. No hydronephrosis or nephrolithiasis. Electronically signed by: Nick Tang MD 12/14/2023 09:07 PM EDT RP Face CT 12/14/23 19:36 IMPRESSION: 1. Lucency adjacent to the root of the left maxillary canine which extends through the peripheral maxillary cortex, consistent with a periapical abscess. No adjacent organized fluid collection or soft tissue abscess. 2. Air-fluid level and secretions within the right maxillary sinus as well as within the sphenoid sinuses which could represent a degree of acute sinusitis. Electronically signed by: Nick Tang MD 12/14/2023 09:32 PM EDT RP Head CT 12/14/23 19:36 IMPRESSION: No acute intracranial pathology. Electronically signed by: Bryant Pink MD 12/14/2023 08:51 PM EDT RP Chest X-Ray 12/18/23 11:20 IMPRESSION: Worsening pulmonary aeration with increased right greater than left bibasilar airspace opacities. Unchanged small left-sided pleural effusion. Electronically signed by: Zo Trujillo MD 12/18/2023 12:47 PM EDT RP Mental Status Exam Mental Status Exam Patient Appearance: Fatigued Patient Orientation: Person Level of Consciousness: Awake, Disoriented and Restless Patient Behavior: Restless, Anxious, Fatigued, Distractible, Confused and Good Eye Contact Mood Description: Anxious, Labile and Apprehensive Affect Description: Labile Patient Cognition Impaired: Yes Ability to Follow Directions: Fair Speech Pattern: Perseverating, Difficulty Finding Words, Spontaneous Speech, Rambling, Loud and Poor Articulation Memory Description: Remote Impaired, Immediate Impaired, Episodic Impaired, Recent Impaired, Working Impaired and Semantic Impaired Hallucinations: None (he cannot respond) Delusions: Present Thought Process: Illogical, Distracted and Confusion Thought Content: positive for Flight of Ideas, positive for Poverty of Content, positive for Loose Associations, positive for Incoherent, positive for Tangential and positive for Disorganized Depressive Symptoms: Increased Anxiety, Diff. Making Decisions, Increased Irritability, Increased Fatigue, Loss of Energy and Difficulty Concentrating Abnormal Motor Activity Signs and Symptoms: Agitation and Restlessness Judgement: Poor Medications Medications Current Medications Albuterol/Ipratropium (Albuterol/Iprat 2.5/0.5mg 3 Ml Ampul.Neb) 3 ml INHALE RQ4H WHILE AWAKE [facility] Last Admin: 12/19/23 07:29 Dose: 3 ml Bictegravir/Emtricitabine/Tenofovir (Bictegrav/Emtricit/Tenofov Ala Tablet) 1 tab PO DAILY [facility] Last Admin: 12/19/23 10:27 Dose: Not Given Bisacodyl (Bisacodyl 10 Mg Supp.Rect) 10 mg [place] BEDTIME [facility] Clonazepam (Clonazepam 0.125 Mg Tab.Rapdis) 0.25 mg PO BID [facility] Clopidogrel Bisulfate (Clopidogrel Bisulfate 75 Mg Tablet) 75 mg PO DAILY [facility] Last Admin: 12/19/23 09:01 Dose: 75 mg Fentanyl (Fentanyl Citrate/Pf 100 Mcg/2 Ml Vial) 25 mcg IVPUSH Q2H PRN; Protocol PRN Reason: Pain, Moderate(Pain Scale 4-6) Last Admin: 12/19/23 00:22 Dose: 25 mcg Haloperidol Lactate (Haloperidol Lactate 5 Mg/Ml Vial) 2 mg IM Q4H PRN PRN Reason: Delirium Heparin Sodium (Porcine) (Heparin Sodium,Porcine 5,000 Unit/Ml Vial) 5,000 unit SUBCUT Q8H [facility] Last Admin: 12/19/23 10:19 Dose: 5,000 unit Dextrose (D5w) 1,000 mls @ 75 mls/hr IVCONT .[id number] [facility] Last Admin: 12/19/23 00:20 Dose: 75 mls/hr Ampicillin Sodium/Sulbactam (Sodium 3 gm/ Sodium Chloride) 100 mls @ 200 mls/hr IV Q6H [facility] Last Infusion: 12/19/23 06:50 Dose: Infused Potassium Chloride (Potassium Chloride/H20) 10 meq in 100 mls @ 100 mls/hr IV Q1H [facility] Stop: 12/19/23 11:59 Last Admin: 12/19/23 10:17 Dose: 100 mls/hr Methadone HCl (Methadone Hcl 20 Mg/2 Ml Oral.Conc) 10 mg PO DAILY PRN PRN Reason: Opiate Withdrawal Last Admin: 12/18/23 09:10 Dose: 10 mg Methadone HCl (Methadone Hcl 20 Mg/2 Ml Oral.Conc) 40 mg PO DAILY [facility] Last Admin: 12/19/23 09:01 Dose: 40 mg Multivitamins/Vitamin C (Multivitamin Tablet) 1 tab PO DAILY [facility] Last Admin: 12/19/23 09:01 Dose: 1 tab Pantoprazole Sodium (Pantoprazole Sodium 20 Mg Tablet.Dr) 20 mg PO BID@0630,1630 [facility] Last Admin: 12/19/23 06:28 Dose: Not Given Sodium Chloride (0.9 % Sodium Chloride Flush 3 Ml Syringe) 3 ml IVFLUSH QSHIFT [facility] Last Admin: 12/19/23 07:32 Dose: 3 ml Thiamine HCl (Thiamine Hcl 100 Mg Tablet) 100 mg PO DAILY [facility] Last Admin: 12/19/23 09:01 Dose: 100 mg Allergies Allergies Allergy/AdvReac Type Severity Reaction Status Date / Time No Known Allergies Allergy Verified 12/14/23 14:48 Assessment & Plan Assessment & Plan (1) Delirium: Status: Acute Code(s): R41.0 - Disorientation, unspecified Plan Delirum. Per family pt is a heavy substance user, regular drinker (brother reports daily FireBall). Plan: Haldol 2 mg tid Continue Haldol prn Continue Methadone If klonopin is ineffective, consider scheduled Librium. Ammonia level Total time managing care of this patient today ____ minutes. Guardian/Caregiver educated on: medication risk/benefits and therapeutic strategies Informed Consent: does not understand
--- NOTE | 2023-12-19 11:56 | P.PNCC_ITS ---
Subjective Subjective Date of Service: 12/19/23 Interval History: Answers some questions but still confused On nasal cannula for oxygen Not on any active drips except for dextrose for hypernatremia Critical Care Time (minutes): 35 Physical Exam 2 Vital Signs: Vital Signs: Last Vital Signs Temp 98.8 F 12/19/23 08:00 Pulse 90 12/19/23 11:44 Resp 25 H 12/19/23 11:44 BP 119/73 12/19/23 11:00 Pulse Ox 91 L 12/19/23 11:00 O2 Del Method Nasal Cannula 12/19/23 11:00 O2 Flow Rate 2 12/19/23 11:00 FiO2 35 12/19/23 07:00 BMI result Body Mass Index 36.0 General: Not in acute distress, ill appearing and tired appearing Nutritional Appearance: well nourished and overweight Eyes: appearance normal, both eyes and all related structures; Alignment and Position: alignment normal and position normal Neck: No lymphadenopathy, no thyromegaly Resp: bilateral air entry equal, occasional added sounds present Cardio: Regular rate, regular rhythm; Heart sounds: S1 normal heart sound present and S2 normal heart sound present GI: soft, nontender, no guarding, no hepatosplenomegaly : bladder normal to inspection, bladder normal to palpation, no renal angle tenderness Skin: no rashes or lesions noted and elasticity normal Neuro: Orientation poor, moves all extremities Objective Data Labs 12/19/23 05:47 12/19/23 05:47 Labs: Laboratory Results - last 24 hr 12/18/23 12/18/23 12/19/23 11:52 12:03 05:32 WBC 6.1 RBC 2.84 L Hgb 9.2 L Hct 27.5 L MCV 96.8 MCH 32.4 MCHC 33.5 RDW 20.0 H Plt Count 82 L MPV 10.3 Immature Gran % (Auto) 0.5 H Neut % (Auto) 73.2 H Lymph % (Auto) 12.6 L [place] % (Auto) 12.7 H Eos % (Auto) 0.8 Baso % (Auto) 0.2 Lymph # (Auto) 0.8 L [place] # (Auto) 0.8 Eos # (Auto) 0.1 Baso # (Auto) 0.0 Abs Immat Gran (auto) 0.03 Absolute Neuts (auto) 4.5 Absolute Nucleated RBC 0.000 Nucleated RBC % (auto) 0.0 VBG pH 7.54 H 7.68 H* VBG pCO2 34 25 VBG pO2 94 173 VBG HCO3 29 H 29 H VBG O2 Saturation 100.0 99.0 VBG Base Excess 7.3 9.6 Sodium 150 H Potassium 3.1 L Chloride 108 Carbon Dioxide 27 Anion Gap 18 BUN 70 H Creatinine 2.02 H Estim Creat Clear Calc 31.8 Estimated GFR 33 Random Glucose 95 Calcium 8.9 Phosphorus 3.9 Magnesium 1.4 L* Albumin 12/19/23 05:47 WBC 6.1 RBC 2.76 L Hgb 9.2 L Hct 27.2 L MCV 98.6 H MCH 33.3 H MCHC 33.8 RDW 19.5 H Plt Count 80 L MPV 10.5 Immature Gran % (Auto) 0.5 H Neut % (Auto) 76.0 H Lymph % (Auto) 12.3 L [place] % (Auto) 9.7 Eos % (Auto) 1.3 Baso % (Auto) 0.2 Lymph # (Auto) 0.8 L [place] # (Auto) 0.6 Eos # (Auto) 0.1 Baso # (Auto) 0.0 Abs Immat Gran (auto) 0.03 Absolute Neuts (auto) 4.7 Absolute Nucleated RBC 0.000 Nucleated RBC % (auto) 0.0 VBG pH VBG pCO2 VBG pO2 VBG HCO3 VBG O2 Saturation VBG Base Excess Sodium 149 H Potassium 3.4 Chloride 109 H Carbon Dioxide 24 Anion Gap 19 BUN 49 H Creatinine 1.36 Estim Creat Clear Calc 47.2 Estimated GFR 52 Random Glucose 99 Calcium 9.2 Phosphorus 2.7 Magnesium 1.8 Albumin 3.0 L Microbiology Microbiology Results: Microbiology 12/15/23 21:30 Blood - Venous Blood Culture - Preliminary No growth after 48 hours. 12/15/23 21:30 Blood - Venous Blood Culture - Preliminary No growth after 48 hours. 12/14/23 17:50 Blood - Venous Blood Culture - Final Haemophilus influenzae 12/14/23 17:50 Blood - Venous Blood Culture - Preliminary No growth after 48 hours. 12/14/23 19:53 Urine Catheterized - [place] Catheter Urine Culture - Final No growth. Progress Note: A&P Assessment and plan (1) Acute respiratory failure with hypoxia: Status: Acute (2) Septicemia due to Hemophilus influenzae (H. influenzae): Status: Acute (3) Dental abscess: Status: Acute (4) Opioid use disorder: Status: Acute (5) HIV (human immunodeficiency virus infection): Status: Acute (6) Pulmonary aspiration: Status: Acute Plan Acute encephalopathy: Has significant delirium History of drug abuse, UDS positive for opiates and fentanyl upon admission We will start the patient on methadone to prevent opioid withdrawal; ordered EKG to look for QT interval We will start on low-dose clonazepam to prevent withdrawals and as needed Haldol Continue clonidine patch, psychiatric consulted Aspiration pneumonia: Given his altered mental status he is high-risk for aspiration Currently on nasal cannula oxygen Continue ampicillin sulbactam Hypernatremia: Sodium up to 149, due to poor oral intake Continue D5 water at 75 cc/hour Dental abscess: He has abscess on the maxillary canine Continue ampicillin sulbactam for now Not cooperative for any examination or procedures Acute kidney injury: Possibly due to ATN from volume depletion Currently in diuretic phase, creatinine down to 1.36 Continue to closely monitor his renal function Quality Stroke Does the patient have a stroke diagnosis?: No VTE Prior VTE?: No VTE Risk Level:: Medical - moderate - high VTE Device Contraindication: N/A - Device Ordered VTE Drug Contraindication: N/A - Med Ordered
[2023-12-19] MEDS: Haloperidol Lactate 5 MG/ML VIAL 2 MG IM ×2 (12:48→20:17)
[2023-12-19 12:56] LABS: Ammonia 29 umol/L (13-55)
[2023-12-19] MEDS: Albumin Human 25 % 100 ML IV (13:36)
[2023-12-19] MEDS: HaloperidoL 1 MG TABLET 2 MG PO ×2 (14:26→20:05)
--- NOTE | 2023-12-19 16:06 | MHC.CM.PN ---
PT REMAINS IN ICU, AGITATED AT TIMES AND YELLING OUT, CONFUSED. BROTHER AT BEDSIDE. CM CONTINUES TO FOLLOW TO ASSESS NEEDS WHEN MENTAL STATUS HAS IMPROVED.
[2023-12-19] MEDS: bisacodyL 10 MG SUPP.RECT PR (20:05)
[2023-12-19] MEDS: methADONE HCl 20 MG/2 ML ORAL.CONC 10 MG PO (22:38)
[2023-12-20] VITALS (28 sets, daily range): BP systolic 105–164; BP diastolic 55–82; PULSE 60–111; RESP 12–29; TEMP 36.2–37.3; O2SAT 92–100
[2023-12-20] MEDS: Haloperidol Lactate 5 MG/ML VIAL 2 MG IM ×3 (01:50→20:15)
[2023-12-20] MEDS: Heparin Sodium,Porcine 5,000 UNIT/ML VIAL 5000 UNIT SUBCUT ×3 (01:53→18:29)
[2023-12-20] MEDS: Ampicillin Sodium/Sulbactam Na 3 GM in 0.9 % Sodium Chloride 100 ML IV ×3 (05:23→18:30)
[2023-12-20 05:38] LABS: VBG Base Excess 11.4 mmol/L; VBG HCO3 35 mmol/L (22-26); VBG pCO2 42 mmHg; VBG pH 7.52 (7.32-7.43); VBG pO2 36 mmHg
[2023-12-20 05:45] LABS: Venous Blood Gas Refer to POC result
[2023-12-20 05:47] LABS: MANUAL DIFF FLAG NO
[2023-12-20 05:49] LABS: Eosinophils Absolute Auto 0.1 X10*3/uL (0.0-0.4); Eosinophils Percent Auto 2.5 % (0-4); Hemoglobin 7.8 g/dl (14.0-18.0); Imm Gran Abs Auto 0.02 X10*3/uL (0.00-0.03); Imm Gran Pct Auto 0.4 % (0.0-0.4); Lymphocytes Absolute Auto 0.8 X10*3/uL (1.2-4.9); Lymphocytes Percent Auto 17.6 % (20-40); Mean Corpuscular HGB Conc 32.5 g/dl (31.0-36.0); Mean Corpuscular Hemoglobin 32.6 pg (27.0-33.0); Mean Corpuscular Volume 100.4 fL (80.0-98.0); Mean Platelet Volume 10.7 fL (9.4-12.4); Monocytes Absolute Auto 0.5 X10*3/uL (0.1-1.2); Monocytes Percent Auto 10.2 % (2-11); Neutrophils Absolute Auto 3.3 x10*3/uL (2.0-8.3); Neutrophils Percent Auto 69.3 % (45-73); Red Blood Count 2.39 X10*6/uL (4.60-5.80); White Blood Count 4.7 X10*3/uL (4.8-10.8)
[2023-12-20 05:50] LABS: Platelet Count 63 X10*3/uL (160-400)
[2023-12-20 06:07] LABS: Alanine Aminotransferase 13 U/L (0-40); Albumin Level 2.9 g/dL (3.5-5.0); Alkaline Phosphatase 71 U/L (39-117); Anion Gap 12 (12-20); Aspartate Amino Transferase 26 U/L (5-37); Bilirubin Total 0.8 mg/dL (0.0-1.0); Blood Urea Nitrogen 29 mg/dL (9-16); Calcium 9.1 mg/dL (8.4-10.2); Carbon Dioxide 30 mmol/L (22-29); Chloride 110 mmol/L (96-108); Creatinine Clr Calc Pharmacy 65.6; Estimated Glomerular Filt Rate > 60; Glucose Random 94 mg/dL (60-115); Magnesium 1.5 mg/dL (1.6-2.6); Phosphorus 2.2 mg/dL (2.7-4.5); Sodium 149 mmol/L (135-145); Total Protein 5.8 g/dL (6.5-8.0)
[2023-12-20] MEDS: Albuterol/Iprat 2.5/0.5MG 3 ML AMPUL.NEB INHALE ×3 (07:22→19:30)
[2023-12-20] MEDS: Thiamine HCL 100 MG TABLET PO (07:33)
[2023-12-20] MEDS: 0.9 % Sodium Chloride Flush 3 ML SYRINGE IVFLUSH ×3 (07:33→20:13)
[2023-12-20] MEDS: HaloperidoL 1 MG TABLET 2 MG PO ×2 (07:34→14:35)
[2023-12-20] MEDS: Multivitamin TABLET 1 TAB PO (07:34)
[2023-12-20] MEDS: Clopidogrel Bisulfate 75 MG TABLET PO (07:34)
[2023-12-20] MEDS: methADONE HCl 20 MG/2 ML ORAL.CONC 40 MG PO (07:35)
--- NOTE | 2023-12-20 09:56 | P.PNNP_ITS ---
Subjective Subjective Date of Service: 12/20/23 Interval history: Events noted Physical Exam 2 Vital Signs: Vital Signs: Last Vital Signs Temp 98.0 F 12/20/23 04:00 Pulse 65 12/20/23 09:00 Resp 15 12/20/23 09:00 BP 164/62 H 12/20/23 09:00 Pulse Ox 96 12/20/23 09:00 O2 Del Method Nasal Cannula 12/20/23 09:00 O2 Flow Rate 2 12/20/23 09:00 FiO2 35 12/19/23 07:00 BMI result Body Mass Index 36.0 Const: General: ill appearing Neck: Neck: Yes supple Resp: Auscultation: clear to auscultation bilaterally Cardio: Palpation: no palpable S3 Heart sounds: no rubs GI: Palpation (GI): Soft to palpation Auscultation: normal bowel sounds Neuro: Motor exam (neuro): no asterixis Objective Data Labs 12/20/23 05:31 12/20/23 05:31 Labs: Laboratory Results - last 24 hr 12/19/23 12/20/23 12/20/23 12:40 05:29 05:31 WBC 4.7 L RBC 2.39 L Hgb 7.8 L Hct 24.0 L MCV 100.4 H MCH 32.6 MCHC 32.5 RDW 19.0 H Plt Count 63 L MPV 10.7 Immature Gran % (Auto) 0.4 Neut % (Auto) 69.3 Lymph % (Auto) 17.6 L Millard % (Auto) 10.2 Eos % (Auto) 2.5 Baso % (Auto) 0.0 Lymph # (Auto) 0.8 L Millard # (Auto) 0.5 Eos # (Auto) 0.1 Baso # (Auto) 0.0 Abs Immat Gran (auto) 0.02 Absolute Neuts (auto) 3.3 Absolute Nucleated RBC 0.000 Nucleated RBC % (auto) 0.0 VBG pH 7.52 H VBG pCO2 42 VBG pO2 36 VBG HCO3 35 H VBG O2 Saturation 60.0 VBG Base Excess 11.4 Sodium 149 H Potassium 3.0 L Chloride 110 H Carbon Dioxide 30 H Anion Gap 12 BUN 29 H Creatinine 0.98 Estim Creat Clear Calc 65.6 Estimated GFR > 60 Random Glucose 94 Calcium 9.1 Phosphorus 2.2 L Magnesium 1.5 L Total Bilirubin 0.8 AST 26 ALT 13 Alkaline Phosphatase 71 Ammonia 29 Total Protein 5.8 L Albumin 2.9 L Microbiology Microbiology Results: Microbiology 12/14/23 17:50 Blood - Venous Blood Culture - Final No growth after 5 days. 12/15/23 21:30 Blood - Venous Blood Culture - Preliminary No growth after 48 hours. 12/15/23 21:30 Blood - Venous Blood Culture - Preliminary No growth after 48 hours. 12/14/23 17:50 Blood - Venous Blood Culture - Final Haemophilus influenzae 12/14/23 19:53 Urine Catheterized - Bergman Catheter Urine Culture - Final No growth. Procedures Date of Service Date of Service: 12/20/23 Assessment & Plan Assessment and plan (1) HIV (human immunodeficiency virus infection): Status: Acute (2) Hypotension: Status: Acute (3) Acute renal failure: Status: Acute Plan Acute kidney injury in a setting of shock and HIV. ischemic ATN. Currently nonoliguric. No evidence of obstructive uropathy. At this point we can not rule out underlying glomerular diseases or interstitial disease. Hypernatremia-due to free water to Hyperkalemia . Resolved. Now has hypokalemia. Anemia. Hyperphosphatemia Creatinine is trending down and nonoliguric Recommendation at this point would be to optimize his hemodynamic status Continue to avoid hypotension. Continue to avoid nephrotoxic agents. Keep intake more than output with hypotonic fluids. watch urine output closely. Monitor serum potassium and acid-base status. Replace potassium as indicated Time Spent With Patient Time: Total time managing care of this patient today ____ minutes. Progress Note: Quality Stroke Does the patient have a stroke diagnosis?: No
--- NOTE | 2023-12-20 09:59 | MHC.CLN ---
F/U DISCUSSED PATIENT AT MD ROUNDS. DIET CHANGED TO PUREE CONSISTENCY TO PROMOTE PO INTAKE. RECENT HX POOR PO. FOLLOW FOR KIDNEY FUNCTION, PO TOLERANCE, SKIN INTEGRITY.
[2023-12-20] MEDS: Potassium Chloride/H20 10 MEQ/100 ML PIGGYBACK 100 MEQ IV ×4 (10:39→14:33)
--- NOTE | 2023-12-20 11:57 | MHC.CM.PN ---
Addendum entered by Aure Moreno 12/20/23 16:05: Guardianship to be initiated at this time d/t no return of cognitive functioning by pt and need for an appointee for decision making and rehab placement. Denzel, pt's brother, to serve in this role. He will be back at [facility] on 12/20 at 10:30 to assist w/information needed for guardianship form. Original Note: Pt continues care in ICU: confused, not mentating, yelling and restless: meds adjusted: Met w/pt's brother Denzel and pt's sisters who arrived from [place] using certified court interpreter. Discussed next level of care including STR: family in agreement with plan: understands that pt never completed a HCP (verified by Denzel) and if he doesn't clear mentally, will need a court appointed guardian. Denzel states he will serve in this role as he lives local. Broad STR referrals placed: pt will need HCP or guardiaship, PT eval and payor auth for SNF transfer. Family aware that this may not be an expedient process. CM to follow.
[2023-12-20 13:53] LABS: HIV RNA PCR Qn Copies NOT DETECTED copies/mL (NOT DETECTED); HIV RNA PCR Qn Log Copies NOT DETECTED (NOT DETECTED)
[2023-12-20 15:53] LABS: MANUAL DIFF FLAG NO
--- NOTE | 2023-12-20 16:12 | P.PNCC_ITS ---
Subjective Subjective Date of Service: 12/20/23 Interval History: Continues to be agitated but improvement in mental status when compared to yesterday Hemodynamically stable Critical Care Time (minutes): 35 Physical Exam 2 Vital Signs: Vital Signs: Last Vital Signs Temp 98.8 F 12/20/23 12:00 Pulse 96 12/20/23 14:55 Resp 29 H 12/20/23 14:55 BP 153/78 H 12/20/23 14:55 Pulse Ox 94 12/20/23 14:55 O2 Del Method Room Air 12/20/23 14:55 O2 Flow Rate 2 12/20/23 12:00 FiO2 35 12/19/23 07:00 BMI result Body Mass Index 36.0 General: acute distress, ill appearing and tired appearing Nutritional Appearance: well nourished and overweight Eyes: appearance normal, both eyes and all related structures; Alignment and Position: alignment normal and position normal Neck: No lymphadenopathy, no thyromegaly Resp: bilateral air entry equal, occasional added sounds present Cardio: Regular rate, regular rhythm; Heart sounds: S1 normal heart sound present and S2 normal heart sound present GI: soft, nontender, no guarding, no hepatosplenomegaly : bladder normal to inspection, bladder normal to palpation, no renal angle tenderness Skin: no rashes or lesions noted and elasticity normal Neuro: Confused and moves all extremities Objective Data Labs 12/20/23 05:31 12/20/23 05:31 Labs: Laboratory Results - last 24 hr 12/17/23 12/20/23 12/20/23 15:17 05:29 05:31 WBC 4.7 L RBC 2.39 L Hgb 7.8 L Hct 24.0 L MCV 100.4 H MCH 32.6 MCHC 32.5 RDW 19.0 H Plt Count 63 L MPV 10.7 Immature Gran % (Auto) 0.4 Neut % (Auto) 69.3 Lymph % (Auto) 17.6 L [place] % (Auto) 10.2 Eos % (Auto) 2.5 Baso % (Auto) 0.0 Lymph # (Auto) 0.8 L [place] # (Auto) 0.5 Eos # (Auto) 0.1 Baso # (Auto) 0.0 Abs Immat Gran (auto) 0.02 Absolute Neuts (auto) 3.3 Absolute Nucleated RBC 0.000 Nucleated RBC % (auto) 0.0 VBG pH 7.52 H VBG pCO2 42 VBG pO2 36 VBG HCO3 35 H VBG O2 Saturation 60.0 VBG Base Excess 11.4 Sodium 149 H Potassium 3.0 L Chloride 110 H Carbon Dioxide 30 H Anion Gap 12 BUN 29 H Creatinine 0.98 Estim Creat Clear Calc 65.6 Estimated GFR > 60 Random Glucose 94 Calcium 9.1 Phosphorus 2.2 L Magnesium 1.5 L Total Bilirubin 0.8 AST 26 ALT 13 Alkaline Phosphatase 71 Total Protein 5.8 L Albumin 2.9 L HIV-1 RNA copies/mL NOT DETECTED HIV-1 RNA logcopies/mL NOT DETECTED Microbiology Microbiology Results: Microbiology 12/14/23 17:50 Blood - Venous Blood Culture - Final No growth after 5 days. 12/15/23 21:30 Blood - Venous Blood Culture - Preliminary No growth after 48 hours. 12/15/23 21:30 Blood - Venous Blood Culture - Preliminary No growth after 48 hours. 12/14/23 17:50 Blood - Venous Blood Culture - Final Haemophilus influenzae 12/14/23 19:53 Urine Catheterized - Bergman Catheter Urine Culture - Final No growth. Progress Note: A&P Assessment and plan (1) Pulmonary aspiration: Status: Acute (2) Acute respiratory failure with hypoxia: Status: Acute (3) Septicemia due to Hemophilus influenzae (H. influenzae): Status: Acute (4) Dental abscess: Status: Acute (5) HIV (human immunodeficiency virus infection): Status: Acute (6) Sepsis: Status: Acute Plan Acute encephalopathy: Has significant delirium which is slightly improving History of drug abuse, UDS positive for opiates and fentanyl upon admission Continue methadone 40 mg daily, QT interval 421 Continue clonazepam 0.25 t.i.d. to prevent withdrawals, on oral Haldol as per Psychiatry. Responds well to 2 mg IM as needed IV haloperidol Continue clonidine patch, psychiatric consulted Aspiration pneumonia: Currently on nasal cannula oxygen Continue ampicillin sulbactam Hypernatremia: Sodium up to 149, due to poor oral intake Continue D5 water at 75 cc/hour Dental abscess: He has abscess on the maxillary canine Continue ampicillin sulbactam for now Not cooperative for any examination or procedures Acute kidney injury: Possibly due to ATN from volume depletion Creatinine down to 0.98 this morning Continue to closely monitor his renal function Quality Stroke Does the patient have a stroke diagnosis?: No VTE Prior VTE?: No VTE Risk Level:: Medical - moderate - high VTE Device Contraindication: N/A - Device Ordered VTE Drug Contraindication: N/A - Med Ordered
[2023-12-20 16:24] LABS: Basophils Percent Auto 0.2 % (0-2); Eosinophils Absolute Auto 0.1 X10*3/uL (0.0-0.4); Eosinophils Percent Auto 2.3 % (0-4); Hematocrit 25.4 % (42.0-52.0); Hemoglobin 8.6 g/dl (14.0-18.0); Imm Gran Abs Auto 0.18 X10*3/uL (0.00-0.03); Lymphocytes Absolute Auto 0.8 X10*3/uL (1.2-4.9); Lymphocytes Percent Auto 12.9 % (20-40); Mean Corpuscular HGB Conc 33.9 g/dl (31.0-36.0); Mean Corpuscular Hemoglobin 33.3 pg (27.0-33.0); Mean Corpuscular Volume 98.4 fL (80.0-98.0); Mean Platelet Volume 10.4 fL (9.4-12.4); Monocytes Absolute Auto 0.5 X10*3/uL (0.1-1.2); Monocytes Percent Auto 7.7 % (2-11); Neutrophils Absolute Auto 4.4 x10*3/uL (2.0-8.3); Neutrophils Percent Auto 73.9 % (45-73); Platelet Count 62 X10*3/uL (160-400); Red Blood Count 2.58 X10*6/uL (4.60-5.80)
[2023-12-21] VITALS (13 sets, daily range): BP systolic 134–153; BP diastolic 59–89; PULSE 64–116; RESP 13–26; TEMP 36.3–36.7; O2SAT 90–96
[2023-12-21] MEDS: fentaNYL citrate/PF 100 MCG/2 ML VIAL 25 MCG IVPUSH ×2 (00:04→03:02)
[2023-12-21] MEDS: Ampicillin Sodium/Sulbactam Na 3 GM in 0.9 % Sodium Chloride 100 ML IV ×5 (00:04→23:56)
[2023-12-21] MEDS: Heparin Sodium,Porcine 5,000 UNIT/ML VIAL 5000 UNIT SUBCUT ×3 (01:56→17:22)
[2023-12-21] MEDS: methADONE HCl 20 MG/2 ML ORAL.CONC 10 MG PO ×2 (03:01→12:37)
[2023-12-21] MEDS: Haloperidol Lactate 5 MG/ML VIAL 2 MG IM (03:02)
--- NOTE | 2023-12-21 04:12 | PC.NURSE ---
Addendum entered by Mert Dubon RN 12/21/23 05:43: SODIUM,POTASSIUM PHOSPHATE 2 PACLETS PO ORDERED..PATIENT UNABLE OR UNWILLING TO TAKE MORE THAN FEW SPOONS OF H20...MED HELD BY PROVIDER Original Note: CARE ASSUMED 7PM...NEUROLOGIC ASSESSMENT UNCHANGED OVER PAST 24 HOURS..AWAKE..AGITATED..YELLING INCOHERANTLY FREQUENTLY..CROSS BUT NOT TO COMMAND...REFUSED HS KLONOPIN AND HALDOL PO..SPITTING AND/OR BITING WITH ORAL CARE...PRN HALDOL/FENTANYL/METHADONE DOSES PER MAR WITH MINIMAL TO NO EFFECT....BILATERAL WRIST RESTRAINTS MAINTAINED FOR LINE SAFETY...PROVIDER AWARE....BP STABLE...O2 2 L/M CANNULA...SAO2 93-97%...OCASSIONALLY RAISES THICK LUIS-CREAM SPUTUM....[place] EXTERNAL CONDOM CATHETER COLLECTING YELLOW URINE...INCONTINANT LARGE LIQUIED BROWN STOOL ..HS DULCOLOX WI HELD..PER SHIFT REPORT PATIENT PREVIOUSLY INCONTINANT STOOL ON DAY SHIFT...NSR-S.TACH HR 90'S-110'S..RARE PAC..WEIGHER AND CHARGER PRESENT AND STATED PATIENT SPEAKING/YELLING NONSENSE .
[2023-12-21 04:17] LABS: VBG Base Excess 5.8 mmol/L; VBG HCO3 28 mmol/L (22-26); VBG pCO2 36 mmHg; VBG pH 7.51 (7.32-7.43); VBG pO2 48 mmHg
[2023-12-21 04:38] LABS: Venous Blood Gas Refer to POC result
[2023-12-21 04:44] LABS: MANUAL DIFF FLAG NO
[2023-12-21 04:47] LABS: Eosinophils Absolute Auto 0.1 X10*3/uL (0.0-0.4); Eosinophils Percent Auto 2.1 % (0-4); Hematocrit 26.2 % (42.0-52.0); Hemoglobin 8.6 g/dl (14.0-18.0); Imm Gran Abs Auto 0.02 X10*3/uL (0.00-0.03); Imm Gran Pct Auto 0.4 % (0.0-0.4); Lymphocytes Absolute Auto 0.8 X10*3/uL (1.2-4.9); Lymphocytes Percent Auto 16.9 % (20-40); Mean Corpuscular HGB Conc 32.8 g/dl (31.0-36.0); Mean Corpuscular Hemoglobin 33.1 pg (27.0-33.0); Mean Corpuscular Volume 100.8 fL (80.0-98.0); Mean Platelet Volume 11.5 fL (9.4-12.4); Monocytes Absolute Auto 0.5 X10*3/uL (0.1-1.2); Monocytes Percent Auto 9.8 % (2-11); Neutrophils Absolute Auto 3.4 x10*3/uL (2.0-8.3); Neutrophils Percent Auto 70.8 % (45-73); Red Cell Distribution Width 18.6 % (11.0-16.0); White Blood Count 4.8 X10*3/uL (4.8-10.8)
[2023-12-21 04:48] LABS: Platelet Count 67 X10*3/uL (160-400)
[2023-12-21 05:02] LABS: Alanine Aminotransferase 12 U/L (0-40); Albumin Level 2.9 g/dL (3.5-5.0); Alkaline Phosphatase 78 U/L (39-117); Anion Gap 17 (12-20); Aspartate Amino Transferase 25 U/L (5-37); Bilirubin Total 0.8 mg/dL (0.0-1.0); Blood Urea Nitrogen 18 mg/dL (9-16); Calcium 9.2 mg/dL (8.4-10.2); Carbon Dioxide 25 mmol/L (22-29); Chloride 112 mmol/L (96-108); Creatinine Clr Calc Pharmacy 81.4; Estimated Glomerular Filt Rate > 60; Glucose Random 72 mg/dL (60-115); Potassium 3.4 mmol/L (3.3-5.1); Sodium 151 mmol/L (135-145); Total Protein 6.1 g/dL (6.5-8.0)
--- NOTE | 2023-12-21 05:12 | PM.CCN ---
Critical Care Event Note Summary Date of Service: 12/21/23 Code activated: No Narrative: This case had a high probability of a clinically significant, sudden, or life threatening deterioration of this patient's condition which required my full and direct attention, intervention and personal management. Critical Care Time (minutes): 15 Comment: Pt has persistent shouting and screaming, he is not aggressive, soft restrains to avoid him from pulling on lines, taking po methadone and getting po psych meds. From the ICU perspective not doing much for him in the past 24 hours, was observed to ensure no further issues arise and he has been stable VSS labs reviewed this am; plts low but stable added mag and phos, replace prn Case discussed with Dr Albarran who recommends transferring patient to reg floor; case discussed with Dr Marks.
[2023-12-21 05:46] LABS: Magnesium 1.5 mg/dL (1.6-2.6); Phosphorus 2.7 mg/dL (2.7-4.5)
[2023-12-21] MEDS: 0.9 % Sodium Chloride Flush 3 ML SYRINGE IVFLUSH ×3 (07:51→21:56)
[2023-12-21] MEDS: Dextrose 5 % 1,000 ML 125 ML IVCONT ×2 (07:51→17:22)
[2023-12-21] MEDS: Albuterol/Iprat 2.5/0.5MG 3 ML AMPUL.NEB INHALE ×3 (08:29→19:03)
[2023-12-21] MEDS: methADONE HCl 20 MG/2 ML ORAL.CONC 40 MG PO (09:59)
[2023-12-21] MEDS: Clopidogrel Bisulfate 75 MG TABLET PO (10:00)
[2023-12-21] MEDS: Thiamine HCL 100 MG TABLET PO (10:00)
[2023-12-21] MEDS: Multivitamin TABLET 1 TAB PO (10:00)
--- NOTE | 2023-12-21 11:00 | MHC.CM.PN ---
Addendum entered by Melanie Foreman 12/23/23 10:20: PTS MENTATION IMPROVED, CM ABLE TO ASSIST PT IN COMPLETING A HCP ON 12/22/23, NOW ON FILE Original Note: Met with patient and his siblings in room 383. Patients Brother Denzel lives in [place]. He has agreed to become his brothers guardian. He signed the paperwork today. The documents were delivered to CM office.
--- NOTE | 2023-12-21 11:46 | HO.PM.IMPN ---
Subjective Subjective Date of Service: 12/21/23 Interval History: calmer, but compalining of pain, occasionally shouting out Physical Exam Vital Signs: Vital Signs: Last Vital Signs Temp 97.3 F 12/21/23 08:00 Pulse 64 12/21/23 11:21 Resp 18 12/21/23 11:21 BP 149/78 H 12/21/23 08:00 Pulse Ox 92 12/21/23 08:00 O2 Del Method Nasal Cannula 12/21/23 08:00 O2 Flow Rate 2 12/21/23 08:00 FiO2 35 12/19/23 07:00 BMI result Body Mass Index 36.0 awake, calmer but with some distress, confused, lungs clear Objective Data Active Medications Albuterol/Ipratropium (Albuterol/Iprat 2.5/0.5mg 3 Ml Ampul.Neb) 3 ml INHALE RQ4H WHILE AWAKE [facility] Last Admin: 12/21/23 11:21 Dose: 3 ml Documented By: LLOYD Bictegravir/Emtricitabine/Tenofovir (Bictegrav/Emtricit/Tenofov Ala Tablet) 1 tab PO DAILY [facility] Last Admin: 12/20/23 14:46 Dose: Not Given Documented By: DUANE Non-Admin Reason: Patient Refused Bisacodyl (Bisacodyl 10 Mg Supp.Rect) 10 mg UT BEDTIME [facility] Last Admin: 12/20/23 20:11 Dose: Not Given Documented By: KARLA Non-Admin Reason: diarrhea Clonazepam (Clonazepam 0.125 Mg Tab.Rapdis) 0.25 mg PO TID [facility] Last Admin: 12/21/23 10:00 Dose: 0.25 mg Documented By: BEV Clopidogrel Bisulfate (Clopidogrel Bisulfate 75 Mg Tablet) 75 mg PO DAILY [facility] Last Admin: 12/21/23 10:00 Dose: 75 mg Documented By: BEV Fentanyl (Fentanyl Citrate/Pf 100 Mcg/2 Ml Vial) 25 mcg IVPUSH Q2H PRN; Protocol PRN Reason: Pain, Moderate(Pain Scale 4-6) Last Admin: 12/21/23 03:02 Dose: 25 mcg Documented By: KARLA Haloperidol (Haloperidol 1 Mg Tablet) 2 mg PO TID [facility] Last Admin: 12/20/23 20:12 Dose: Not Given Documented By: KARLA Non-Admin Reason: Patient Refused Haloperidol Lactate (Haloperidol Lactate 5 Mg/Ml Vial) 2 mg IM Q4H PRN PRN Reason: Delirium Last Admin: 12/21/23 03:02 Dose: 2 mg Documented By: KARLA Heparin Sodium (Porcine) (Heparin Sodium,Porcine 5,000 Unit/Ml Vial) 5,000 unit SUBCUT Q8H [facility] Last Admin: 12/21/23 09:59 Dose: 5,000 unit Documented By: BEV Ampicillin Sodium/Sulbactam (Sodium 3 gm/ Sodium Chloride) 100 mls @ 200 mls/hr IV Q6H [facility] Last Infusion: 12/21/23 06:08 Dose: Infused Documented By: KARLA Dextrose (D5w) 1,000 mls @ 125 mls/hr IVCONT .Q8H [facility] Last Admin: 12/21/23 07:51 Dose: 125 mls/hr Documented By: BEV Methadone HCl (Methadone Hcl 20 Mg/2 Ml Oral.Conc) 10 mg PO DAILY PRN PRN Reason: Opiate Withdrawal Last Admin: 12/21/23 03:01 Dose: 10 mg Documented By: KARLA Co-signed By: BANDAR Methadone HCl (Methadone Hcl 20 Mg/2 Ml Oral.Conc) 40 mg PO DAILY [facility] Last Admin: 12/21/23 09:59 Dose: 40 mg Documented By: BEV Co-signed By: KAREN Multivitamins/Vitamin C (Multivitamin Tablet) 1 tab PO DAILY [facility] Last Admin: 12/21/23 10:00 Dose: 1 tab Documented By: BEV Sodium Chloride (0.9 % Sodium Chloride Flush 3 Ml Syringe) 3 ml IVFLUSH QSHIFT [facility] Last Admin: 12/21/23 07:51 Dose: 3 ml Documented By: BEV Thiamine HCl (Thiamine Hcl 100 Mg Tablet) 100 mg PO DAILY [facility] Last Admin: 12/21/23 10:00 Dose: 100 mg Documented By: BEV Labs 12/21/23 04:10 12/21/23 04:10 Labs: Laboratory Results - last 24 hr 12/17/23 12/20/23 12/21/23 15:17 15:49 04:07 MCV 98.4 H MCH 33.3 H MCHC 33.9 RDW 19.0 H Plt Count 62 L MPV 10.4 Immature Gran % (Auto) 3.0 H Neut % (Auto) 73.9 H Lymph % (Auto) 12.9 L [place] % (Auto) 7.7 Eos % (Auto) 2.3 Baso % (Auto) 0.2 Lymph # (Auto) 0.8 L [place] # (Auto) 0.5 Eos # (Auto) 0.1 Baso # (Auto) 0.0 Abs Immat Gran (auto) 0.18 H Absolute Neuts (auto) 4.4 Absolute Nucleated RBC 0.000 Nucleated RBC % (auto) 0.0 VBG pH 7.51 H VBG pCO2 36 VBG pO2 48 VBG HCO3 28 H VBG O2 Saturation 82.0 VBG Base Excess 5.8 Anion Gap Estim Creat Clear Calc Estimated GFR Random Glucose Calcium Phosphorus Magnesium Total Bilirubin AST ALT Alkaline Phosphatase Total Protein Albumin HIV-1 RNA copies/mL NOT DETECTED HIV-1 RNA logcopies/mL NOT DETECTED 12/21/23 04:10 MCV 100.8 H MCH 33.1 H MCHC 32.8 RDW 18.6 H Plt Count 67 L MPV 11.5 Immature Gran % (Auto) 0.4 Neut % (Auto) 70.8 Lymph % (Auto) 16.9 L [place] % (Auto) 9.8 Eos % (Auto) 2.1 Baso % (Auto) 0.0 Lymph # (Auto) 0.8 L [place] # (Auto) 0.5 Eos # (Auto) 0.1 Baso # (Auto) 0.0 Abs Immat Gran (auto) 0.02 Absolute Neuts (auto) 3.4 Absolute Nucleated RBC 0.000 Nucleated RBC % (auto) 0.0 VBG pH VBG pCO2 VBG pO2 VBG HCO3 VBG O2 Saturation VBG Base Excess Anion Gap 17 Estim Creat Clear Calc 81.4 Estimated GFR > 60 Random Glucose 72 Calcium 9.2 Phosphorus 2.7 Magnesium 1.5 L Total Bilirubin 0.8 AST 25 ALT 12 Alkaline Phosphatase 78 Total Protein 6.1 L Albumin 2.9 L HIV-1 RNA copies/mL HIV-1 RNA logcopies/mL Microbiology Microbiology Results: Microbiology 12/15/23 21:30 Blood Culture - Final Blood - Venous No growth after 5 days. 12/15/23 21:30 Blood Culture - Final Blood - Venous No growth after 5 days. Assessment and Plan (1) Delirium: Status: Acute Plan 68M PMH COPD, HIV, HCV, opioid, cocaine dependence, etoh dependence, wheelchair bound due to polio, mood disorder, presented with dental pain and sob to ED, found to be hypotensive, acidodic, chuck. admitted to icu with pressors, fluids, antibiotics, precedex drip. did not require HD, renal function improved. was downgraded 12/17/23, but became very agitated and transfered back to icu 12/18/23 for better control of agitation, stabilized and downgraded 12/21/23. course also complicated by hypernatremia Acute toxic metabolic encephalopathy Due to polysubstance abuse and now with withdrawal including opiates and cocaine Slowly improving, methadone p.r.n., Addiction team following Continue Klonopin, Haldol Dental abscess Continue Unasyn Acute hypoxic respiratory failure Possibly due to aspiration Continue Unasyn Wean O2 as tolerated Acute kidney injury Resolved Acute hypernatremia D5W, monitor History of polio Stable HIV Continue Biktarvy HCV Outpatient follow-up COPD Stable DVT prophylaxis with heparin subQ Full code reason for continued hospitalization: Mental status not back to baseline Quality Stroke Does the patient have a stroke diagnosis?: No VTE Prior VTE?: No VTE Risk Level:: Medical - moderate - high VTE Device Contraindication: N/A - Device Ordered VTE Drug Contraindication: N/A - Med Ordered
[2023-12-21] MEDS: Bictegrav/Emtricit/Tenofov Ala TABLET 1 TAB PO (11:59)
[2023-12-21] MEDS: HaloperidoL 1 MG TABLET 2 MG PO (12:01)
--- NOTE | 2023-12-21 14:12 | MHC.CLN ---
F/U PATIENT TRANSFERRED FROM ICU 12/19. DIET= PUREE CONSISTENCY. ADDING ENSURE TID TO PROMOTE NUTRITIONAL INTAKE. SUPPLEMENT PROVIDES 1050 KCALS, 60 G PROTEIN. SKIN WITH STAGE II TO RIGHT SACRUM. SUPPLEMENT APPROPRIATE TO PROMOTE WOUND HEALING. RECENT HX POOR PO. BUN/Cr IMPROVED SINCE ADM. SODIUM CONTINUES HIGH. ENCOURAGE PO INTAKE ABLE. FOLLOW FOR PO AND SKIN INTEGRITY.
--- NOTE | 2023-12-21 18:39 | PC.NURSE ---
Notified MD Blackman @ 1830. L hands swollen +1/2. Pt was complaining he cant move/feel it because the restraint still on his wrist. It wasnt too tight but i took it off any way. He wont follow a command to squeeze but he was able to eventually do a faint squeeze. and he will pull his arm away if i try to move it too much. I had switched his iv fluids to his other arm earlier d/t the swelling. saw pt @ bedside told this nurse he would order an ultrasound.
--- NOTE | 2023-12-21 19:51 | HO.ADDICTPRO ---
Subjective Subjective Date of Service: 12/21/23 Reason For Visit: Acute Renal Failure Interim History: Patient seen in room 383. Awake, alert, yelling out. Saying yes when asked if he wanted more methadone, but then quickly followed by more yelling. Receiving methadone 40mg in AM and 10mg PRN daily Review of Systems Review of Systems Yes Unobtainable due to mental status Mental Status Exam Mental Status Exam Level of Consciousness: Awake, Restless and Inappropriate Diagnostics Vital Signs (24Hr): Vital Signs - 24 hr 12/20/23 20:00 12/20/23 21:00 12/20/23 21:58 Temperature 97.6 F Pulse Rate 74 95 75 Respiratory Rate 16 18 12 Blood Pressure 132/70 133/55 L 135/62 Pulse Oximetry 96 92 94 Oxygen Delivery Method Nasal Cannula Nasal Cannula Nasal Cannula Oxygen Flow Rate 2 2 2 12/20/23 23:00 12/20/23 23:58 12/21/23 00:58 Temperature 99.2 F Pulse Rate 105 H 111 H 85 Respiratory Rate 26 H 21 H 13 Blood Pressure 130/82 131/62 153/59 H Pulse Oximetry 93 94 95 Oxygen Delivery Method Nasal Cannula Nasal Cannula Nasal Cannula Oxygen Flow Rate 2 2 2 12/21/23 01:55 12/21/23 03:00 12/21/23 03:54 Temperature Pulse Rate 116 H 107 H 92 Respiratory Rate 25 H 26 H 18 Blood Pressure 145/89 H 135/72 142/68 H Pulse Oximetry 94 93 Oxygen Delivery Method Nasal Cannula Nasal Cannula Oxygen Flow Rate 2 2 12/21/23 04:00 12/21/23 04:59 12/21/23 08:00 Temperature 97.3 F Pulse Rate 101 H 75 98 Respiratory Rate 22 H 15 18 Blood Pressure 140/72 H 137/64 149/78 H Pulse Oximetry 93 96 92 Oxygen Delivery Method Nasal Cannula Nasal Cannula Nasal Cannula Oxygen Flow Rate 2 2 2 12/21/23 08:29 12/21/23 11:21 12/21/23 12:18 Temperature 98.0 F Pulse Rate 98 64 102 H Respiratory Rate 18 18 18 Blood Pressure 138/76 Pulse Oximetry 93 Oxygen Delivery Method Nasal Cannula Oxygen Flow Rate 2 12/21/23 15:30 12/21/23 18:51 12/21/23 19:04 Temperature 97.4 F 97.5 F Pulse Rate 100 72 88 Respiratory Rate 18 18 18 Blood Pressure 134/72 136/82 Pulse Oximetry 93 93 Oxygen Delivery Method Nasal Cannula Nasal Cannula Oxygen Flow Rate 2 2 BMI result Body Mass Index 36.0 Labs 12/21/23 04:10 12/21/23 04:10 Labs: Laboratory Results - last 48 hr 12/17/23 12/20/23 12/20/23 15:17 05:29 05:31 WBC 4.7 L RBC 2.39 L Hgb 7.8 L Hct 24.0 L MCV 100.4 H MCH 32.6 MCHC 32.5 RDW 19.0 H Plt Count 63 L MPV 10.7 Immature Gran % (Auto) 0.4 Neut % (Auto) 69.3 Lymph % (Auto) 17.6 L [place] % (Auto) 10.2 Eos % (Auto) 2.5 Baso % (Auto) 0.0 Lymph # (Auto) 0.8 L [place] # (Auto) 0.5 Eos # (Auto) 0.1 Baso # (Auto) 0.0 Abs Immat Gran (auto) 0.02 Absolute Neuts (auto) 3.3 Absolute Nucleated RBC 0.000 Nucleated RBC % (auto) 0.0 VBG pH 7.52 H VBG pCO2 42 VBG pO2 36 VBG HCO3 35 H VBG O2 Saturation 60.0 VBG Base Excess 11.4 Sodium 149 H Potassium 3.0 L Chloride 110 H Carbon Dioxide 30 H Anion Gap 12 BUN 29 H Creatinine 0.98 Estim Creat Clear Calc 65.6 Estimated GFR > 60 Random Glucose 94 Calcium 9.1 Phosphorus 2.2 L Magnesium 1.5 L Total Bilirubin 0.8 AST 26 ALT 13 Alkaline Phosphatase 71 Total Protein 5.8 L Albumin 2.9 L HIV-1 RNA copies/mL NOT DETECTED HIV-1 RNA logcopies/mL NOT DETECTED 12/20/23 12/21/23 12/21/23 15:49 04:07 04:10 WBC 6.0 4.8 RBC 2.58 L 2.60 L Hgb 8.6 L 8.6 L Hct 25.4 L 26.2 L MCV 98.4 H 100.8 H MCH 33.3 H 33.1 H MCHC 33.9 32.8 RDW 19.0 H 18.6 H Plt Count 62 L 67 L MPV 10.4 11.5 Immature Gran % (Auto) 3.0 H 0.4 Neut % (Auto) 73.9 H 70.8 Lymph % (Auto) 12.9 L 16.9 L [place] % (Auto) 7.7 9.8 Eos % (Auto) 2.3 2.1 Baso % (Auto) 0.2 0.0 Lymph # (Auto) 0.8 L 0.8 L [place] # (Auto) 0.5 0.5 Eos # (Auto) 0.1 0.1 Baso # (Auto) 0.0 0.0 Abs Immat Gran (auto) 0.18 H 0.02 Absolute Neuts (auto) 4.4 3.4 Absolute Nucleated RBC 0.000 0.000 Nucleated RBC % (auto) 0.0 0.0 VBG pH 7.51 H VBG pCO2 36 VBG pO2 48 VBG HCO3 28 H VBG O2 Saturation 82.0 VBG Base Excess 5.8 Sodium 151 H Potassium 3.4 Chloride 112 H Carbon Dioxide 25 Anion Gap 17 BUN 18 H Creatinine 0.79 Estim Creat Clear Calc 81.4 Estimated GFR > 60 Random Glucose 72 Calcium 9.2 Phosphorus 2.7 Magnesium 1.5 L Total Bilirubin 0.8 AST 25 ALT 12 Alkaline Phosphatase 78 Total Protein 6.1 L Albumin 2.9 L HIV-1 RNA copies/mL HIV-1 RNA logcopies/mL Imaging Radiology Impressions: ITS Impressions Chest X-Ray 12/14/23 14:38 IMPRESSION: 1. Persistent hypoinflation of lungs. 2. Interval development of left lateral lung base airspace disease and small left pleural effusion. 3. Interval development of medial right lobe along infiltrates suggestive of pneumonia. 4. Unchanged severe right glenohumeral joint osteoarthritis. Electronically signed by: Ricardo Matos MD 12/14/2023 05:02 PM EDT Chest X-Ray 12/14/23 17:20 IMPRESSION: * No pneumothorax after right IJ line placement. * Lungs are hypoinflated and there is bibasilar opacities, likely atelectasis, although difficult to exclude any underlying lower lobe pneumonia on this limited evaluation. * Probable small left pleural effusion. Electronically signed by: Juno Guo MD 12/14/2023 05:38 PM EDT RP Abdomen/Pelvis CT 12/14/23 19:03 IMPRESSION: 1. Prominent emphysematous changes are redemonstrated. Bilateral posterior lower lobe consolidations with air bronchograms, new compared to the prior examination and concerning for early pneumonia. 2. No intra-abdominal mass, lymphadenopathy, or ascites. 3. No small or large bowel obstruction. Sigmoid diverticulosis without evidence of acute diverticulitis. Unremarkable appendix. 4. No hydronephrosis or nephrolithiasis. Electronically signed by: Nick Tang MD 12/14/2023 09:07 PM EDT RP Chest CT 12/14/23 19:36 IMPRESSION: 1. Prominent emphysematous changes are redemonstrated. Bilateral posterior lower lobe consolidations with air bronchograms, new compared to the prior examination and concerning for early pneumonia. 2. No intra-abdominal mass, lymphadenopathy, or ascites. 3. No small or large bowel obstruction. Sigmoid diverticulosis without evidence of acute diverticulitis. Unremarkable appendix. 4. No hydronephrosis or nephrolithiasis. Electronically signed by: Nick Tang MD 12/14/2023 09:07 PM EDT RP Face CT 12/14/23 19:36 IMPRESSION: 1. Lucency adjacent to the root of the left maxillary canine which extends through the peripheral maxillary cortex, consistent with a periapical abscess. No adjacent organized fluid collection or soft tissue abscess. 2. Air-fluid level and secretions within the right maxillary sinus as well as within the sphenoid sinuses which could represent a degree of acute sinusitis. Electronically signed by: Nick Tang MD 12/14/2023 09:32 PM EDT RP Head CT 12/14/23 19:36 IMPRESSION: No acute intracranial pathology. Electronically signed by: Bryant Pink MD 12/14/2023 08:51 PM EDT RP Chest X-Ray 12/18/23 11:20 IMPRESSION: Worsening pulmonary aeration with increased right greater than left bibasilar airspace opacities. Unchanged small left-sided pleural effusion. Electronically signed by: Zo Trujillo MD 12/18/2023 12:47 PM EDT RP Chest X-Ray 12/19/23 09:50 IMPRESSION: Low lung volumes with bibasilar atelectasis and consolidation, unchanged. Electronically signed by: Justyn Torres MD 12/19/2023 02:28 PM EDT RP Medications Medications Current Medications Albuterol/Ipratropium (Albuterol/Iprat 2.5/0.5mg 3 Ml Ampul.Neb) 3 ml INHALE RQ4H WHILE AWAKE [facility] Last Admin: 12/21/23 19:03 Dose: 3 ml Bictegravir/Emtricitabine/Tenofovir (Bictegrav/Emtricit/Tenofov Ala Tablet) 1 tab PO DAILY [facility] Last Admin: 12/21/23 11:59 Dose: 1 tab Bisacodyl (Bisacodyl 10 Mg Supp.Rect) 10 mg [place] BEDTIME [facility] Last Admin: 12/20/23 20:11 Dose: Not Given Clonazepam (Clonazepam 0.125 Mg Tab.Rapdis) 0.25 mg PO TID [facility] Last Admin: 12/21/23 15:14 Dose: 0.25 mg Clopidogrel Bisulfate (Clopidogrel Bisulfate 75 Mg Tablet) 75 mg PO DAILY [facility] Last Admin: 12/21/23 10:00 Dose: 75 mg Fentanyl (Fentanyl Citrate/Pf 100 Mcg/2 Ml Vial) 25 mcg IVPUSH Q2H PRN; Protocol PRN Reason: Pain, Moderate(Pain Scale 4-6) Last Admin: 12/21/23 03:02 Dose: 25 mcg Haloperidol Lactate (Haloperidol Lactate 5 Mg/Ml Vial) 2 mg IM Q4H PRN PRN Reason: Delirium Last Admin: 12/21/23 03:02 Dose: 2 mg Heparin Sodium (Porcine) (Heparin Sodium,Porcine 5,000 Unit/Ml Vial) 5,000 unit SUBCUT Q8H [facility] Last Admin: 12/21/23 17:22 Dose: 5,000 unit Ampicillin Sodium/Sulbactam (Sodium 3 gm/ Sodium Chloride) 100 mls @ 200 mls/hr IV Q6H [facility] Last Infusion: 12/21/23 18:15 Dose: Infused Dextrose (D5w) 1,000 mls @ 125 mls/hr IVCONT .Q8H [facility] Last Admin: 12/21/23 17:22 Dose: 125 mls/hr Methadone HCl (Methadone Hcl 20 Mg/2 Ml Oral.Conc) 10 mg PO DAILY PRN PRN Reason: Opiate Withdrawal Last Admin: 12/21/23 12:37 Dose: 10 mg Methadone HCl (Methadone Hcl 20 Mg/2 Ml Oral.Conc) 40 mg PO DAILY [facility] Last Admin: 12/21/23 09:59 Dose: 40 mg Multivitamins/Vitamin C (Multivitamin Tablet) 1 tab PO DAILY [facility] Last Admin: 12/21/23 10:00 Dose: 1 tab Sodium Chloride (0.9 % Sodium Chloride Flush 3 Ml Syringe) 3 ml IVFLUSH QSHIFT [facility] Last Admin: 12/21/23 17:35 Dose: 3 ml Thiamine HCl (Thiamine Hcl 100 Mg Tablet) 100 mg PO DAILY [facility] Last Admin: 12/21/23 10:00 Dose: 100 mg Allergies Allergies Allergy/AdvReac Type Severity Reaction Status Date / Time No Known Allergies Allergy Verified 12/14/23 14:48 Assessment & Plan Assessment & Plan (1) Opioid use disorder: Status: Acute Code(s): F11.90 - Opioid use, unspecified, uncomplicated Assessment and Plan: no change to methadone orders --unclear if his behaviors are related to withdrawal, anxiety or anything else. His baseline is still unclear, but it appears his yelling out is not new would be helpful to obtain and document patient's baseline cognitive function as this can assist in management of sx please document any loose stools, yawning or diaphoresis. document amount of time patient sleeps and at what times Total time managing care of this patient today ____ minutes.
[2023-12-21] MEDS: bisacodyL 10 MG SUPP.RECT PR (21:49)
[2023-12-21] MEDS: Morphine Sulfate 2 MG/ML CARTRIDGE IVPUSH (23:57)
[2023-12-22] VITALS (8 sets, daily range): BP systolic 128–136; BP diastolic 66–82; PULSE 77–103; RESP 16–20; TEMP 35.9–36.8; O2SAT 90–99
[2023-12-22] MEDS: Dextrose 5 % 1,000 ML 125 ML IVCONT ×3 (00:34→21:35)
--- NOTE | 2023-12-22 00:49 | PC.NURSE ---
Addendum entered by Neena Neri RN 12/22/23 06:55: Patient slept a total of 1.5 hours in short increments overnight. Original Note: Assumed care of patient at 19:00. Pt remains alert, difficult to assess orientation due to confusion and pt is quite resistive to/uncooperative with care despite dryerman/woman used. Pt frequently yelling out that he wants to go home, yelling at staff to get out and refusing to answer questions during care. Restraints reported discontinued earlier this evening. Pt continues with in-room camera and 1:1 sitter to maintain patient IV for abx, safety including aspiration precautions. Ultrasound of LUE previously ordered was done around 20:00 this evening. Hand remains swollen 1-2+ edema. Equal +radial pulses, +cms. IV to left arm removed as it did not flush on speech writer's assessment. Continues with IV to RUE for D5W and abx. Difficult to assess pain due to cognitive impairment at this time. Prn medications reviewed and discussed with Dr. Marks; fentanyl and haldol orders discontinued, replaced with MD orders for morphine IVP and prn zyprexa IM. Morphine given with some effect, patient appearing more comfortable/drowsy, resting in bed. Breathing is even and unlabored without distress. HSQ held per MD for low plts. SCDs in place. Q2h turning and repositioning.
[2023-12-22] MEDS: Ampicillin Sodium/Sulbactam Na 3 GM in 0.9 % Sodium Chloride 100 ML IV ×3 (05:17→17:31)
[2023-12-22] MEDS: Morphine Sulfate 2 MG/ML CARTRIDGE IVPUSH ×2 (05:17→21:35)
[2023-12-22] MEDS: Albuterol/Iprat 2.5/0.5MG 3 ML AMPUL.NEB INHALE (07:31)
[2023-12-22 08:01] LABS: Hematocrit 29.4 % (42.0-52.0); Hemoglobin 9.6 g/dl (14.0-18.0); Mean Corpuscular HGB Conc 32.7 g/dl (31.0-36.0); Mean Corpuscular Hemoglobin 33.1 pg (27.0-33.0); Mean Corpuscular Volume 101.4 fL (80.0-98.0); PLT CLUMP 1; Red Cell Distribution Width 18.1 % (11.0-16.0)
[2023-12-22 08:29] LABS: Anion Gap 14 (12-20); Blood Urea Nitrogen 11 mg/dL (9-16); Carbon Dioxide 23 mmol/L (22-29); Chloride 110 mmol/L (96-108); Creatinine Clr Calc Pharmacy 88.1; Estimated Glomerular Filt Rate > 60; Glucose Fasting 87 mg/dL (60-99); Magnesium 1.4 mg/dL (1.6-2.6); Phosphorus 2.6 mg/dL (2.7-4.5); Potassium 3.2 mmol/L (3.3-5.1); Sodium 144 mmol/L (135-145)
[2023-12-22 08:37] LABS: Platelet Count 51 X10*3/uL (160-400)
[2023-12-22 08:38] LABS: Mean Platelet Volume 12.3 fL (9.4-12.4)
[2023-12-22] MEDS: Magnesium Oxide 400 MG TABLET PO ×2 (09:23→17:24)
[2023-12-22] MEDS: Multivitamin TABLET 1 TAB PO (09:24)
[2023-12-22] MEDS: Clopidogrel Bisulfate 75 MG TABLET PO (09:24)
[2023-12-22] MEDS: Potassium Chloride ER 20 MEQ TAB.ER.PRT 40 MEQ PO (09:24)
[2023-12-22] MEDS: Bictegrav/Emtricit/Tenofov Ala TABLET 1 TAB PO (09:24)
[2023-12-22] MEDS: Thiamine HCL 100 MG TABLET PO (09:24)
[2023-12-22] MEDS: methADONE HCl 20 MG/2 ML ORAL.CONC 40 MG PO (09:24)
--- NOTE | 2023-12-22 09:31 | P.PNIM_ITS ---
Subjective Subjective Date of Service: 12/22/23 Interval History: calmer, but compalining of pain, occasionally shouting out Physical Exam 2 Vital Signs: Vital Signs: Last Vital Signs Temp 97.5 F 12/22/23 07:44 Pulse 99 12/22/23 07:44 Resp 20 12/22/23 07:44 BP 136/66 12/22/23 07:44 Pulse Ox 99 12/22/23 07:44 O2 Del Method Nasal Cannula 12/22/23 07:44 O2 Flow Rate 2 12/22/23 07:44 FiO2 35 12/19/23 07:00 BMI result Body Mass Index 36.0 awake, calmer but with some distress, confused, lungs clear Objective Data Active Medications Bictegravir/Emtricitabine/Tenofovir (Bictegrav/Emtricit/Tenofov Ala Tablet) 1 tab PO DAILY [facility] Last Admin: 12/21/23 11:59 Dose: 1 tab Documented By: DEO Bisacodyl (Bisacodyl 10 Mg Supp.Rect) 10 mg [place] BEDTIME [facility] Last Admin: 12/21/23 21:49 Dose: 10 mg Documented By: DANDRE Clonazepam (Clonazepam 0.125 Mg Tab.Rapdis) 0.25 mg PO TID [facility] Last Admin: 12/21/23 21:48 Dose: 0.25 mg Documented By: DANDRE Clopidogrel Bisulfate (Clopidogrel Bisulfate 75 Mg Tablet) 75 mg PO DAILY [facility] Last Admin: 12/21/23 10:00 Dose: 75 mg Documented By: BEV Ampicillin Sodium/Sulbactam (Sodium 3 gm/ Sodium Chloride) 100 mls @ 200 mls/hr IV Q6H [facility] Last Infusion: 12/22/23 05:47 Dose: Infused Documented By: DANDRE Dextrose (D5w) 1,000 mls @ 125 mls/hr IVCONT .Q8H [facility] Last Infusion: 12/22/23 05:47 Dose: 125 mls/hr Documented By: DANDRE Magnesium Oxide (Magnesium Oxide 400 Mg Tablet) 400 mg PO BIDPC [facility] Methadone HCl (Methadone Hcl 20 Mg/2 Ml Oral.Conc) 10 mg PO DAILY PRN PRN Reason: Opiate Withdrawal Last Admin: 12/21/23 12:37 Dose: 10 mg Documented By: DEO Co-signed By: NAYA Methadone HCl (Methadone Hcl 20 Mg/2 Ml Oral.Conc) 40 mg PO DAILY [facility] Last Admin: 12/21/23 09:59 Dose: 40 mg Documented By: BEV Co-signed By: KAREN Methadone HCl (Methadone Hcl 20 Mg/2 Ml Oral.Conc) 20 mg PO DAILY@2000 [facility] Mirtazapine (Mirtazapine 7.5 Mg Tablet) 7.5 mg PO BEDTIME [facility] Morphine Sulfate (Morphine Sulfate 2 Mg/Ml Cartridge) 2 mg IVPUSH Q4H PRN; Protocol PRN Reason: Pain, Severe (Pain Scale 7-10) Last Admin: 12/22/23 05:17 Dose: 2 mg Documented By: DANDRE Multivitamins/Vitamin C (Multivitamin Tablet) 1 tab PO DAILY [facility] Last Admin: 12/21/23 10:00 Dose: 1 tab Documented By: BEV Olanzapine (Olanzapine 10 Mg Vial) 5 mg IM Q6H PRN PRN Reason: anxiety/restlessness Sodium Chloride (0.9 % Sodium Chloride Flush 3 Ml Syringe) 3 ml IVFLUSH QSHIFT [facility] Last Admin: 12/22/23 07:16 Dose: Not Given Documented By: ASAD Non-Admin Reason: IV Running Thiamine HCl (Thiamine Hcl 100 Mg Tablet) 100 mg PO DAILY [facility] Last Admin: 12/21/23 10:00 Dose: 100 mg Documented By: BEV Labs 12/22/23 07:24 12/22/23 07:22 Labs: Laboratory Results - last 24 hr 12/22/23 12/22/23 07:22 07:24 MCV 101.4 H MCH 33.1 H MCHC 32.7 RDW 18.1 H Plt Count 51 L MPV 12.3 Absolute Nucleated RBC 0.000 Nucleated RBC % (auto) 0.0 Anion Gap 14 Estim Creat Clear Calc 88.1 Estimated GFR > 60 Fasting Glucose 87 Calcium 9.0 Phosphorus 2.6 L Magnesium 1.4 L* Assessment and Plan (1) Delirium: Status: Acute Plan 68M PMH COPD, HIV, HCV, opioid, cocaine dependence, etoh dependence, wheelchair bound due to polio, mood disorder, presented with dental pain and sob to ED, found to be hypotensive, acidodic, chuck. admitted to icu with pressors, fluids, antibiotics, precedex drip. did not require HD, renal function improved. was downgraded 12/17/23, but became very agitated and transfered back to icu 12/18/23 for better control of agitation, stabilized and downgraded 12/21/23. course also complicated by hypernatremia Acute toxic metabolic encephalopathy Due to polysubstance abuse and now with withdrawal including opiates and cocaine Slowly improving, methadone p.r.n., Addiction team following Continue Klonopin, Haldol Dental abscess Continue Unasyn Acute hypoxic respiratory failure Possibly due to aspiration Continue Unasyn Wean O2 as tolerated, improved Acute kidney injury Resolved Acute hypernatremia D5W, monitor, improving acute hypomagnesemia replace and monitor History of polio Stable HIV Continue Biktarvy HCV Outpatient follow-up COPD Stable DVT prophylaxis with heparin subQ Full code reason for continued hospitalization: Mental status not back to baseline Quality Stroke Does the patient have a stroke diagnosis?: No VTE Prior VTE?: No VTE Risk Level:: Medical - moderate - high VTE Device Contraindication: N/A - Device Ordered VTE Drug Contraindication: N/A - Med Ordered
[2023-12-22 10:30] LABS: White Blood Count 5.5 X10*3/uL (4.8-10.8)
--- NOTE | 2023-12-22 15:34 | HO.WOUND ---
Wound Consult: Attempted Follow up 68yr old? [place] [facility] - See progress notes and H&P for detailed history.? Wound consult follow up for Left Buttock wound POA. Arrival to bedside patient was in chair and unable to be positioned for assessment - will follow up at future date and or time when in bed for assessment. Original details from 12/15/23 Wound Consult: Initial 68yr old? male admitted [place] [facility] [place] - See progress notes and H&P for detailed history.? Wound consult placed for Left Buttock wound POA.? Patient is intubated and critically ill in ICU. The wound was not assessed in person as photo was recently uploaded to chart for review. Patient is critically ill and at continued risk for skin injury. In place currently are all preventative measures to protect from further skin break down. SHAN mattress in place, Wedges used for turning and repositions, Heel protector boots in place, sacral foam dressing in place along with Triad and Nutrition following. Right Sacrum Etiology: Suspect Stage 2 Pressure Injury -??Present on Admission (Not assessed in person) Measurements: unknown from photo review Wound Bed: pink wound bed with observable thin yellow white slough may indicate greater than stage 2 will assess in person a future date and time Drainage / Odor: not able to assess at this time - slight maceration noted to periwound Edges: ? well defined [place] wound: ?hyperpigmentation noted Pain: Intubated Goals of Treatment: ? Triad and foam dressing to aid in autolytic moist wound healing and protection from moisture and friction and aid in off loading pressure and protection Recommendations: 1. Turn and Reposition every 2 hours and as needed for patient comfort.? Use pillows or wedges to support off loading positions. 2. Off Load all bony prominences with use of pillows and heel boots if needed.? Apply Preventative foams where needed. ? 3. Monitor for incontinence and moisture control, use barrier creams when needed for prevention and treatment. 4. Provide adequate and supplemental nutrition.? 5. Continue low air loss mattress. 6. When applicable maintain blood glucose levels per Providers order. 7. Sacrum - Off Load Pressure? - Cleanse with PH balance spray or wipes, pat dry. ?Apply thin layer of Triad to wound bed. Do not remove all of paste between applications as this may cause further skin damage.? Cover with foam dressing to aid in off loading and protection from friction. Change every other day and PRN. Re-consult wound care Nurse for wound deterioration or wound changes.
[2023-12-22] MEDS: Mirtazapine 7.5 MG TABLET PO (19:23)
[2023-12-22] MEDS: methADONE HCl 20 MG/2 ML ORAL.CONC PO (19:25)
[2023-12-23] VITALS (7 sets, daily range): BP systolic 117–138; BP diastolic 63–79; PULSE 70–97; RESP 17–20; TEMP 36–36.5; O2SAT 90–95
[2023-12-23] MEDS: Ampicillin Sodium/Sulbactam Na 3 GM in 0.9 % Sodium Chloride 100 ML IV ×5 (00:14→23:45)
[2023-12-23] MEDS: 0.9 % Sodium Chloride Flush 3 ML SYRINGE IVFLUSH ×3 (00:15→14:41)
[2023-12-23] MEDS: Morphine Sulfate 2 MG/ML CARTRIDGE IVPUSH ×2 (02:07→05:36)
[2023-12-23] MEDS: Dextrose 5 % 1,000 ML 125 ML IVCONT (05:44)
[2023-12-23] MEDS: Albuterol/Iprat 2.5/0.5MG 3 ML AMPUL.NEB INHALE ×2 (06:35→11:52)
[2023-12-23] MEDS: methADONE HCl 20 MG/2 ML ORAL.CONC 40 MG PO (08:10)
[2023-12-23] MEDS: Thiamine HCL 100 MG TABLET PO (08:11)
[2023-12-23] MEDS: Multivitamin TABLET 1 TAB PO (08:11)
[2023-12-23] MEDS: Bictegrav/Emtricit/Tenofov Ala TABLET 1 TAB PO (08:11)
[2023-12-23] MEDS: Clopidogrel Bisulfate 75 MG TABLET PO (08:11)
[2023-12-23] MEDS: Magnesium Oxide 400 MG TABLET PO ×2 (08:11→17:43)
--- NOTE | 2023-12-23 09:24 | P.PNIM_ITS ---
Subjective Subjective Date of Service: 12/23/23 Interval History: no complaints Physical Exam 2 Vital Signs: Vital Signs: Last Vital Signs Temp 97.0 F 12/23/23 07:24 Pulse 88 12/23/23 07:24 Resp 18 12/23/23 07:24 BP 138/79 12/23/23 07:24 Pulse Ox 92 12/23/23 07:24 O2 Del Method Nasal Cannula 12/23/23 07:24 O2 Flow Rate 2 12/23/23 07:24 FiO2 35 12/19/23 07:00 BMI result Body Mass Index 36.0 more alert, talking some gabonese, but confused, much more calm, but still occasionally agitated, paraplegia Objective Data Active Medications Albuterol/Ipratropium (Albuterol/Iprat 2.5/0.5mg 3 Ml Ampul.Neb) 3 ml INHALE Q4H PRN PRN Reason: Wheezing Last Admin: 12/23/23 06:35 Dose: 3 ml Documented By: CORA Bictegravir/Emtricitabine/Tenofovir (Bictegrav/Emtricit/Tenofov Ala Tablet) 1 tab PO DAILY [facility] Last Admin: 12/23/23 08:11 Dose: 1 tab Documented By: EVELIN Bisacodyl (Bisacodyl 10 Mg Supp.Rect) 10 mg [place] BEDTIME [facility] Last Admin: 12/22/23 19:42 Dose: Not Given Documented By: PATY Non-Admin Reason: loose stool Clonazepam (Clonazepam 0.125 Mg Tab.Rapdis) 0.25 mg PO TID [facility] Last Admin: 12/23/23 08:11 Dose: 0.25 mg Documented By: EVELIN Clopidogrel Bisulfate (Clopidogrel Bisulfate 75 Mg Tablet) 75 mg PO DAILY [facility] Last Admin: 12/23/23 08:11 Dose: 75 mg Documented By: EVELIN Ampicillin Sodium/Sulbactam (Sodium 3 gm/ Sodium Chloride) 100 mls @ 200 mls/hr IV Q6H [facility] Last Infusion: 12/23/23 06:40 Dose: Infused Documented By: PATY Magnesium Oxide (Magnesium Oxide 400 Mg Tablet) 400 mg PO BIDPC [facility] Last Admin: 12/23/23 08:11 Dose: 400 mg Documented By: EVELIN Methadone HCl (Methadone Hcl 20 Mg/2 Ml Oral.Conc) 10 mg PO DAILY PRN PRN Reason: Opiate Withdrawal Last Admin: 12/21/23 12:37 Dose: 10 mg Documented By: DEO Co-signed By: NAYA Methadone HCl (Methadone Hcl 20 Mg/2 Ml Oral.Conc) 40 mg PO DAILY [facility] Last Admin: 12/23/23 08:10 Dose: 40 mg Documented By: EVELIN Co-signed By: PRASHANTH Methadone HCl (Methadone Hcl 20 Mg/2 Ml Oral.Conc) 20 mg PO DAILY@1999 [facility] Last Admin: 12/22/23 19:25 Dose: 20 mg Documented By: PATY Co-signed By: VERNA Mirtazapine (Mirtazapine 7.5 Mg Tablet) 7.5 mg PO BEDTIME [facility] Last Admin: 12/22/23 19:23 Dose: 7.5 mg Documented By: PATY Morphine Sulfate (Morphine Sulfate 2 Mg/Ml Cartridge) 2 mg IVPUSH Q4H PRN; Protocol PRN Reason: Pain, Severe (Pain Scale 7-10) Last Admin: 12/23/23 05:36 Dose: 2 mg Documented By: PATY Multivitamins/Vitamin C (Multivitamin Tablet) 1 tab PO DAILY [facility] Last Admin: 12/23/23 08:11 Dose: 1 tab Documented By: EVELIN Olanzapine (Olanzapine 10 Mg Vial) 5 mg IM Q6H PRN PRN Reason: anxiety/restlessness Sodium Chloride (0.9 % Sodium Chloride Flush 3 Ml Syringe) 3 ml IVFLUSH QSHIFT [facility] Last Admin: 12/23/23 07:24 Dose: 3 ml Documented By: EVELIN Thiamine HCl (Thiamine Hcl 100 Mg Tablet) 100 mg PO DAILY [facility] Last Admin: 12/23/23 08:11 Dose: 100 mg Documented By: EVELIN Labs 12/22/23 07:24 12/22/23 07:22 Assessment and Plan (1) Delirium: Status: Acute Plan 68M PMH COPD, HIV, HCV, opioid, cocaine dependence, etoh dependence, wheelchair bound due to polio, mood disorder, presented with dental pain and sob to ED, found to be hypotensive, acidodic, chuck. admitted to icu with pressors, fluids, antibiotics, precedex drip. did not require HD, renal function improved. was downgraded 12/17/23, but became very agitated and transfered back to icu 12/18/23 for better control of agitation, stabilized and downgraded 12/21/23. course also complicated by hypernatremia Acute toxic metabolic encephalopathy Due to polysubstance abuse and now with withdrawal including opiates and cocaine Slowly improving, methadone p.r.n., Addiction team following Continue Klonopin, dced Haldol Dental abscess Continue Unasyn day 6 Acute hypoxic respiratory failure Possibly due to aspiration Continue Unasyn day 6 Wean O2 as tolerated, improved Acute kidney injury Resolved Acute hypernatremia D5W, monitor, improving acute hypomagnesemia replace and monitor History of polio with paraplegia with acute illness related weakness, pt appreciated would benefit from STR to regain upper body strength for self transfers to wheelchair. HIV Continue Biktarvy HCV Outpatient follow-up COPD Stable DVT prophylaxis with heparin subQ Full code reason for continued hospitalization: Mental status not back to baseline Quality Stroke Does the patient have a stroke diagnosis?: No VTE Prior VTE?: No VTE Risk Level:: Medical - moderate - high VTE Device Contraindication: N/A - Device Ordered VTE Drug Contraindication: N/A - Med Ordered
--- NOTE | 2023-12-23 10:58 | HO.WOUND ---
Wound Consult: Follow up 68yr old? male admitted to [facility] [place]14[place]23 - See progress notes and H&P for detailed history.? Wound consult follow up for Right Sacral wound POA.? SHAN in place - wedges in use and nutrition following. No new topical recommendations needed at this time. Right Sacrum 12/15/23 Right Sacrum 12/23/23 Etiology: Resolving Stage 2 Pressure Injury -??Present on Admission Measurements: 0.3cm x 0.2cm x 0.1cm Wound Bed: dry pink wound bed Drainage / Odor: None Edges: ? well defined Tiara wound: ?hyperpigmentation noted and dry epidermal layer Pain: denies Goals of Treatment: ? Triad and foam dressing to aid in autolytic moist wound healing and protection from moisture and friction and aid in off loading pressure and protection Recommendations: 1. Turn and Reposition every 2 hours and as needed for patient comfort.? Use pillows or wedges to support off loading positions. 2. Off Load all bony prominences with use of pillows and heel boots if needed.? Apply Preventative foams where needed. ? 3. Monitor for incontinence and moisture control, use barrier creams when needed for prevention and treatment. 4. Provide adequate and supplemental nutrition.? 5. Continue low air loss mattress. 6. When applicable maintain blood glucose levels per Providers order. 7. Sacrum - Off Load Pressure? - Cleanse with PH balance spray or wipes, pat dry. ?Apply thin layer of Triad to wound bed. Do not remove all of paste between applications as this may cause further skin damage.? Cover with foam dressing to aid in off loading and protection from friction. Change every other day and PRN. Re-consult wound care Nurse for wound deterioration or wound changes.
--- NOTE | 2023-12-23 13:29 | MHC.CLN ---
F/U DIET= PUREE CONSISTENCY. ENSURE TID TO PROMOTE NUTRITIONAL INTAKE. SUPPLEMENT PROVIDES 1050 KCALS, 60 G PROTEIN. SKIN WITH STAGE II TO RIGHT SACRUM. SUPPLEMENT APPROPRIATE TO PROMOTE WOUND HEALING. CONTINUES WITH USUALLY POOR PO INTAKE. ENCOURAGE PO INTAKE ABLE. FOLLOW FOR PO INTAKE AND SKIN INTEGRITY.
--- NOTE | 2023-12-23 16:06 | MHC.CM.PN ---
PT AWAITING STR PLACEMENT, THERE ARE NO BED OFFERS AT THIS TIME, REFERRAL HAS BEEN EXPANDED
--- NOTE | 2023-12-23 16:56 | PM.EVENT ---
Event Note Date of Service: 12/23/23 Event Note: Addiction note Methadone dose adjusted increased to 50mg in AM and 10mg in evening goal is to have all dosing in AM prior to discharge please continue to document hours patient slept overnight Time Spent With Patient Time: Total time managing care of this patient today ____ minutes.
[2023-12-23] MEDS: methADONE HCl 20 MG/2 ML ORAL.CONC 10 MG PO (20:54)
[2023-12-23] MEDS: Mirtazapine 7.5 MG TABLET PO (20:56)
[2023-12-24 01:16] VITALS: PULSE 72; RESP 17; O2SAT 94
[2023-12-24] MEDS: Albuterol/Iprat 2.5/0.5MG 3 ML AMPUL.NEB INHALE ×3 (01:16→21:19)
[2023-12-24] MEDS: Ampicillin Sodium/Sulbactam Na 3 GM in 0.9 % Sodium Chloride 100 ML IV (05:39)
[2023-12-24 06:38] LABS: Hematocrit 30.4 % (42.0-52.0); Hemoglobin 9.9 g/dl (14.0-18.0); Mean Corpuscular HGB Conc 32.6 g/dl (31.0-36.0); Mean Corpuscular Hemoglobin 33.3 pg (27.0-33.0); Mean Corpuscular Volume 102.4 fL (80.0-98.0); Mean Platelet Volume 12.2 fL (9.4-12.4); Platelet Count 111 X10*3/uL (160-400); Red Blood Count 2.97 X10*6/uL (4.60-5.80); Red Cell Distribution Width 17.9 % (11.0-16.0); White Blood Count 5.6 X10*3/uL (4.8-10.8)
[2023-12-24 07:08] LABS: Anion Gap 13 (12-20); Blood Urea Nitrogen 8 mg/dL (9-16); Calcium 9.2 mg/dL (8.4-10.2); Carbon Dioxide 25 mmol/L (22-29); Chloride 108 mmol/L (96-108); Creatinine Clr Calc Pharmacy 89.3; Estimated Glomerular Filt Rate > 60; Glucose Fasting 69 mg/dL (60-99); Potassium 3.8 mmol/L (3.3-5.1); Sodium 142 mmol/L (135-145)
[2023-12-24] MEDS: methADONE HCl 20 MG/2 ML ORAL.CONC 50 MG PO (07:42)
[2023-12-24 08:00] VITALS: BP 131/74; PULSE 79; RESP 16; TEMP 36.3; O2SAT 92
[2023-12-24] MEDS: 0.9 % Sodium Chloride Flush 3 ML SYRINGE IVFLUSH ×3 (08:00→21:38)
[2023-12-24 08:04] VITALS: PULSE 72; RESP 17; O2SAT 93
--- NOTE | 2023-12-24 11:11 | HO.PM.IMPN ---
Subjective Subjective Date of Service: 12/24/23 Interval History: eager to go home Physical Exam Vital Signs: Vital Signs: Last Vital Signs Temp 97.3 F 12/24/23 08:00 Pulse 72 12/24/23 08:04 Resp 17 12/24/23 08:04 BP 131/74 12/24/23 08:00 Pulse Ox 92 12/24/23 08:00 O2 Del Method Nasal Cannula 12/24/23 08:00 O2 Flow Rate 3 12/24/23 08:00 FiO2 35 12/19/23 07:00 BMI result Body Mass Index 36.0 more alert, talking some [place], less confused, much more calm, but still occasionally agitated, paraplegia Objective Data Active Medications Albuterol/Ipratropium (Albuterol/Iprat 2.5/0.5mg 3 Ml Ampul.Neb) 3 ml INHALE Q4H PRN PRN Reason: Wheezing Last Admin: 12/24/23 08:04 Dose: 3 ml Documented By: BRINA Bictegravir/Emtricitabine/Tenofovir (Bictegrav/Emtricit/Tenofov Ala Tablet) 1 tab PO DAILY [facility] Last Admin: 12/23/23 08:11 Dose: 1 tab Documented By: EVELIN Bisacodyl (Bisacodyl 10 Mg Supp.Rect) 10 mg DE BEDTIME [facility] Last Admin: 12/23/23 20:53 Dose: Not Given Documented By: ASHLY Non-Admin Reason: Patient Refused Clonazepam (Clonazepam 0.125 Mg Tab.Rapdis) 0.25 mg PO TID [facility] Last Admin: 12/23/23 20:56 Dose: 0.25 mg Documented By: ASHLY Clopidogrel Bisulfate (Clopidogrel Bisulfate 75 Mg Tablet) 75 mg PO DAILY [facility] Last Admin: 12/23/23 08:11 Dose: 75 mg Documented By: EVELIN Ampicillin Sodium/Sulbactam (Sodium 3 gm/ Sodium Chloride) 100 mls @ 200 mls/hr IV Q6H [facility] Last Infusion: 12/24/23 06:40 Dose: Infused Documented By: ASHLY Magnesium Oxide (Magnesium Oxide 400 Mg Tablet) 400 mg PO BIDPC [facility] Last Admin: 12/23/23 17:43 Dose: 400 mg Documented By: EVELIN Methadone HCl (Methadone Hcl 20 Mg/2 Ml Oral.Conc) 10 mg PO DAILY@1999 [facility] Last Admin: 12/23/23 20:54 Dose: 10 mg Documented By: ASHLY Co-signed By: PATY Methadone HCl (Methadone Hcl 20 Mg/2 Ml Oral.Conc) 50 mg PO DAILY [facility] Last Admin: 12/24/23 07:42 Dose: 50 mg Documented By: DUANE Co-signed By: NAYA Mirtazapine (Mirtazapine 7.5 Mg Tablet) 7.5 mg PO BEDTIME [facility] Last Admin: 12/23/23 20:56 Dose: 7.5 mg Documented By: ASHLY Multivitamins/Vitamin C (Multivitamin Tablet) 1 tab PO DAILY [facility] Last Admin: 12/23/23 08:11 Dose: 1 tab Documented By: EVELIN Olanzapine (Olanzapine 10 Mg Vial) 5 mg IM Q6H PRN PRN Reason: anxiety/restlessness Sodium Chloride (0.9 % Sodium Chloride Flush 3 Ml Syringe) 3 ml IVFLUSH QSHIFT [facility] Last Admin: 12/24/23 00:01 Dose: Not Given Documented By: ASHLY Non-Admin Reason: IV Running Thiamine HCl (Thiamine Hcl 100 Mg Tablet) 100 mg PO DAILY [facility] Last Admin: 12/23/23 08:11 Dose: 100 mg Documented By: EVELIN Labs 12/24/23 05:26 12/24/23 05:26 Labs: Laboratory Results - last 24 hr 12/24/23 05:26 MCV 102.4 H MCH 33.3 H MCHC 32.6 RDW 17.9 H Plt Count 111 L D MPV 12.2 Absolute Nucleated RBC 0.000 Nucleated RBC % (auto) 0.0 Anion Gap 13 Estim Creat Clear Calc 89.3 Estimated GFR > 60 Fasting Glucose 69 Calcium 9.2 Assessment and Plan (1) Delirium: Status: Acute Plan 68M PMH COPD, HIV, HCV, opioid, cocaine dependence, etoh dependence, wheelchair bound due to polio, mood disorder, presented with dental pain and sob to ED, found to be hypotensive, acidodic, chuck. admitted to icu with pressors, fluids, antibiotics, precedex drip. did not require HD, renal function improved. was downgraded 12/17/23, but became very agitated and transfered back to icu 12/18/23 for better control of agitation, stabilized and downgraded 12/21/23. course also complicated by hypernatremia Acute toxic metabolic encephalopathy Due to polysubstance abuse and now with withdrawal including opiates and cocaine Slowly improving, methadone p.r.n., Addiction team following Continue Klonopin dced Haldol Dental abscess completed unasyn Acute hypoxic respiratory failure Possibly due to aspiration completed unasyn Wean O2 as tolerated, improved Acute kidney injury Resolved Acute hypernatremia resolved acute hypomagnesemia replace and monitor History of polio with paraplegia with acute illness related weakness, pt appreciated would benefit from STR to regain upper body strength for self transfers to wheelchair. HIV Continue Biktarvy HCV Outpatient follow-up COPD Stable DVT prophylaxis with heparin subQ Full code reason for continued hospitalization: placement Quality Stroke Does the patient have a stroke diagnosis?: No VTE Prior VTE?: No VTE Risk Level:: Medical - moderate - high VTE Device Contraindication: N/A - Device Ordered VTE Drug Contraindication: N/A - Med Ordered
[2023-12-24] MEDS: Bictegrav/Emtricit/Tenofov Ala TABLET 1 TAB PO (11:42)
[2023-12-24] MEDS: Clopidogrel Bisulfate 75 MG TABLET PO (11:42)
[2023-12-24] MEDS: Magnesium Oxide 400 MG TABLET PO ×2 (11:43→17:23)
[2023-12-24] MEDS: Multivitamin TABLET 1 TAB PO (11:43)
[2023-12-24 16:00] VITALS: BP 131/70; PULSE 94; RESP 16; TEMP 36.5; O2SAT 94
[2023-12-24 21:20] VITALS: PULSE 84; RESP 16; O2SAT 94
[2023-12-24] MEDS: Mirtazapine 7.5 MG TABLET PO (21:33)
[2023-12-24] MEDS: methADONE HCl 20 MG/2 ML ORAL.CONC 10 MG PO (21:34)
[2023-12-24 23:54] VITALS: BP 135/89; PULSE 88; RESP 16; TEMP 36.2; O2SAT 97
[2023-12-25] MEDS: Enoxaparin Sodium 40 MG/0.4 ML SYRINGE SUBCUT (03:00)
--- NOTE | 2023-12-25 04:23 | PC.NURSE ---
Pt refused compression therapy via sequential stockings. This RN educated to pt the importance of the sequential stockings to prevent blood clots. Pt became easily agitated and refused to put them back on. MD Marks made aware of the situation. New order of Lovenox 40mg SUBCUT Q24HR was placed. This RN was able to administered medication to pt without any refusal. Bilateral lower extremities off load with pillow. Bed in lowest position with call her within reach. Will continue to monitor. Plan of care ongoing.
[2023-12-25 08:00] VITALS: BP 113/81; PULSE 78; RESP 12; TEMP 36.2; O2SAT 95
[2023-12-25] MEDS: Multivitamin TABLET 1 TAB PO (09:03)
[2023-12-25] MEDS: methADONE HCl 20 MG/2 ML ORAL.CONC 50 MG PO (09:03)
[2023-12-25] MEDS: Thiamine HCL 100 MG TABLET PO (09:03)
[2023-12-25] MEDS: Magnesium Oxide 400 MG TABLET PO ×2 (09:03→17:40)
[2023-12-25] MEDS: Bictegrav/Emtricit/Tenofov Ala TABLET 1 TAB PO (09:03)
[2023-12-25] MEDS: Clopidogrel Bisulfate 75 MG TABLET PO (09:03)
--- NOTE | 2023-12-25 09:06 | P.PNIM_ITS ---
Subjective Subjective Date of Service: 12/25/23 Interval History: eager to go home Physical Exam 2 Vital Signs: Vital Signs: Last Vital Signs Temp 97.2 F 12/25/23 08:00 Pulse 78 12/25/23 08:00 Resp 12 12/25/23 08:00 BP 113/81 12/25/23 08:00 Pulse Ox 95 12/25/23 08:00 O2 Del Method Nasal Cannula 12/25/23 08:00 O2 Flow Rate 3 12/25/23 08:00 FiO2 35 12/19/23 07:00 BMI result Body Mass Index 36.0 more alert, talking some [place], less confused, much more calm, but still occasionally agitated, paraplegia Objective Data Active Medications Albuterol/Ipratropium (Albuterol/Iprat 2.5/0.5mg 3 Ml Ampul.Neb) 3 ml INHALE Q4H PRN PRN Reason: Wheezing Last Admin: 12/24/23 21:19 Dose: 3 ml Documented By: KATELYNN Bictegravir/Emtricitabine/Tenofovir (Bictegrav/Emtricit/Tenofov Ala Tablet) 1 tab PO DAILY [facility] Last Admin: 12/24/23 11:42 Dose: 1 tab Documented By: DUANE Bisacodyl (Bisacodyl 10 Mg Supp.Rect) 10 mg AL BEDTIME [facility] [place] Last Admin: 12/24/23 21:03 Dose: Not Given Documented By: ASHLY Non-Admin Reason: Patient Refused Clonazepam (Clonazepam 0.125 Mg Tab.Rapdis) 0.25 mg PO TID [facility] [place] Last Admin: 12/24/23 21:33 Dose: 0.25 mg Documented By: ASHLY Clopidogrel Bisulfate (Clopidogrel Bisulfate 75 Mg Tablet) 75 mg PO DAILY [facility] [place] Last Admin: 12/24/23 11:42 Dose: 75 mg Documented By: DUANE Enoxaparin Sodium (Enoxaparin Sodium 40 Mg/0.4 Ml Syringe) 40 mg SUBCUT Q24H [facility] [place] Last Admin: 12/25/23 03:00 Dose: 40 mg Documented By: ASHLY Magnesium Oxide (Magnesium Oxide 400 Mg Tablet) 400 mg PO BIDPC [facility] [place] Last Admin: 12/24/23 17:23 Dose: 400 mg Documented By: DUANE Methadone HCl (Methadone Hcl 20 Mg/2 Ml Oral.Conc) 10 mg PO DAILY@1999 [facility] [place] Last Admin: 12/24/23 21:34 Dose: 10 mg Documented By: ASHLY Co-signed By: TERRENCE Methadone HCl (Methadone Hcl 20 Mg/2 Ml Oral.Conc) 50 mg PO DAILY [facility] [place] Last Admin: 12/24/23 07:42 Dose: 50 mg Documented By: DUANE Co-signed By: NAYA Mirtazapine (Mirtazapine 7.5 Mg Tablet) 7.5 mg PO BEDTIME [facility] [place] Last Admin: 12/24/23 21:33 Dose: 7.5 mg Documented By: ASHLY Multivitamins/Vitamin C (Multivitamin Tablet) 1 tab PO DAILY [facility] [place] Last Admin: 12/24/23 11:43 Dose: 1 tab Documented By: DUANE Olanzapine (Olanzapine 10 Mg Vial) 5 mg IM Q6H PRN PRN Reason: anxiety/restlessness Sodium Chloride (0.9 % Sodium Chloride Flush 3 Ml Syringe) 3 ml IVFLUSH QSHIFT [facility] [place] Last Admin: 12/24/23 21:38 Dose: 3 ml Documented By: ASHLY Thiamine HCl (Thiamine Hcl 100 Mg Tablet) 100 mg PO DAILY [facility] [place] Last Admin: 12/24/23 11:52 Dose: Not Given Documented By: DUANE Non-Admin Reason: Patient Refused Labs 12/24/23 05:26 12/24/23 05:26 Assessment and Plan (1) Delirium: Status: Acute Plan 68M PMH COPD, HIV, HCV, opioid, cocaine dependence, etoh dependence, wheelchair bound due to polio, mood disorder, presented with dental pain and sob to ED, found to be hypotensive, acidodic, chuck. admitted to icu with pressors, fluids, antibiotics, precedex drip. did not require HD, renal function improved. was downgraded 12/17/23, but became very agitated and transfered back to icu 12/18/23 for better control of agitation, stabilized and downgraded 12/21/23. course also complicated by hypernatremia Acute toxic metabolic encephalopathy Due to polysubstance abuse and now with withdrawal including opiates and cocaine Slowly improving, methadone p.r.n., Addiction team following Continue Klonopin Dental abscess completed unasyn Acute hypoxic respiratory failure Possibly due to aspiration completed unasyn Wean O2 as tolerated, improved Acute kidney injury Resolved Acute hypernatremia resolved acute hypomagnesemia replaced History of polio with paraplegia with acute illness related weakness, pt appreciated would benefit from STR to regain upper body strength for self transfers to wheelchair. HIV Continue Biktarvy HCV Outpatient follow-up COPD Stable DVT prophylaxis with heparin subQ Full code reason for continued hospitalization: placement Quality Stroke Does the patient have a stroke diagnosis?: No VTE Prior VTE?: No VTE Risk Level:: Medical - moderate - high VTE Device Contraindication: N/A - Device Ordered VTE Drug Contraindication: N/A - Med Ordered
[2023-12-25] MEDS: 0.9 % Sodium Chloride Flush 3 ML SYRINGE IVFLUSH ×3 (09:11→21:13)
--- NOTE | 2023-12-25 09:19 | PC.NURSE ---
Clonidipine patch from 12/17 admineed by JESUSITA agrawal RN to L chest removed by this RN witnessed by Giovanny Sierra RN
--- NOTE | 2023-12-25 09:24 | PC.NURSE ---
Clonidiine patch from 12/17 administered by ICU to L chest removed by this RN witnessed by Giovanny Sierra RN
[2023-12-25] MEDS: Albuterol/Iprat 2.5/0.5MG 3 ML AMPUL.NEB INHALE ×2 (10:57→21:46)
[2023-12-25 10:58] VITALS: PULSE 96; RESP 22; O2SAT 92
--- NOTE | 2023-12-25 13:20 | HO.ADDICTPRO ---
Subjective Subjective Date of Service: 12/25/23 Reason For Visit: Acute Renal Failure Interim History: Patient seen in follow up Awake, alert, watching TV upon arrival Answering questions appropriately--sometimes challenging to understand as he mumbles and then goes on a tangent when answering questions. He reports he is comfortable with current dose of methadone State he had previously been prescribed methadone and dose was 125mg. Unclear when this was. He reports that prior to admission, he was using approx a bundle of heroin/fentanyl daily. Asked about his sleep, he states the bed is hard and makes it uncomfortable for him. He expressed gratitude to this automotive service writer for coming to see him Review of Systems Constitutional: Reports as per HPI and Reports no additional constitutional complaints Mental Status Exam Mental Status Exam Patient Appearance: Appropriate Level of Consciousness: Awake, Appropriate and Alert Patient Behavior: Talkative and Cooperative Mood Description: Calm and Appropriate Affect Description: Appropriate Speech Pattern: Mumbled Diagnostics Vital Signs (24Hr): Vital Signs - 24 hr 12/24/23 16:00 12/24/23 21:20 12/24/23 23:54 Temperature 97.7 F 97.1 F Pulse Rate 94 84 88 Respiratory Rate 16 16 16 Blood Pressure 131/70 135/89 Pulse Oximetry 94 97 Oxygen Delivery Method Nasal Cannula Nasal Cannula Oxygen Flow Rate 3 2 12/25/23 08:00 12/25/23 10:58 Temperature 97.2 F Pulse Rate 78 96 Respiratory Rate 12 22 H Blood Pressure 113/81 Pulse Oximetry 95 Oxygen Delivery Method Nasal Cannula Oxygen Flow Rate 3 BMI result Body Mass Index 36.0 Labs 12/24/23 05:26 12/24/23 05:26 Labs: Laboratory Results - last 48 hr 12/24/23 05:26 WBC 5.6 RBC 2.97 L Hgb 9.9 L Hct 30.4 L MCV 102.4 H MCH 33.3 H MCHC 32.6 RDW 17.9 H Plt Count 111 L D MPV 12.2 Absolute Nucleated RBC 0.000 Nucleated RBC % (auto) 0.0 Sodium 142 Potassium 3.8 Chloride 108 Carbon Dioxide 25 Anion Gap 13 BUN 8 L Creatinine 0.72 Estim Creat Clear Calc 89.3 Estimated GFR > 60 Fasting Glucose 69 Calcium 9.2 Imaging Radiology Impressions: ITS Impressions Chest X-Ray 12/14/23 14:38 IMPRESSION: 1. Persistent hypoinflation of lungs. 2. Interval development of left lateral lung base airspace disease and small left pleural effusion. 3. Interval development of medial right lobe along infiltrates suggestive of pneumonia. 4. Unchanged severe right glenohumeral joint osteoarthritis. Electronically signed by: Ricardo Matos MD 12/14/2023 05:02 PM EDT RP Chest X-Ray 12/14/23 17:20 IMPRESSION: * No pneumothorax after right IJ line placement. * Lungs are hypoinflated and there is bibasilar opacities, likely atelectasis, although difficult to exclude any underlying lower lobe pneumonia on this limited evaluation. * Probable small left pleural effusion. Electronically signed by: Juno Guo MD 12/14/2023 05:38 PM EDT RP Abdomen/Pelvis CT 12/14/23 19:03 IMPRESSION: 1. Prominent emphysematous changes are redemonstrated. Bilateral posterior lower lobe consolidations with air bronchograms, new compared to the prior examination and concerning for early pneumonia. 2. No intra-abdominal mass, lymphadenopathy, or ascites. 3. No small or large bowel obstruction. Sigmoid diverticulosis without evidence of acute diverticulitis. Unremarkable appendix. 4. No hydronephrosis or nephrolithiasis. Electronically signed by: Nick Tang MD 12/14/2023 09:07 PM EDT RP Chest CT 12/14/23 19:36 IMPRESSION: 1. Prominent emphysematous changes are redemonstrated. Bilateral posterior lower lobe consolidations with air bronchograms, new compared to the prior examination and concerning for early pneumonia. 2. No intra-abdominal mass, lymphadenopathy, or ascites. 3. No small or large bowel obstruction. Sigmoid diverticulosis without evidence of acute diverticulitis. Unremarkable appendix. 4. No hydronephrosis or nephrolithiasis. Electronically signed by: Nick Tang MD 12/14/2023 09:07 PM EDT RP Face CT 12/14/23 19:36 IMPRESSION: 1. Lucency adjacent to the root of the left maxillary canine which extends through the peripheral maxillary cortex, consistent with a periapical abscess. No adjacent organized fluid collection or soft tissue abscess. 2. Air-fluid level and secretions within the right maxillary sinus as well as within the sphenoid sinuses which could represent a degree of acute sinusitis. Electronically signed by: Nick Tang MD 12/14/2023 09:32 PM EDT RP Head CT 12/14/23 19:36 IMPRESSION: No acute intracranial pathology. Electronically signed by: Bryant Pink MD 12/14/2023 08:51 PM EDT RP Chest X-Ray 12/18/23 11:20 IMPRESSION: Worsening pulmonary aeration with increased right greater than left bibasilar airspace opacities. Unchanged small left-sided pleural effusion. Electronically signed by: Zo Trujillo MD 12/18/2023 12:47 PM EDT RP Chest X-Ray 12/19/23 09:50 IMPRESSION: Low lung volumes with bibasilar atelectasis and consolidation, unchanged. Electronically signed by: Justyn Torres MD 12/19/2023 02:28 PM EDT RP KUB X-Ray 12/21/23 15:50 IMPRESSION: Findings as above. Electronically signed by: Amrik Quinn MD 12/21/2023 09:45 PM EDT RP Venous Duplex 12/21/23 19:50 IMPRESSION: No evidence of deep venous thrombosis involving the left upper extremity. Electronically signed by: Pacheco Acosta MD 12/22/2023 01:43 AM EDT RP Medications Medications Current Medications Albuterol/Ipratropium (Albuterol/Iprat 2.5/0.5mg 3 Ml Ampul.Neb) 3 ml INHALE Q4H PRN PRN Reason: Wheezing Last Admin: 12/25/23 10:57 Dose: 3 ml Bictegravir/Emtricitabine/Tenofovir (Bictegrav/Emtricit/Tenofov Ala Tablet) 1 tab PO DAILY [facility] Last Admin: 12/25/23 09:03 Dose: 1 tab Bisacodyl (Bisacodyl 10 Mg Supp.Rect) 10 mg DC BEDTIME [facility] Last Admin: 12/24/23 21:03 Dose: Not Given Clonazepam (Clonazepam 0.125 Mg Tab.Rapdis) 0.25 mg PO TID [facility] Last Admin: 12/25/23 09:02 Dose: 0.25 mg Clopidogrel Bisulfate (Clopidogrel Bisulfate 75 Mg Tablet) 75 mg PO DAILY [facility] Last Admin: 12/25/23 09:03 Dose: 75 mg Enoxaparin Sodium (Enoxaparin Sodium 40 Mg/0.4 Ml Syringe) 40 mg SUBCUT Q24H [facility] Last Admin: 12/25/23 03:00 Dose: 40 mg Magnesium Oxide (Magnesium Oxide 400 Mg Tablet) 400 mg PO BIDPC [facility] Last Admin: 12/25/23 09:03 Dose: 400 mg Methadone HCl (Methadone Hcl 20 Mg/2 Ml Oral.Conc) 50 mg PO DAILY [facility] Last Admin: 12/25/23 09:03 Dose: 50 mg Mirtazapine (Mirtazapine 7.5 Mg Tablet) 7.5 mg PO BEDTIME [facility] Last Admin: 12/24/23 21:33 Dose: 7.5 mg Multivitamins/Vitamin C (Multivitamin Tablet) 1 tab PO DAILY [facility] Last Admin: 12/25/23 09:03 Dose: 1 tab Olanzapine (Olanzapine 10 Mg Vial) 5 mg IM Q6H PRN PRN Reason: anxiety/restlessness Sodium Chloride (0.9 % Sodium Chloride Flush 3 Ml Syringe) 3 ml IVFLUSH QSHIFT [facility] Last Admin: 12/25/23 09:11 Dose: 3 ml Thiamine HCl (Thiamine Hcl 100 Mg Tablet) 100 mg PO DAILY [facility] Last Admin: 12/25/23 09:03 Dose: 100 mg Allergies Allergies Allergy/AdvReac Type Severity Reaction Status Date / Time No Known Allergies Allergy Verified 12/14/23 14:48 Assessment & Plan Assessment & Plan (1) Opioid use disorder: Status: Acute Code(s): F11.90 - Opioid use, unspecified, uncomplicated Assessment and Plan: continue AM dose of methadone decrease HS dose to 5mg continue to follow and adjust dosing as needed Total time managing care of this patient today ____ minutes.
[2023-12-25 16:00] VITALS: BP 114/65; PULSE 80; RESP 14; TEMP 36.2; O2SAT 95
[2023-12-25] MEDS: Mirtazapine 7.5 MG TABLET PO (20:59)
[2023-12-25] MEDS: methADONE HCl 20 MG/2 ML ORAL.CONC 5 MG PO (20:59)
[2023-12-25 21:47] VITALS: PULSE 100; RESP 16; O2SAT 90
[2023-12-25 23:06] VITALS: BP 120/65; PULSE 98; RESP 19; TEMP 36.5; O2SAT 92
[2023-12-26] MEDS: Enoxaparin Sodium 40 MG/0.4 ML SYRINGE SUBCUT (00:50)
[2023-12-26 06:03] VITALS: PULSE 94; RESP 19; O2SAT 90
[2023-12-26] MEDS: Albuterol/Iprat 2.5/0.5MG 3 ML AMPUL.NEB INHALE ×3 (06:03→21:45)
[2023-12-26 07:05] VITALS: BP 115/68; PULSE 88; RESP 18; TEMP 36.4; O2SAT 95
--- NOTE | 2023-12-26 08:27 | MHC.CM.PN ---
PT AWAITING STR PLACEMENT [facility] IS REVIEWING, BUT LIKELY WILL NOT RESPOND BEFORE 12/27/23, WHEN THEIR ADMINISTRATORS RETURN
[2023-12-26] MEDS: Magnesium Oxide 400 MG TABLET PO ×2 (08:28→16:29)
[2023-12-26] MEDS: Bictegrav/Emtricit/Tenofov Ala TABLET 1 TAB PO (08:28)
[2023-12-26] MEDS: methADONE HCl 20 MG/2 ML ORAL.CONC 50 MG PO (08:28)
[2023-12-26] MEDS: Thiamine HCL 100 MG TABLET PO (08:28)
[2023-12-26] MEDS: Clopidogrel Bisulfate 75 MG TABLET PO (08:28)
[2023-12-26] MEDS: Multivitamin TABLET 1 TAB PO (08:28)
[2023-12-26] MEDS: 0.9 % Sodium Chloride Flush 3 ML SYRINGE IVFLUSH ×2 (08:29→16:30)
--- NOTE | 2023-12-26 09:38 | P.PNIM_ITS ---
Subjective Subjective Date of Service: 12/26/23 Interval History: much calmer, more appropriate and participatory Physical Exam 2 Vital Signs: Vital Signs: Last Vital Signs Temp 97.5 F 12/26/23 07:05 Pulse 88 12/26/23 07:05 Resp 18 12/26/23 07:05 BP 115/68 12/26/23 07:05 Pulse Ox 95 12/26/23 07:05 O2 Del Method Nasal Cannula 12/26/23 07:05 O2 Flow Rate 2 12/26/23 07:05 FiO2 35 12/19/23 07:00 BMI result Body Mass Index 36.0 more alert, talking some greek, less confused, much more calm, paraplegia Objective Data Active Medications Albuterol/Ipratropium (Albuterol/Iprat 2.5/0.5mg 3 Ml Ampul.Neb) 3 ml INHALE Q4H PRN PRN Reason: Wheezing Last Admin: 12/26/23 06:03 Dose: 3 ml Documented By: KATELYNN Bictegravir/Emtricitabine/Tenofovir (Bictegrav/Emtricit/Tenofov Ala Tablet) 1 tab PO DAILY [facility] Last Admin: 12/26/23 08:28 Dose: 1 tab Documented By: LADAN Bisacodyl (Bisacodyl 10 Mg Supp.Rect) 10 mg [place] BEDTIME [facility] Last Admin: 12/25/23 20:59 Dose: Not Given Documented By: ASHLY Non-Admin Reason: Patient Refused Clopidogrel Bisulfate (Clopidogrel Bisulfate 75 Mg Tablet) 75 mg PO DAILY [facility] Last Admin: 12/26/23 08:28 Dose: 75 mg Documented By: LADAN Enoxaparin Sodium (Enoxaparin Sodium 40 Mg/0.4 Ml Syringe) 40 mg SUBCUT Q24H [facility] Last Admin: 12/26/23 00:50 Dose: 40 mg Documented By: ASHLY Magnesium Oxide (Magnesium Oxide 400 Mg Tablet) 400 mg PO BIDPC [facility] Last Admin: 12/26/23 08:28 Dose: 400 mg Documented By: LADAN Methadone HCl (Methadone Hcl 20 Mg/2 Ml Oral.Conc) 50 mg PO DAILY [facility] Last Admin: 12/26/23 08:28 Dose: 50 mg Documented By: LADAN Co-signed By: NAYA Methadone HCl (Methadone Hcl 20 Mg/2 Ml Oral.Conc) 5 mg PO BEDTIME [facility] Last Admin: 12/25/23 20:59 Dose: 5 mg Documented By: ASHLY Co-signed By: PATY Mirtazapine (Mirtazapine 7.5 Mg Tablet) 7.5 mg PO BEDTIME [facility] Last Admin: 12/25/23 20:59 Dose: 7.5 mg Documented By: ASHLY Multivitamins/Vitamin C (Multivitamin Tablet) 1 tab PO DAILY [facility] Last Admin: 12/26/23 08:28 Dose: 1 tab Documented By: LADAN Olanzapine (Olanzapine 10 Mg Vial) 5 mg IM Q6H PRN PRN Reason: anxiety/restlessness Sodium Chloride (0.9 % Sodium Chloride Flush 3 Ml Syringe) 3 ml IVFLUSH QSHIFT [facility] Last Admin: 12/26/23 08:29 Dose: 3 ml Documented By: LADAN Thiamine HCl (Thiamine Hcl 100 Mg Tablet) 100 mg PO DAILY [facility] Last Admin: 12/26/23 08:28 Dose: 100 mg Documented By: LADAN Labs 12/24/23 05:26 12/24/23 05:26 Assessment and Plan (1) Delirium: Status: Acute Plan 68M PMH COPD, HIV, HCV, opioid, cocaine dependence, etoh dependence, wheelchair bound due to polio, mood disorder, presented with dental pain and sob to ED, found to be hypotensive, acidodic, chuck. admitted to icu with pressors, fluids, antibiotics, precedex drip. did not require HD, renal function improved. was downgraded 12/17/23, but became very agitated and transfered back to icu 12/18/23 for better control of agitation, stabilized and downgraded 12/21/23. course also complicated by hypernatremia Acute toxic metabolic encephalopathy Due to polysubstance abuse and now with withdrawal including opiates and cocaine continues to improve, methadone p.r.n., Addiction team following Continue Klonopin dysphagia HEARING THERAPY DIRECTOR following Dental abscess completed unasyn Acute hypoxic respiratory failure Possibly due to aspiration completed unasyn Wean O2 as tolerated, improved Acute kidney injury Resolved Acute hypernatremia resolved acute hypomagnesemia replaced History of polio with paraplegia with acute illness related weakness, pt appreciated would benefit from STR to regain upper body strength for self transfers to wheelchair. HIV Continue Biktarvy HCV Outpatient follow-up COPD Stable DVT prophylaxis with heparin subQ Full code reason for continued hospitalization: placement Quality Stroke Does the patient have a stroke diagnosis?: No VTE Prior VTE?: No VTE Risk Level:: Medical - moderate - high VTE Device Contraindication: N/A - Device Ordered VTE Drug Contraindication: N/A - Med Ordered
[2023-12-26 12:48] VITALS: PULSE 110; RESP 22; O2SAT 93
[2023-12-26 15:07] VITALS: BP 115/60; PULSE 81; RESP 16; TEMP 36.6; O2SAT 96
--- NOTE | 2023-12-26 15:12 | MHC.CLN ---
F/U PER DIRECTOR OF RETAIL ANALYTICS, DIET CONSISTENCY CHANGED TO REGULAR. ENNSURE TID TO PROMOTE NUTRITIONAL INTAKE. SUPPLEMENT PROVIDES 1050 KCALS, 60 G PROTEIN. SKIN WITH STAGE II TO RIGHT SACRUM. SUPPLEMENT APPROPRIATE TO PROMOTE WOUND HEALING. MOST RECENT INTAKE 25-50%. ENCOURAGE PO INTAKE ABLE. FOLLOW FOR PO INTAKE AND SKIN INTEGRITY.
[2023-12-26] MEDS: methADONE HCl 20 MG/2 ML ORAL.CONC 5 MG PO (20:01)
[2023-12-26] MEDS: Mirtazapine 7.5 MG TABLET PO (20:02)
[2023-12-26 21:45] VITALS: PULSE 81; RESP 16; O2SAT 93
[2023-12-26 22:58] VITALS: BP 103/44; PULSE 98; RESP 19; TEMP 36.5; O2SAT 95
[2023-12-27] MEDS: 0.9 % Sodium Chloride Flush 3 ML SYRINGE IVFLUSH ×2 (00:55→08:16)
[2023-12-27] MEDS: Enoxaparin Sodium 40 MG/0.4 ML SYRINGE SUBCUT (00:56)
[2023-12-27 05:28] VITALS: PULSE 72; RESP 14; O2SAT 98
[2023-12-27] MEDS: Albuterol/Iprat 2.5/0.5MG 3 ML AMPUL.NEB INHALE ×2 (05:28→16:21)
[2023-12-27 07:16] VITALS: BP 112/77; PULSE 89; RESP 16; TEMP 36.2; O2SAT 93
[2023-12-27] MEDS: Multivitamin TABLET 1 TAB PO (08:12)
[2023-12-27] MEDS: Clopidogrel Bisulfate 75 MG TABLET PO (08:12)
[2023-12-27] MEDS: methADONE HCl 20 MG/2 ML ORAL.CONC 50 MG PO (08:12)
[2023-12-27] MEDS: Magnesium Oxide 400 MG TABLET PO ×2 (08:12→17:52)
[2023-12-27] MEDS: Bictegrav/Emtricit/Tenofov Ala TABLET 1 TAB PO (08:12)
[2023-12-27] MEDS: Thiamine HCL 100 MG TABLET PO (08:12)
--- NOTE | 2023-12-27 08:48 | P.CDIM_ITS ---
PROVIDER RESPONSE TEXT: To clarify, the appropriate diagnosis supported by the clinical indicators: Pressure (decubitus) ulcer stage 2, right sacrum present on admission: stage 2 QUERY TEXT: PHYSICIAN'S DOCUMENTATION REQUEST Date of Query: 12/27/2023 08:32 AM EDT Patient Name: Wes Calderon Admit Date: 12/15/2023 Dear Marshall Oconnor MD, A review of the medical record indicates additional documentation may be needed. Please review below and update the documentation accordingly. Clinical Indicators: Per Wound Note 12/23/23: Right sacral stage 2 pressure injury, present on admission Triad and foam dressing to aid in autolytic moist wound healing and protection from moisture and fric tion and aid in off loading pressure and protection Based on the above, could you please provide further information regarding the ulcer/wound: Diabetic ulcer Please specify the location and laterality of the ulcer/wound Venous stasis ulcer Please specify the location and laterality of the ulcer/wound Arterial (ischemic) ulcer Please specify the location and laterality of the ulcer/wound Pressure (decubitus) ulcer stage 2, right sacrum present on admission Please include the stage of the ulcer and specify the location and laterality of the ulcer/wound Traumatic wound Please specify the location and laterality of the ulcer/wound Non-healing surgical wound Please specify the location and laterality of the ulcer/wound Other (explain) Clinically unable to determine (explain) Thank you, Michelle Malhotra RN Use of terms such as suspected, likely, concern for, or probable (associated with a specific diagnosi s that is being evaluated, monitored, or treated as if it exists) are acceptable and can be coded in the inpatient se tting, when documented at the time of discharge. Please use your independent medical judgment in providing your response. THIS QUERY IS PART OF THE PERMANENT MEDICAL RECORD
--- NOTE | 2023-12-27 08:59 | HO.PM.IMPN ---
Subjective Subjective Date of Service: 12/27/23 Interval History: stable, alert, no complaints, much calmer Physical Exam Vital Signs: Vital Signs: Last Vital Signs Temp 97.2 F 12/27/23 07:16 Pulse 89 12/27/23 07:16 Resp 16 12/27/23 07:16 BP 112/77 12/27/23 07:16 Pulse Ox 93 12/27/23 07:16 O2 Del Method Nasal Cannula 12/27/23 07:16 O2 Flow Rate 2 12/27/23 07:16 FiO2 35 12/19/23 07:00 BMI result Body Mass Index 36.0 more alert, talking some bulgarian, less confused, much more calm, paraplegia Objective Data Active Medications Albuterol/Ipratropium (Albuterol/Iprat 2.5/0.5mg 3 Ml Ampul.Neb) 3 ml INHALE Q4H PRN PRN Reason: Wheezing Last Admin: 12/27/23 05:28 Dose: 3 ml Documented By: PATRICK Bictegravir/Emtricitabine/Tenofovir (Bictegrav/Emtricit/Tenofov Ala Tablet) 1 tab PO DAILY [facility] Last Admin: 12/27/23 08:12 Dose: 1 tab Documented By: DEO Bisacodyl (Bisacodyl 10 Mg Supp.Rect) 10 mg [place] BEDTIME [facility] Last Admin: 12/26/23 20:01 Dose: Not Given Documented By: BEHZAD Non-Admin Reason: Patient Refused Clopidogrel Bisulfate (Clopidogrel Bisulfate 75 Mg Tablet) 75 mg PO DAILY [facility] Last Admin: 12/27/23 08:12 Dose: 75 mg Documented By: DEO Enoxaparin Sodium (Enoxaparin Sodium 40 Mg/0.4 Ml Syringe) 40 mg SUBCUT Q24H [facility] Last Admin: 12/27/23 00:56 Dose: 40 mg Documented By: BEHZAD Magnesium Oxide (Magnesium Oxide 400 Mg Tablet) 400 mg PO BIDPC [facility] Last Admin: 12/27/23 08:12 Dose: 400 mg Documented By: DEO Methadone HCl (Methadone Hcl 20 Mg/2 Ml Oral.Conc) 50 mg PO DAILY [facility] Last Admin: 12/27/23 08:12 Dose: 50 mg Documented By: DEO Co-signed By: HO.DABA Methadone HCl (Methadone Hcl 20 Mg/2 Ml Oral.Conc) 5 mg PO BEDTIME [facility] Last Admin: 12/26/23 20:01 Dose: 5 mg Documented By: BEHZAD Co-signed By: LUANA Mirtazapine (Mirtazapine 7.5 Mg Tablet) 7.5 mg PO BEDTIME [facility] Last Admin: 12/26/23 20:02 Dose: 7.5 mg Documented By: BEHZAD Multivitamins/Vitamin C (Multivitamin Tablet) 1 tab PO DAILY [facility] Last Admin: 12/27/23 08:12 Dose: 1 tab Documented By: DEO Olanzapine (Olanzapine 10 Mg Vial) 5 mg IM Q6H PRN PRN Reason: anxiety/restlessness Sodium Chloride (0.9 % Sodium Chloride Flush 3 Ml Syringe) 3 ml IVFLUSH QSHIFT [facility] Last Admin: 12/27/23 08:16 Dose: 3 ml Documented By: DEO Thiamine HCl (Thiamine Hcl 100 Mg Tablet) 100 mg PO DAILY [facility] Last Admin: 12/27/23 08:12 Dose: 100 mg Documented By: DEO Labs 12/24/23 05:26 12/24/23 05:26 Assessment and Plan (1) Delirium: Status: Acute Plan 68M PMH COPD, HIV, HCV, opioid, cocaine dependence, etoh dependence, wheelchair bound due to polio, mood disorder, presented with dental pain and sob to ED, found to be hypotensive, acidodic, chuck. admitted to icu with pressors, fluids, antibiotics, precedex drip. did not require HD, renal function improved. was downgraded 12/17/23, but became very agitated and transfered back to icu 12/18/23 for better control of agitation, stabilized and downgraded 12/21/23. 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 HIV Continue Biktarvy HCV Outpatient follow-up COPD Stable DVT prophylaxis with heparin subQ Full code reason for continued hospitalization: placement Quality Stroke Does the patient have a stroke diagnosis?: No VTE Prior VTE?: No VTE Risk Level:: Medical - moderate - high VTE Device Contraindication: N/A - Device Ordered VTE Drug Contraindication: N/A - Med Ordered
[2023-12-27] MEDS: Calcium Carbonate 750 MG TAB.CHEW PO (10:09)
--- NOTE | 2023-12-27 10:25 | MHC.CM.PN ---
UPDATES SENT TO [facility]IA [facility]. FACILITY IS ONLY REFERRAL WILLING TO REVIEW CASE MANAGEMENT FOLLOWING
--- NOTE | 2023-12-27 14:44 | MHC.CM.PN ---
[facility] IS STARTING AUTH PROCESS. PATIENT WILL NEED GUEST DOSING ARRANGED AT [facility] [place] AND A LESS THAN 30 DAY ANTICIPATED STAY IN [place] SUMMARY.
--- NOTE | 2023-12-27 14:54 | MHC.CM.PN ---
PATIENT STATING THAT HE WANTS TO GO HOME AT DC. P.T. SUGGESTS THAT PATIENT'S ORACLE ARCHITECT COME IN TO ASSIST WITH TRANSFERS. PATIENT STILL ON O2 VIA CANNULA AND WEAN TRIALS HAVE BEEN UNSUCCESSFUL SO FAR. CASE MANAGEMENT FOLLOWING
--- NOTE | 2023-12-27 15:08 | MHC.CM.PN ---
Addendum entered by Monique Gallegos RN 12/27/23 16:17: [facility] UNABLE TO ACCOMMODATE PATIENT'S CARE NEEDS. REFERRAL NOW PLACED TO [facility]. 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 KOMAL IS ASKING FOR REFERRALS TO [facility] AND IF THEY DO NOT ACCEPT, THEN A REFERRAL TO [facility]. KOMAL STATES THAT HE WILL VISIT PATIENT WITHIN 5 DAYS OF DC IF THIS IS THE PLAN. CASE MANAGEMENT FOLLOWING.
[2023-12-27 15:52] VITALS: BP 149/70; PULSE 88; RESP 18; TEMP 36.8; O2SAT 91
[2023-12-27 16:21] VITALS: PULSE 88; RESP 17; O2SAT 93
[2023-12-27] MEDS: Mirtazapine 7.5 MG TABLET PO (20:36)
[2023-12-27 23:32] VITALS: BP 129/73; PULSE 79; RESP 20; TEMP 36.2; O2SAT 95
[2023-12-28] MEDS: Enoxaparin Sodium 40 MG/0.4 ML SYRINGE SUBCUT (02:36)
[2023-12-28 06:26] LABS: Hematocrit 29.5 % (42.0-52.0); Hemoglobin 9.1 g/dl (14.0-18.0); Mean Corpuscular HGB Conc 30.8 g/dl (31.0-36.0); Mean Corpuscular Hemoglobin 32.7 pg (27.0-33.0); Mean Corpuscular Volume 106.1 fL (80.0-98.0); Mean Platelet Volume 10.8 fL (9.4-12.4); Platelet Count 194 X10*3/uL (160-400); Red Blood Count 2.78 X10*6/uL (4.60-5.80); Red Cell Distribution Width 17.8 % (11.0-16.0); White Blood Count 3.7 X10*3/uL (4.8-10.8)
[2023-12-28 06:45] LABS: Anion Gap 10 (12-20); Blood Urea Nitrogen 5 mg/dL (9-16); Calcium 9.3 mg/dL (8.4-10.2); Carbon Dioxide 28 mmol/L (22-29); Chloride 108 mmol/L (96-108); Creatinine Clr Calc Pharmacy 90.5; Estimated Glomerular Filt Rate > 60; Glucose Fasting 79 mg/dL (60-99); Magnesium 2.3 mg/dL (1.6-2.6); Potassium 3.8 mmol/L (3.3-5.1); Sodium 142 mmol/L (135-145)
[2023-12-28 07:23] VITALS: BP 138/73; PULSE 87; RESP 18; TEMP 36.6; O2SAT 97
[2023-12-28] MEDS: Bictegrav/Emtricit/Tenofov Ala TABLET 1 TAB PO (08:01)
[2023-12-28] MEDS: Magnesium Oxide 400 MG TABLET PO ×2 (08:01→17:53)
[2023-12-28] MEDS: 0.9 % Sodium Chloride Flush 3 ML SYRINGE IVFLUSH ×3 (08:01→20:30)
[2023-12-28] MEDS: Multivitamin TABLET 1 TAB PO (08:01)
[2023-12-28] MEDS: Thiamine HCL 100 MG TABLET PO (08:01)
[2023-12-28] MEDS: Clopidogrel Bisulfate 75 MG TABLET PO (08:01)
[2023-12-28] MEDS: methADONE HCl 20 MG/2 ML ORAL.CONC 50 MG PO (08:01)
--- NOTE | 2023-12-28 11:37 | MHC.CLN ---
F/U DIET=REGULAR. ENSURE TID TO PROMOTE NUTRITIONAL INTAKE. SUPPLEMENT PROVIDES 1050 KCALS, 60 G PROTEIN. SKIN WITH STAGE II TO RIGHT SACRUM. SUPPLEMENT APPROPRIATE TO PROMOTE WOUND HEALING. MOST RECENT INTAKE 25-50%. ENCOURAGE PO INTAKE ABLE. FOLLOW FOR PO INTAKE AND SKIN INTEGRITY.
--- NOTE | 2023-12-28 12:22 | HO.PM.IMPN ---
Subjective Subjective Date of Service: 12/29/23 Interval History: Seen and evaluated this morning Feels better overall Physical Exam Vital Signs: Vital Signs: Last Vital Signs Temp 97.8 F 12/28/23 07:23 Pulse 87 12/28/23 07:23 Resp 18 12/28/23 07:23 BP 138/73 12/28/23 07:23 Pulse Ox 97 12/28/23 07:23 O2 Del Method Nasal Cannula 12/28/23 07:23 O2 Flow Rate 2 12/28/23 07:23 FiO2 35 12/19/23 07:00 BMI result Body Mass Index 36.0 Objective Data Active Medications Albuterol/Ipratropium (Albuterol/Iprat 2.5/0.5mg 3 Ml Ampul.Neb) 3 ml INHALE Q4H PRN PRN Reason: Wheezing Last Admin: 12/27/23 16:21 Dose: 3 ml Documented By: MARBELLA Bictegravir/Emtricitabine/Tenofovir (Bictegrav/Emtricit/Tenofov Ala Tablet) 1 tab PO DAILY [facility] Last Admin: 12/28/23 08:01 Dose: 1 tab Documented By: RHIANNON Bisacodyl (Bisacodyl 10 Mg Supp.Rect) 10 mg [place] BEDTIME [facility] Last Admin: 12/27/23 20:25 Dose: Not Given Documented By: BEHZAD Non-Admin Reason: Patient Asleep Calcium Carbonate (Calcium Carbonate 750 Mg Tab.Chew) 750 mg PO Q4H PRN PRN Reason: Heartburn Last Admin: 12/27/23 10:09 Dose: 750 mg Documented By: DEO Clopidogrel Bisulfate (Clopidogrel Bisulfate 75 Mg Tablet) 75 mg PO DAILY [facility] Last Admin: 12/28/23 08:01 Dose: 75 mg Documented By: RHIANNON Enoxaparin Sodium (Enoxaparin Sodium 40 Mg/0.4 Ml Syringe) 40 mg SUBCUT Q24H [facility] Last Admin: 12/28/23 02:36 Dose: 40 mg Documented By: BEHZAD Magnesium Oxide (Magnesium Oxide 400 Mg Tablet) 400 mg PO BIDPC [facility] Last Admin: 12/28/23 08:01 Dose: 400 mg Documented By: RHIANNON Methadone HCl (Methadone Hcl 20 Mg/2 Ml Oral.Conc) 50 mg PO DAILY [facility] Last Admin: 12/28/23 08:01 Dose: 50 mg Documented By: RHIANNON Co-signed By: DOBROB Mirtazapine (Mirtazapine 7.5 Mg Tablet) 7.5 mg PO BEDTIME [facility] Last Admin: 12/27/23 20:36 Dose: 7.5 mg Documented By: BEHZAD Multivitamins/Vitamin C (Multivitamin Tablet) 1 tab PO DAILY [facility] Last Admin: 12/28/23 08:01 Dose: 1 tab Documented By: RHIANNON Olanzapine (Olanzapine 10 Mg Vial) 5 mg IM Q6H PRN PRN Reason: anxiety/restlessness Sodium Chloride (0.9 % Sodium Chloride Flush 3 Ml Syringe) 3 ml IVFLUSH QSHIFT [facility] Last Admin: 12/28/23 08:01 Dose: 3 ml Documented By: RHIANNON Thiamine HCl (Thiamine Hcl 100 Mg Tablet) 100 mg PO DAILY [facility] Last Admin: 12/28/23 08:01 Dose: 100 mg Documented By: RHIANNON Labs 12/28/23 06:10 12/28/23 06:10 Labs: Laboratory Results - last 24 hr 12/28/23 06:10 MCV 106.1 H MCH 32.7 MCHC 30.8 L RDW 17.8 H Plt Count 194 D MPV 10.8 Absolute Nucleated RBC 0.000 Nucleated RBC % (auto) 0.0 Anion Gap 10 L Estim Creat Clear Calc 90.5 Estimated GFR > 60 Fasting Glucose 79 Calcium 9.3 Magnesium 2.3 Assessment and Plan (1) Pulmonary aspiration: Status: Acute (2) Acute respiratory failure with hypoxia: Status: Acute (3) Delirium: Status: Acute Plan 68M PMH COPD, HIV, HCV, opioid, cocaine dependence, etoh dependence, wheelchair bound due to polio, mood disorder, presented with dental pain and sob to ED, found to be hypotensive, acidodic, chuck. admitted to icu with pressors, fluids, antibiotics, precedex drip. did not require HD, renal function improved. was downgraded 12/17/23, but became very agitated and transfered back to icu 12/18/23 for better control of agitation, stabilized and downgraded 12/21/23. 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 HIV Continue Biktarvy HCV Outpatient follow-up COPD Stable DVT prophylaxis with heparin subQ Full code reason for continued hospitalization: placement Quality Stroke Does the patient have a stroke diagnosis?: No VTE Prior VTE?: No VTE Risk Level:: Medical - moderate - high VTE Device Contraindication: N/A - Device Ordered VTE Drug Contraindication: N/A - Med Ordered
--- NOTE | 2023-12-28 13:36 | MHC.CM.PN ---
Addendum entered by Elina Rutledge RN 12/28/23 14:42: Patient now agreeable to STR. Marcia Noland has submitted for auth. Addiction med will work on guest dosing. CM will continue to follow. Original Note: PT continues to recommend STR. CM and MD met with patient at bedside, clam bed laborer assisting. Patient declining STR at this time. HOSPITAL INTERN's at bedside briefly and state they do not feel they can care for patient in current condition, willing to resume care after STR. Patient's brother also declining to assist until patient completes STR. No accepting VNA at this time, and patient understands if he leaves AMA no VNA will accept. Patient continues to verbalize that he prefers to go home, despite being unable to care for self. Wheelchair bound & independent w/ xfers at baseline, but not able to xfer at this time. Patient agrees to additional discussion later this afternoon.
[2023-12-28 15:29] VITALS: BP 129/74; PULSE 86; RESP 18; TEMP 36.5; O2SAT 97
[2023-12-28] MEDS: Calcium Carbonate 750 MG TAB.CHEW PO (16:11)
[2023-12-28] MEDS: Gabapentin 100 MG CAPSULE PO (18:33)
--- NOTE | 2023-12-28 19:11 | PC.NURSE ---
Patient requested to have all for rails up, patient was advised that per hospital policy all rails should not be up but patient still insisted on having all rails up stating he feels safer in bed with all sides up.
[2023-12-28] MEDS: Mirtazapine 7.5 MG TABLET PO (20:28)
[2023-12-28 23:59] VITALS: BP 130/60; PULSE 77; RESP 18; TEMP 36.3; O2SAT 97
[2023-12-29] MEDS: Enoxaparin Sodium 40 MG/0.4 ML SYRINGE SUBCUT (00:35)
[2023-12-29 07:16] VITALS: BP 120/64; PULSE 78; RESP 18; TEMP 36.4; O2SAT 95
[2023-12-29] MEDS: Bictegrav/Emtricit/Tenofov Ala TABLET 1 TAB PO (07:59)
[2023-12-29] MEDS: Clopidogrel Bisulfate 75 MG TABLET PO (07:59)
[2023-12-29] MEDS: Thiamine HCL 100 MG TABLET PO (07:59)
[2023-12-29] MEDS: 0.9 % Sodium Chloride Flush 3 ML SYRINGE IVFLUSH ×3 (07:59→20:25)
[2023-12-29] MEDS: Magnesium Oxide 400 MG TABLET PO ×2 (07:59→17:09)
[2023-12-29] MEDS: methADONE HCl 20 MG/2 ML ORAL.CONC 50 MG PO (07:59)
[2023-12-29] MEDS: Multivitamin TABLET 1 TAB PO (07:59)
--- NOTE | 2023-12-29 11:17 | P.PNIM_ITS ---
Subjective Subjective Date of Service: 12/29/23 Interval History: Seen and evaluated this morning Feels better overall waiting SNF bed Review of Systems Review of Systems: Yes all other systems are reviewed and are negative Physical Exam 2 Vital Signs: Vital Signs: Last Vital Signs Temp 97.5 F 12/29/23 07:16 Pulse 78 12/29/23 07:16 Resp 18 12/29/23 07:16 BP 120/64 12/29/23 07:16 Pulse Ox 95 12/29/23 07:16 O2 Del Method Nasal Cannula 12/29/23 07:16 O2 Flow Rate 2 12/29/23 07:16 FiO2 35 12/19/23 07:00 BMI result Body Mass Index 36.0 Const: Other: Constitutional : interactive, not in distress Cardiovascular : no JVP, no lower extremity edema Respiratory : bilateral chest movement, not in resp distress Gastrointestinal: soft, lax, Non tender Skin : Warm, Dry Neurological : Alert & oriented , No focal deficit Objective Data Active Medications Albuterol/Ipratropium (Albuterol/Iprat 2.5/0.5mg 3 Ml Ampul.Neb) 3 ml INHALE Q4H PRN PRN Reason: Wheezing Last Admin: 12/27/23 16:21 Dose: 3 ml Documented By: MARBELLA Bictegravir/Emtricitabine/Tenofovir (Bictegrav/Emtricit/Tenofov Ala Tablet) 1 tab PO DAILY [facility] Last Admin: 12/29/23 07:59 Dose: 1 tab Documented By: DANNIELLE Bisacodyl (Bisacodyl 10 Mg Supp.Rect) 10 mg [place] BEDTIME [facility] Last Admin: 12/28/23 20:26 Dose: Not Given Documented By: ASHLY Non-Admin Reason: Patient Refused Calcium Carbonate (Calcium Carbonate 750 Mg Tab.Chew) 750 mg PO Q4H PRN PRN Reason: Heartburn Last Admin: 12/28/23 16:11 Dose: 750 mg Documented By: DANNIELLE Clopidogrel Bisulfate (Clopidogrel Bisulfate 75 Mg Tablet) 75 mg PO DAILY [facility] Last Admin: 12/29/23 07:59 Dose: 75 mg Documented By: DANNIELLE Enoxaparin Sodium (Enoxaparin Sodium 40 Mg/0.4 Ml Syringe) 40 mg SUBCUT Q24H [facility] Last Admin: 12/29/23 00:35 Dose: 40 mg Documented By: ASHLY Magnesium Oxide (Magnesium Oxide 400 Mg Tablet) 400 mg PO BIDPC [facility] Last Admin: 12/29/23 07:59 Dose: 400 mg Documented By: DANNIELLE Methadone HCl (Methadone Hcl 20 Mg/2 Ml Oral.Conc) 50 mg PO DAILY [facility] Last Admin: 12/29/23 07:59 Dose: 50 mg Documented By: DANNIELLE Co-signed By: KAREN Mirtazapine (Mirtazapine 7.5 Mg Tablet) 7.5 mg PO BEDTIME [facility] Last Admin: 12/28/23 20:28 Dose: 7.5 mg Documented By: ASHLY Multivitamins/Vitamin C (Multivitamin Tablet) 1 tab PO DAILY [facility] Last Admin: 12/29/23 07:59 Dose: 1 tab Documented By: DANNIELLE Olanzapine (Olanzapine 10 Mg Vial) 5 mg IM Q6H PRN PRN Reason: anxiety/restlessness Sodium Chloride (0.9 % Sodium Chloride Flush 3 Ml Syringe) 3 ml IVFLUSH QSHIFT [facility] Last Admin: 12/29/23 07:59 Dose: 3 ml Documented By: DANNIELLE Thiamine HCl (Thiamine Hcl 100 Mg Tablet) 100 mg PO DAILY [facility] Last Admin: 12/29/23 07:59 Dose: 100 mg Documented By: DANNIELLE Labs 12/28/23 06:10 12/28/23 06:10 Assessment and Plan (1) Delirium: Status: Acute (2) Pulmonary aspiration: Status: Acute Plan 68M PMH COPD, HIV, HCV, opioid, cocaine dependence, etoh dependence, wheelchair bound due to polio, mood disorder, presented with dental pain and sob to ED, found to be hypotensive, acidodic, chuck. admitted to icu with pressors, fluids, antibiotics, precedex drip. did not require HD, renal function improved. was downgraded 12/17/23, but became very agitated and transfered back to icu 12/18/23 for better control of agitation, stabilized and downgraded 12/21/23. 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 HIV Continue Biktarvy HCV Outpatient follow-up COPD Stable DVT prophylaxis with heparin subQ Full code reason for continued hospitalization: placement Quality Stroke Does the patient have a stroke diagnosis?: No VTE Prior VTE?: No VTE Risk Level:: Medical - moderate - high VTE Device Contraindication: N/A - Device Ordered VTE Drug Contraindication: N/A - Med Ordered
--- NOTE | 2023-12-29 11:26 | HO.WOUND ---
Wound Consult: Follow up 68yr old? male admitted to [facility] on 12/14/23 - See progress notes and H&P for detailed history.? Wound consult follow up for Right Sacral wound POA.? SHAN in place - wedges in use and nutrition following. No new topical recommendations needed at this time. Right Sacrum 12/15/23 Right Sacrum 12/23/23 Etiology: Resolving Stage 2 Pressure Injury -??Present on Admission Measurements: 0.3cm x 0.2cm x 0.1cm Wound Bed: moist pink wound bed Drainage / Odor: None Edges: ? well defined Tiara wound: ?hyperpigmentation noted and dry epidermal layer Pain: denies Goals of Treatment: ? Triad and foam dressing to aid in autolytic moist wound healing and protection from moisture and friction and aid in off loading pressure and protection Recommendations: 1. Turn and Reposition every 2 hours and as needed for patient comfort.? Use pillows or wedges to support off loading positions. 2. Off Load all bony prominences with use of pillows and heel boots if needed.? Apply Preventative foams where needed. ? 3. Monitor for incontinence and moisture control, use barrier creams when needed for prevention and treatment. 4. Provide adequate and supplemental nutrition.? 5. Continue low air loss mattress. 6. When applicable maintain blood glucose levels per Providers order. 7. Sacrum - Off Load Pressure? - Cleanse with PH balance spray or wipes, pat dry. ?Apply thin layer of Triad to wound bed. Do not remove all of paste between applications as this may cause further skin damage.? Cover with foam dressing to aid in off loading and protection from friction. Change every other day and PRN. Re-consult wound care Nurse for wound deterioration or wound changes.
[2023-12-29 15:13] VITALS: BP 117/76; PULSE 76; RESP 18; TEMP 36.4; O2SAT 98
[2023-12-29] MEDS: Mirtazapine 7.5 MG TABLET PO (20:25)
[2023-12-29] MEDS: bisacodyL 10 MG SUPP.RECT PR (20:25)
[2023-12-30] VITALS: BP 127/68; PULSE 80; RESP 18; TEMP 36.1; O2SAT 97
[2023-12-30] MEDS: Enoxaparin Sodium 40 MG/0.4 ML SYRINGE SUBCUT (01:57)
[2023-12-30 07:22] VITALS: BP 138/72; PULSE 84; RESP 18; TEMP 36.6; O2SAT 95
[2023-12-30] MEDS: Clopidogrel Bisulfate 75 MG TABLET PO (08:35)
[2023-12-30] MEDS: Bictegrav/Emtricit/Tenofov Ala TABLET 1 TAB PO (08:35)
[2023-12-30] MEDS: methADONE HCl 20 MG/2 ML ORAL.CONC 50 MG PO (08:35)
[2023-12-30] MEDS: Magnesium Oxide 400 MG TABLET PO ×2 (08:35→16:41)
[2023-12-30] MEDS: Multivitamin TABLET 1 TAB PO (08:35)
[2023-12-30] MEDS: Thiamine HCL 100 MG TABLET PO (08:35)
--- NOTE | 2023-12-30 10:45 | MHC.CLN ---
F/U DIET=REGULAR. ENSURE TID TO PROMOTE NUTRITIONAL INTAKE. SUPPLEMENT PROVIDES 1050 KCALS, 60 G PROTEIN. SKIN WITH STAGE II TO RIGHT SACRUM. WOUND IS RESOLVING PER WOUND RN. SUPPLEMENT APPROPRIATE TO PROMOTE WOUND HEALING AND INCREASE CALORIES. INTAKE CONTINUES TO BE VARIABLE, 25-100%. MOST MOST MEALS 50% OR LESS. FOLLOW FOR PO INTAKE AND SKIN INTEGRITY.
[2023-12-30] MEDS: 0.9 % Sodium Chloride Flush 3 ML SYRINGE IVFLUSH ×3 (11:25→20:45)
--- NOTE | 2023-12-30 11:57 | P.DS_ITS ---
DS: Providers Provider Date of Service: 01/03/24 Date of admission: 12/14/23 20:26 Date of discharge: 01/03/24 Primary care physician: Violet Mathew MD Consults: 12/15/23 00:43 Consult to Wound Care Routine Reason for consultation: ? pressure injury buttocks Has provider been notified: Yes 12/15/23 00:44 Addiction Medicine Stat Consulting Provider: Addiction Covering Reason for consultation: Heroin abuse Has provider been notified: No 12/15/23 08:49 Consult to Nephrology Routine Consulting Provider: [facility] Reason for consultation: ELSIE Has provider been notified: No 12/19/23 09:36 Consult to Psychiatry Routine Consulting Provider: Psych Covering Reason for consultation: delerium Has provider been notified: No DS: Diagnosis Discharge Diagnosis (1) Delirium: Status: Acute (2) Pulmonary aspiration: Status: Acute (3) Acute respiratory failure with hypoxia: Status: Acute (4) Septicemia due to Hemophilus influenzae (H. influenzae): Status: Acute (5) Dental abscess: Status: Acute (6) Opioid use disorder: Status: Acute (7) Substance abuse: Status: Acute (8) HIV (human immunodeficiency virus infection): Status: Acute (9) Sepsis: Status: Acute (10) Acute renal failure: Status: Acute (11) Metabolic acidosis: Status: Acute (12) Hyperkalemia: Status: Acute (13) Hypotension: Status: Acute DS: Summary Hospital Course Hospital Course: The patient had prolonged hospital stay. For full details return to EMR. Admission note HPI Mr. Calderon is a 67-year-old male with history of? COPD, emphysema, HIV, Hepatitis-C, anemia, lower leg dysfunction secondary to polio, alcohol abuse, opioid dependence, tobacco abuse, methadone use, anxiety who was brought in by ambulance complaining of shortness of breath? Since early this morning and had run out of his MDI inhaler. He reported left-sided dental pain. He also admitted to using cocaine this morning. On arrival to the emergency room, the patient's blood pressure 71/38, heart rate 93, temp 97.0,? O2 sat 97% on RA.? Laboratory data significant for WBC? 2.9, hemoglobin 7.8, hematocrit 23.3, platelet 132, sodium 132, potassium 6.2, CO2 10, anion gap 28, BUN 148, creatinine 12.07, lactic 0.7, calcium 6.5, magnesium 1.5, CRP 13.23, albumin 2.8. VBG 7.12/ 20/105/6. Imaging: Chest x-ray suggestive of? medial right lobe pneumonia, small left pleural effusion. Head CT revealed no mass, hemorrhage or cerebral edema. ? Mucosal thickening of the right maxillary sinus noted. Chest CT: Bilateral lower lobe pneumonia Facial CT showed periapical abscess left maxillary canine extending through peripheral maxillary cortex. Right sided acute sinusitis. Abdomen/pelvis CT unremarkable. ED course: ? The patient was given 3 L? lactated Ringer?s, prednisone 60 mg, calcium gluconate 2 g, Protonix 80 mg, albuterol, Zosyn 4.5 g,? 2 bags albumin,? and was started on a bicarb drip. A central line was placed? in the patient?s right internal jugular vein. A temperature sensing Bergman catheter was placed. He became hypothermic and was placed on a Belkis Hugger. Hospital course # Acute hypoxic respiratory failure due to aspiration, Dental abscess associated with with Hemophilus influenza septicemia. Treated with IV Unasyn as he was evaluated by ID. Weaned down on O2 to 2L only. repeated blood cultures remained negative. To follow Dentist as outpatient. # Acute toxic metabolic encephalopathy at time of presentation Due to polysubstance abuse and withdrawal including opiates and cocaine. Was monitored and treated in ICU. evaluated by Addiction team who started him on Methadone. Dose titrated up to 50 mg daily. Started on Mirtazapine as well for symptomatic control. 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 To follow with Dentist as outpatient. # Acute kidney injury, Resolved # Acute hypernatremia, resolved # Acute hypomagnesemia, replaced and will be discharged on supplement # History of polio with paraplegia associated with physical deconditioning from hospital stay. Evaluated by PT who recommended STR to regain upper body strength for self transfers to wheelchair. # HIV, Continue Biktarvy # HCV, Outpatient follow-up Discharge plan Continue Methadone 50 mg daily Continue Mirtazapine 7.5 mg bedtime Magnsium supplement daily We advise you complete abstinence from drugs Continue HIV medications To follow as outpatient for Hepatitis C treatment. The patient will likely need less than 30 days of SNF stay. Time Attestation Discharge Coordination Time (in mins): 42 Quality: Safe Use of Opioids Does Pt have an Active Cancer Diagnosis on the Problem List?: No Quality: Stroke Does the patient have a stroke diagnosis?: No Physical Exam Vital Signs: Vital Signs: Last Vital Signs Temp 97.9 F 12/30/23 07:22 Pulse 84 12/30/23 07:22 Resp 18 12/30/23 07:22 BP 138/72 12/30/23 07:22 Pulse Ox 95 12/30/23 07:22 O2 Del Method Nasal Cannula 12/30/23 07:22 O2 Flow Rate 2 12/30/23 07:22 FiO2 35 12/19/23 07:00 BMI result Body Mass Index 36.0 Const: Other: Constitutional : interactive, not in distress Cardiovascular : no JVP, no lower extremity edema Respiratory : bilateral chest movement, not in resp distress Gastrointestinal: soft, lax, Non tender Skin : Warm, Dry Neurological : Alert & oriented , Bilateral lower extremities paraplegia DS: Data Imaging Chest x-ray: Radiologist's impression: ITS Impressions Chest X-Ray 12/14/23 14:38 IMPRESSION: 1. Persistent hypoinflation of lungs. 2. Interval development of left lateral lung base airspace disease and small left pleural effusion. 3. Interval development of medial right lobe along infiltrates suggestive of pneumonia. 4. Unchanged severe right glenohumeral joint osteoarthritis. Electronically signed by: Ricardo Matos MD 12/14/2023 05:02 PM EDT Chest X-Ray 12/14/23 17:20 IMPRESSION: * No pneumothorax after right IJ line placement. * Lungs are hypoinflated and there is bibasilar opacities, likely atelectasis, although difficult to exclude any underlying lower lobe pneumonia on this limited evaluation. * Probable small left pleural effusion. Electronically signed by: Juno Guo MD 12/14/2023 05:38 PM EDT Abdomen/Pelvis CT 12/14/23 19:03 IMPRESSION: 1. Prominent emphysematous changes are redemonstrated. Bilateral posterior lower lobe consolidations with air bronchograms, new compared to the prior examination and concerning for early pneumonia. 2. No intra-abdominal mass, lymphadenopathy, or ascites. 3. No small or large bowel obstruction. Sigmoid diverticulosis without evidence of acute diverticulitis. Unremarkable appendix. 4. No hydronephrosis or nephrolithiasis. Electronically signed by: Nick Tang MD 12/14/2023 09:07 PM EDT RP Chest CT 12/14/23 19:36 IMPRESSION: 1. Prominent emphysematous changes are redemonstrated. Bilateral posterior lower lobe consolidations with air bronchograms, new compared to the prior examination and concerning for early pneumonia. 2. No intra-abdominal mass, lymphadenopathy, or ascites. 3. No small or large bowel obstruction. Sigmoid diverticulosis without evidence of acute diverticulitis. Unremarkable appendix. 4. No hydronephrosis or nephrolithiasis. Electronically signed by: Nick Tang MD 12/14/2023 09:07 PM EDT RP Face CT 12/14/23 19:36 IMPRESSION: 1. Lucency adjacent to the root of the left maxillary canine which extends through the peripheral maxillary cortex, consistent with a periapical abscess. No adjacent organized fluid collection or soft tissue abscess. 2. Air-fluid level and secretions within the right maxillary sinus as well as within the sphenoid sinuses which could represent a degree of acute sinusitis. Electronically signed by: Nick Tang MD 12/14/2023 09:32 PM EDT RP Head CT 12/14/23 19:36 IMPRESSION: No acute intracranial pathology. Electronically signed by: Bryant Pink MD 12/14/2023 08:51 PM EDT RP Chest X-Ray 12/18/23 11:20 IMPRESSION: Worsening pulmonary aeration with increased right greater than left bibasilar airspace opacities. Unchanged small left-sided pleural effusion. Electronically signed by: Zo Trujillo MD 12/18/2023 12:47 PM EDT RP Chest X-Ray 12/19/23 09:50 IMPRESSION: Low lung volumes with bibasilar atelectasis and consolidation, unchanged. Electronically signed by: Justyn Torres MD 12/19/2023 02:28 PM EDT RP KUB X-Ray 12/21/23 15:50 IMPRESSION: Findings as above. Electronically signed by: Amrik Quinn MD 12/21/2023 09:45 PM EDT RP Venous Duplex 12/21/23 19:50 IMPRESSION: No evidence of deep venous thrombosis involving the left upper extremity. Electronically signed by: Pachceo Acosta MD 12/22/2023 01:43 AM EDT RP Discharge Plan Discharge Anticipated Discharge Date/Time: 12/30/23 11:47 Patient Disposition: Xfer SNF Discharge Diagnosis: Pneumonia , Aspiration with Hypoxia Delerium Swallowing problem Referrals: [facility] [Outside] - 1 Day (short term rehab) Violet Mathew MD [Primary Care Provider] - 1 Week Discharge Medications: New magnesium oxide 400 mg (241.3 mg magnesium) Tablet 400 mg PO DAILY Qty: 90 0RF mirtazapine 7.5 mg Tablet 7.5 mg PO BEDTIME Qty: 30 0RF Continued pantoprazole 20 mg tablet,delayed release (DR/EC) 20 mg PO DAILY 28 Days Qty: 28 4RF multivitamin Tablet 1 tab PO DAILY cholecalciferol (vitamin D3) 50 mcg (2,000 unit) tablet 1 tab PO DAILY thiamine mononitrate (vit B1) 100 mg tablet 1 tab PO DAILY aspirin 81 mg Tablet,Chewable 81 mg PO DAILY folic acid 1 mg tablet 1 mg PO DAILY Biktarvy 50-200-25 mg tablet 1 tab PO DAILY fluticasone propion-salmeterol [Advair Diskus] 250-50 mcg/dose blister with device 1 inh INHALATION BID Spiriva Respimat 2.5 mcg/actuation mist 2 puff INHALATION QAM albuterol sulfate [Ventolin HFA] 90 mcg/actuation HFA aerosol inhaler 2 puff INHALATION Q4H PRN (Reason: SOB/Wheezing) rosuvastatin 10 mg tablet 10 mg PO BEDTIME hydrochlorothiazide 25 mg tablet 25 mg PO DAILY clopidogrel 75 mg tablet 75 mg PO DAILY Discharge Orders: Discharge Order (Routine); Ordered 01/03/24 Ordered By: Jeni Watson Diet: Advance to usual diet Activity on Discharge: As tolerated Stand Alone Forms: Patient Portal Discharge page Print Language: Portuguese Care Plan Goals: Continue Methadone 50 mg daily Continue Mirtazapine 7.5 mg bedtime Magnsium supplement daily We advise you complete abstinence from drugs Continue HIV medications Health Concerns: Read below Plan of Treatment: Read below Assessment: Read below
[2023-12-30 12:22] VITALS: BP 138/72; PULSE 84; O2SAT 95
[2023-12-30] MEDS: Amoxicillin/Potassium Clav 875 MG TABLET PO (13:17)
--- NOTE | 2023-12-30 13:17 | MHC.CM.PN ---
Addendum entered by Elina Rutledge RN 12/30/23 15:39: Auth still pending. aware. Auth request # [id number] Addendum entered by Elina Rutledge RN 12/30/23 14:30: Patient approved for guest dosing through [employer]. Original Note: Patient medically cleared and awaiting xfer to STR @ [facility]. Insurance auth pending - this CM called [employer] and asked rep to expedite auth request. Guest dosing w/ [facility] pending. CM faxed all information to [employer] 12/28. In review w/ Karine JACKSON. [facility] is aware goal is dc today. CM will continue to follow.
--- NOTE | 2023-12-30 15:28 | HO.PM.IMPN ---
Subjective Subjective Date of Service: 12/30/23 Interval History: Seen and evaluated this morning Feels better overall waiting SNF bed Review of Systems Review of Systems: Yes all other systems are reviewed and are negative Physical Exam Vital Signs: Vital Signs: Last Vital Signs Temp 97.9 F 12/30/23 07:22 Pulse 84 12/30/23 12:22 Resp 18 12/30/23 07:22 BP 138/72 12/30/23 12:22 Pulse Ox 95 12/30/23 12:22 O2 Del Method Nasal Cannula 12/30/23 07:22 O2 Flow Rate 2 12/30/23 07:22 FiO2 35 12/19/23 07:00 BMI result Body Mass Index 36.0 Const: Other: Constitutional : interactive, not in distress Cardiovascular : no JVP, no lower extremity edema Respiratory : bilateral chest movement, not in resp distress Gastrointestinal: soft, lax, Non tender Skin : Warm, Dry Neurological : Alert & oriented , Bilateral lower extremities paraplegia Objective Data Active Medications Albuterol/Ipratropium (Albuterol/Iprat 2.5/0.5mg 3 Ml Ampul.Neb) 3 ml INHALE Q4H PRN PRN Reason: Wheezing Last Admin: 12/27/23 16:21 Dose: 3 ml Documented By: MARBELLA Amoxicillin/Clavulanate Potassium (Amoxicillin/Potassium Clav 875 Mg Tablet) 875 mg PO Q12H [facility] Last Admin: 12/30/23 13:17 Dose: 875 mg Documented By: ANDERSON Bictegravir/Emtricitabine/Tenofovir (Bictegrav/Emtricit/Tenofov Ala Tablet) 1 tab PO DAILY [facility] Last Admin: 12/30/23 08:35 Dose: 1 tab Documented By: ANDERSON Bisacodyl (Bisacodyl 10 Mg Supp.Rect) [address] BEDTIME [facility] Last Admin: 12/29/23 20:25 Dose: 10 mg Documented By: EDITH Calcium Carbonate (Calcium Carbonate 750 Mg Tab.Chew) 750 mg PO Q4H PRN PRN Reason: Heartburn Last Admin: 12/28/23 16:11 Dose: 750 mg Documented By: DANNIELLE Clopidogrel Bisulfate (Clopidogrel Bisulfate 75 Mg Tablet) 75 mg PO DAILY [facility] Last Admin: 12/30/23 08:35 Dose: 75 mg Documented By: ANDERSON Enoxaparin Sodium (Enoxaparin Sodium 40 Mg/0.4 Ml Syringe) 40 mg SUBCUT Q24H [facility] Last Admin: 12/30/23 01:57 Dose: 40 mg Documented By: TERRENCE Magnesium Oxide (Magnesium Oxide 400 Mg Tablet) 400 mg PO BIDPC [facility] Last Admin: 12/30/23 08:35 Dose: 400 mg Documented By: ANDERSON Methadone HCl (Methadone Hcl 20 Mg/2 Ml Oral.Conc) 50 mg PO DAILY [facility] Last Admin: 12/30/23 08:35 Dose: 50 mg Documented By: ANDERSON Co-signed By: MOHAMUD Mirtazapine (Mirtazapine 7.5 Mg Tablet) 7.5 mg PO BEDTIME [facility] Last Admin: 12/29/23 20:25 Dose: 7.5 mg Documented By: EDITH Multivitamins/Vitamin C (Multivitamin Tablet) 1 tab PO DAILY [facility] Last Admin: 12/30/23 08:35 Dose: 1 tab Documented By: ANDERSON Olanzapine (Olanzapine 10 Mg Vial) 5 mg IM Q6H PRN PRN Reason: anxiety/restlessness Sodium Chloride (0.9 % Sodium Chloride Flush 3 Ml Syringe) 3 ml IVFLUSH QSHIFT [facility] Last Admin: 12/30/23 11:25 Dose: 3 ml Documented By: ANDERSON Thiamine HCl (Thiamine Hcl 100 Mg Tablet) 100 mg PO DAILY [facility] Last Admin: 12/30/23 08:35 Dose: 100 mg Documented By: ANDERSON Labs 12/28/23 06:10 12/28/23 06:10 Assessment and Plan (1) Delirium: Status: Acute (2) Physical deconditioning: Status: Acute Plan 68M PMH COPD, HIV, HCV, opioid, cocaine dependence, etoh dependence, wheelchair bound due to polio, mood disorder, presented with dental pain and sob to ED, found to be hypotensive, acidodic, chuck. admitted to icu with pressors, fluids, antibiotics, precedex drip. did not require HD, renal function improved. was downgraded 12/17/23, but became very agitated and transfered back to icu 12/18/23 for better control of agitation, stabilized and downgraded 12/21/23. 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 HIV, Continue Biktarvy HCV, Outpatient follow-up DVT prophylaxis heparin subQ reason for continued hospitalization: placement Quality Stroke Does the patient have a stroke diagnosis?: No VTE Prior VTE?: No VTE Risk Level:: Medical - moderate - high VTE Device Contraindication: N/A - Device Ordered VTE Drug Contraindication: N/A - Med Ordered
[2023-12-30 15:32] VITALS: BP 122/59; PULSE 84; RESP 18; TEMP 36.5; O2SAT 97
[2023-12-30] MEDS: Calcium Carbonate 750 MG TAB.CHEW PO (18:24)
[2023-12-30 20:36] VITALS: PULSE 80; RESP 18; O2SAT 95
[2023-12-30] MEDS: Albuterol/Iprat 2.5/0.5MG 3 ML AMPUL.NEB INHALE (20:36)
[2023-12-30] MEDS: Mirtazapine 7.5 MG TABLET PO (20:43)
[2023-12-30] MEDS: bisacodyL 10 MG SUPP.RECT PR (20:45)
[2023-12-31] VITALS: BP 143/75; PULSE 82; RESP 18; TEMP 36.1; O2SAT 94
[2023-12-31 07:36] VITALS: BP 133/85; PULSE 87; RESP 18; TEMP 36; O2SAT 95
[2023-12-31] MEDS: Thiamine HCL 100 MG TABLET PO (09:50)
[2023-12-31] MEDS: Bictegrav/Emtricit/Tenofov Ala TABLET 1 TAB PO (09:50)
[2023-12-31] MEDS: Clopidogrel Bisulfate 75 MG TABLET PO (09:50)
[2023-12-31] MEDS: 0.9 % Sodium Chloride Flush 3 ML SYRINGE IVFLUSH ×2 (09:50→14:00)
[2023-12-31] MEDS: methADONE HCl 20 MG/2 ML ORAL.CONC 50 MG PO (09:50)
[2023-12-31] MEDS: Magnesium Oxide 400 MG TABLET PO ×2 (09:50→16:48)
[2023-12-31] MEDS: Multivitamin TABLET 1 TAB PO (09:50)
--- NOTE | 2023-12-31 12:03 | HO.PM.IMPN ---
Subjective Subjective Date of Service: 12/31/23 Interval History: Seen and evaluated this morning Feels better overall waiting SNF bed Review of Systems Review of Systems: Yes all other systems are reviewed and are negative Physical Exam Vital Signs: Vital Signs: Last Vital Signs Temp 96.8 F 12/31/23 07:36 Pulse 87 12/31/23 07:36 Resp 18 12/31/23 07:36 BP 133/85 12/31/23 07:36 Pulse Ox 95 12/31/23 07:36 O2 Del Method Nasal Cannula 12/31/23 07:36 O2 Flow Rate 2 12/31/23 07:36 FiO2 35 12/19/23 07:00 BMI result Body Mass Index 36.0 Const: Other: Constitutional : interactive, not in distress Cardiovascular : no JVP, no lower extremity edema Respiratory : bilateral chest movement, not in resp distress Gastrointestinal: soft, lax, Non tender Skin : Warm, Dry Neurological : Alert & oriented , Bilateral lower extremities paraplegia Objective Data Active Medications Albuterol/Ipratropium (Albuterol/Iprat 2.5/0.5mg 3 Ml Ampul.Neb) 3 ml INHALE Q4H PRN PRN Reason: Wheezing Last Admin: 12/30/23 20:36 Dose: 3 ml Documented By: PATRICK Amoxicillin/Clavulanate Potassium (Amoxicillin/Potassium Clav 875 Mg Tablet) 875 mg PO Q12H [facility] Last Admin: 12/31/23 00:23 Dose: Not Given Documented By: CONCEPCION Non-Admin Reason: Patient Refused Bictegravir/Emtricitabine/Tenofovir (Bictegrav/Emtricit/Tenofov Ala Tablet) 1 tab PO DAILY [facility] Last Admin: 12/31/23 09:50 Dose: 1 tab Documented By: PRASHANTH Bisacodyl (Bisacodyl 10 Mg Supp.Rect) 10 mg [place] BEDTIME [facility] Last Admin: 12/30/23 20:45 Dose: 10 mg Documented By: CONCEPCION Calcium Carbonate (Calcium Carbonate 750 Mg Tab.Chew) 750 mg PO Q4H PRN PRN Reason: Heartburn Last Admin: 12/30/23 18:24 Dose: 750 mg Documented By: MOHAMUD Clopidogrel Bisulfate (Clopidogrel Bisulfate 75 Mg Tablet) 75 mg PO DAILY [facility] Last Admin: 12/31/23 09:50 Dose: 75 mg Documented By: PRASHANTH Enoxaparin Sodium (Enoxaparin Sodium 40 Mg/0.4 Ml Syringe) 40 mg SUBCUT Q24H [facility] Last Admin: 12/31/23 00:23 Dose: Not Given Documented By: CONCEPCION Non-Admin Reason: Patient Refused Loperamide HCl (Loperamide Hcl 2 Mg Capsule) 2 mg PO Q4H PRN PRN Reason: Diarrhea Magnesium Oxide (Magnesium Oxide 400 Mg Tablet) 400 mg PO BIDPC [facility] Last Admin: 12/31/23 09:50 Dose: 400 mg Documented By: PRASHANTH Methadone HCl (Methadone Hcl 20 Mg/2 Ml Oral.Conc) 50 mg PO DAILY [facility] Last Admin: 12/31/23 09:50 Dose: 50 mg Documented By: PRASHANTH Co-signed By: RHIANNON Mirtazapine (Mirtazapine 7.5 Mg Tablet) 7.5 mg PO BEDTIME [facility] Last Admin: 12/30/23 20:43 Dose: 7.5 mg Documented By: CONCEPCION Multivitamins/Vitamin C (Multivitamin Tablet) 1 tab PO DAILY [facility] Last Admin: 12/31/23 09:50 Dose: 1 tab Documented By: PRASHANTH Olanzapine (Olanzapine 10 Mg Vial) 5 mg IM Q6H PRN PRN Reason: anxiety/restlessness Sodium Chloride (0.9 % Sodium Chloride Flush 3 Ml Syringe) 3 ml IVFLUSH QSHIFT [facility] Last Admin: 12/31/23 09:50 Dose: 3 ml Documented By: PRASHANTH Thiamine HCl (Thiamine Hcl 100 Mg Tablet) 100 mg PO DAILY [facility] Last Admin: 12/31/23 09:50 Dose: 100 mg Documented By: PRASHANTH Labs 12/28/23 06:10 12/28/23 06:10 Assessment and Plan (1) Physical deconditioning: Status: Acute (2) Delirium: Status: Acute (3) Pulmonary aspiration: Status: Acute (4) Septicemia due to Hemophilus influenzae (H. influenzae): Status: Acute Plan 68M PMH COPD, HIV, HCV, opioid, cocaine dependence, etoh dependence, wheelchair bound due to polio, mood disorder, presented with dental pain and sob to ED, found to be hypotensive, acidodic, chuck. admitted to icu with pressors, fluids, antibiotics, precedex drip. did not require HD, renal function improved. was downgraded 12/17/23, but became very agitated and transfered back to icu 12/18/23 for better control of agitation, stabilized and downgraded 12/21/23. 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 HIV, Continue Biktarvy HCV, Outpatient follow-up DVT prophylaxis heparin subQ reason for continued hospitalization: placement Quality Stroke Does the patient have a stroke diagnosis?: No VTE Prior VTE?: No VTE Risk Level:: Medical - moderate - high VTE Device Contraindication: N/A - Device Ordered VTE Drug Contraindication: N/A - Med Ordered
[2023-12-31] MEDS: Loperamide HCl 2 MG CAPSULE PO (14:05)
[2023-12-31] MEDS: Amoxicillin/Potassium Clav 875 MG TABLET PO (14:05)
[2023-12-31 15:28] VITALS: BP 134/74; PULSE 82; RESP 20; TEMP 36; O2SAT 95
[2024-01-01] VITALS: BP 135/77; PULSE 75; RESP 20; TEMP 36.6; O2SAT 94
--- NOTE | 2024-01-01 00:59 | PC.NURSE ---
Patient refusing lovenox and antibiotics, attempted to educate, patient told me to go.
[2024-01-01 07:31] VITALS: BP 136/72; PULSE 81; RESP 20; TEMP 36.3; O2SAT 94
[2024-01-01] MEDS: 0.9 % Sodium Chloride Flush 3 ML SYRINGE IVFLUSH ×2 (08:25→18:02)
[2024-01-01] MEDS: Thiamine HCL 100 MG TABLET PO (08:25)
[2024-01-01] MEDS: Magnesium Oxide 400 MG TABLET PO ×2 (08:25→18:00)
[2024-01-01] MEDS: Multivitamin TABLET 1 TAB PO (08:25)
[2024-01-01] MEDS: Clopidogrel Bisulfate 75 MG TABLET PO (08:25)
[2024-01-01] MEDS: Bictegrav/Emtricit/Tenofov Ala TABLET 1 TAB PO (08:25)
[2024-01-01] MEDS: methADONE HCl 20 MG/2 ML ORAL.CONC 50 MG PO (08:25)
--- NOTE | 2024-01-01 13:08 | P.PNIM_ITS ---
Subjective Subjective Date of Service: 01/01/24 Interval History: Seen and evaluated this morning Feels better overall waiting SNF bed Physical Exam 2 Vital Signs: Vital Signs: Last Vital Signs Temp 97.3 F 01/01/24 07:31 Pulse 81 01/01/24 07:31 Resp 20 01/01/24 07:31 BP 136/72 01/01/24 07:31 Pulse Ox 94 01/01/24 07:31 O2 Del Method Nasal Cannula 01/01/24 07:31 O2 Flow Rate 2 01/01/24 07:31 FiO2 35 12/19/23 07:00 BMI result Body Mass Index 36.0 Const: Other: Constitutional : interactive, not in distress Cardiovascular : no JVP, no lower extremity edema Respiratory : bilateral chest movement, not in resp distress Gastrointestinal: soft, lax, Non tender Skin : Warm, Dry Neurological : Alert & oriented , Bilateral lower extremities paraplegia Objective Data Active Medications Albuterol/Ipratropium (Albuterol/Iprat 2.5/0.5mg 3 Ml Ampul.Neb) 3 ml INHALE Q4H PRN PRN Reason: Wheezing Last Admin: 12/30/23 20:36 Dose: 3 ml Documented By: PATRICK Amoxicillin/Clavulanate Potassium (Amoxicillin/Potassium Clav 875 Mg Tablet) 875 mg PO Q12H [facility] Last Admin: 01/01/24 00:55 Dose: Not Given Documented By: CLARY Non-Admin Reason: Patient Refused Bictegravir/Emtricitabine/Tenofovir (Bictegrav/Emtricit/Tenofov Ala Tablet) 1 tab PO DAILY [facility] Last Admin: 01/01/24 08:25 Dose: 1 tab Documented By: PRASHANTH Bisacodyl (Bisacodyl 10 Mg Supp.Rect) 10 mg RI BEDTIME [facility] Last Admin: 12/31/23 20:40 Dose: Not Given Documented By: CONCEPCION Non-Admin Reason: Patient Refused Calcium Carbonate (Calcium Carbonate 750 Mg Tab.Chew) 750 mg PO Q4H PRN PRN Reason: Heartburn Last Admin: 12/30/23 18:24 Dose: 750 mg Documented By: MOHAMUD Clopidogrel Bisulfate (Clopidogrel Bisulfate 75 Mg Tablet) 75 mg PO DAILY [facility] Last Admin: 01/01/24 08:25 Dose: 75 mg Documented By: PRASHANTH Enoxaparin Sodium (Enoxaparin Sodium 40 Mg/0.4 Ml Syringe) 40 mg SUBCUT Q24H [facility] Last Admin: 01/01/24 00:55 Dose: Not Given Documented By: CLARY Non-Admin Reason: Patient Refused Loperamide HCl (Loperamide Hcl 2 Mg Capsule) 2 mg PO Q4H PRN PRN Reason: Diarrhea Last Admin: 12/31/23 14:05 Dose: 2 mg Documented By: LADAN Magnesium Oxide (Magnesium Oxide 400 Mg Tablet) 400 mg PO BIDPC [facility] Last Admin: 01/01/24 08:25 Dose: 400 mg Documented By: PRASHANTH Methadone HCl (Methadone Hcl 20 Mg/2 Ml Oral.Conc) 50 mg PO DAILY [facility] Last Admin: 01/01/24 08:25 Dose: 50 mg Documented By: PRASHANTH Co-signed By: COTEMA Mirtazapine (Mirtazapine 7.5 Mg Tablet) 7.5 mg PO BEDTIME [facility] Last Admin: 12/31/23 20:40 Dose: Not Given Documented By: CONCEPCION Non-Admin Reason: Patient Refused Multivitamins/Vitamin C (Multivitamin Tablet) 1 tab PO DAILY [facility] Last Admin: 01/01/24 08:25 Dose: 1 tab Documented By: PRASHANTH Olanzapine (Olanzapine 10 Mg Vial) 5 mg IM Q6H PRN PRN Reason: anxiety/restlessness Sodium Chloride (0.9 % Sodium Chloride Flush 3 Ml Syringe) 3 ml IVFLUSH QSHIFT [facility] Last Admin: 01/01/24 08:25 Dose: 3 ml Documented By: PRASHANTH Thiamine HCl (Thiamine Hcl 100 Mg Tablet) 100 mg PO DAILY [facility] Last Admin: 01/01/24 08:25 Dose: 100 mg Documented By: PRASHANTH Labs 12/28/23 06:10 12/28/23 06:10 Assessment and Plan (1) Physical deconditioning: Status: Acute (2) Substance abuse: Status: Acute (3) Acute respiratory failure with hypoxia: Status: Acute (4) Dental abscess: Status: Acute Plan 68M PMH COPD, HIV, HCV, opioid, cocaine dependence, etoh dependence, wheelchair bound due to polio, mood disorder, presented with dental pain and sob to ED, found to be hypotensive, acidodic, chuck. admitted to icu with pressors, fluids, antibiotics, precedex drip. did not require HD, renal function improved. was downgraded 12/17/23, but became very agitated and transfered back to icu 12/18/23 for better control of agitation, stabilized and downgraded 12/21/23. 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 HIV, Continue Biktarvy HCV, Outpatient follow-up DVT prophylaxis heparin subQ reason for continued hospitalization: placement Quality Stroke Does the patient have a stroke diagnosis?: No VTE Prior VTE?: No VTE Risk Level:: Medical - moderate - high VTE Device Contraindication: N/A - Device Ordered VTE Drug Contraindication: N/A - Med Ordered
[2024-01-01 15:37] VITALS: BP 136/86; PULSE 72; RESP 18; TEMP 36; O2SAT 97
[2024-01-01] MEDS: Acetaminophen 325 MG TABLET 650 MG PO (21:06)
--- NOTE | 2024-01-01 22:53 | PC.NURSE ---
Pt continues to refuse all meds at night including abx, provider aware, pt requested pain medication for back, Tylenol order, given per JUN.
[2024-01-02] MEDS: Multivitamin TABLET 1 TAB PO (07:20)
[2024-01-02] MEDS: Thiamine HCL 100 MG TABLET PO (07:20)
[2024-01-02] MEDS: Clopidogrel Bisulfate 75 MG TABLET PO (07:20)
[2024-01-02] MEDS: Magnesium Oxide 400 MG TABLET PO ×2 (07:20→16:53)
[2024-01-02] MEDS: Bictegrav/Emtricit/Tenofov Ala TABLET 1 TAB PO (07:21)
[2024-01-02] MEDS: methADONE HCl 20 MG/2 ML ORAL.CONC 50 MG PO (07:21)
[2024-01-02] MEDS: 0.9 % Sodium Chloride Flush 3 ML SYRINGE IVFLUSH ×3 (07:22→19:48)
[2024-01-02 07:29] VITALS: BP 120/74; PULSE 90; RESP 14; TEMP 36.2; O2SAT 98
--- NOTE | 2024-01-02 11:34 | MHC.CLN ---
F/U DIET=REGULAR. ENSURE TID TO PROMOTE NUTRITIONAL INTAKE. SUPPLEMENT PROVIDES 1050 KCALS, 60 G PROTEIN. SKIN WITH RESOLVING STAGE II TO RIGHT SACRUM. SUPPLEMENT APPROPRIATE TO PROMOTE WOUND HEALING AND INCREASE CALORIES. INTAKE CONTINUES TO BE VARIABLE, 25-100%. FOLLOW FOR PO INTAKE AND SKIN INTEGRITY.
--- NOTE | 2024-01-02 11:53 | MHC.CM.PN ---
Addendum entered by Elina Rutledge RN 01/02/24 15:00: Auth still pending Jacquelyn @ [facility] [phone] Original Note: Patient remains medically cleared, awaiting STR. Marcia Noland has auth pending. Per liaison, insurance requesting updates. Sent to liaison via [employer]. Guest dosing is approved through [employer]. CM will continue to follow.
--- NOTE | 2024-01-02 12:18 | HO.PM.IMPN ---
Subjective Subjective Date of Service: 01/02/24 Interval History: Seen and evaluated this morning Feels better overall waiting SNF bed Review of Systems Review of Systems: Yes all other systems are reviewed and are negative Physical Exam Vital Signs: Vital Signs: Last Vital Signs Temp 97.2 F 01/02/24 07:29 Pulse 90 01/02/24 07:29 Resp 14 01/02/24 07:29 BP 120/74 01/02/24 07:29 Pulse Ox 98 01/02/24 07:29 O2 Del Method Nasal Cannula 01/02/24 07:29 O2 Flow Rate 2 01/02/24 07:29 FiO2 35 12/19/23 07:00 BMI result Body Mass Index 36.0 Const: Other: Constitutional : interactive, not in distress Cardiovascular : no JVP, no lower extremity edema Respiratory : bilateral chest movement, not in resp distress Gastrointestinal: soft, lax, Non tender Skin : Warm, Dry Neurological : Alert & oriented , Bilateral lower extremities paraplegia Objective Data Active Medications Acetaminophen (Acetaminophen 325 Mg Tablet) 650 mg PO Q6H PRN PRN Reason: Pain, Mild (Pain Scale 1-3) Last Admin: 01/01/24 21:06 Dose: 650 mg Documented By: CONCEPCION Albuterol/Ipratropium (Albuterol/Iprat 2.5/0.5mg 3 Ml Ampul.Neb) 3 ml INHALE Q4H PRN PRN Reason: Wheezing Last Admin: 12/30/23 20:36 Dose: 3 ml Documented By: PATRICK Amoxicillin/Clavulanate Potassium (Amoxicillin/Potassium Clav 875 Mg Tablet) 875 mg PO Q12H [facility] Last Admin: 01/02/24 12:01 Dose: Not Given Documented By: ARMANDO Non-Admin Reason: Patient Refused Bictegravir/Emtricitabine/Tenofovir (Bictegrav/Emtricit/Tenofov Ala Tablet) 1 tab PO DAILY [facility] Last Admin: 01/02/24 07:21 Dose: 1 tab Documented By: ARMANDO Bisacodyl (Bisacodyl 10 Mg Supp.Rect) 10 mg IA BEDTIME [facility] Last Admin: 01/01/24 21:09 Dose: Not Given Documented By: CONCEPCION Non-Admin Reason: Patient Refused Calcium Carbonate (Calcium Carbonate 750 Mg Tab.Chew) 750 mg PO Q4H PRN PRN Reason: Heartburn Last Admin: 12/30/23 18:24 Dose: 750 mg Documented By: MOHAMUD Clopidogrel Bisulfate (Clopidogrel Bisulfate 75 Mg Tablet) 75 mg PO DAILY [facility] Last Admin: 01/02/24 07:20 Dose: 75 mg Documented By: ARMANDO Enoxaparin Sodium (Enoxaparin Sodium 40 Mg/0.4 Ml Syringe) 40 mg SUBCUT Q24H [facility] Last Admin: 01/02/24 01:03 Dose: Not Given Documented By: CONCEPCION Non-Admin Reason: Patient Refused Loperamide HCl (Loperamide Hcl 2 Mg Capsule) 2 mg PO Q4H PRN PRN Reason: Diarrhea Last Admin: 12/31/23 14:05 Dose: 2 mg Documented By: LADAN Magnesium Oxide (Magnesium Oxide 400 Mg Tablet) 400 mg PO BIDPC [facility] Last Admin: 01/02/24 07:20 Dose: 400 mg Documented By: ARMANDO Methadone HCl (Methadone Hcl 20 Mg/2 Ml Oral.Conc) 50 mg PO DAILY [facility] Last Admin: 01/02/24 07:21 Dose: 50 mg Documented By: ARMANDO Co-signed By: COTARELI Mirtazapine (Mirtazapine 7.5 Mg Tablet) 7.5 mg PO BEDTIME [facility] Last Admin: 01/01/24 21:09 Dose: Not Given Documented By: CONCEPCION Non-Admin Reason: Patient Refused Multivitamins/Vitamin C (Multivitamin Tablet) 1 tab PO DAILY [facility] Last Admin: 01/02/24 07:20 Dose: 1 tab Documented By: ARMANDO Olanzapine (Olanzapine 10 Mg Vial) 5 mg IM Q6H PRN PRN Reason: anxiety/restlessness Sodium Chloride (0.9 % Sodium Chloride Flush 3 Ml Syringe) 3 ml IVFLUSH QSHIFT [facility] Last Admin: 01/02/24 07:22 Dose: 3 ml Documented By: ARMANDO Thiamine HCl (Thiamine Hcl 100 Mg Tablet) 100 mg PO DAILY [facility] Last Admin: 01/02/24 07:20 Dose: 100 mg Documented By: ARMANDO Labs 12/28/23 06:10 12/28/23 06:10 Assessment and Plan (1) Physical deconditioning: Status: Acute (2) Delirium: Status: Acute (3) Acute respiratory failure with hypoxia: Status: Acute (4) Septicemia due to Hemophilus influenzae (H. influenzae): Status: Acute Plan 68M PMH COPD, HIV, HCV, opioid, cocaine dependence, etoh dependence, wheelchair bound due to polio, mood disorder, presented with dental pain and sob to ED, found to be hypotensive, acidodic, chuck. admitted to icu with pressors, fluids, antibiotics, precedex drip. did not require HD, renal function improved. was downgraded 12/17/23, but became very agitated and transfered back to icu 12/18/23 for better control of agitation, stabilized and downgraded 12/21/23. 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 HIV, Continue Biktarvy HCV, Outpatient follow-up DVT prophylaxis heparin subQ reason for continued hospitalization: waiting placement Quality Stroke Does the patient have a stroke diagnosis?: No VTE Prior VTE?: No VTE Risk Level:: Medical - moderate - high VTE Device Contraindication: N/A - Device Ordered VTE Drug Contraindication: N/A - Med Ordered
[2024-01-02 15:46] VITALS: BP 144/76; PULSE 94; RESP 20; TEMP 36.3; O2SAT 97
[2024-01-02] MEDS: Mirtazapine 7.5 MG TABLET PO (19:47)
[2024-01-02 23:09] VITALS: BP 136/79; PULSE 70; RESP 17; TEMP 36.4; O2SAT 95
[2024-01-03] MEDS: Acetaminophen 325 MG TABLET 650 MG PO (06:15)
[2024-01-03] MEDS: Magnesium Oxide 400 MG TABLET PO (07:16)
[2024-01-03] MEDS: Clopidogrel Bisulfate 75 MG TABLET PO (07:16)
[2024-01-03] MEDS: Bictegrav/Emtricit/Tenofov Ala TABLET 1 TAB PO (07:16)
[2024-01-03] MEDS: Thiamine HCL 100 MG TABLET PO (07:16)
[2024-01-03] MEDS: Multivitamin TABLET 1 TAB PO (07:16)
[2024-01-03] MEDS: methADONE HCl 20 MG/2 ML ORAL.CONC 50 MG PO (07:18)
[2024-01-03 07:55] VITALS: BP 123/73; PULSE 85; RESP 14; TEMP 36.9; O2SAT 93
--- NOTE | 2024-01-03 08:26 | MHC.CM.PN ---
Insurance auth obtained. Patient will dc to [facility] via BLS transport at 12pm. MD STEPHEN, patient, HCP and facility aware. IMM delivered.
--- NOTE | 2024-01-03 10:45 | PC.NURSE ---
Facility called and report given.
--- NOTE | 2024-01-03 11:44 | PC.NURSE ---
IV Removed, pt tolerated well, intact, no s/s infection at the site.
== END 2024-01-03 12:25 | disposition skilled nursing facility (03) | DRG 871 ==
LOC: HO.ED 19:57 → HO.EDOVER 20:42 → HO.ICU 21:25 → HO.IMC 12-17 13:30 → HO.ICU 12-18 11:10 → HO.S3 12-21 08:01
PROVIDERS: Clinical Nurse Specialist Psychiatric/Mental Health, Adult; Internal Medicine; Internal Medicine Critical Care Medicine; Internal Medicine Pulmonary Disease; Physician Assistant Medical; Admitting Provider Nurse Practitioner Family; Emergency Provider Emergency Medicine; PCP Internal Medicine; Visit Provider Student in an Organized Health Care Education/Training Program
DX: A41.9 Sepsis, unspecified organism (principal); G92.8 Other toxic encephalopathy; J69.0 Pneumonitis due to inhalation of food and vomit; J96.01 Acute respiratory failure with hypoxia; N17.0 Acute kidney failure with tubular necrosis; G82.20 Paraplegia, unspecified; J91.8 Pleural effusion in other conditions classified elsewhere; F05 Delirium due to known physiological condition; E87.0 Hyperosmolality and hypernatremia; F11.23 Opioid dependence with withdrawal; F19.139 Other psychoactive substance abuse with withdrawal, unspecified; F14.23 Cocaine dependence with withdrawal; R65.20 Severe sepsis without septic shock; Z21 Asymptomatic human immunodeficiency virus [HIV] infection status; K04.7 Periapical abscess without sinus; F10.10 Alcohol abuse, uncomplicated; J43.9 Emphysema, unspecified; R13.10 Dysphagia, unspecified; D69.6 Thrombocytopenia, unspecified; D64.9 Anemia, unspecified; B96.3 Hemophilus influenzae [H. influenzae] as the cause of diseases classified elsewhere; B18.2 Chronic viral hepatitis C; B91 Sequelae of poliomyelitis; J01.00 Acute maxillary sinusitis, unspecified; E83.42 Hypomagnesemia; I95.9 Hypotension, unspecified; L89.152 Pressure ulcer of sacral region, stage 2; F17.210 Nicotine dependence, cigarettes, uncomplicated; E87.5 Hyperkalemia; T48.6X6A Underdosing of antiasthmatics, initial encounter; Z75.1 Person awaiting admission to adequate facility elsewhere; Z78.1 Physical restraint status; Z99.3 Dependence on wheelchair; Z71.6 Tobacco abuse counseling; Z79.02 Long term (current) use of antithrombotics/antiplatelets; Z79.51 Long term (current) use of inhaled steroids; Z79.899 Other long term (current) drug therapy
CPT/HCPCS: 36415; 70450; 70486; 71045; 71250; 74018; 74176; 80048; 80053; 80076; 80307; 81001; 81003; 82040; 82140; 82607; 82746; 82803; 83540; 83605; 83735; 84100; 84295; 84443; 84484; 85007; 85025; 85027; 85610; 86140; 86850; 86900; 86901; 86923; 87040; 87077; 87086; 87205; 87536; 92610; 93005; 93971; 94640; 97110; 97163; 97530; 99285; C1758; J0295; J0613; J0696; J0736; J1170; J1630; J1644; J1650; J1956; J2060; J2270; J2470; J2543; J3010; J3370; J3475; J3480; J7120; P9016; P9047

== ENCOUNTER → 2023-12-14 20:26 | Outpatient (BNV) | payer OTHER, SELFPAY | PROVIDERS: Admitting Provider Nurse Practitioner Family; Emergency Provider Emergency Medicine; PCP Internal Medicine; Visit Provider Nurse Practitioner Psychiatric/Mental Health | DX: F11.90 Opioid use, unspecified, uncomplicated (principal) | CPT/HCPCS: 99231; 99232; 99499 ==

== ENCOUNTER → 2023-12-14 20:26 | Outpatient (BNV) | payer OTHER, SELFPAY | PROVIDERS: Admitting Provider Nurse Practitioner Family; Emergency Provider Emergency Medicine; PCP Internal Medicine; Visit Provider Clinical Nurse Specialist Psychiatric/Mental Health, Adult | DX: F11.90 Opioid use, unspecified, uncomplicated (principal); R41.0 Disorientation, unspecified | CPT/HCPCS: 99232 ==

== ENCOUNTER → 2023-12-14 20:26 | Outpatient (BNV) | payer OTHER, SELFPAY | PROVIDERS: Admitting Provider Nurse Practitioner Family; Emergency Provider Emergency Medicine; PCP Internal Medicine; Visit Provider Internal Medicine Pulmonary Disease | DX: F11.90 Opioid use, unspecified, uncomplicated (principal); T17.900A Unspecified foreign body in respiratory tract, part unspecified causing asphyxiation, initial encounter; J96.01 Acute respiratory failure with hypoxia; B20 Human immunodeficiency virus [HIV] disease; K04.7 Periapical abscess without sinus; B18.2 Chronic viral hepatitis C | CPT/HCPCS: 99232; 99233; 99291 ==

== ENCOUNTER → 2023-12-14 20:26 | Outpatient (BNV) | payer OTHER, SELFPAY | PROVIDERS: Admitting Provider Nurse Practitioner Family; Emergency Provider Emergency Medicine; PCP Internal Medicine; Visit Provider Nurse Practitioner Family | DX: N17.9 Acute kidney failure, unspecified (principal) | CPT/HCPCS: 99232; 99291; 99499 ==

== ENCOUNTER → 2023-12-14 20:26 | Outpatient (BNV) | payer OTHER, SELFPAY | PROVIDERS: Admitting Provider Nurse Practitioner Family; Emergency Provider Emergency Medicine; PCP Internal Medicine; Visit Provider Internal Medicine | DX: R41.0 Disorientation, unspecified (principal); R53.81 Other malaise | CPT/HCPCS: 99231; 99232; 99233; 99239; 99499 ==

== ENCOUNTER → 2023-12-14 20:26 | Outpatient (BNV) | payer OTHER, SELFPAY | PROVIDERS: Admitting Provider Nurse Practitioner Family; Emergency Provider Emergency Medicine; PCP Internal Medicine; Visit Provider Internal Medicine | DX: K04.7 Periapical abscess without sinus (principal); F11.90 Opioid use, unspecified, uncomplicated; B20 Human immunodeficiency virus [HIV] disease; A41.9 Sepsis, unspecified organism; R65.20 Severe sepsis without septic shock; N17.9 Acute kidney failure, unspecified; A41.3 Sepsis due to Hemophilus influenzae | CPT/HCPCS: 99222; 99499 ==

== ENCOUNTER → 2023-12-14 20:26 | Outpatient (BNV) | payer OTHER, SELFPAY | PROVIDERS: Admitting Provider Nurse Practitioner Family; Emergency Provider Emergency Medicine; PCP Internal Medicine; Visit Provider Internal Medicine Hypertension Specialist | DX: B20 Human immunodeficiency virus [HIV] disease (principal); N17.0 Acute kidney failure with tubular necrosis; I95.9 Hypotension, unspecified | CPT/HCPCS: 99223; 99232 ==

== ENCOUNTER 2024-03-26 12:07 | Outpatient (REF) | payer OTHER, SELFPAY ==
[2024-03-26 14:15] LABS: Alanine Aminotransferase 10 U/L (0-40); Albumin Level 3.1 g/dL (3.5-5.0); Alkaline Phosphatase 149 U/L (39-117); Anion Gap 11 (12-20); Aspartate Amino Transferase 40 U/L (5-37); Bilirubin Total 0.5 mg/dL (0.0-1.0); Blood Urea Nitrogen 14 mg/dL (9-16); Calcium 8.6 mg/dL (8.4-10.2); Carbon Dioxide 31 mmol/L (22-29); Chloride 98 mmol/L (96-108); Estimated Glomerular Filt Rate > 60; Glucose Random 85 mg/dL (60-115); Potassium 3.7 mmol/L (3.3-5.1); Sodium 136 mmol/L (135-145); Total Protein 7.5 g/dL (6.5-8.0)
[2024-03-26 16:27] LABS: CT PCR NOT DETECTED (Not Detect.); NG PCR NOT DETECTED (Not Detect.)
[2024-03-27 14:48] LABS: HIV RNA PCR Qn Copies 40 copies/mL (NOT DETECTED)
[2024-04-02 13:54] LABS: HCV Log PCR <1.18 NOT DETECTED Log IU/mL (NOT DETECTED); HepC Viral Load <15 NOT DETECTED IU/mL (NOT DETECTED)
== END 2024-03-26 12:08 | disposition home or self-care (01) ==
LOC: HO.HHCL 12:07
PROVIDERS: Visit Provider Internal Medicine
DX: B20 Human immunodeficiency virus [HIV] disease (principal)
CPT/HCPCS: 80053; 87491; 87522; 87536; 87591

== ENCOUNTER 2024-06-14 12:33 | Inpatient (IN) | payer OTHER, SELFPAY ==
--- NOTE | ~2024-06-14 | XR_ITS ---
CLINICAL HISTORY: vomiting 1 view abdomen Comparison: CR/SR - XR KUB - 12/21/23 16:08 EDT Findings: No pneumoperitoneum or pneumatosis. No abnormal calcifications. No acute fractures. Enteric tube with the distal tip in the stomach IMPRESSION: The bowel gas pattern is within normal limits This document has been electronically signed by: Van Barlow MD, PHD on 06/17/2024 03:09:17
--- NOTE | ~2024-06-14 | CT_ITS ---
CLINICAL HISTORY: bacteremia CT abdomen and pelvis without contrast Comparison: None Findings: Motion artifact degrades some of the provided images limiting interpretation. Stones or sludge layer dependently within the gallbladder. No focal hepatic lesion identified. Pancreas and spleen are unremarkable. Adrenal glands are within normal limits. Mild right hydronephrosis is present with a 2 mm calculus in the distal right ureter. No residual renal calculi are identified. No bowel obstruction, pneumoperitoneum, or pneumatosis. Small fat containing bilateral inguinal hernias are present. Scattered sigmoid diverticula are present without diverticulitis. Visualized appendix is normal. Urinary bladder is relatively decompressed. Prior right hip open reduction internal fixation noted IMPRESSION: Mild right hydronephrosis with 2 mm calculus in the distal right ureter. This document has been electronically signed by: Van Barlow MD, PHD on 06/15/2024 03:02:11
--- NOTE | ~2024-06-14 | XR_ITS ---
CLINICAL HISTORY: c line placement 1 view chest x-ray Comparison: CR/MO/SR - XR CHEST 1V - 06/14/24 14:42 EST Findings: Basilar subsegmental atelectasis or infiltrates, [id number] with layering left-sided pleural effusion. Normal size heart. Right internal jugular central venous catheter with the distal tip in the superior vena cava. No acute fracture. IMPRESSION: 1. Right internal jugular central venous catheter with the distal tip in the superior vena cava. 2. Basilar subsegmental atelectasis or infiltrates, [id number], with layering left-sided pleural effusion. This document has been electronically signed by: Van Barlow MD, PHD on 06/15/2024 01:42:13
--- NOTE | ~2024-06-14 | XR_ITS ---
EXAMINATION: XR CHEST CLINICAL INFORMATION: sob COMPARISON: December 19, 2023. TECHNIQUE: Frontal view of the chest was obtained. FINDINGS: Partial exclusion of the lower chest. Meniscal shaped opacity left lower hemithorax. Linear opacities in the lung bases. No hyperinflation. Cardiomediastinal silhouette size is normal. Calcified plaque thoracic aorta. Degenerative changes in the right shoulder and to a lesser extent left acromioclavicular joint. XR/XR chest 1V IMPRESSION: Left-sided pleural effusion, moderate volume. Mild interstitial edema in the correct clinical settings. Electronically signed by: David Holt MD 06/14/2024 02:59 PM EST
--- NOTE | ~2024-06-14 | CT_ITS ---
CLINICAL HISTORY: Hypotension, Hypoxia CT angiography chest with contrast. 3D Postprocessing. Comparison: CT - CT ANGIO CHEST PE PROTOCOL - 06/16/24 16:54 EST Findings: Examination degraded by motion artifact. The heart size is normal. RV/LV ratio is normal. Calcification of the coronary vasculature. The thoracic aorta is normal caliber. No pulmonary artery filling defects. The visualized thyroid is within normal limits. Small hiatal hernia. Moderate bibasilar airspace opacity. Moderate apical predominant emphysema. The upper abdomen is unremarkable. No acute fractures. IMPRESSION: 1. Limited examination demonstrating no definite pulmonary emboli. 2. Coronary artery disease. 3. Bibasilar pneumonia. This document has been electronically signed by: Ki Lazaro MD on 06/16/2024 18:27:19
--- NOTE | ~2024-06-14 | XR_ITS ---
CLINICAL HISTORY: Dyspnea 1 view chest x-ray Comparison: CR - XR CHEST 1V - 06/15/24 00:57 EST CR/CT/SR - XR CHEST 1V - 06/14/24 14:42 EST Findings: Right internal jugular vein central venous catheter, tip of which is in the upper SVC. Moderate bibasilar airspace opacity. Normal size heart. No acute fracture. IMPRESSION: Bibasilar pneumonia. Continued plain film follow-up is recommended to ensure resolution, and to exclude underlying neoplasm. This document has been electronically signed by: Ki Lazaro MD on 06/16/2024 16:53:26
--- NOTE | ~2024-06-14 | CT_ITS ---
CLINICAL HISTORY: bacteremia CT chest without contrast Comparison: CR - XR CHEST 1V - 06/15/24 00:57 EST Findings: Atherosclerotic coronary vascular calcifications are noted. Moderate-sized hiatal hernia is present. Right internal jugular central venous catheter terminates in the superior vena cava. Bilateral basilar consolidations or infiltrates are present with scattered air bronchograms. Moderate bronchial wall thickening is present bilaterally. Severe emphysematous changes are present within the lungs with apical pleural-parenchymal scarring and bullous disease. The visualized upper abdomen is unremarkable. No acute fractures. IMPRESSION: 1. Bilateral basilar pulmonary consolidations, infiltrate or subsegmental atelectasis. 2. Severe emphysematous changes with apical pleural-parenchymal scarring and bullous disease. This document has been electronically signed by: Van Barlow MD, PHD on 06/15/2024 02:48:58
--- NOTE | ~2024-06-14 | XR_ITS ---
CLINICAL HISTORY: tube placemnt 1 view chest x-ray Comparison: Chest x-ray from 06/16/2024 Findings: The endotracheal tube terminates in the midthoracic trachea with tip partly obscured. Small left pleural effusion. Bibasilar atelectasis and/or consolidation, left worse than right. No pneumothorax. Right IJ central line and mediastinum appear unchanged. 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 IMPRESSION: 1. The endotracheal tube terminates in the midthoracic trachea. 2. Small left pleural effusion with bibasilar pulmonary opacities. This document has been electronically signed by: Kolton Cary MD on 06/17/2024 00:49:06
[2024-06-14 14:17] VITALS: BP 0/0; PULSE 92; O2SAT 100
[2024-06-14 14:18] VITALS: BP 125/98; PULSE 97; RESP 16; TEMP 36.9; O2SAT 95; BMI 23.6
--- NOTE | 2024-06-14 14:27 | ECG_ITS ---
Test Reason : WEAKNESS Blood Pressure : */* mmHG Vent. Rate : 109 BPM Atrial Rate : * BPM P-R Int : * ms QRS Dur : 80 ms QT Int : 286 ms P-R-T Axes : * 84 118 degrees QTcB Int : 385 ms Artifact in tracing Undetermined rhythm Low voltage QRS Abnormal ECG When compared with ECG of 19-Dec-2023 10:48, Due to quality, cannot compare Referred By: Sima Arriola Electronically Signed By: BOOKER OLIVIER
--- NOTE | 2024-06-14 15:54 | ED.GENADULT ---
HPI - General Adult General Chief complaint: General Medical Stated complaint: NOT FEELING WELL X 3-4 DAYS Time Seen by Provider: 06/14/24 14:24 Source: patient, EMS and land agent Mode of arrival: ambulatory Limitations: no limitations History of Present Illness ED Provider: DR. Arriola HPI narrative: 68-year-old male who is a poor historian presented with shortness of breath for 3-4 days, patient feels flu-like symptoms with generalized weakness. No fever, no chills, no chest pain. Patient is refusing checking vital signs by EMS and workup in the emergency department. Related Data Home Medications ?Medication ?Instructions ?Recorded ?Confirmed cholecalciferol (vitamin D3) 50 1 tab PO DAILY 02/21/20 12/14/23 mcg (2,000 unit) tablet multivitamin 1 tab PO DAILY 02/21/20 12/14/23 thiamine mononitrate (vit B1) 100 1 tab PO DAILY 02/21/20 12/14/23 mg tablet clopidogrel 75 mg tablet 75 mg PO DAILY 10/09/21 12/14/23 hydrochlorothiazide 25 mg tablet 25 mg PO DAILY 10/09/21 12/14/23 rosuvastatin 10 mg tablet 10 mg PO BEDTIME 10/09/21 12/14/23 aspirin 81 mg chewable tablet 81 mg PO DAILY 04/29/23 12/14/23 bictegravir 50 mg-emtricitabine 1 tab PO DAILY 04/29/23 12/14/23 200 mg-tenofovir alafenam 25 mg tablet (Biktarvy) folic acid 1 mg tablet 1 mg PO DAILY 04/29/23 12/14/23 albuterol sulfate 90 mcg/actuation 2 puff inhalation Q4H PRN 12/14/23 12/14/23 aerosol inhaler (Ventolin HFA) SOB/Wheezing fluticasone 250 mcg-salmeterol 50 1 inh inhalation BID 12/14/23 12/14/23 mcg/dose blistr powdr for inhalation (Advair Diskus) tiotropium bromide 2.5 2 puff inhalation QAM 12/14/23 12/14/23 mcg/actuation mist for inhalation (Spiriva Respimat) lidocaine 5 % topical ointment 1 ea topical BID pain 06/14/24 06/14/24 lisinopril 5 mg tablet 5 mg PO QAM blood pressure 06/14/24 Previous Rx's ?Medication ?Instructions ?Recorded pantoprazole 20 mg tablet,delayed 20 mg PO DAILY 4 weeks #28 tabs 09/09/22 release magnesium oxide 400 mg (241.3 mg 400 mg PO DAILY #90 tabs 12/30/23 magnesium) tablet mirtazapine 7.5 mg tablet 7.5 mg PO BEDTIME #30 tabs 12/30/23 Allergies Allergy/AdvReac Type Severity Reaction Status Date / Time No Known Allergies Allergy Verified 06/14/24 14:21 Review of Systems Review of Systems: All other systems are reviewed and are negative Constitutional: Reports as per HPI and Reports no additional constitutional complaints Eyes: Reports as per HPI and Reports no additional eye complaints Reports system reviewed and no additional complaints, except as documented Cardiovascular: Reports as per HPI and Reports no additional cardiovascular complaints Respiratory: Reports as per HPI and Reports no additional respiratory complaints Gastrointestinal: Reports as per HPI and Reports no additional gastrointestinal complaints Genitourinary: Reports no additional female genitourinary complaints Musculoskeletal: Reports no additional musculoskeletal complaints Skin/Breast: Reports system reviewed and no additional complaints, except as docu Psychiatric: Reports no additional psychiatric complaints Endocrine: Reports no additional endocrine complaints Hematologic/Lymphatic: Reports no additional hematologic/lymphatic complaints Allergic/Immunologic: Reports no additional allergic/immunologic complaints Reports system reviewed and no additional complaints, except as documented and Reports Abnormal speech present FOR[facility]LY [facility], [facility] Past Medical History Medical History Opioid use disorder Substance abuse Hep C w/o coma, chronic Septicemia due to Hemophilus influenzae (H. influenzae) Methadone dependence Bigeminal rhythm COPD (chronic obstructive pulmonary disease) Tubular adenoma of colon Pulmonary nodule Emphysema lung Tobacco abuse Anxiety PAC (premature atrial contraction) Anemia Alcohol abuse Opioid dependence Hepatitis C HIV (human immunodeficiency virus infection) Polio Surgical History History of colonoscopy History of hip surgery History of foot surgery Social History Social History Household Members: Caregiver Housing: Unknown / Unable to assess Do you presently have visiting nurse or other home services: Yes Alcohol intake: current Alcohol intake frequency: 3 or more drinks per day Alcohol type: beer and hard liquor Comment: 1;1 sitter Patient Tobacco Use Status: Current everyday Tobacco user Tobacco use type: Cigarette Cigarettes Per Day: 2.0 Second Hand Smoke Exposure: No Substance Use Type: Crack/Cocaine and Heroin Advance Directives: No Advance Directives Information Provided: Yes Do you have a plan to hurt others: No Plan Current occupational status: disabled Physical Exam ED Vital Signs: Vital Signs - 24 hr 06/14/24 14:18 Temperature 98.5 F Pulse Rate 97 Respiratory Rate 16 Blood Pressure 125/98 H Pulse Oximetry 95 Oxygen Delivery Method Room Air BMI result Body Mass Index 23.6 Vital signs have been reviewed and appear to be correct. Blood pressure elevated. Heart rate normal. Respiratory rate normal. Temperature normal. Oxygen saturation normal. Appearance: Alert. Oriented X3. No acute distress. Head: Normal external exam. Normocephalic. Atraumatic. No Ramirez signs noted. No raccoon eyes noted Eyes: PERRLA. EOMI. Conjunctiva and sclera normal. Eyelids normal. ENT: TM's Normal. Pharynx normal. Uvula midline. Moist mucous membranes. No trismus noted. No drooling noted. No muffled voice noted. Neck: Normal inspection. Neck supple. FROM. No adenopathy. Thyroid Normal. No meningeal signs. No neck mass noted. CVS: Normal heart rate and rhythm. Heart sound normal. No murmurs noted. Pulses normal throughout. Respiratory: No respiratory distress. Painless inspiration. Breath sounds normal. No wheezes/rales/rhonchi noted. Chest nontender. No accessory muscle usage noted or decreased air movement noted. Abdomen: Soft and nontender. Bowel sounds normal in all 4 quadrants. No distention noted. No organomegaly noted. No visible injury noted. Back: No CVA tenderness. Full range of motion noted. Skin: Skin warm and dry. Normal skin color. Normal skin turgor. No rashes/lesions/lacerations noted. Extremities: No lower extremity edema. Extremities exhibit normal range of motion. Extremities nontender. Neuro: Oriented X 3. Cranial nerve exam: II-XII are grossly intact No motor deficit. No sensory deficit. Reflexes normal. Course Reevaluation(s) Reevaluation #1: Acute on chronic kidney injury with hypokalemia case discussed with Dr. Hall, patient with lactic acidosis secondary to ELSIE, at this point there is no sign of infection, still waiting on urine sample from the patient, patient received 1 empiric dose of ceftriaxone coverage. cbc is pending. await admission. Time: 16:33 Medications Administered Discontinued Medications Generic Name Dose Route Start Last Admin Trade Name Clemente PRN Reason Stop Dose Admin Ceftriaxone Sodium 1 gm 06/14/24 16:28 06/14/24 17:56 Ceftriaxone Sodium 1 Gm Vial IVPUSH 06/14/24 16:29 1 gm ONCE ONE Administration Potassium Chloride 10 meq in 100 mls @ 100 mls/hr 06/14/24 16:28 06/14/24 17:56 Potassium Chloride/H20 IV 06/14/24 17:27 100 mls/hr ONCE ONE Administration Sodium Chloride 1,000 mls @ 999 mls/hr 06/14/24 17:29 06/14/24 17:56 Ns IV 06/14/24 18:29 999 mls/hr .Q1H1M ONE Administration Potassium Chloride 40 meq 06/14/24 16:28 06/14/24 17:56 Potassium Chloride Packet 20 Meq Packet PO 06/14/24 16:29 40 meq ONCE ONE Administration Medical Decision Making Medical Decision Making [facility] Narrative: Patient is seen and re-evaluated at 17 30 patient is 68 years old with history of COPD HIV hepatitis-C polysubstance abuse and alcohol abuse wheelchair-bound due to polio comes here for increased weakness for last 3 -4 days noted to be in ELSIE with creatinine of 4.42 with BUN of 58 potassium of 2.4 lactic acid of 4.0 which is from renal failure type B lactic acidosis. Will give IV fluids IV potassium already discussed the case with hospitalist by previous provider plan for admission will give IV fluids and IV Rocephin Differential Diagnosis Differential Diagnoses: The differential diagnosis associated with the presentation includes (ELSIE, hypokalemia, electrolyte derangement, pneumonia, pneumothorax, dehydration, UTI, influenza, COVID-19 infection, RSV.) Admission/Observation Consideration of admission/observation: Escalation of care including admission/observation considered Consult Healthcare Provider Management of the patient was discussed with: Hospitalist (Dr. Robbins) and Irrigation Teacher (Dr. Hall) Lab Data [facility] Lab Attestation statement: I reviewed the patient's lab results. (CBC is pending) 06/14/24 17:42 06/14/24 15:59 Labs: Lab Results 06/14/24 06/14/24 06/14/24 Range/Units 15:59 16:14 17:42 WBC 5.1 (4.8-10.8) X10*3/uL RBC 1.88 L D (4.60-5.80) X10*6/uL Hgb 6.2 L* D (14.0-18.0) g/dl Hct 17.7 L* D (42.0-52.0) % MCV 94.1 (80.0-98.0) fL MCH 33.0 (27.0-33.0) pg MCHC 35.0 (31.0-36.0) g/dl RDW 14.4 (11.0-16.0) % Plt Count 145 L D (160-400) X10*3/uL MPV 10.2 (9.4-12.4) fL Immature Gran % (Auto) 0.4 (0.0-0.4) % Neut % (Auto) 69.0 (45-73) % Lymph % (Auto) 21.6 (20-40) % Kay % (Auto) 7.6 (2-11) % Eos % (Auto) 1.0 (0-4) % Baso % (Auto) 0.4 (0-2) % Lymph # (Auto) 1.1 L (1.2-4.9) X10*3/uL Kay # (Auto) 0.4 (0.1-1.2) X10*3/uL Eos # (Auto) 0.1 (0.0-0.4) X10*3/uL Baso # (Auto) 0.0 (0.0-0.2) X10*3/uL Abs Immat Gran (auto) 0.02 (0.00-0.03) X10*3/uL Absolute Neuts (auto) 3.5 (2.0-8.3) x10*3/uL Absolute Nucleated RBC 0.000 (0.0-0.012) X10*3/uL Nucleated RBC % (auto) 0.0 (0.0-0.2) /100WBC PT 13.4 H (10.9-12.4) SEC INR 1.2 H (0.9-1.1) Sodium 144 (135-145) mmol/L Potassium 2.4 L* D (3.3-5.1) mmol/L Chloride 104 (96-108) mmol/L Carbon Dioxide 23 (22-29) mmol/L Anion Gap 19 (12-20) BUN 58 H (9-16) mg/dL Creatinine 4.42 H* (0.5-1.4) mg/dL Estim Creat Clear Calc 14.1 Estimated GFR 13 Random Glucose 88 (60-115) mg/dL Lactic Acid 4.0 H* (0.5-2.0) mmol/L Lactic Acid F/U @ 2Hr (0.5-2.0) mmol/L Calcium 6.4 L D (8.4-10.2) mg/dL Magnesium 1.1 L* (1.6-2.6) mg/dL Total Bilirubin 0.9 (0.0-1.0) mg/dL Direct Bilirubin 0.6 H (0.0-0.5) mg/dL AST 23 (5-37) U/L ALT < 6 (0-40) U/L Alkaline Phosphatase 172 H (39-117) U/L Troponin I High Sens 7.3 D (<3.5-35.0) ng/L B-Natriuretic Peptide 191 H (<100) pg/mL Total Protein 6.9 (6.5-8.0) g/dL Albumin 2.4 L (3.5-5.0) g/dL Lipase 10 (8-78) U/L Influenza Type A (PCR) NEGATIVE (Negative) Influenza Type B (PCR) NEGATIVE (Negative) RSV RNA Qual (PCR) NEGATIVE (Negative) SARS-CoV-2 RNA (RT-PCR) NEGATIVE (Negative) Blood Type Antibody Screen Crossmatch 06/14/24 Range/Units 18:08 WBC (4.8-10.8) X10*3/uL RBC (4.60-5.80) X10*6/uL Hgb (14.0-18.0) g/dl Hct (42.0-52.0) % MCV (80.0-98.0) fL MCH (27.0-33.0) pg MCHC (31.0-36.0) g/dl RDW (11.0-16.0) % Plt Count (160-400) X10*3/uL MPV (9.4-12.4) fL Immature Gran % (Auto) (0.0-0.4) % Neut % (Auto) (45-73) % Lymph % (Auto) (20-40) % Kay % (Auto) (2-11) % Eos % (Auto) (0-4) % Baso % (Auto) (0-2) % Lymph # (Auto) (1.2-4.9) X10*3/uL Kay # (Auto) (0.1-1.2) X10*3/uL Eos # (Auto) (0.0-0.4) X10*3/uL Baso # (Auto) (0.0-0.2) X10*3/uL Abs Immat Gran (auto) (0.00-0.03) X10*3/uL Absolute Neuts (auto) (2.0-8.3) x10*3/uL Absolute Nucleated RBC (0.0-0.012) X10*3/uL Nucleated RBC % (auto) (0.0-0.2) /100WBC PT (10.9-12.4) SEC INR (0.9-1.1) Sodium (135-145) mmol/L Potassium (3.3-5.1) mmol/L Chloride (96-108) mmol/L Carbon Dioxide (22-29) mmol/L Anion Gap (12-20) BUN (9-16) mg/dL Creatinine (0.5-1.4) mg/dL Estim Creat Clear Calc Estimated GFR Random Glucose (60-115) mg/dL Lactic Acid (0.5-2.0) mmol/L Lactic Acid F/U @ 2Hr 1.5 (0.5-2.0) mmol/L Calcium (8.4-10.2) mg/dL Magnesium (1.6-2.6) mg/dL Total Bilirubin (0.0-1.0) mg/dL Direct Bilirubin (0.0-0.5) mg/dL AST (5-37) U/L ALT (0-40) U/L Alkaline Phosphatase (39-117) U/L Troponin I High Sens (<3.5-35.0) ng/L B-Natriuretic Peptide (<100) pg/mL Total Protein (6.5-8.0) g/dL Albumin (3.5-5.0) g/dL Lipase (8-78) U/L Influenza Type A (PCR) (Negative) Influenza Type B (PCR) (Negative) RSV RNA Qual (PCR) (Negative) SARS-CoV-2 RNA (RT-PCR) (Negative) Blood Type O Negative Antibody Screen NEGATIVE Crossmatch See Detail Independent Interpretation I performed an independent interpretation of an: Plain X-Ray (chest: no actue pathology) Radiology Impression Discussion of test interpretation with radiology: I have reviewed the radiologist's reading. Discharge Plan Discharge Clinical Impression: Acute on chronic renal failure, Acute hypokalemia Patient Disposition: Admitted As Inpatient Print Language: Occitan
[2024-06-14 16:25] LABS: Alanine Aminotransferase < 6 U/L (0-40); Albumin Level 2.4 g/dL (3.5-5.0); Alkaline Phosphatase 172 U/L (39-117); Anion Gap 19 (12-20); Aspartate Amino Transferase 23 U/L (5-37); Bilirubin Direct 0.6 mg/dL (0.0-0.5); Bilirubin Total 0.9 mg/dL (0.0-1.0); Blood Urea Nitrogen 58 mg/dL (9-16); Calcium 6.4 mg/dL (8.4-10.2); Carbon Dioxide 23 mmol/L (22-29); Chloride 104 mmol/L (96-108); Creatinine Clr Calc Pharmacy 14.1; Estimated Glomerular Filt Rate 13; Glucose Random 88 mg/dL (60-115); Lipase 10 U/L (8-78); Potassium 2.4 mmol/L (3.3-5.1); Sodium 144 mmol/L (135-145); Total Protein 6.9 g/dL (6.5-8.0)
[2024-06-14 16:26] LABS: B Type Natriuretic Peptide 191 pg/mL (<100)
[2024-06-14 16:40] LABS: Troponin-I High Sensitivity 7.3 ng/L (<3.5-35.0)
[2024-06-14 17:37] LABS: Influenza A PCR NEGATIVE (Negative); Influenza B PCR NEGATIVE (Negative); Resp Syncy Virus RNA Qual PCR NEGATIVE (Negative); SARS COV2 PCR INHOUSE NEGATIVE (Negative)
[2024-06-14 17:47] LABS: MANUAL DIFF FLAG NO
[2024-06-14 17:49] LABS: Basophils Percent Auto 0.4 % (0-2); Eosinophils Absolute Auto 0.1 X10*3/uL (0.0-0.4); Imm Gran Abs Auto 0.02 X10*3/uL (0.00-0.03); Imm Gran Pct Auto 0.4 % (0.0-0.4); Lymphocytes Absolute Auto 1.1 X10*3/uL (1.2-4.9); Lymphocytes Percent Auto 21.6 % (20-40); Mean Corpuscular Volume 94.1 fL (80.0-98.0); Mean Platelet Volume 10.2 fL (9.4-12.4); Monocytes Absolute Auto 0.4 X10*3/uL (0.1-1.2); Monocytes Percent Auto 7.6 % (2-11); Neutrophils Absolute Auto 3.5 x10*3/uL (2.0-8.3); Platelet Count 145 X10*3/uL (160-400); Red Blood Count 1.88 X10*6/uL (4.60-5.80); Red Cell Distribution Width 14.4 % (11.0-16.0); White Blood Count 5.1 X10*3/uL (4.8-10.8)
[2024-06-14 17:54] LABS: Hematocrit 17.7 % (42.0-52.0); Hemoglobin 6.2 g/dl (14.0-18.0)
[2024-06-14] MEDS: Potassium Chloride/H20 10 MEQ/100 ML PIGGYBACK 100 MEQ IV (17:56)
[2024-06-14] MEDS: Potassium Chloride Packet 20 MEQ PACKET 40 MEQ PO (17:56)
[2024-06-14] MEDS: cefTRIAXone sodium 1 GM VIAL IVPUSH (17:56)
[2024-06-14] MEDS: 0.9 % Sodium Chloride 1,000 ML 999 ML IV (17:56)
[2024-06-14 17:58] LABS: INTERNATIONAL NORM RATIO 1.2 (0.9-1.1); Prothrombin Time 13.4 SEC (10.9-12.4)
[2024-06-14 18:03] LABS: Reflex Lactate? Lactic Acid Added
[2024-06-14 18:23] LABS: Magnesium 1.1 mg/dL (1.6-2.6)
[2024-06-14 18:30] LABS: ~Lactic Acid-LAB USE ONLY 1.5 mmol/L (0.5-2.0)
[2024-06-14] MEDS: Magnesium Sulfate/H2O 2 GM/50 ML PIGGYBACK IV (19:24)
[2024-06-14 19:28] VITALS: BP 95/53; PULSE 81; RESP 15; TEMP 36.4; O2SAT 94
--- NOTE | 2024-06-14 19:43 | PHA.MEDREC ---
Addendum entered by Salima Jenkins RPh 06/14/24 21:07: reviewed by [facility], will have AM team follow up on the rest with [facility] pharmacy. Original Note: Pharmacy Consult ? Medication Reconciliation Pharmacy has completed the medication reconciliation. Spoke to patient to confirm med list. Patient was in a lot of pain and very annoyed with speaking to me . Patient said you guys should have a list. every thing on the list I take when tiring to ask about Plavix patient began yelling in pain. there are no contact info on file. Utilized claims to confirm med rec.
--- NOTE | 2024-06-14 20:00 | PC.NURSE ---
Pt alert and awake. First unit of RBC's started. Pt tolerating well. VSS. No sign of allergy/reaction noted. Perineal care provided. Barrier cream applied to pressure ulcers on the coccyx. Clean hospital gown provided. Bed pads changed. Monitoring is ongoing.
[2024-06-14 20:04] VITALS: BP 92/57; PULSE 77; RESP 16; TEMP 36.4
[2024-06-14 20:21] VITALS: BP 96/62; PULSE 74; RESP 21; TEMP 36.4
[2024-06-14 20:44] LABS: OBS Int Ctl Valid YES; OBS1 NEGATIVE (NEGATIVE)
[2024-06-14 20:45] LABS: Appearance Urine Clear; Color Urine Yellow; Glucose Urine UA Negative (Negative); Leukocyte Esterase Urine Negative (Negative); Nitrite Urine Negative (Negative); PH 5.5 (5.0-9.0); Specific Gravity - Urine 1.015 (1.005-1.025); UMIC TRIGGER UACC YES; Urine Blood Trace (Negative); Urine Ketones Negative (Negative); Urine Protein 30 (1+) mg/dL (Neg-Trace)
[2024-06-14 20:52] LABS: Bacteria Urine None Seen (None Seen); RBC Urine 0-2 /HPF (0-2); Squamous Epithelial Cell Urine 0-2 /HPF (0-2); WBC Urine 0-5 /HPF (0-5)
[2024-06-14 20:53] LABS: Amphetamine Screen Urine Not Detected (Not Detect); Barbiturates, Urine Not Detected (Not Detect); Benzodiazepines Screen Urine Not Detected (Not Detect); Buprenorphine Scr Not Detected (Not Detect); Cannabinoid Screen Urine Not Detected (Not Detect); Cocaine Screen Urine Not Detected (Not Detect); Fentanyl, urine POSITIVE (Not Detect); Methadone Screen, Urine Positive (Not Detect); Opiate Screen Urine POSITIVE (Not Detect); Oxycodone Screen Urine Not Detected (Not Detect); Phencyclidine Screen Urine Not Detected (Not Detect)
--- NOTE | 2024-06-14 22:02 | MHC.EDTECH ---
[facility] labs *2 RN jordan aware. Pt is a very difficult stick
[2024-06-14 22:57] LABS: Anion Gap 17 (12-20); Blood Urea Nitrogen 53 mg/dL (9-16); Calcium 6.1 mg/dL (8.4-10.2); Carbon Dioxide 20 mmol/L (22-29); Chloride 109 mmol/L (96-108); Creatinine Clr Calc Pharmacy 16.8; Estimated Glomerular Filt Rate 17; Glucose Random 98 mg/dL (60-115); Magnesium 1.9 mg/dL (1.6-2.6); Potassium 2.3 mmol/L (3.3-5.1); Sodium 144 mmol/L (135-145)
[2024-06-14 23:49] VITALS: BP 84/55; PULSE 89; RESP 18; TEMP 36.6; O2SAT 97
--- NOTE | 2024-06-14 23:50 | MHC.EDTECH ---
Addendum entered by Isis Phillips 06/14/24 23:59: Patient is very tremulous,provider and RN at bedside Original Note: This tech took over care of pt at 2300,rounded and introduced self to pt,vitals taken,BP is low 84/55 RN aware at bedside,warm blanket given call her in reach
[2024-06-15] VITALS (52 sets, daily range): BP systolic 75–112; BP diastolic 41–80; PULSE 70–106; RESP 10–30; TEMP 36.3–36.9; O2SAT 89–100; BMI 24.4
--- NOTE | 2024-06-15 00:20 | PC.NURSE ---
Pt currently hypotensive with BP 80's systolic. Blood transfusion stopped. MD at bedside. Orders to start NS and potassium. MD at bedside attempting second U/S IV line with no success. MD will attempt a central line. New order placed in JUN. Monitoring ongoing.
--- NOTE | 2024-06-15 00:40 | PC.NURSE ---
Pt awake, alert, and oriented. Central line placed by . Pt tolerated well. Continues to be hypotensive 87/45 MAP 54 HR 91. Levophed started as per JUN.
[2024-06-15] MEDS: Norepinephrine Bitartrate/D5W 8 MG/250 ML PLAST..BAG 6.02 MG IVCONT (00:42)
[2024-06-15] MEDS: Hydrocortisone Sod Succ/PF 100 MG VIAL IVPUSH (00:48)
[2024-06-15] MEDS: vancomycin HCL 1,000 MG in 0.9 % Sodium Chloride 250 ML 270 MG IV (00:57)
[2024-06-15] MEDS: Potassium Chloride/H20 10 MEQ/100 ML PIGGYBACK 100 MEQ IV (00:58)
--- NOTE | 2024-06-15 02:19 | PC.NURSE ---
Bedside report provided to STEPHEN Irizarry
--- NOTE | 2024-06-15 02:23 | P.HPCC_ITS ---
History of Present Illness Date of Service: 06/15/24 Attending physician on admission: Mellisa Villegas Chief Complaint: Shortness of breath, weakness Mr. Calderon is a 68-year-old?Kosovan-speaking male with history of?COPD, emphysema, HIV, Hepatitis-C, anemia, lower leg dysfunction secondary to polio, alcohol abuse, opioid dependence, tobacco abuse, methadone use, anxiety who presented to the ER complaining of?3-4 days of shortness of breath and generalized weakness.?No fever, no chills, no chest pain. On arrival to the emergency room, the patient's blood pressure 125/98, HR 97, temp 98.5,? O2 sat 95% on RA.? Laboratory data significant for RBC 1.88, hemoglobin 6.2, hematocrit 97.7, platelet 145, potassium 2.3, BUN 53, creatinine 3.69, calcium 6.1, troponin 7.3. UA negative for UTI.? Urine drug screen positive for opiates, methadone, fentanyl.?Stool occult blood negative. No flu, RSV, COVID. Imaging:? Abd/Pelvis CT showed mild right hydronephrosis with 2 mm calculus in the distal right ureter. Chest CT showed bilateral infiltrates ED course: The patient received a total of 60 mEq KCL, ceftriaxone 1 g, 1 L normal saline, 2 g magnesium,? Solu-Cortef 150 mg, vancomycin 1 g.? He was given 1 unit red blood cells. ? He became hypotensive and was started on a Levophed drip. Review of Systems 2 Review of Systems: Yes all other systems are reviewed and are negative Constitutional: Constitutional: Reports no additional constitutional complaints Eyes: Eyes: Denies change in vision ENT: Reports Normal hearing present Cardiovascular: Cardiovascular: Reports no additional cardiovascular complaints Respiratory: Respiratory: Reports cough Gastrointestinal: Gastrointestinal: Denies diarrhea, Denies nausea and Denies vomiting Genitourinary: Genitourinary: Reports no additional male genitourinary complaints Musculoskeletal: Musculoskeletal: Reports muscle weakness Integumentary/Breasts: Skin/Breast: Denies rash, Denies sores and Denies wounds Neurologic: Reports Normal hearing present and Reports tremor(s) (began about 4 months ago) Psychiatric: Psychiatric: Reports no additional psychiatric complaints Endocrine: Endocrine: Reports no additional endocrine complaints Hematologic/Lymphatic: Hematologic/Lymphatic: Reports as per HPI Allergic/Immunologic: Allergic/Immunologic: Reports no additional allergic/immunologic complaints PMFSH Past Medical History Medical History Opioid use disorder Substance abuse Hep C w/o coma, chronic Septicemia due to Hemophilus influenzae (H. influenzae) Methadone dependence Bigeminal rhythm COPD (chronic obstructive pulmonary disease) Tubular adenoma of colon Pulmonary nodule Emphysema lung Tobacco abuse Anxiety PAC (premature atrial contraction) Anemia Alcohol abuse Opioid dependence Hepatitis C HIV (human immunodeficiency virus infection) Polio Surgical History Surgical History History of colonoscopy History of hip surgery History of foot surgery Social History Social History Household Members: None Housing: Apartment Do you presently have visiting nurse or other home services: Yes Alcohol intake: current Alcohol intake frequency: 3 or more drinks per day Alcohol type: beer and hard liquor Comment: 1;1 sitter Patient Tobacco Use Status: Current everyday Tobacco user Tobacco use type: Cigarette Cigarettes Per Day: 5 Years Smoked: 56 Patient Interested in Nicotine Replacement: No Second Hand Smoke Exposure: No Use of substances other than those prescribed or required for medical reasons: Yes Substance Use Type: Heroin Substance Use Frequency: Daily Last Used Substance: Days (ago) Last Used Substance Other:: 1 Have you been hit, kicked, punched, or otherwise hurt by someone within the past year? If so, by whom?: No Do you feel safe in your current relationship?: No Current Relationship Is there a partner from a previous relationship who is making you feel unsafe now?: No Are you made to feel afraid or neglected: No [facility] Practices: Restorationist Advance Directives: No Advance Directives Information Provided: Yes Do you have a plan to hurt others: No Plan Recently lost weight without trying: Yes How much weight loss: 2-13 pounds Eating poorly because of decreased appetite: Yes Nutrition screen score: 4 Nutrition Risks: Poor intake 0-25% >4 days Current occupational status: disabled Meds Allergies Allergy/AdvReac Type Severity Reaction Status Date / Time No Known Allergies Allergy Verified 06/14/24 14:21 Active Medications: Current Medications Heparin Sodium (Porcine) (Heparin Sodium,Porcine 5,000 Unit/Ml Vial) 5,000 unit SUBCUT Q8H CHAN Potassium Chloride (Potassium Chloride/H20) 10 meq in 100 mls @ 100 mls/hr IV Q1H CHAN Stop: 06/15/24 03:29 Last Admin: 06/15/24 00:58 Dose: 100 mls/hr Norepinephrine Bitartrate (Levophed) 8 mg in 250 mls @ 0 mls/hr IVCONT .Q0M CHAN; Protocol Last Titration: 06/15/24 02:08 Dose: 0.09 mcg/kg/min, 10.83 mls/hr Pharmacy Consult (Consult Rx Vancomycin Dosing) 1 each MISCELLANE DAILY PRN PRN Reason: Consult order Home Medications ?Medication ?Instructions ?Recorded ?Confirmed ?Last Taken ?Type cholecalciferol (vitamin D3) 50 1 tab PO DAILY 02/21/20 12/14/23 Unknown History mcg (2,000 unit) tablet multivitamin 1 tab PO DAILY 02/21/20 06/14/24 Unknown History thiamine mononitrate (vit B1) 100 1 tab PO DAILY 02/21/20 12/14/23 Unknown History mg tablet clopidogrel 75 mg tablet 75 mg PO DAILY 10/09/21 12/14/23 Unknown History rosuvastatin 10 mg tablet 10 mg PO BEDTIME 10/09/21 06/14/24 Unknown History aspirin 81 mg chewable tablet 81 mg PO DAILY 04/29/23 06/14/24 Unknown History bictegravir 50 mg-emtricitabine 1 tab PO DAILY 04/29/23 06/14/24 Unknown History 200 mg-tenofovir alafenam 25 mg tablet (Biktarvy) folic acid 1 mg tablet 1 mg PO DAILY 04/29/23 12/14/23 Unknown History albuterol sulfate 90 mcg/actuation 2 puff inhalation Q4H PRN 12/14/23 12/14/23 Unknown History aerosol inhaler (Ventolin HFA) SOB/Wheezing fluticasone 250 mcg-salmeterol 50 1 inh inhalation BID 12/14/23 06/14/24 Unknown History mcg/dose blistr powdr for inhalation (Advair Diskus) tiotropium bromide 2.5 2 puff inhalation DAILY 12/14/23 06/14/24 Unknown History mcg/actuation mist for inhalation (Spiriva Respimat) hydrochlorothiazide 12.5 mg tablet 12.5 mg PO DAILY blood pressure 06/14/24 06/14/24 Unknown History lidocaine 5 % topical ointment 1 ea topical BID pain 06/14/24 06/14/24 Unknown History lisinopril 5 mg tablet 5 mg PO DAILY blood pressure 06/14/24 06/14/24 Unknown History pantoprazole 20 mg tablet,delayed 20 mg PO DAILY@0630 06/14/24 06/14/24 Unknown History release Physical Exam 2 Vital Signs: Vital Signs: Last Vital Signs Temp 97.8 F 06/14/24 23:49 Pulse 73 06/15/24 02:08 Resp 12 06/15/24 01:17 BP 80/47 L 06/15/24 02:08 Pulse Ox 96 06/15/24 00:40 O2 Del Method Room Air 06/15/24 00:40 BMI result Body Mass Index 23.6 Const: General: cooperative, no acute distress, alert and ill appearing O rientation/consciousness: patient oriented x3 Limitations: wheelchair HEENT: Head: Yes normocephalic and Yes atraumatic General nose exam: Normal external nose present (Nares patent, septum midline, sinuses nontender bilaterally.) Mouth: Normal oral and palatal mucosa present (No thrush, tongue in midline, mucosa moist.) Eyes: General: appearance normal, both eyes and all related structures Neck: Neck: Yes supple (no thyromegaly, trachea midline.) Carotids: normal carotid upstroke Resp: Effort & Inspection: normal respiratory effort, able to speak in complete sentences, Actively coughing, no respiratory distress and no use of accessory muscles Auscultation: rhonchi and diminished lung sounds Cardio: Jugular venous distension: no JVD Rate: regular rate Rhythm: r egular rhythm Heart sounds: no gallops, no murmurs and no rubs Peripheral pulses: Peripheral pulses 2+ throughout GI: Palpation (GI): Soft to palpation (nondistended.) and nontender Neuro: General: patient oriented x3 Cranial nerves: Yes Normal hearing present Motor exam (neuro): Tremors during motor activity present bilateral upper extremity Extrem: General: Yes full ROM, Yes capillary refill normal and Yes no clubbing, cyanosis or edema Psych: Affect: normal affect Attitude: cooperative Results Labs 06/15/24 06:59 06/15/24 06:59 Labs: Laboratory Results - last 24 hr 06/14/24 06/14/24 06/14/24 15:59 16:14 17:42 MCV 94.1 MCH 33.0 MCHC 35.0 RDW 14.4 Plt Count 145 L D MPV 10.2 Immature Gran % (Auto) 0.4 Neut % (Auto) 69.0 Lymph % (Auto) 21.6 [place] % (Auto) 7.6 Eos % (Auto) 1.0 Baso % (Auto) 0.4 Lymph # (Auto) 1.1 L [place] # (Auto) 0.4 Eos # (Auto) 0.1 Baso # (Auto) 0.0 Abs Immat Gran (auto) 0.02 Absolute Neuts (auto) 3.5 Absolute Nucleated RBC 0.000 Nucleated RBC % (auto) 0.0 PT 13.4 H INR 1.2 H Anion Gap 19 Estim Creat Clear Calc 14.1 Estimated GFR 13 Random Glucose 88 Lactic Acid 4.0 H* Lactic Acid F/U @ 2Hr Calcium 6.4 L D Magnesium 1.1 L* Total Bilirubin 0.9 Direct Bilirubin 0.6 H AST 23 ALT < 6 Alkaline Phosphatase 172 H Total Creatine Kinase 133 B-Natriuretic Peptide 191 H Total Protein 6.9 Albumin 2.4 L Lipase 10 Urine Color Urine Appearance Urine pH Ur Specific [place] Urine Protein Urine Glucose (UA) Urine Ketones Urine Blood Urine Nitrite Ur Leukocyte Esterase Urine RBC Urine WBC Ur Squamous Epith Cells Urine Bacteria Hyaline Casts Stool Occult Blood Urine Opiates Screen Ur Buprenorphine Scrn Ur Oxycodone Screen Urine Methadone Screen Urine Fentanyl Screen Ur Barbiturates Screen Ur Phencyclidine Scrn Ur Amphetamines Screen U Benzodiazepines Scrn Urine Cocaine Screen U Marijuana (THC) Screen Influenza Type A (PCR) NEGATIVE Influenza Type B (PCR) NEGATIVE RSV RNA Qual (PCR) NEGATIVE SARS-CoV-2 RNA (RT-PCR) NEGATIVE Blood Type Antibody Screen Crossmatch 06/14/24 06/14/24 06/14/24 18:08 20:32 22:35 MCV MCH MCHC RDW Plt Count MPV Immature Gran % (Auto) Neut % (Auto) Lymph % (Auto) [place] % (Auto) Eos % (Auto) Baso % (Auto) Lymph # (Auto) [place] # (Auto) Eos # (Auto) Baso # (Auto) Abs Immat Gran (auto) Absolute Neuts (auto) Absolute Nucleated RBC Nucleated RBC % (auto) PT INR Anion Gap 17 Estim Creat Clear Calc 16.8 Estimated GFR 17 Random Glucose 98 Lactic Acid Lactic Acid F/U @ 2Hr 1.5 Calcium 6.1 L Magnesium 1.9 Total Bilirubin Direct Bilirubin AST ALT Alkaline Phosphatase Total Creatine Kinase B-Natriuretic Peptide Total Protein Albumin Lipase Urine Color Yellow Urine Appearance Clear Urine pH 5.5 Ur Specific [place] 1.015 Urine Protein 30 (1+) H Urine Glucose (UA) Negative Urine Ketones Negative Urine Blood Trace H Urine Nitrite Negative Ur Leukocyte Esterase Negative Urine RBC 0-2 Urine WBC 0-5 Ur Squamous Epith Cells 0-2 Urine Bacteria None Seen Hyaline Casts 3-5 Stool Occult Blood NEGATIVE Urine Opiates Screen POSITIVE H Ur Buprenorphine Scrn Not Detected Ur Oxycodone Screen Not Detected Urine Methadone Screen Positive H Urine Fentanyl Screen POSITIVE H Ur Barbiturates Screen Not Detected Ur Phencyclidine Scrn Not Detected Ur Amphetamines Screen Not Detected U Benzodiazepines Scrn Not Detected Urine Cocaine Screen Not Detected U Marijuana (THC) Screen Not Detected Influenza Type A (PCR) Influenza Type B (PCR) RSV RNA Qual (PCR) SARS-CoV-2 RNA (RT-PCR) Blood Type O Negative Antibody Screen NEGATIVE Crossmatch See Detail Imaging Radiologist's Impressions: Impressions Chest X-Ray 06/14/24 14:50 IMPRESSION: Left-sided pleural effusion, moderate volume. Mild interstitial edema in the correct clinical settings. Electronically signed by: David Holt MD 06/14/2024 02:59 PM [facility] Assessment and Plan (1) Acute hypotension: Status: Acute (2) Severe anemia: Status: Acute (3) Acute hypokalemia: Status: Acute (4) Acute on chronic renal failure: Qualifiers: Acute renal failure type: unspecified Chronic kidney disease stage: u nspecified stage Qualified Code(s): N17.9 - Acute kidney failure, unspecified; N18.9 - Chronic kidney disease, unspecified Status: Acute (5) Pneumonia: Qualifiers: Laterality: bilateral Lung location: lower lobe of lung Pneumonia type: due to unspecified organism Qualified Code(s): J18.9 - Pneumonia, unspecified organism Status: Acute Plan 68-year-old male with COPD, emphysema, HIV, Hep-C, anemia, polysubstance use, anxiety,?admitted with hypotension, severe anemia,?hypokalemia,?acute on chronic renal failure. Neuro:? no acute issues. Cardiac:? Hypotension likely due to anemia/ hypovolemia. Transfuse. Replete volume. Pulmonary:? Underlying emphysema, COPD. CT showed bilateral infiltrates. Empirically treated in the ER. Continue vanco. Add Zosyn. Duonebs. Renal:? Acute on chronic renal failure.? Hypokalemia.? Non oliguric. Monitor electrolytes, renal function, intake and output. Replete as needed. Endo:? No acute issues.? GI:? No acute issues. ID:? Underlying HIV. Patient does not meet SIRS criteria. Lactate 1.5. Afebrile. No leukocytosis. Cultures pending. Continue empiric treatment. Heme/Onc: Severe anemia. Transfuse for hemoglobin less than 7. Psych:? Addiction medicine consulted Miscellaneous:? No acute issues. Prophylaxis:? Heparin Diet:? Regular Patient's care was discussed in detail with Dr. Villegas.? She is aware of all the above as well as the plan of care for this patient. Total time managing care of this patient today: 60 minutes.
[2024-06-15] MEDS: Piperacillin Sodium/Tazobactam 2.25 GM in 0.9 % Sodium Chloride 50 ML IV ×3 (03:01→18:18)
[2024-06-15] MEDS: Heparin Sodium,Porcine 5,000 UNIT/ML VIAL 5000 UNIT SUBCUT ×3 (03:04→17:43)
[2024-06-15] MEDS: Potassium Chloride/H20 40 MEQ/100 ML PIGGYBACK 100 MEQ IV ×4 (03:12→19:58)
--- NOTE | 2024-06-15 06:59 | PHA.PROG ---
Admission Date/Time: June 15, 2024 01:25 Indication: respiratory/other Weight in k.5 kg Adjusted body weight in Kg: [place] body weight in Kg: Obesity Dosing Indication % IBW: Serum Creatinine - Last 168 Hours 06/14/24 06/14/24 15:59 22:35 Creatinine 4.42 H* 3.69 H Estimated CrCl and GFR - Last 168 Hours 06/14/24 06/14/24 15:59 22:35 Estim Creat Clear Calc 14.1 16.8 Estimated GFR 13 17 Vancomycin Loading Dose: 1000mg x 1 Current Vancomycin Dosing Regimen: 500mg Q24H Vancomycin Monitoring using AUC goal of 400 - 600 range with trough as surrogate marker: 479 mg/L Date and Time for next Vancomycin Level to be drawn: 06/15 @2100 Pharmacist Comments on Vancomycin Plan: Patient has poor renal function so will continue to dose then draw level until stable. Predicted trough of 17.2 mg/L. Vancomycin dosing will take advantage of [employer] as a clinical decision support tool that uses Bayesian modeling to calculate individual patient's pharmacokinetic parameters and forecast the patient's drug concentration time course with the target goal AUC 24 range of 400 - 600 mg/L/hr.
[2024-06-15] MEDS: Omeprazole 20 MG CAPSULE.DR PO (07:03)
[2024-06-15 07:08] LABS: Hematocrit 25.8 % (42.0-52.0); Hemoglobin 8.9 g/dl (14.0-18.0); Imm Gran Abs Auto 0.03 X10*3/uL (0.00-0.03); Imm Gran Pct Auto 0.4 % (0.0-0.4); Lymphocytes Absolute Auto 0.3 X10*3/uL (1.2-4.9); Lymphocytes Percent Auto 4.7 % (20-40); MANUAL DIFF FLAG SCAN; Mean Corpuscular HGB Conc 34.5 g/dl (31.0-36.0); Mean Corpuscular Hemoglobin 31.6 pg (27.0-33.0); Mean Corpuscular Volume 91.5 fL (80.0-98.0); Mean Platelet Volume 9.8 fL (9.4-12.4); Monocytes Absolute Auto 0.1 X10*3/uL (0.1-1.2); Monocytes Percent Auto 1.4 % (2-11); Neutrophils Absolute Auto 6.6 x10*3/uL (2.0-8.3); Neutrophils Percent Auto 93.5 % (45-73); Platelet Count 133 X10*3/uL (160-400); Red Blood Count 2.82 X10*6/uL (4.60-5.80); Red Cell Distribution Width 15.1 % (11.0-16.0); SCAN SMEAR FLAG 1
[2024-06-15 07:26] LABS: SLIDE REVIEW VERIFIED
[2024-06-15 07:42] LABS: Alanine Aminotransferase < 6 U/L (0-40); Albumin Level 2.2 g/dL (3.5-5.0); Alkaline Phosphatase 161 U/L (39-117); Anion Gap 16 (12-20); Aspartate Amino Transferase 22 U/L (5-37); Blood Urea Nitrogen 45 mg/dL (9-16); Calcium 6.2 mg/dL (8.4-10.2); Carbon Dioxide 19 mmol/L (22-29); Chloride 111 mmol/L (96-108); Creatinine Clr Calc Pharmacy 19.3; Estimated Glomerular Filt Rate 19; Glucose Random 183 mg/dL (60-115); Magnesium 1.5 mg/dL (1.6-2.6); Potassium 2.6 mmol/L (3.3-5.1); Sodium 143 mmol/L (135-145); Total Protein 6.4 g/dL (6.5-8.0)
--- NOTE | 2024-06-15 07:43 | PC.NURSE ---
Addendum entered by Neena Neri RN 06/15/24 07:47: Calcium Chloride not stocked in unit pyxis this morning. Pharmacy and oncoming RN made aware. Original Note: Manager Program arrived at ED with RN supervisor paste mixing at 02:12 to transport patient to ICU for admission. Beside handoff report received from ED RN. Levophed infusing at 0.09mcg/kg/min on arrival to ED via right IJ triple lumen. No other medications or blood products infusing at that time. Patient arrived to ICU with typewriter tester and RN supervisor paste mixing at 02:30; care assumed by this typewriter tester. Patient is primarily [place] speaking. Bedside kennel staff member used to complete admission assessments. Patient is A&O. Mentation maintained. Pt has tremors to BUE that he reports he has had for four months. Pt also reports he drinks ?5-6 nips of fireball, four to five nights a week?. Denies headache, hallucinations, chills. Imaging obtained in ED prior to assuming care. Breathing remains even and unlabored without distress, spo2 maintained on room air. SR on tele with PACs and PVCs. Potassium 40mEq ordered by VENDING MANAGER and given. RBC orders in place prior to assuming care, however, this typewriter tester was unable to locate a consent in the transferred chart from ED. Out of caution, a transfusion consent was obtained by VENDING MANAGER Sussy You with the translator/interpreter present. One unit of RBC was initiated and transfused during typewriter tester?s care without issue. VENDING MANAGER made aware of end of transfusion with verbal order to wait thirty minutes prior to morning lab draw, then okay to proceed with next ordered unit of RBCs. Wound to buttock. Foam applied and photo uploaded to chart, wound consult placed. Pt reports he is wheelchair bound with VIBRATION TECHNICIAN at home due to hx of polio. Call her within reach and educated on use, rings and yells out to make needs known. Please see shift assessment, tasks, and MAR for full details. Handoff report given to oncarti RN at 07:00.
[2024-06-15] MEDS: Magnesium Sulfate/D5W 1 GM/100 ML PIGGYBACK IV (08:11)
[2024-06-15] MEDS: Albumin Human 25 % 50 ML 100 ML IV (08:11)
[2024-06-15] MEDS: Calcium Chloride 1 GM/10 ML SYRINGE IVPUSH (08:11)
[2024-06-15] MEDS: Bictegrav/Emtricit/Tenofov Ala TABLET 1 TAB PO (08:11)
--- NOTE | 2024-06-15 11:10 | MHC.CLN ---
NUTRITION DIET=REGULAR. SKIN WITH STAGE II PRESSURE INJURY TO COCCYX. ADDING ENSURE CLEAR TID TO PROMOTE WOUND HEALING. SUPPLEMENT PROVIDES 720 KCAL, 24 G PROTEIN. PATIENT WITH CHRONIC RENAL FAILURE AND SUPPLEMENT IS RENAL FRIENDLY. FOLLOW FOR PO INTAKE AND SKIN INTEGRITY. SEE CLINICAL NUTRITION ASSESSMENT 06/15/24.
[2024-06-15] MEDS: Sulfamethoxazole/Trimethoprim 320 MG in Dextrose 5 % 500 ML 225 MG IV ×2 (12:03→21:45)
--- NOTE | 2024-06-15 12:26 | HE.PHANOTE ---
RE:methadone patient got 60mg in person at [facility] on 06/04 with 7 take home bottles
--- NOTE | 2024-06-15 14:35 | MHC.CM.PN ---
Pt receiving care in ICU: multiple chem abnormalities: hypotensive on pressor support: CM attempted to meet w/pt to review d/c planning needs: pt lethargic, falling asleep during attempts at conversation. Review of EMR notes pt had been in [facility] ([facility]) in fall 2023. He is primarily w/c bound, receives Methadone from [facility] and has PILATES INSTRUCTOR care at home. HCP on file: message left for Denzel. CM to follow for finalization of d/c needs: ? pt needing STR vs home with or without services.
[2024-06-15] MEDS: methADONE HCl 20 MG/2 ML ORAL.CONC 30 MG PO (15:13)
[2024-06-15 15:19] LABS: TSH reflex Free T4 0.53 uIU/mL (0.32-4.0)
[2024-06-15 18:59] LABS: Anion Gap 12 (12-20); Blood Urea Nitrogen 39 mg/dL (9-16); Carbon Dioxide 19 mmol/L (22-29); Chloride 114 mmol/L (96-108); Creatinine Clr Calc Pharmacy 20.3; Estimated Glomerular Filt Rate 21; Glucose Random 175 mg/dL (60-115); Magnesium 1.6 mg/dL (1.6-2.6); Potassium 3.3 mmol/L (3.3-5.1); Sodium 142 mmol/L (135-145)
--- NOTE | 2024-06-15 19:06 | PC.NURSE ---
?Alert& oriented. On RA, clear lung BL ?Sinus rhythm,? Levophed gtt - see MAR, MAP goal >65. ?LBM 06/13, +bowel sounds, Regular diet.? External catheter in place. PI to coccyx? (repositioning maintained) ? Wheelchair at baseline. (passive ROM performed to lower extremities) TLC R IJ, peripheral IV.
--- NOTE | 2024-06-15 20:11 | PM.CNNEP ---
History of Present Illness Reason for Consult Consult date: 06/15/24 Reason for consult: ELSIE Chief Complaint Chief complaint: hypotension History of Present Illness Narrative: Mr. Calderon is a 68-year-old?Faroese-speaking male with history of?COPD, emphysema, HIV, Hepatitis-C, anemia, lower leg dysfunction secondary to polio, alcohol abuse, opioid dependence, tobacco abuse, methadone use, anxiety who presented to the ER complaining of?3-4 days of shortness of breath and generalized weakness.?No fever, no chills, no chest pain.On arrival to the emergency room, the patient's blood pressure 125/98, HR 97, temp 98.5,? O2 sat 95% on RA.?Laboratory data significant for RBC 1.88, hemoglobin 6.2, hematocrit 97.7, platelet 145, potassium 2.3, BUN 53, creatinine 3.69, calcium 6.1, troponin 7.3. UA negative for UTI.? Urine drug screen positive for opiates, methadone, fentanyl.?Stool occult blood negative. No flu, RSV, COVID. Abd/Pelvis CT showed mild right hydronephrosis with 2 mm calculus in the distal right ureter. Chest CT showed bilateral infiltrates. The patient received a total of 60 mEq KCL, ceftriaxone 1 g, 1 L normal saline, 2 g magnesium,? Solu-Cortef 150 mg, vancomycin 1 g.? He was given 1 unit red blood cells. ? He became hypotensive and was started on a Levophed drip.He was admitted for further management. Nephrology has been consulted to assist in his clinical care during his current hospital stay Review of Systems Review of Systems Yes all other systems are reviewed and are negative PMFSH Past Medical History Medical History Opioid use disorder Substance abuse Hep C w/o coma, chronic Septicemia due to Hemophilus influenzae (H. influenzae) Methadone dependence Bigeminal rhythm COPD (chronic obstructive pulmonary disease) Tubular adenoma of colon Pulmonary nodule Emphysema lung Tobacco abuse Anxiety PAC (premature atrial contraction) Anemia Alcohol abuse Opioid dependence Hepatitis C HIV (human immunodeficiency virus infection) Polio Surgical History Surgical History History of colonoscopy History of hip surgery History of foot surgery Social History Social History Household Members: None Housing: Apartment Do you presently have visiting nurse or other home services: Yes Alcohol intake: current Alcohol intake frequency: 3 or more drinks per day Alcohol type: beer and hard liquor Comment: 1;1 sitter Patient Tobacco Use Status: Current everyday Tobacco user Tobacco use type: Cigarette Cigarettes Per Day: 5 Years Smoked: 56 Patient Interested in Nicotine Replacement: No Second Hand Smoke Exposure: No Use of substances other than those prescribed or required for medical reasons: Yes Substance Use Type: Heroin Substance Use Frequency: Daily Last Used Substance: Days (ago) Last Used Substance Other:: 1 Currently Displaying Signs/Symptoms of Drug Intoxication Withdrawal: No Have you been hit, kicked, punched, or otherwise hurt by someone within the past year? If so, by whom?: No Do you feel safe in your current relationship?: No Current Relationship Is there a partner from a previous relationship who is making you feel unsafe now?: No Are you made to feel afraid or neglected: No Adventism Healthcare Practices: Rastafari Advance Directives: No Advance Directives Information Provided: Yes Do you have a plan to hurt others: No Plan Recently lost weight without trying: Yes How much weight loss: 2-13 pounds Eating poorly because of decreased appetite: Yes Nutrition screen score: 4 Nutrition Risks: Poor intake 0-25% >4 days Current occupational status: disabled Meds Allergies Allergy/AdvReac Type Severity Reaction Status Date / Time No Known Allergies Allergy Verified 06/14/24 14:21 Active Medications: Current Medications Albuterol/Ipratropium (Albuterol/Iprat 2.5/0.5mg 3 Ml Ampul.Neb) 3 ml INHALE Q4H PRN PRN Reason: Shortness of Breath/Wheezing Bictegravir/Emtricitabine/Tenofovir (Bictegrav/Emtricit/Tenofov Ala Tablet) 1 tab PO DAILY [facility]AN Last Admin: 06/15/24 08:11 Dose: 1 tab Heparin Sodium (Porcine) (Heparin Sodium,Porcine 5,000 Unit/Ml Vial) 5,000 unit SUBCUT Q8H [facility]AN Last Admin: 06/15/24 17:43 Dose: 5,000 unit Norepinephrine Bitartrate (Levophed) 8 mg in 250 mls @ 0 mls/hr IVCONT .Q0M CHAN; Protocol Last Titration: 06/15/24 17:22 Dose: 0.11 mcg/kg/min, 13.24 mls/hr Piperacillin Sod/Tazobactam (Sod 2.25 gm/ Sodium Chloride) 50 mls @ 100 mls/hr IV Q8H [facility] Last Infusion: 06/15/24 19:47 Dose: Infused Vancomycin HCl 500 mg/ Sodium (Chloride) 110 mls @ 110 mls/hr IV Q24H [facility] Trimethoprim/Sulfamethoxazole (320 mg/ Dextrose) 520 mls @ 225 mls/hr IV Q8H [facility] Potassium Chloride (Potassium Chloride/H20) 40 meq in 100 mls @ 100 mls/hr IV ONCE ONE Stop: 06/15/24 20:31 Last Admin: 06/15/24 19:58 Dose: 100 mls/hr Methadone HCl (Methadone Hcl 20 Mg/2 Ml Oral.Conc) 60 mg PO DAILY@0800 [facility] Omeprazole (Omeprazole 20 Mg Capsule.Dr) 20 mg PO DAILY@0630 [facility] Last Admin: 06/15/24 07:03 Dose: 20 mg Pharmacy Consult (Consult Rx Vancomycin Dosing) 1 each MISCELLANE DAILY PRN PRN Reason: Consult order Home Medications ?Medication ?Instructions ?Recorded ?Confirmed ?Last Taken ?Type cholecalciferol (vitamin D3) 50 1 tab PO DAILY 02/21/20 06/15/24 Unknown History mcg (2,000 unit) tablet multivitamin 1 tab PO DAILY 02/21/20 06/14/24 Unknown History thiamine mononitrate (vit B1) 100 1 tab PO DAILY 02/21/20 06/15/24 Unknown History mg tablet clopidogrel 75 mg tablet 75 mg PO DAILY 10/09/21 12/14/23 Unknown History rosuvastatin 10 mg tablet 10 mg PO BEDTIME 10/09/21 06/14/24 Unknown History aspirin 81 mg chewable tablet 81 mg PO DAILY 04/29/23 06/14/24 Unknown History bictegravir 50 mg-emtricitabine 1 tab PO DAILY 04/29/23 06/14/24 Unknown History 200 mg-tenofovir alafenam 25 mg tablet (Biktarvy) folic acid 1 mg tablet 1 mg PO DAILY 04/29/23 06/15/24 Unknown History albuterol sulfate 90 mcg/actuation 2 puff inhalation Q4H PRN 12/14/23 06/15/24 Unknown History aerosol inhaler (Ventolin HFA) SOB/Wheezing fluticasone 250 mcg-salmeterol 50 1 inh inhalation BID 12/14/23 06/14/24 Unknown History mcg/dose blistr powdr for inhalation (Advair Diskus) tiotropium bromide 2.5 2 puff inhalation DAILY 12/14/23 06/14/24 Unknown History mcg/actuation mist for inhalation (Spiriva Respimat) hydrochlorothiazide 12.5 mg tablet 12.5 mg PO DAILY blood pressure 06/14/24 06/14/24 Unknown History lidocaine 5 % topical ointment 1 ea topical BID pain 06/14/24 06/14/24 Unknown History lisinopril 5 mg tablet 5 mg PO DAILY blood pressure 06/14/24 06/14/24 Unknown History pantoprazole 20 mg tablet,delayed 20 mg PO DAILY@0630 06/14/24 06/14/24 Unknown History release methadone 10 mg/mL oral 60 mg PO DAILY 06/15/24 06/15/24 06/11/24 History concentrate (Methadone Intensol) Physical Exam Vital Signs: Last Vital Signs Temp 98.3 F 06/15/24 20:00 Pulse 85 06/15/24 20:00 Resp 22 H 06/15/24 20:00 BP 99/55 L 06/15/24 20:00 Pulse Ox 97 06/15/24 20:00 O2 Del Method Room Air 06/15/24 20:00 BMI result Body Mass Index 24.4 Const General: no acute distress Eyes EOM: EOMs intact bilaterally Resp Auscultation: diminished lung sounds Cardio Rate: regular rate GI Palpation (GI): Soft to palpation Neuro General: moves all extremities Results Lab Results 06/15/24 06:59 06/15/24 18:00 Lab results: Chemistry 06/14/24 06/14/24 06/15/24 15:59 22:35 06:59 Sodium 144 144 143 Potassium 2.4 L* D 2.3 L* 2.6 L* Carbon Dioxide 23 20 L 19 L BUN 58 H 53 H 45 H Creatinine 4.42 H* 3.69 H 3.23 H Calcium 6.4 L D 6.1 L 6.2 L Phosphorus 5.0 H 06/15/24 18:00 Sodium 142 Potassium 3.3 D Carbon Dioxide 19 L BUN 39 H Creatinine 3.06 H Calcium 7.0 L D Phosphorus 3.0 Hematology 06/14/24 06/15/24 17:42 06:59 WBC 5.1 7.0 Hgb 6.2 L* D 8.9 L D Plt Count 145 L D 133 L Urinalysis 06/14/24 20:32 Urine Color Yellow Urine Appearance Clear Urine pH 5.5 Ur Specific [place] 1.015 Urine Protein 30 (1+) H Urine Glucose (UA) Negative Urine Ketones Negative Urine Blood Trace H Urine Nitrite Negative Ur Leukocyte Esterase Negative Urine RBC 0-2 Urine WBC 0-5 Ur Squamous Epith Cells 0-2 Hyaline Casts 3-5 Assessment and Plan (1) Acute on chronic renal failure: Qualifiers: Acute renal failure type: unspecified Chronic kidney disease stage: unspecified stage Qualified Code(s): N17.9 - Acute kidney failure, unspecified; N18.9 - Chronic kidney disease, unspecified Status: Acute Plan ELSIE due to compromise in renal perfusion UO good with improved hemodynamics No reason to suspect GN/AIN No indication for renal replacement C/W rest of current supportive care Shall closely follow up Procedures Date of Service Date of Service: 06/15/24
[2024-06-15 21:17] LABS: Vancomycin Random 12.5 mcg/mL (15-20)
[2024-06-15] MEDS: vancomycin HCL 500 MG in 0.9 % Sodium Chloride 100 ML 110 MG IV (23:05)
[2024-06-16] VITALS (51 sets, daily range): BP systolic 63–109; BP diastolic 21–70; PULSE 52–177; RESP 11–30; TEMP 34.8–36.7; O2SAT 90–98; BMI 27.9
--- NOTE | 2024-06-16 | ECG_ITS ---
Test Reason : tachycardia Blood Pressure : */* mmHG Vent. Rate : 153 BPM Atrial Rate : 441 BPM P-R Int : * ms QRS Dur : 116 ms QT Int : 316 ms P-R-T Axes : * 266 86 degrees QTcB Int : 504 ms Undetermined rhythm Low voltage QRS Possible Anterolateral infarct (cited on or before 16-Jun-2024) Abnormal ECG When compared with ECG of 16-Jun-2024 16:39, Current undetermined rhythm precludes rhythm comparison, needs review QRS duration has increased Referred By: Sussy You Electronically Signed By: BOOKER OLIVIER
--- NOTE | 2024-06-16 | ECG_ITS ---
Test Reason : arrhythmia Blood Pressure : */* mmHG Vent. Rate : 122 BPM Atrial Rate : * BPM P-R Int : * ms QRS Dur : 112 ms QT Int : 348 ms P-R-T Axes : * 209 75 degrees QTcB Int : 495 ms Atrial fibrillation with rapid ventricular response vs ventricular tachycarda Anterolateral infarct (cited on or before 16-Jun-2024) Abnormal ECG When compared with ECG of 16-Jun-2024 22:22, decrease in ventricular rate; possible rhythm change Referred By: Sussy You Electronically Signed By: BOOKER OLIVIER
[2024-06-16] MEDS: Norepinephrine Bitartrate/D5W 8 MG/250 ML PLAST..BAG 13.24 MG IVCONT (01:39)
[2024-06-16] MEDS: Heparin Sodium,Porcine 5,000 UNIT/ML VIAL 5000 UNIT SUBCUT (01:42)
[2024-06-16] MEDS: Piperacillin Sodium/Tazobactam 2.25 GM in 0.9 % Sodium Chloride 50 ML IV ×3 (01:42→17:49)
[2024-06-16] MEDS: Sulfamethoxazole/Trimethoprim 320 MG in Dextrose 5 % 500 ML 225 MG IV ×3 (04:55→19:36)
[2024-06-16 05:36] LABS: VBG HCO3 21 mmol/L (22-26); VBG pCO2 29 mmHg; VBG pH 7.45 (7.32-7.43); VBG pO2 46 mmHg
[2024-06-16 05:44] LABS: Venous Blood Gas Refer to POC result
[2024-06-16 05:48] LABS: Basophils Percent Auto 0.2 % (0-2); Eosinophils Absolute Auto 0.1 X10*3/uL (0.0-0.4); Eosinophils Percent Auto 0.7 % (0-4); Hematocrit 25.1 % (42.0-52.0); Hemoglobin 8.3 g/dl (14.0-18.0); Imm Gran Abs Auto 0.02 X10*3/uL (0.00-0.03); Imm Gran Pct Auto 0.2 % (0.0-0.4); Lymphocytes Absolute Auto 1.7 X10*3/uL (1.2-4.9); Lymphocytes Percent Auto 21.3 % (20-40); MANUAL DIFF FLAG NO; Mean Corpuscular HGB Conc 33.1 g/dl (31.0-36.0); Mean Corpuscular Volume 93.7 fL (80.0-98.0); Monocytes Absolute Auto 0.6 X10*3/uL (0.1-1.2); Monocytes Percent Auto 7.4 % (2-11); Neutrophils Absolute Auto 5.7 x10*3/uL (2.0-8.3); Neutrophils Percent Auto 70.2 % (45-73); Platelet Count 142 X10*3/uL (160-400); Red Blood Count 2.68 X10*6/uL (4.60-5.80); Red Cell Distribution Width 16.1 % (11.0-16.0); White Blood Count 8.1 X10*3/uL (4.8-10.8)
[2024-06-16 06:18] LABS: Albumin Level 2.2 g/dL (3.5-5.0); Anion Gap 13 (12-20); Blood Urea Nitrogen 33 mg/dL (9-16); Calcium 6.8 mg/dL (8.4-10.2); Carbon Dioxide 20 mmol/L (22-29); Chloride 112 mmol/L (96-108); Creatinine Clr Calc Pharmacy 24.9; Estimated Glomerular Filt Rate 26; Glucose Random 110 mg/dL (60-115); Magnesium 1.3 mg/dL (1.6-2.6); Phosphorus 3.6 mg/dL (2.7-4.5); Potassium 3.3 mmol/L (3.3-5.1); Sodium 142 mmol/L (135-145)
[2024-06-16] MEDS: Magnesium Sulfate/H2O 2 GM/50 ML PIGGYBACK IV (06:43)
[2024-06-16] MEDS: Calcium Chloride 1 GM/10 ML SYRINGE IVPUSH ×3 (06:50→23:31)
[2024-06-16] MEDS: ondansetron HCL 4 MG/2 ML VIAL IVPUSH ×3 (07:08→22:10)
--- NOTE | 2024-06-16 08:11 | PM.CCPN ---
Subjective Subjective Date of Service: 06/16/24 Interval History: no significant overnight events Critical Care Time (minutes): 60 Physical Exam Vital Signs: Vital Signs: Last Vital Signs Temp 98.1 F 06/15/24 23:59 Pulse 77 06/16/24 07:03 Resp 19 06/16/24 07:00 BP 90/55 L 06/16/24 07:03 Pulse Ox 98 06/16/24 07:00 O2 Del Method Room Air 06/16/24 07:00 BMI result Body Mass Index 27.9 Const: General: cooperative, healthy appearing, comfortable, no acute distress, well developed, alert, awake and Physically active Orientation/consciousness: patient oriented x3 HEENT: Head: Yes normal to inspection, Yes normocephalic and Yes atraumatic Eyes: General: appearance normal, both eyes and all related structures Neck: Neck: Yes normal visual inspection, Yes full ROM, Yes no meningeal signs, Yes trachea midline and Yes supple Chest: Chest palpation & inspection: normal inspection of the chest Resp: Other: some appreciable rhonchi, L greater than R; no appreciable overt rales, wheezing Effort & Inspection: normal respiratory effort Cardio: Rate: regular rate Rhythm: regular rhythm GI: Inspection: Yes normal to inspection, No Abdominal wall edema and No distended Palpation (GI): Soft to palpation, not firm, nontender, no guarding and not rigid Skin: General skin exam: no rashes or lesions noted Neuro: General: patient oriented x3, tone normal, moves all extremities, no meningeal signs and no focal motor deficits Extrem: General: Yes normal to inspection, Yes full ROM, Yes capillary refill normal and Yes no clubbing, cyanosis or edema Psych: Appearance: grossly normal Objective Data Labs 06/16/24 05:26 06/16/24 05:26 Labs: Laboratory Results - last 24 hr 06/14/24 06/15/24 06/15/24 17:42 14:28 18:00 WBC RBC Hgb Hct MCV MCH MCHC RDW Plt Count MPV Immature Gran % (Auto) Neut % (Auto) Lymph % (Auto) [place] % (Auto) Eos % (Auto) Baso % (Auto) Lymph # (Auto) [place] # (Auto) Eos # (Auto) Baso # (Auto) Abs Immat Gran (auto) Absolute Neuts (auto) Absolute Nucleated RBC Nucleated RBC % (auto) Smear Path Review SEE NOTE VBG pH VBG pCO2 VBG pO2 VBG HCO3 VBG O2 Saturation VBG Base Excess Sodium 142 Potassium 3.3 D Chloride 114 H Carbon Dioxide 19 L Anion Gap 12 BUN 39 H Creatinine 3.06 H Estim Creat Clear Calc 20.3 Estimated GFR 21 Random Glucose 175 H Calcium 7.0 L D Phosphorus 3.0 Magnesium 1.6 Albumin TSH 0.53 Random Vancomycin 06/15/24 06/16/24 06/16/24 20:55 05:26 05:32 WBC 8.1 RBC 2.68 L Hgb 8.3 L Hct 25.1 L MCV 93.7 MCH 31.0 MCHC 33.1 RDW 16.1 H Plt Count 142 L MPV 10.0 Immature Gran % (Auto) 0.2 Neut % (Auto) 70.2 Lymph % (Auto) 21.3 [place] % (Auto) 7.4 Eos % (Auto) 0.7 Baso % (Auto) 0.2 Lymph # (Auto) 1.7 [place] # (Auto) 0.6 Eos # (Auto) 0.1 Baso # (Auto) 0.0 Abs Immat Gran (auto) 0.02 Absolute Neuts (auto) 5.7 Absolute Nucleated RBC 0.000 Nucleated RBC % (auto) 0.0 Smear Path Review VBG pH 7.45 H VBG pCO2 29 VBG pO2 46 VBG HCO3 21 L VBG O2 Saturation 77.0 VBG Base Excess -2.0 Sodium 142 Potassium 3.3 Chloride 112 H Carbon Dioxide 20 L Anion Gap 13 BUN 33 H Creatinine 2.50 H Estim Creat Clear Calc 24.9 Estimated GFR 26 Random Glucose 110 Calcium 6.8 L Phosphorus 3.6 Magnesium 1.3 L* Albumin 2.2 L TSH Random Vancomycin 12.5 L Microbiology Microbiology Results: Microbiology 06/14/24 17:42 Blood - Venous Blood Culture - Preliminary No growth after 24 hours. 06/14/24 15:59 Blood - Venous Blood Culture - Preliminary No growth after 24 hours. Progress Note: A&P Assessment and plan (1) Pneumonia: Status: Acute (2) Hypotension: Status: Resolved Plan Patient is a 68 Y M w/ prior polio c/b lower extremity deficits, COPD, emphysema, polysubstance misuse including alcohol, opioids, on methadone, HIV and HCV, presenting?to emergency department on 06/14 w/ dyspnea, cough, found to have CT C c/f bilateral pneumonia and hypotensive, admitted ICU for vasopressors N: no acute issues CV: hypotension, norepinephrine gtt, wean as tolerated R: c/f pneumonia, though not on supplemental oxygen, to continue to monitor GI: no acute issues; regular diet : acute renal insufficiency, to closely monitor renal indices, electrolytes H: acute on chronic anemia, no overt stigmata of hemorrhage, transfuse as needed ID: c/f pneumonia, empiric vancomycin/zosyn/bactrim; HIV to hold home biktarvy d/t renal insufficiecy, HCV E: to monitor hypo-/hyper-glycemia P: polysubstance misuse, on home methadone Quality Stroke Does the patient have a stroke diagnosis?: No VTE Prior VTE?: No VTE Risk Level:: Medical - moderate - high VTE Device Contraindication: N/A - Device Ordered VTE Drug Contraindication: N/A - Med Ordered
[2024-06-16] MEDS: methADONE HCl 20 MG/2 ML ORAL.CONC 60 MG PO (09:28)
[2024-06-16] MEDS: Albumin Human 25 % 50 ML 100 ML IV (09:28)
[2024-06-16] MEDS: Vasopressin 20 UNIT/100 ML INFUS..BTL 12 UNIT IVCONT ×2 (11:13→16:40)
[2024-06-16] MEDS: Acetaminophen 1,000 MG/100 ML PIGGYBACK 400 MG IV (11:21)
[2024-06-16 11:38] LABS: Lactic Acid 1.9 mmol/L (0.5-2.0)
[2024-06-16 11:59] LABS: Cortisol Random 9.6 ug/dL
[2024-06-16] MEDS: Norepinephrine Bitartrate/D5W 8 MG/250 ML PLAST..BAG 42.13 MG IVCONT (13:38)
--- NOTE | 2024-06-16 15:05 | PC.NURSE ---
Addendum entered by Sorin Houston RN 06/16/24 16:03: Informed MD of the following. O2 unable to be obtained on pt. It was reading in the 90s prior. Pt started to state he cant breath after the episode of n/v, at this time O2 sat was 95% and pt was talking and lung sounds were clear but dim. L side is more dim than the R Original Note: informed md of pt's increased levo requirements and pt's pain
[2024-06-16] MEDS: Albuterol/Iprat 2.5/0.5MG 3 ML AMPUL.NEB INHALE (15:27)
[2024-06-16] MEDS: Morphine Sulfate 2 MG/ML CARTRIDGE IVPUSH (16:29)
--- NOTE | 2024-06-16 16:39 | ECG_ITS ---
Test Reason : cp Blood Pressure : */* mmHG Vent. Rate : 106 BPM Atrial Rate : 106 BPM P-R Int : 160 ms QRS Dur : 78 ms QT Int : 314 ms P-R-T Axes : 82 -63 -5 degrees QTcB Int : 417 ms Poor data quality Sinus tachycardia with Premature supraventricular complexes and Premature ventricular complexes or Fusion complexes Left axis deviation Low voltage QRS Inferior infarct , age undetermined Cannot rule out Anteroseptal infarct , age undetermined Abnormal ECG When compared with ECG of 14-Jun-2024 14:40, due to poor quality,cannot compare Referred By: Mellisa Villegas Electronically Signed By: BOOKER OLIVIER
[2024-06-16] MEDS: iohexoL 350 MG/ML 100 ML INFUS..BTL IV (17:13)
[2024-06-16 18:23] LABS: MANUAL DIFF FLAG NO
[2024-06-16 18:29] LABS: Basophils Percent Auto 0.4 % (0-2); Eosinophils Percent Auto 0.2 % (0-4); Hematocrit 24.8 % (42.0-52.0); Hemoglobin 8.2 g/dl (14.0-18.0); Imm Gran Abs Auto 0.06 X10*3/uL (0.00-0.03); Imm Gran Pct Auto 0.6 % (0.0-0.4); Lymphocytes Absolute Auto 1.1 X10*3/uL (1.2-4.9); Mean Corpuscular HGB Conc 33.1 g/dl (31.0-36.0); Mean Corpuscular Hemoglobin 30.9 pg (27.0-33.0); Mean Corpuscular Volume 93.6 fL (80.0-98.0); Mean Platelet Volume 10.2 fL (9.4-12.4); Monocytes Absolute Auto 0.6 X10*3/uL (0.1-1.2); Monocytes Percent Auto 5.4 % (2-11); NRBC Pct Auto 0.2 /100WBC (0.0-0.2); Neutrophils Percent Auto 83.4 % (45-73); Platelet Count 180 X10*3/uL (160-400); Red Blood Count 2.65 X10*6/uL (4.60-5.80); Red Cell Distribution Width 16.2 % (11.0-16.0); White Blood Count 10.8 X10*3/uL (4.8-10.8)
[2024-06-16 18:29] LABS: VBG Base Excess -7.9 mmol/L; VBG HCO3 16 mmol/L (22-26); VBG pCO2 31 mmHg; VBG pH 7.33 (7.32-7.43); VBG pO2 38 mmHg
[2024-06-16 18:30] LABS: Venous Blood Gas Refer to POC result
[2024-06-16 18:45] LABS: Alanine Aminotransferase < 6 U/L (0-40); Albumin Level 2.5 g/dL (3.5-5.0); Alkaline Phosphatase 123 U/L (39-117); Anion Gap 16 (12-20); Aspartate Amino Transferase 22 U/L (5-37); Bilirubin Total 0.5 mg/dL (0.0-1.0); Blood Urea Nitrogen 25 mg/dL (9-16); Calcium 7.3 mg/dL (8.4-10.2); Carbon Dioxide 16 mmol/L (22-29); Chloride 110 mmol/L (96-108); Creatinine Clr Calc Pharmacy 28.8; Estimated Glomerular Filt Rate 28; Glucose Random 135 mg/dL (60-115); Magnesium 1.7 mg/dL (1.6-2.6); Phosphorus 5.8 mg/dL (2.7-4.5); Sodium 138 mmol/L (135-145); Total Protein 6.4 g/dL (6.5-8.0)
[2024-06-16] MEDS: Norepinephrine Bitartrate/D5W 8 MG/250 ML PLAST..BAG 44.54 MG IVCONT (19:23)
[2024-06-16] MEDS: Albumin Human 25 % 100 ML IV (21:16)
[2024-06-16 21:18] LABS: Vancomycin Random 13.3 mcg/mL (15-20)
[2024-06-16] MEDS: Calcium Gluconate/NaCl,Iso-Osm 2 GM/100 ML PLAST..BAG IV (21:54)
[2024-06-16] MEDS: vancomycin HCL 750 MG in 0.9 % Sodium Chloride 250 ML 265 MG IV (22:07)
--- NOTE | 2024-06-16 22:22 | ECG_ITS ---
Test Reason : cp Blood Pressure : */* mmHG Vent. Rate : 159 BPM Atrial Rate : * BPM P-R Int : * ms QRS Dur : 114 ms QT Int : 324 ms P-R-T Axes : * 261 88 degrees QTcB Int : 527 ms Undetermined rhythm Low voltage QRS Possible Anterolateral infarct (cited on or before 16-Jun-2024) Abnormal ECG When compared with ECG of 16-Jun-2024 22:21, No significant changes seen Referred By: Mellisa Villegas Electronically Signed By: BOOKER OLIVIER
[2024-06-16] MEDS: Adenosine 6 MG/2 ML VIAL IVPUSH (22:41)
[2024-06-16] MEDS: Adenosine 6 MG/2 ML VIAL 12 MG IVPUSH (22:50)
[2024-06-16] MEDS: propofoL 200 MG/20 ML VIAL 100 MG IVPUSH (22:57)
[2024-06-16] MEDS: Rocuronium Bromide 50 MG/5 ML VIAL IVPUSH (23:07)
[2024-06-16] MEDS: propofoL 1,000 MG/100 ML VIAL 13.7 MG IVCONT (23:08)
[2024-06-16] MEDS: Norepinephrine Bitartrate/D5W 8 MG/250 ML PLAST..BAG 120.38 MG IVCONT (23:22)
[2024-06-16] MEDS: Amiodarone HCL 150 MG/3 ML VIAL 300 MG IVPUSH (23:24)
[2024-06-16] MEDS: Amiodarone HCL 900 MG in 0.9 % Sodium Chloride 500 ML 17.27 MG IVCONT (23:34)
--- NOTE | 2024-06-16 23:51 | PM.CCN ---
Critical Care Event Note Summary Date of Service: 06/16/24 Code activated: No Narrative: This case had a high probability of a clinically significant, sudden, or life threatening deterioration of this patient's condition which required my full and direct attention, intervention and personal management. Critical Care Time (minutes): 300 Comment: Throughout the evening, the pt?s pressor requirements increased and it became difficult to obtain an O2 sat and blood pressure. The patient denied any dyspnea or shortness of breath, no accessory muscle use, no chest pain, no palpitations. Additional pressors were added. He began vomiting and then went into SVT.? He was given multiple doses of adenosine without effect. The patient then agreed to intubation and requested everything be done. He declined to provide a contact number for family stating that they were in [place] and he did not want them called. Pressor requirements continued to increase. He was intubated. Cardioversion was attempted without success. He was given amiodarone resulting in a rhythm change to AFib 110 to 130s. Chest x-ray showed no significant change from previous, abdomen soft nontender. KUB normal. CTA done earlier in the evening was negative for PE. He was given bicarb for profound metabolic acidosis. He received bolus of 2 L LR, 2 bags albumin. Despite being maxed out on 4 pressors, a sodium bicarb drip, amiodarone drip, the patient became pulseless. CPR and ALS protocol were immediately initiated. ROSC was obtained after 2 rounds of ACLS. Unfortunately, the pt arrested again. After 3 consecutive arrests, attempts at resuscitation were futile and the pt . The patient was pulseless showing asystole on the monitor. Pupils fixed and dilated. Absent heart sounds? and no spontaneous breathing. Resuscitative measures were stopped. The patient at 02:50.?The patient is not a medical office professional instructor case. Organ donation was notified by nursing. Attending Dr Villegas notified. Case management notified to identify next of kin.??
[2024-06-16] MEDS: Phenylephrine HCL 1,000 MCG/10 ML SYRINGE 1700 MCG IVPUSH (23:57)
[2024-06-17] VITALS (17 sets, daily range): BP systolic 31–158; BP diastolic 12–62; PULSE 90–141; RESP 17–20; TEMP 36.1–36.8; O2SAT 77
[2024-06-17] MEDS: Sodium Bicarbonate 8.4% 50 MEQ/50 ML SYRINGE IVPUSH ×3 (00:05→00:40)
[2024-06-17 00:06] LABS: VBG HCO3 7 mmol/L (22-26); VBG pCO2 17 mmHg; VBG pH 7.22 (7.32-7.43); VBG pO2 50 mmHg
[2024-06-17 00:06] LABS: MANUAL DIFF FLAG NO
[2024-06-17 00:07] LABS: Basophils Percent Auto 0.2 % (0-2); Hematocrit 23.6 % (42.0-52.0); Hemoglobin 7.6 g/dl (14.0-18.0); Imm Gran Abs Auto 0.08 X10*3/uL (0.00-0.03); Lymphocytes Absolute Auto 2.3 X10*3/uL (1.2-4.9); Lymphocytes Percent Auto 27.3 % (20-40); Mean Corpuscular HGB Conc 32.2 g/dl (31.0-36.0); Mean Corpuscular Hemoglobin 31.5 pg (27.0-33.0); Mean Corpuscular Volume 97.9 fL (80.0-98.0); Mean Platelet Volume 10.3 fL (9.4-12.4); Monocytes Absolute Auto 0.2 X10*3/uL (0.1-1.2); Monocytes Percent Auto 2.6 % (2-11); NRBC Pct Auto 0.6 /100WBC (0.0-0.2); Neutrophils Absolute Auto 5.8 x10*3/uL (2.0-8.3); Neutrophils Percent Auto 68.9 % (45-73); Platelet Count 162 X10*3/uL (160-400); Red Blood Count 2.41 X10*6/uL (4.60-5.80); Red Cell Distribution Width 16.5 % (11.0-16.0); White Blood Count 8.4 X10*3/uL (4.8-10.8)
[2024-06-17 00:10] LABS: Glucose, Whole Blood 188 mg/dL (60-115)
[2024-06-17] MEDS: Sodium Bicarbonate 8.4% 150 MEQ in Dextrose 5 % 850 ML IV (00:20)
[2024-06-17] MEDS: Vasopressin 20 UNIT/100 ML INFUS..BTL 12 UNIT IVCONT (00:24)
[2024-06-17 00:28] LABS: Anion Gap 22 (12-20); Blood Urea Nitrogen 23 mg/dL (9-16); Calcium 10.5 mg/dL (8.4-10.2); Carbon Dioxide 7 mmol/L (22-29); Chloride 110 mmol/L (96-108); Creatinine Clr Calc Pharmacy 27.2; Estimated Glomerular Filt Rate 26; Glucose Random 258 mg/dL (60-115); Magnesium 2.2 mg/dL (1.6-2.6); Phosphorus 8.2 mg/dL (2.7-4.5); Potassium 4.5 mmol/L (3.3-5.1); Sodium 134 mmol/L (135-145)
[2024-06-17 00:31] LABS: ABG Base Excess -13.5 mmol/L; ABG HCO3 10 mmol/L (22-26); ABG pCO2 19 mmHg (32-45); ABG pH 7.33 (7.35-7.45); ABG pO2 400 mmHg (83-108)
[2024-06-17 00:33] LABS: Troponin-I High Sensitivity 176.8 ng/L (<3.5-35.0)
--- NOTE | 2024-06-17 00:33 | W.PM.CCHP ---
Procedures Date of Service Date of Service: 06/17/24 Intubation Consent for Procedure: Emergent-no informed consent obtained Time out performed: Yes Sedative: propofol Mg given: 100 Paralytic: rocuronium Mg given: 50 Laryngoscope: fiber optic video scope ET tube size: 7.5 ET tube uncuffed: Yes Tube secured depth (cm): 25 Tube secured location: lips Tube placement confirmation: visualized tube passing through cords, equal breath sounds bilaterally, no breath sounds over epigastrium and confirmation by capnometry Patient tolerated procedure: well and no complications Intubation complications: hypotension
[2024-06-17] MEDS: Phenylephrine HCL 20 MG in 0.9 % Sodium Chloride 250 ML 28.77 MG IVCONT (00:53)
[2024-06-17] MEDS: Norepinephrine Bitartrate/D5W 8 MG/250 ML PLAST..BAG 120.38 MG IVCONT ×2 (01:13→02:14)
[2024-06-17] MEDS: Phenylephrine HCL 20 MG in 0.9 % Sodium Chloride 250 ML 345.19 MG IVCONT ×2 (01:43→02:20)
[2024-06-17] MEDS: Albumin Human 25 % 100 ML IV (01:43)
[2024-06-17] MEDS: Lactated Ringers 1,000 ML 999 ML IV (01:43)
[2024-06-17] MEDS: Albumin Human 25 % 100 ML 200 ML IV (01:50)
[2024-06-17 02:24] LABS: Venous Blood Gas Refer to POC result
[2024-06-17 02:29] LABS: VBG Base Excess -20.2 mmol/L; VBG HCO3 7 mmol/L (22-26); VBG pCO2 21 mmHg; VBG pO2 77 mmHg
[2024-06-17 02:46] LABS: Anion Gap 26 (12-20); Blood Urea Nitrogen 19 mg/dL (9-16); Calcium 6.7 mg/dL (8.4-10.2); Carbon Dioxide 6 mmol/L (22-29); Chloride 113 mmol/L (96-108); Creatinine Clr Calc Pharmacy 40.3; Estimated Glomerular Filt Rate 41; Glucose Random 410 mg/dL (60-115); Magnesium 1.6 mg/dL (1.6-2.6); Phosphorus 7.7 mg/dL (2.7-4.5); Potassium 3.5 mmol/L (3.3-5.1); Sodium 141 mmol/L (135-145)
[2024-06-17 02:59] LABS: Lactic Acid 16.7 mmol/L (0.5-2.0)
[2024-06-17 04:12] LABS: ABG Refer to POC result
[2024-06-17 04:23] LABS: Reflex Lactate? Lactic Acid Added
--- NOTE | 2024-06-17 04:43 | PC.NURSE ---
2219 Patient noted to be in SVT HR in the 160's on telemetry. Provider ordered Adenosine , after receiving several doses of medication HR did not improve. Throughout evening patient was requiring increased rate of Vasopressors, and had an episode of vomiting . BP was unstable was as low as 60 systolically . It was also difficult to obtain an O2 sats. Patient expressed to provider his wishes were to continue to be a full code. Patient was intubated, and attempt was made to cardiovert which was not successful. Amiodarone was ordered and administered. See MAR for all medications given. Patient's HR converted to Afib following Amiodarone administration. BP was as low as 30's systolically. Patient was pulseless and compressions and ACLS initiated . ROSC was obtained. Patient arrested several more times. Following all attempts to resuscitate pulse was lost , heart and lung sounds absent. Asystole on monitor. Resuscitation stopped. Patient at 0250. Pronounced by Field Marketing Associate provider. Organ donation bank was contacted and patient was declined.
--- NOTE | 2024-06-17 05:52 | PM.DDS ---
Discharge Sum: Prov Provider Primary care physician: Martha Sesay DO <Sussy You NP - Last Filed: 06/17/24 06:15> Admitting clinician: Mellisa Villegas <Sussy You NP - Last Filed: 06/17/24 06:15> Attending physician on admission: Mellisa Villegas <Sussy You NP - Last Filed: 06/17/24 06:15> Consults: 06/15/24 07:46 Consult to Wound Care Routine Reason for consultation: treatment recs for buttock wounds present on admit Has provider been notified: Yes <Sussy You NP - Last Filed: 06/17/24 06:15> Pronouncing clinician: Sussy You <Sussy You NP - Last Filed: 06/17/24 06:15> Discharge Sum: Diag PCOD Cause of : Cardiogenic shock <Sussy You NP - Last Filed: 06/17/24 06:15> Contributing Factors (1) Hypotension: (2) Pneumonia: (3) HIV (human immunodeficiency virus infection): (4) Polysubstance abuse: Discharge Sum: Summary Date and Time Date of admission: 06/15/24 01:25 <Sussy You NP - Last Filed: 06/17/24 06:15> Date of : 06/17/24 <Sussy You NP - Last Filed: 06/17/24 06:15> Time of : 02:50 <Sussy You NP - Last Filed: 06/17/24 06:15> Summary Details: 68 Y M w/ prior polio c/b lower extremity deficits, COPD, emphysema, polysubstance misuse including alcohol, opioids, on methadone, HIV and HCV, presenting?to emergency department on 06/14 w/ dyspnea, cough, found to have CT C c/f bilateral pneumonia and hypotensive, admitted to ICU for Hypotension. ICU stay complicated by sepsis, hypotension refractory to pressor support, arrhythmias, metabolic acidosis and cardiac arrest without ROSC. <Sussy You NP - Last Filed: 06/17/24 06:15> Mr. Calderon is a 68 Y M w/ prior polio c/b lower extremity deficits, COPD, emphysema, polysubstance misuse including alcohol, opioids, on methadone, HIV and HCV, presenting?to emergency department on 06/14 w/ dyspnea, cough, found to have CT C c/f bilateral pneumonia and hypotensive, admitted to ICU for vasopressors; on 06/16, Mr. Calderon developed worsening hypotension necessitating increased vasopressors and nausea/vomiting, though otherwise denied any other symptoms; moreover, Mr. Calderon was normoxic, though developed tachyarrythmia thought to SVT for which adenosine was attempted though unsuccessful; due to his escalating vasopressor requirement and arrhythmia, the decision was made to intubate Mr. Calderon; Mr. Calderon's vasopressor requirements continued to escalate and eventually on 06/16 PM, Mr. Calderon suffered 2 cardiac arrests; ROSC was unable to be achieved on the second cardiac arrest; Mr. Calderon was declared at 02:50 06/17 <Mellisa Villegas MD - Last Filed: 06/17/24 10:59> Additional Data Confirmation of as documented by pronouncing clinician: no pulse, no respirations, no heart sounds and pupils fixed and dilated <Sussy You NP - Last Filed: 06/17/24 06:15> Family: not available (pt declined to provide a family contact) <Sussy You NP - Last Filed: 06/17/24 06:15> Attending/PCP notified?: Yes <Sussy You NP - Last Filed: 06/17/24 06:15> Attending physician: Mellisa Villegas MD <Sussy You NP - Last Filed: 06/17/24 06:15> Was code activated?: Yes <Sussy You NP - Last Filed: 06/17/24 06:15> Autopsy requested?: No <Sussy You NP - Last Filed: 06/17/24 06:15> No <Mellisa Villegas MD - Last Filed: 06/17/24 10:59> electric powerline examiner notified?: No <Sussy You NP - Last Filed: 06/17/24 06:15> Organ bank notified?: Yes <Sussy You NP - Last Filed: 06/17/24 06:15>
--- NOTE | 2024-06-18 09:55 | MHC.CM.PN ---
Call placed to pt's brotherDenzel at [phone] requesting he contact [facility] for information re: his brother.
[2024-06-19 17:54] LABS: Absolute CD3 Count 1290 cells/uL (840-3060); Absolute CD4 Count 1002 cells/uL (490-1740); Absolute CD8 Count 301 cells/uL (180-1170); Absolute Lymphocytes 1658 cells/uL (850-3900); CD4 CD8 Ratio 3.33 (0.86-5.00); Percent CD3 Cells 78 % (57-85); Percent CD4 Cells 60 % (30-61); Percent CD8 Cells 18 % (12-42)
--- NOTE | 2024-07-05 10:02 | P.CDIM_ITS ---
PROVIDER RESPONSE TEXT: To clarify, the appropriate diagnosis supported by the clinical indicators: Sepsis and Septic Shock is/was present on admission QUERY TEXT: PHYSICIAN'S DOCUMENTATION REQUEST Date of Query: 07/05/2024 08:38 AM EDT Patient Name: Wes Calderon Admit Date: 06/15/2024 Dear Mellisa Villegas MD, A review of the medical record indicates additional documentation may be needed. Please review below and update the documentation accordingly. Documentation on the note dated 06/17/23 included the diagnosis of sepsis. (ICU stay was complic ated by Sepsis) The patient's infectious clinical indicators include: presented to the ED on 06/14/24 with shortness of breath, weakness Labs on admission 06/15/24: WBC 7.0 temperature 98.3, pulse 106, respiratory rate 30, BP 75/43 Per H&P 06/15/24: admitted with hypotension, severe anemia, hypokalemia, acute on chronic renal failur e CT showed bilateral infiltrates. Empirically treated in the ER: Vancomycin Add Zosyn, Duonebs Patient was on room air 06/15/24-06/16/24. Hypotension likely due to anemia/ hypovolemia treated with vasopressors Underlying HIV. Patient does not meet SIRS criteria. Lactate 1.5. Afebrile. No leukocytosis. Cultures pending. Continue empiric treatment. Recognized standard criteria for this condition and other infectious definitions includes: Sepsis Systemic manifestations of infection, with 2 or more SIRS criteria which include: Fever > 100.4?F or hypothermia < 96.8?F Leukocytosis - WBC > 12,000 or leukopenia, WBC < 4,000, or > 10% bands Tachycardia- > 90 beats/minute Tachypnea- RR > 20 breaths/minute or PaCO2 < 32mmHg Source: [employer] Manual 2013 Documentation should include the known or suspected organism, and the underlying infection, such as U TI or pneumonia Severe Sepsis Sepsis with associated acute organ dysfunction, such as renal or respiratory failure Documentation should indicate the association between the sepsis and the organ dysfunction Septic Shock Severe sepsis with associated with circulatory failure, evidenced by hypotension and hypoperfusion Based on the above information and the recognized standard for sepsis, could you please clarify if th is diagnoses is still accurate and reflective of the patient's condition to ensure quality of the medical record. Sepsis and Septic Shock is/was present on admission After study, Sepsis and Septic Shock was not present on admission Other (explain) Clinically unable to determine (explain) Thank you, Michelle Malhotra RN Use of terms such as suspected, likely, concern for, or probable (associated with a specific diagnosi s that is being evaluated, monitored, or treated as if it exists) are acceptable and can be coded in the inpatient se tting, when documented at the time of discharge. Please use your independent medical judgment in providing your response. THIS QUERY IS PART OF THE PERMANENT MEDICAL RECORD
== END 2024-06-17 05:00 | disposition expired | DRG 871 ==
LOC: HO.ED 06-15 00:20 → HO.EDOVER 06-15 01:33 → HO.ICU 06-15 01:35
PROVIDERS: Emergency Medicine; Admitting Provider Nurse Practitioner Family; Emergency Provider Internal Medicine; PCP Family Medicine; Visit Provider Internal Medicine Critical Care Medicine
DX: A41.9 Sepsis, unspecified organism (principal); J18.9 Pneumonia, unspecified organism; R65.21 Severe sepsis with septic shock; F11.20 Opioid dependence, uncomplicated; N17.9 Acute kidney failure, unspecified; N13.2 Hydronephrosis with renal and ureteral calculous obstruction; I47.10 Supraventricular tachycardia, unspecified; N18.9 Chronic kidney disease, unspecified; F17.210 Nicotine dependence, cigarettes, uncomplicated; F19.90 Other psychoactive substance use, unspecified, uncomplicated; I46.9 Cardiac arrest, cause unspecified; I48.91 Unspecified atrial fibrillation; F10.90 Alcohol use, unspecified, uncomplicated; B19.20 Unspecified viral hepatitis C without hepatic coma; J43.9 Emphysema, unspecified; R57.0 Cardiogenic shock; Z21 Asymptomatic human immunodeficiency virus [HIV] infection status; D63.1 Anemia in chronic kidney disease; E87.6 Hypokalemia; Z20.822 Contact with and (suspected) exposure to COVID-19; Z71.6 Tobacco abuse counseling; Z79.82 Long term (current) use of aspirin; Z79.51 Long term (current) use of inhaled steroids; Z79.899 Other long term (current) drug therapy
CPT/HCPCS: 0241U; 36415; 71045; 71250; 71275; 74018; 74176; 80048; 80053; 80076; 80202; 80307; 81001; 82040; 82272; 82533; 82550; 82803; 82947; 83605; 83690; 83735; 83880; 84100; 84443; 84484; 85025; 85610; 86359; 86360; 86850; 86900; 86901; 86923; 87040; 93005; 94002; 94799; 99285; J0131; J0153; J0171; J0282; J0613; J0696; J1644; J1720; J2270; J2371; J2405; J2543; J2598; J2704; J3370; J3475; J3480; J7120; P9016; P9047; Q9967; S9485

== ENCOUNTER → 2024-06-14 14:27 | Outpatient (BNV) | payer OTHER, SELFPAY | PROVIDERS: Admitting Provider Nurse Practitioner Family; Emergency Provider Internal Medicine; PCP Family Medicine; Visit Provider Internal Medicine | DX: R94.31 Abnormal electrocardiogram [ECG] [EKG] (principal); R53.1 Weakness | CPT/HCPCS: 93010 ==

== ENCOUNTER → 2024-06-14 14:27 | Outpatient (BNV) | payer OTHER, SELFPAY | PROVIDERS: Emergency Provider Emergency Medicine; PCP Family Medicine; Visit Provider Radiology Diagnostic Radiology | DX: J90 Pleural effusion, not elsewhere classified (principal) | CPT/HCPCS: 71045 ==

== ENCOUNTER → 2024-06-15 00:52 | Outpatient (BNV) | payer OTHER, SELFPAY | PROVIDERS: Admitting Provider Nurse Practitioner Family; Emergency Provider Internal Medicine; PCP Family Medicine; Visit Provider General Practice | DX: R78.81 Bacteremia (principal); J90 Pleural effusion, not elsewhere classified; J98.11 Atelectasis | CPT/HCPCS: 71045; 71250; 74176 ==

== ENCOUNTER 2024-06-15 01:25 | Outpatient (BNV) | payer OTHER, SELFPAY | END 2024-06-16 16:25 | PROVIDERS: Admitting Provider Nurse Practitioner Family; Emergency Provider Internal Medicine; PCP Family Medicine; Visit Provider Radiology Diagnostic Radiology | DX: J18.9 Pneumonia, unspecified organism (principal); R09.02 Hypoxemia; R06.00 Dyspnea, unspecified | CPT/HCPCS: 71045; 71275 ==

== ENCOUNTER 2024-06-15 01:25 | Outpatient (BNV) | payer OTHER, SELFPAY | END 2024-06-17 00:34 | PROVIDERS: Admitting Provider Nurse Practitioner Family; Emergency Provider Internal Medicine; PCP Family Medicine; Visit Provider Radiology Neuroradiology | DX: R11.10 Vomiting, unspecified (principal); J90 Pleural effusion, not elsewhere classified; J98.11 Atelectasis; Z97.8 Presence of other specified devices | CPT/HCPCS: 71045; 74018 ==

== ENCOUNTER 2024-06-15 01:25 | Outpatient (BNV) | payer OTHER, SELFPAY | END 2024-06-16 22:21 | PROVIDERS: Admitting Provider Nurse Practitioner Family; Emergency Provider Internal Medicine; PCP Family Medicine; Visit Provider Internal Medicine | DX: R94.31 Abnormal electrocardiogram [ECG] [EKG] (principal) | CPT/HCPCS: 93010 ==

== ENCOUNTER → 2024-06-15 01:25 | Outpatient (BNV) | payer OTHER, SELFPAY | PROVIDERS: Admitting Provider Nurse Practitioner Family; Emergency Provider Internal Medicine; PCP Family Medicine; Visit Provider Nurse Practitioner Family | DX: I95.9 Hypotension, unspecified (principal); J18.9 Pneumonia, unspecified organism; B20 Human immunodeficiency virus [HIV] disease; F19.10 Other psychoactive substance abuse, uncomplicated | CPT/HCPCS: 31500; 99223; 99291; 99292; 99499 ==

== ENCOUNTER → 2024-06-15 01:25 | Outpatient (BNV) | payer OTHER, SELFPAY | PROVIDERS: Admitting Provider Nurse Practitioner Family; Emergency Provider Internal Medicine; PCP Family Medicine; Visit Provider Internal Medicine Nephrology | DX: N17.9 Acute kidney failure, unspecified (principal); N18.9 Chronic kidney disease, unspecified | CPT/HCPCS: 99223 ==